=== PATIENT | female | born 1950 | race Caucasian/White ===

== ENCOUNTER → 2016-03-07 | Outpatient (CLI) | payer OTHER ==
[~2016-03-07] MED LIST: ALBUAER2 INH; ALPR-411 PO; ASPI1TAB83 PO; ATEN-173 PO; ATEN25TA PO; ATOR-24 PO; CHOL2000 PO; CYAN100020 PO; DOCU100C31 PO; FLUT1INH INH; FURO-85 PO; HMLNPUC SQ; INSUINJ7 SC; INSUINJ8 SC; ISOS60TA25 PO; LEVO75TA PO; LOSA50TA6 PO; MAGN1CAP2 PO; METF-384 PO; NTRGSL/4 UT; OMEG10007 PO; OMEP40CA PO; SPIR25TA PO; TRAM-10 PO; VENL150C56 PO; VOLTAREN TOP; ZNTT/150 PO
--- NOTE | 2016-03-07 08:37 | DIAGNOSTIC IMAGING REPORT ---
CHEST CT WITHOUT CONTRAST CT DOSE: 696.83 mGy.cm HISTORY: Carcinoid tumor and lung resection. PULMONARY NODULE TECHNIQUE: Multiaxial CT images of the chest were performed without contrast. COMPARISON: Chest CT 09/26/2015. FINDINGS: Stable 6 mm pulmonary nodule within the left upper lobe on image 83 of 346. Stable 5 mm nodule within the left lower lobe on image 208. Linear densities within the lingula have slightly progressed. There may be a nodular component associated with these linear densities best seen on image 153. This measures 9 mm. Stable 4 mm nodule within the right lower lobe on image 202. Stable 1 cm nodule within the right lower lobe on image 197. Prior right middle lobe segmentectomy. Stable linear densities at the residual right middle lobe which suggests scarring. The central airways are patent. No pleural effusions. No pneumothorax. No suspicious lytic or blastic osseous lesions. There is an 8 mm right thyroid nodule. Subcentimeter mediastinal lymph nodes remain stable. These do not meet CT criteria for pathologic involvement. Normal caliber thoracic aorta. The heart is normal in size. Limited views of the upper abdomen demonstrate a normal liver, spleen, and adrenal glands. Prior cholecystectomy. Stable 3 mm nodule within the right upper lobe on image 99. IMPRESSION: 1. Multiple bilateral pulmonary nodules are again noted which remain stable. The largest in the right lower lobe measures 1 cm. Continued follow up is recommended. 2. Progressive linear densities within the lingula. This may contain a 9 mm nodular component. This bears watching on future examinations to exclude a developing pulmonary nodule. 3. Postoperative changes within the right middle lobe. Electronically signed by: Moo Fernandez M.D. 03/07/2016 8:35 AM
== END | disposition home or self-care (01) ==
LOC: C.CTS 07:44
PROVIDERS: ATTEND Surgery
DX: R91.1 Solitary pulmonary nodule (principal); C34.90 Malignant neoplasm of unspecified part of unspecified bronchus or lung

== ENCOUNTER → 2016-03-07 | Outpatient (CLI) | payer OTHER | END | disposition home or self-care (01) | LOC: C.LAB 07:50 | PROVIDERS: ATTEND Surgery | DX: C34.90 Malignant neoplasm of unspecified part of unspecified bronchus or lung (principal) ==

== ENCOUNTER 2016-03-12 05:28 | Day surgery (SDC) | payer OTHER ==
[~2016-03-12] VITALS: Ht 171.5 cm; Wt 100.0 kg
[~2016-03-12 05:28] MED LIST changes: -OMEG10007 PO; -VOLTAREN TOP
[2016-03-12] MEDS ORDERED: LACTATED RINGER'S 1000ML 1,000 ML IV SCH (06:00)
[2016-03-12] MEDS ORDERED: VOLTAREN TOP (06:03)
[2016-03-12 06:04] VITALS: BP 133/78; PULSE 65; TEMP 36.9; O2SAT 97; Ht 171.5 cm; Wt 100.0 kg
[2016-03-12] MEDS ORDERED: MIDAZOLAM HCL 1 MG/ML 2ML VIAL ONE (06:51)
[2016-03-12] MEDS ORDERED: FENTANYL CITRATE INJ 50 MCG/1 ML 2 ML VIAL ONE (06:51)
--- NOTE | 2016-03-12 07:07 | History & Physical Bridge Note ---
H&P Re-Evaluation Bridge Note: I have examined the patient, reviewed the History & Physical and in the interval since the performance of the History & Physical I have noted the following changes of clinical significance: No changes noted
[2016-03-12] MEDS ORDERED: CEFAZOLIN IV 2,000 MG/60 ML D5W IV ONE (07:09)
[2016-03-12] MEDS ORDERED: NURSING VERBAL MED ORDER ONE (07:15)
--- NOTE | 2016-03-12 07:36 | Discharge Instructions ---
Discharge Instructions Visit Reason for Visit: Pulmonary Nodule Discharge Discharge Diagnosis / Problem: Pulmonary Nodule Discharge Goals Goal(s): Learn about illness Activity Recommendations Activity Limitations: resume your previous activity (in 24 hours) Anesthesia . Post Anesthesia Instructions: If you have had General Anesthesia or IV Sedation: * Do not drive today. * Resume driving when surgeon permits. * Do not make important decisions or sign legal documents today. * Call surgeon for: 1. Temperature elevations greater than 101 degrees F. 2. Uncontrollable pain. 3. Excessive bleeding. 4. Persistent nausea and vomiting. 5. Medication intolerance (nausea, vomiting or rash). * For nausea and vomiting use only clear liquids such as: tea, soda, bouillon until nausea subsides, then gradually increase diet as tolerated. * If you have any concerns or questions, call your surgeon's office. If physician is unavailable and it is an emergency, call 911 or go to the nearest emergency room. . Instructions / Follow-Up Instructions / Follow-Up 1. You may cough up some blood. Call physician if excessive amount noted. 2. Keep your scheduled appointment with Dr. Aparicio on March 25 @ 9:45. Diet Recommendations Recommended Home Diet: resume previous diet Pending Studies Studies pending at discharge: no Medical Emergencies . Who to Call and When: Medical Emergencies: If at any time you feel your situation is an emergency, please call 911 immediately. . Non-Emergent Contact Non-Emergency issues call your: Surgeon Call Non-Emergent contact if: you have a fever . . "Provider Documentation" section prepared by Manny Champagne.
[2016-03-12] MEDS ORDERED: GLYCOPYRROLATE INJ 0.2 MG/ML VIAL ONE ×2 (07:58→08:11)
[2016-03-12] MEDS ORDERED: ONDANSETRON INJ 2 MG/ML 2 ML VIAL ONE (07:58)
[2016-03-12] MEDS ORDERED: LIDOCAINE HCL 2% 2 ML VIAL (20MG/ML) ONE (07:58)
[2016-03-12] MEDS ORDERED: DEXAMETHASONE SOD INJ 4 MG/ML VIAL ONE (07:58)
[2016-03-12] MEDS ORDERED: LARYING-O-JET KIT (LTA) EXT ONE ×2 (07:58)
[2016-03-12] MEDS ORDERED: PROPOFOL IV EMULSION 10 MG/ML 20 ML VIAL IV ONE (07:58)
[2016-03-12] MEDS ORDERED: NEOSTIGMINE METHYLSULFATE 5 MG/5 ML SYR ONE (07:58)
[2016-03-12] MEDS ORDERED: ROCURONIUM BROMIDE 10 MG/ML 5 ML VIAL ONE (07:58)
[2016-03-12] MEDS ORDERED: EpHEDrine SULFATE 50MG/5ML SYR ONE (07:58)
--- NOTE | 2016-03-12 09:09 | DIAGNOSTIC IMAGING REPORT ---
INTRAOPERATIVE RADIOGRAPHS CLINICAL HISTORY: Navigational bronchoscopy with biopsies. Fluoroscopy time: 323 seconds. FINDINGS: 2 spot fluoroscopic views of the right lower chest are presented. The bronchoscope is present on both images. IMPRESSION: Intraoperative bronchoscopy images of the right lower lung. See operative report for detailed findings. Electronically signed by: Gato Choe M.D. 03/12/2016 9:08 AM Dictated Date/Time: 03/12/2016 9:05 AM
[2016-03-12] MEDS ORDERED: FENTANYL CITRATE INJ 50 MCG/1 ML 2 ML VIAL IV PRN (09:15)
[2016-03-12] MEDS ORDERED: ONDANSETRON INJ 2 MG/ML 2 ML VIAL IV PRN (09:15)
[2016-03-12] MEDS ORDERED: ATROPINE SULFATE 0.1 MG/ML 5ML SYR IV PRN (09:15)
[2016-03-12] MEDS ORDERED: HYDROmorphone INJ 1 MG/ML SYR IV PRN (09:15)
[2016-03-12] MEDS ORDERED: EpHEDrine SULFATE INJ 50 MG/ML AMP IV PRN (09:15)
[2016-03-12] MEDS ORDERED: MEPERIDINE HCL 25 MG/ML CARP IV PRN (09:15)
[2016-03-12] MEDS ORDERED: LABETALOL HCL IV 5 MG/ML 20ML IV PRN (09:15)
--- NOTE | 2016-03-12 09:59 | DIAGNOSTIC IMAGING REPORT ---
SINGLE VIEW CHEST CLINICAL HISTORY: Status post bronchoscopy and biopsy. FINDINGS: An AP, portable, upright chest radiograph is compared to study dated 11/21/2015 and correlated with chest CT dated 03/07/2016. The examination is degraded by portable technique, large body habitus, and patient rotation. The heart is top normal for projection. Mild pulmonary vascular congestion is suspected. More focal airspace opacities are present at the medial right lung base. No large pleural effusion or pneumothorax is seen. The skeletal structures are osteopenic. The bony thorax is grossly intact. IMPRESSION: 1. No pneumothorax is seen post procedure. 2. Pulmonary vascular congestion is identified. 3. More focal airspace opacities at the medial right lung base may represent postbiopsy change/hemorrhage. Clinical correlation will be required. Electronically signed by: Gato Choe M.D. 03/12/2016 9:57 AM Dictated Date/Time: 03/12/2016 9:55 AM
[2016-03-12 10:00] VITALS: BP 95/59; PULSE 72; TEMP 36.9; O2SAT 97
[2016-03-12 10:31] VITALS: BP 106/65; PULSE 72; O2SAT 95
[2016-03-12 11:00] VITALS: BP 117/62; PULSE 75; TEMP 36.8; O2SAT 99
--- NOTE | 2016-03-12 11:30 | OPERATIVE REPORT ---
DATE OF OPERATION: 03/12/2016 PREOPERATIVE DIAGNOSIS: 1. Right lower lobe mass. 2. Mild mediastinal adenopathy. 3. History of resection for pulmonary carcinoids. POSTOPERATIVE DIAGNOSIS: Same. PROCEDURE: 1. Endobronchial ultrasound with biopsy. 2. Navigational bronchoscopy with multiple biopsies. SURGEON: Dr. Joyce. THIRD STEEL POURER: Kenan Lira, respiratory therapy. ANESTHESIA: General anesthesia with endotracheal intubation. INDICATION FOR PROCEDURE AND FINDINGS: Elsa Dumont is a 65-year-old patient who underwent right thoracotomy with wedge resection of the right upper lobe and right lower lobe carcinoid tumors in the past. She has done very well from this done and found to have a mass in her medial right lower lobe. The patient has a history of cigarette smoking. I saw her in the office and we had a long talk. The options were to continue to observe this as it really had not changed a great deal or to do a biopsy. Mrs. Dumont decided she would like to have a biopsy done. On 03/12/2016 I took the patient to the operating room and did an uncomplicated endobronchial ultrasound with biopsy. I biopsied a left level 10, left level 4, level 7 and right level 10 and right level 4 lymph nodes. We then switched her over to the navigational bronchoscopy with the superDimension system and got down to the medial proximal right lower lobe mass and biopsied this several times. It is important to note that this mass was not in any airway. I had to position the navigational probe against the side of the airway and while I did use a brush and washings most of my biopsies were done with a needle. She tolerated this well with negligible bleeding. PROCEDURE: The patient was brought to the operating room and laid in the supine position. General anesthesia induced and endotracheal intubation was performed. After appropriate timeout and prophylactic antibiotics had been given, the endobronchial ultrasound scope was placed. Upon coming down I carefully inspected the airways. The secondary and tertiary airways were all clear of any endobronchial lesions. There was very little in the way of mucus. Starting on the left side I biopsied the level 10 node several times as well as level 4 on the left. I then biopsied the level 7 from the left side. I then went over to the right side and biopsied level 7 from that side also. Coming up I then biopsied the level 10 lymph node on the right and then the level 4 node. Level 4 node on the right was very small. We had minor bleeding but really she tolerated this well. We irrigated out and did not see much in the way of bleeding. The endobronchial ultrasound scope was then removed and the regular fiberoptic scope was placed. Again, we inspected the airways and saw no significant evidence of bleeding. The navigational probe was then placed and after registering the airways we then mapped out and went down to the right lower lobe mass. Again, it is important to note that this was not in an airway, but on the other side of an airway. Using the end of the navigational probe getting in the vicinity of this I then placed the radial ultrasound probe, we could see there was a mass here. I did do brushes, but I did not think this was going to be very effective. Using an endobronchial needle biopsy with aspiration I then biopsied this mass multiple times from multiple different directions changing orientation and direction with the navigational probe from superDimension as well as the radial ultrasound probe and under fluoroscopy. After we had done about a dozen separate needlesticks into this area I elected to stop at this point. We irrigated out some blood, but it was very little. I then slowly removed the bronchoscope. I saw no other evidence of any bleeding. The patient was easily extubated in the room and tolerated it well. I will see her back in the office to go over the pathology results. I attest to the content of the Intraoperative Record and any orders documented therein. Any exceptio ns are noted below.
--- NOTE | 2016-03-12 11:32 | Anesthesiology Progress Note ---
Anesthesia Post Op Note Date & Time Mar 12, 2016 at 11:31 Vital Signs Pain Intensity: 0 Vital Signs Past 12 Hours Date Time Temp Pulse Resp B/P Pulse Ox O2 Delivery O2 Flow Rate FiO2 03/12/16 10:31 72 18 106/65 95 Nasal Cannula 2 03/12/16 10:00 36.9 72 18 95/59 97 Nasal Cannula 2 03/12/16 09:45 36.3 67 16 117/73 98 Nasal Cannula 2 03/12/16 09:35 77 16 121/73 92 Nasal Cannula 2 03/12/16 09:25 67 18 125/73 98 Mask 10 03/12/16 09:15 67 18 110/67 95 Mask 10 03/12/16 09:07 36.1 71 18 138/82 97 Mask 10 03/12/16 06:04 36.9 65 18 133/78 97 Room Air Notes Mental Status: alert / awake / arousable, participated in evaluation Pt Amnestic to Procedure: Yes Nausea / Vomiting: adequately controlled Pain: adequately controlled Airway Patency, RR, SpO2: stable & adequate BP & HR: stable & adequate Hydration State: stable & adequate Anesthetic Complications: no major complications apparent
[2016-06-12] MEDS ORDERED: OMEG10007 PO (08:56)
== END 2016-03-12 11:15 | disposition home or self-care (01) ==
LOC: C.ACU 05:28
PROVIDERS: ATTEND Surgery
DX: R91.8 Other nonspecific abnormal finding of lung field (principal); R59.0 Localized enlarged lymph nodes; I25.10 Atherosclerotic heart disease of native coronary artery without angina pectoris; I10 Essential (primary) hypertension; E11.9 Type 2 diabetes mellitus without complications; Z88.0 Allergy status to penicillin; J45.909 Unspecified asthma, uncomplicated; E78.5 Hyperlipidemia, unspecified; E66.9 Obesity, unspecified; Z90.49 Acquired absence of other specified parts of digestive tract; Z90.710 Acquired absence of both cervix and uterus; Z90.89 Acquired absence of other organs; Z87.891 Personal history of nicotine dependence; Z79.4 Long term (current) use of insulin; Z79.82 Long term (current) use of aspirin; Z88.1 Allergy status to other antibiotic agents; Z82.49 Family history of ischemic heart disease and other diseases of the circulatory system

== ENCOUNTER → 2016-05-17 | Outpatient (CLI) | payer OTHER ==
[~2016-05-17] MED LIST changes: -INSUINJ8 SC; +OMEG10007 PO; +VOLTAREN TOP
[2016-05-17 11:06] LABS: BASO % 0.4 %; BASO ABS # 0.04 K/uL (0-0.2); COMPLETE YES; EOS % 3.5 %; HEMATOCRIT 41.6 % (37-47); IG% 0.6 %; LYMPH % 29.8 %; LYMPH ABS # 2.76 K/uL (1.2-3.4); MEAN CELL VOLUME 83.7 fL (80-100); MEAN CORPUSCULAR HEMOGLOBIN 27.8 pg (25-34); MEAN CORPUSCULAR HGB CONC 33.2 g/dl (32-36); MEAN PLATELET VOLUME 12.1 fL (7.4-10.4); MONO % 8.8 %; NEUT % 56.9 %; PLATELET COUNT 298 K/uL (130-400); RED BLOOD COUNT 4.97 M/uL (4.2-5.4); WHITE BLOOD COUNT 9.25 K/uL (4.8-10.8)
[2016-05-17 11:29] LABS: ESTIMATED AVERAGE GLUCOSE 252 mg/dl; HA1C FLAG Normal (Normal)
--- NOTE | 2016-05-21 11:39 | CODING QUERY MEDICAL NECESSITY ---
SUPPORTING DIAGNOSIS NEEDED Benoit WALKER, A supporting diagnosis is required for the test/procedure performed on this patient in order for us to be reimbursed by the patient's insurance. Please provide a supporting diagnosis for the following test/procedure listed below next to the test name along with your signature. *If there is no additional diagnosis for this patient that would support the following test/procedure please document that below next to the test/procedure. Test(s)/Procedure(s) that require a supporting diagnosis: * ([id number]) VITAMIN D ASSAY DIAGNOSIS: DATE OF SERVICE: 05/17/16 Provider Signature: Date: Thank you Robert Escobedo [facility] Information Management Once completed, please kindly fax back to [phone] For questions please call [phone]
== END | disposition home or self-care (01) ==
LOC: C.LAB1850 09:43
PROVIDERS: ATTEND Family Medicine
DX: R53.83 Other fatigue (principal); E11.9 Type 2 diabetes mellitus without complications

== ENCOUNTER 2016-06-26 07:12 | Day surgery (SDC) | payer OTHER ==
[2016-06-12 08:58] VITALS: BMI 35.0
--- NOTE | 2016-06-12 09:36 | PAT Medication Instructions ---
Service Date Jun 12, 2016. Current Home Medication List Albuterol (Ventolin Hfa), 2 PUFFS INH Q4H PRN for SOB/Wheezing Alprazolam (Xanax), 0.5 MG PO DAILY PRN for Anxiety Aspirin (Aspirin), 1 TAB PO QAM Atenolol (Tenormin), 250 MG PO QAM Atenolol (Tenormin), 25 MG PO QPM Atorvastatin (Lipitor), 40 MG PO QPM Cholecalciferol (Vitamin D3), 1 CAP PO QPM Cyanocobalamin (Vitamin B12), 1 TAB PO QAM Docusate Sodium (Docusate Sodium), 1 CAP PO BID PRN for Constipation Fish Oil (Vega [place]ta-3), 2 TAB PO QAM Furosemide (Lasix), 20 MG PO DAILY PRN for SWELLING Insulin Human NPH (Humulin N), 30 UNITS SQ BID Insulin Regular (Novolin-R), 10 UNITS SC BREAKFAST Insulin Regular (Novolin-R), 10 UNITS SC LUNCH Insulin Regular (Novolin-R), 25 UNITS SC DINNER Isosorbide Mononitrate Ext Rel (Imdur Ext Rel), 60 MG PO QPM Levothyroxine Sodium (Synthroid), 75 MCG PO QAM Losartan Potassium (Cozaar), 50 MG PO QAM Magnesium Oxide (Mg Supplement (Magnesium), 1 CAP PO QAM Metformin Hcl (Glucophage), 1,000 MG PO BID Nitroglycerin (Nitrostat), 0.4 MG UT PRN Omeprazole (Prilosec), 40 MG PO QAM Ranitidine (Zantac), 300 MG PO HS Spironolactone (Aldactone), 25 MG PO QAM Tramadol (Ultram), 1-2 TAB PO Q8H PRN for Pain Venlafaxine Hcl (Effexor Extended Rel), 225 MG PO QPM [Voltaren gel], 1 % TOP QID PRN for Pain Medication Instructions For Your Scheduled Surgery - Continue as directed: Nitroglycerin (Nitrostat), 0.4 MG UT PRN - Hold the following medications as of 06/13/16 (tomorrow): Fish Oil (Vega [place]ta-3), 2 TAB PO QAM - Hold the following medications 48 hours prior to surgery: Metformin Hcl (Glucophage), 1,000 MG PO BID - Hold the following medications 24 hours prior to surgery: [Voltaren gel], 1 % TOP QID PRN for Pain - Hold the following medications the morning of surgery: Cyanocobalamin (Vitamin B12), 1 TAB PO QAM Docusate Sodium (Docusate Sodium), 1 CAP PO BID PRN for Constipation Furosemide (Lasix), 20 MG PO DAILY PRN for SWELLING Insulin Regular (Novolin-R), 10 UNITS SC BREAKFAST Losartan Potassium (Cozaar), 50 MG PO QAM Magnesium Oxide (Mg Supplement (Magnesium), 1 CAP PO QAM Spironolactone (Aldactone), 25 MG PO QAM - Take the following medications the morning of surgery with a sip of water OTHERWISE NOTHING TO EAT OR DRINK AFTER MIDNIGHT: Albuterol (Ventolin Hfa), 2 PUFFS INH Q4H PRN for SOB/Wheezing Aspirin (Aspirin), 1 TAB PO QAM Alprazolam (Xanax), 0.5 MG PO DAILY PRN for Anxiety Atenolol (Tenormin), 250 MG PO QAM Levothyroxine Sodium (Synthroid), 75 MCG PO QAM Omeprazole (Prilosec), 40 MG PO QAM Tramadol (Ultram), 1-2 TAB PO Q8H PRN for Pain (may take if needed up to 4 hours prior to surgery) -Check your blood sugar the morning of the surgery. -If blood sugar is GREATER THAN 150, take HALF of your usual dose of: Insulin Human NPH (Humulin N) -If blood sugar is LESS THAN 150, DO NOT TAKE ANY: Insulin Human NPH ( Humulin N) - Take the following medications as scheduled the night before surgery: Albuterol (Ventolin Hfa), 2 PUFFS INH Q4H PRN for SOB/Wheezing Alprazolam (Xanax), 0.5 MG PO DAILY PRN for Anxiety Atenolol (Tenormin), 25 MG PO QPM Atorvastatin (Lipitor), 40 MG PO QPM Cholecalciferol (Vitamin D3), 1 CAP PO QPM Docusate Sodium (Docusate Sodium), 1 CAP PO BID PRN for Constipation Insulin Human NPH (Humulin N), 30 UNITS SQ BID Insulin Regular (Novolin-R), 10 UNITS SC LUNCH Insulin Regular (Novolin-R), 25 UNITS SC DINNER Ranitidine (Zantac), 300 MG PO HS Isosorbide Mononitrate Ext Rel (Imdur Ext Rel), 60 MG PO QPM Tramadol (Ultram), 1-2 TAB PO Q8H PRN for Pain Venlafaxine Hcl (Effexor Extended Rel), 225 MG PO QPM If you have any questions please call us at [phone] or [phone] or [phone]
[2016-06-12 10:23] LABS: BUN/CREATININE RATIO 16.9 (10-20); CREATININE 0.87 mg/dl (0.60-1.20); POTASSIUM 4.8 mmol/L (3.5-5.1)
[~2016-06-26] VITALS: Ht 172.7 cm; Wt 105.1 kg
[~2016-06-26 07:12] MED LIST changes: -FLUT1INH INH; +LACTATED RINGER'S 1000ML 1,000 ML IV SCH
[2016-06-26 07:43] VITALS: BP 137/83; PULSE 69; TEMP 37; O2SAT 96; Ht 172.7 cm; Wt 105.1 kg
[2016-06-26] MEDS ORDERED: FENTANYL CITRATE INJ 50 MCG/1 ML 2 ML VIAL ONE ×3 (07:54→11:13)
[2016-06-26] MEDS ORDERED: MIDAZOLAM HCL 1 MG/ML 2ML VIAL ONE (07:54)
[2016-06-26] MEDS ORDERED: NURSING VERBAL MED ORDER ONE (08:15)
--- NOTE | 2016-06-26 08:17 | Discharge Instructions ---
Discharge Instructions Date of Service Jun 26, 2016. Visit Reason for Visit: Mediastinal Lymphadenopathy Discharge Discharge Diagnosis / Problem: Mediastinal Lymphadenopathy Discharge Goals Goal(s): Learn about illness Activity Recommendations Activity Limitations: resume your previous activity (in 24 hours) Anesthesia . Post Anesthesia Instructions: If you have had General Anesthesia or IV Sedation: * Do not drive today. * Resume driving when surgeon permits. * Do not make important decisions or sign legal documents today. * Call surgeon for: 1. Temperature elevations greater than 101 degrees F. 2. Uncontrollable pain. 3. Excessive bleeding. 4. Persistent nausea and vomiting. 5. Medication intolerance (nausea, vomiting or rash). * For nausea and vomiting use only clear liquids such as: tea, soda, bouillon until nausea subsides, then gradually increase diet as tolerated. * If you have any concerns or questions, call your surgeon's office. If physician is unavailable and it is an emergency, call 911 or go to the nearest emergency room. . Instructions / Follow-Up Instructions / Follow-Up 1. Call physician if excessive swelling noted at incision or if you cannot swallow. 2. Keep your scheduled appointment with Dr. Joyce on July 04 @ 11:15. Diet Recommendations Recommended Home Diet: resume previous diet Pending Studies Studies pending at discharge: no Medical Emergencies . Who to Call and When: Medical Emergencies: If at any time you feel your situation is an emergency, please call 911 immediately. . Non-Emergent Contact Non-Emergency issues call your: Surgeon Call Non-Emergent contact if: temperature is above 101.5, your pain is not controlled, wound has increased drainage . . "Provider Documentation" section prepared by Manny Champagne. .
[2016-06-26] MEDS ORDERED: NovoLIN-R INSULIN PER UNIT CHARGE ONE (08:21)
[2016-06-26] MEDS ORDERED: TRAM-10 PO (08:54)
[2016-06-26] MEDS ORDERED: CEFAZOLIN SOD 1 GM VIAL ONE (09:48)
[2016-06-26] MEDS ORDERED: LARYING-O-JET KIT (LTA) EXT ONE ×2 (09:48)
[2016-06-26] MEDS ORDERED: DEXAMETHASONE SOD INJ 4 MG/ML VIAL ONE (09:48)
[2016-06-26] MEDS ORDERED: LABETALOL HCL IV 5 MG/ML 20ML IV ONE ×2 (09:48→10:12)
[2016-06-26] MEDS ORDERED: PROPOFOL IV EMULSION 10 MG/ML 20 ML VIAL IV ONE (09:48)
[2016-06-26] MEDS ORDERED: ONDANSETRON INJ 2 MG/ML 2 ML VIAL ONE (09:48)
[2016-06-26] MEDS ORDERED: LIDOCAINE HCL 2% 2 ML VIAL (20MG/ML) ONE (09:48)
[2016-06-26] MEDS ORDERED: CISATRACURIUM BESYLATE IV SOLN 2 MG/ML 10 ML VIAL ONE (09:52)
[2016-06-26] MEDS ORDERED: GLYCOPYRROLATE INJ 0.2 MG/ML VIAL ONE (10:12)
[2016-06-26] MEDS ORDERED: NEOSTIGMINE METHYLSULFATE 5 MG/5 ML SYR ONE (10:12)
[2016-06-26] MEDS ORDERED: TRAMADOL HCL 50 MG TAB PO PRN (10:45)
[2016-06-26] MEDS ORDERED: MoRPHine SULFATE 2 MG/ML CARP IV PRN (10:45)
[2016-06-26] MEDS ORDERED: FENTANYL CITRATE INJ 50 MCG/1 ML 2 ML VIAL IV PRN (11:15)
[2016-06-26] MEDS ORDERED: EpHEDrine SULFATE INJ 50 MG/ML AMP IV PRN (11:15)
[2016-06-26] MEDS ORDERED: LABETALOL HCL IV 5 MG/ML 20ML IV PRN (11:15)
[2016-06-26] MEDS ORDERED: ATROPINE SULFATE 0.1 MG/ML 5ML SYR IV PRN (11:15)
[2016-06-26] MEDS ORDERED: NALOXONE HCL 0.4 MG/1 ML VIAL/CARP IV PRN (11:15)
[2016-06-26] MEDS ORDERED: ONDANSETRON INJ 2 MG/ML 2 ML VIAL IV PRN (11:15)
[2016-06-26] MEDS ORDERED: PROMETHAZINE HCL INJ 12.5 MG in SODIUM CHLORIDE 0.9% 50ML 50 ML IV PRN (11:15)
[2016-06-26] MEDS ORDERED: FLUMAZENIL 0.1 MG/1 ML 10 ML VIAL IV PRN (11:15)
--- NOTE | 2016-06-26 11:35 | DIAGNOSTIC IMAGING REPORT ---
SINGLE VIEW CHEST CLINICAL HISTORY: Pulmonary nodule. Status post mediastinoscopy. FINDINGS: An AP, portable, upright chest radiograph is compared to study dated 03/12/2016 and correlated with chest CT dated 03/07/2016. The examination is degraded by portable technique, large body habitus, and patient rotation. The heart is enlarged and there is prominence of the pulmonary vasculature. A clip projects over the right mediastinum. Chronic interstitial thickening is unchanged. Bibasilar atelectasis is noted. No airspace consolidation or large pleural effusion is identified. No pneumothorax is seen. The skeletal structures are osteopenic. The bony thorax is grossly intact. IMPRESSION: 1. Cardiac enlargement. There is prominence of the central pulmonary vessels. Cortical clinically for evidence of mild congestive change. 2. No pneumothorax is seen post procedure. 3. There is no airspace consolidation or large pleural effusion. Electronically signed by: Gato Choe M.D. 06/26/2016 11:33 AM Dictated Date/Time: 06/26/2016 11:31 AM
--- NOTE | 2016-06-26 11:49 | Anesthesiology Progress Note ---
Anesthesia Post Op Note Date & Time Jun 26, 2016 at 11:48 Vital Signs Pain Intensity: 7 Vital Signs Past 12 Hours Date Time Temp Pulse Resp B/P Pulse Ox O2 Delivery O2 Flow Rate FiO2 06/26/16 11:31 140/81 06/26/16 11:29 73 14 06/26/16 11:29 73 14 90 06/26/16 11:26 143/85 06/26/16 11:24 70 14 94 06/26/16 11:24 70 14 06/26/16 11:21 143/82 06/26/16 11:19 70 16 95 06/26/16 11:19 70 16 06/26/16 11:18 70 16 06/26/16 11:18 70 16 96 06/26/16 11:16 146/84 06/26/16 11:13 71 14 06/26/16 11:13 71 14 99 06/26/16 11:11 151/95 06/26/16 11:08 71 17 06/26/16 11:08 70 17 97 06/26/16 11:06 154/86 06/26/16 11:03 74 18 98 06/26/16 11:03 74 18 06/26/16 11:02 74 19 06/26/16 11:02 73 19 98 06/26/16 11:01 148/88 06/26/16 10:57 73 19 06/26/16 10:57 73 19 100 06/26/16 10:56 156/88 06/26/16 10:52 72 19 100 06/26/16 10:52 72 19 06/26/16 10:51 152/92 06/26/16 10:47 36.4 76 16 173/93 100 Mask 10 06/26/16 10:47 97 18 173/93 100 06/26/16 10:47 77 18 06/26/16 07:43 37 69 18 137/83 96 Room Air Notes Mental Status: alert / awake / arousable, participated in evaluation Pt Amnestic to Procedure: Yes Nausea / Vomiting: adequately controlled Pain: adequately controlled Airway Patency, RR, SpO2: stable & adequate BP & HR: stable & adequate Hydration State: stable & adequate Anesthetic Complications: no major complications apparent
--- NOTE | 2016-06-26 11:52 | OPERATIVE REPORT ---
DATE OF OPERATION: 06/26/2016 PREOPERATIVE DIAGNOSES: 1. History of pulmonary carcinoid. 2. Mediastinal adenopathy. POSTOPERATIVE DIAGNOSES: Same. PROCEDURE: Video mediastinoscopy with biopsy. SURGEON: Matteo Joyce MD RAILROAD BRAKE OPERATOR: ALICE More ANESTHESIA: General anesthesia with endotracheal intubation. INDICATION FOR PROCEDURE AND FINDINGS: This is a 66-year-old female who has a history of a wedge resection for carcinoid and presented back when she had an abnormality in her left lower lobe. I did a navigational bronchoscopy and biopsied this. On today's endobronchial ultrasound with biopsy, it appears that she has not only carcinoid in her right lower lobe, but also involvement of her lymph nodes. There was some discussion about this because she was referred for a second opinion to [facility] in [place] and they did not feel that her lymph nodes indeed had metastatic spread. For this reason, I had a long talk in the office with her. It is my feeling that probably I could not to do anything different, but she and her were quite eager to have this done. I had a long discussion with them, and we proceed with video mediastinoscopy. On 06/26/2016, the patient underwent an uncomplicated video mediastinoscopy. I biopsied a right level 2, right level 4, right level 10 and level 7 lymph nodes without difficulty. We got into no bleeding. She had very little on the left side and I did not biopsied the level 2, the level 4 on the left. She had no significant bleeding. Blood loss was negligible. She tolerated it well. DESCRIPTION OF PROCEDURE: She was brought to the operating room and laid in supine position. General anesthesia induced and endotracheal intubation was performed. An incision was made one fingerbreadth above the sternal notch transversely and this was carried down to the strap muscles, which were divided in the midline. A sharp and blunt dissection where used to dissect down in the pretracheal plane which was developed bluntly. A video mediastinoscope was then placed. When placing this, we came upon a fairly sizeable right level 2 node which was removed with forceps. I then went down. There were multiple level 4 nodes, more lateral just above the azygos vein and also more medial superior to the pulmonary artery. I biopsied multiple areas here. I then identified and cleaned off the azygos vein and went below this and dissected out some level 10 nodes and got several biopsies. I then went on the other side of the right mainstem bronchus down to level 7 area onto the tigist and dissected off a fairly sizable node. There were large feeding vessels and we did get into some minor bleeding and I clipped these with 2 clips each. With biopsies, I was able to remove a large portion of the level 7 node. We dissected this out quite nicely. After clipping off the 2 larger vessels to this and there was no significant bleeding, I slowly withdrew the video mediastinoscope. I did not see much in the way of lymph nodes on the left and really did not see any on CT scan. To avoid injury to the recurrent laryngeal, I left this alone. We had no bleeding after I irrigated it out. The video mediastinoscope was slowly removed. Strap muscles were reapproximated using 3-0 Polysorb in a running continuous fashion and then 4-0 Monocryl was used in running subcuticular fashion to approximate the wound edges. She tolerated it well. I attest to the content of the Intraoperative Record and any orders documented therein. Any exceptions are noted below. RK
[2016-06-26 12:25] VITALS: BP 114/69; PULSE 79; TEMP 36.8; O2SAT 93
[2016-06-26 12:55] VITALS: BP 121/76; PULSE 77; TEMP 36.4; O2SAT 93
[2016-06-26 13:24] VITALS: BP 125/76; PULSE 82; TEMP 36.7; O2SAT 94
[2016-06-26 14:05] VITALS: BP 145/77; PULSE 82; TEMP 36.7; O2SAT 94
== END 2016-06-26 14:20 | disposition home or self-care (01) ==
LOC: C.ACU 07:12
PROVIDERS: ATTEND Surgery
DX: R59.0 Localized enlarged lymph nodes (principal); I71.2 Thoracic aortic aneurysm, without rupture; I25.10 Atherosclerotic heart disease of native coronary artery without angina pectoris; I10 Essential (primary) hypertension; E11.9 Type 2 diabetes mellitus without complications; K21.9 Gastro-esophageal reflux disease without esophagitis; E78.5 Hyperlipidemia, unspecified; E03.9 Hypothyroidism, unspecified; F41.8 Other specified anxiety disorders; G47.30 Sleep apnea, unspecified; E66.9 Obesity, unspecified; Z87.891 Personal history of nicotine dependence; Z86.012 Personal history of benign carcinoid tumor; Z79.899 Other long term (current) drug therapy; Z79.4 Long term (current) use of insulin

== ENCOUNTER → 2016-09-04 | Outpatient (CLI) | payer OTHER ==
[~2016-09-04] MED LIST changes: -LACTATED RINGER'S 1000ML 1,000 ML IV SCH
--- NOTE | 2016-09-04 09:52 | DIAGNOSTIC IMAGING REPORT ---
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 Images are reviewed in the axial, sagittal, and coronal planes. IV contrast was not administered for this examination. FINDINGS: Thyroid: There is a stable 13 mm right lobe thyroid nodule. Thoracic aorta: The thoracic aorta is normal in course and caliber, noting standard 3 vessel arch anatomy. Heart: The heart is normal in size and configuration, without pericardial effusion. Lungs and pleural spaces: There are no pleural effusions. There is a stable solid 1 cm right lower lobe pulmonary nodule as visualized in image #194/[id number]. There is a stable solid 5 mm right lower lobe pulmonary nodule as visualized in image #200/326. There is a stable solid 5 mm left lower lobe pulmonary nodule as visualized in image #193/326. There is a stable solid 6 mm left upper lobe pulmonary nodule as visualized in image #75/326. There are postoperative changes within the right middle lobe. Mediastinum: There is no evidence of pathologic mediastinal lymphadenopathy. Joi: There is no nodes of pathologic hilar adenopathy given the limitations of a noncontrast study. Axilla: There is no evidence of pathologic axillary lymphadenopathy Upper abdomen: The gallbladder surgically absent. Skeletal structures: There are no lytic or blastic osseous lesions. IMPRESSION: 1. Bilateral solid pulmonary nodules, essentially unchanged in size from the preceding examination. The largest is located within the right lower lobe measuring 1 cm. 2. No evidence of pathologic adenopathy 3. Stable postsurgical changes within the right middle lobe Electronically signed by: Siddharth Javed M.D. 09/04/2016 9:51 AM Dictated Date/Time: 09/04/2016 9:28 AM
== END | disposition home or self-care (01) ==
LOC: C.CTS 09:14
PROVIDERS: ATTEND Internal Medicine Critical Care Medicine
DX: C34.2 Malignant neoplasm of middle lobe, bronchus or lung (principal); D3A.090 Benign carcinoid tumor of the bronchus and lung; R06.09 Other forms of dyspnea; R91.1 Solitary pulmonary nodule

== ENCOUNTER → 2016-09-30 | Outpatient (CLI) | payer OTHER ==
--- NOTE | 2016-09-30 16:54 | DIAGNOSTIC IMAGING REPORT ---
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 Cardiac silhouette is unremarkable. Slight chronic interstitial prominence. No focal infiltrate. IMPRESSION: Chronic change. No acute process. The above report was generated using voice recognition software. It may contain grammatical, syntax or spelling errors. Electronically signed by: Irvin Morillo M.D. 09/30/2016 4:53 PM Dictated Date/Time: 09/30/2016 4:53 PM
== END | disposition home or self-care (01) ==
LOC: C.RAD1850 16:42
PROVIDERS: ATTEND Physician Assistant
DX: D3A.090 Benign carcinoid tumor of the bronchus and lung (principal)

== ENCOUNTER 2016-11-09 02:31 | Emergency (ER) | payer OTHER ==
[~2016-11-09] VITALS: Ht 170.2 cm; Wt 105.0 kg
[2016-11-09 02:35] VITALS: TEMP 36.7; Ht 170.2 cm; Wt 105.0 kg
--- NOTE | 2016-11-09 03:16 | EMERGENCY ROOM VISIT NOTE ---
History Report prepared by Shukri: Elliot Kinney Under the Supervision of: Dr. Lauri Pereira D.O. First contact with patient: 03:08 Chief Complaint: HYPERGLYCEMIA Stated Complaint: HIGH SUGAR Nursing Triage Summary: Patient reports taking BS prior to arrival and it being 360. History of Present Illness The patient is a 66 year old female who presents to the Emergency Room with complaints of hyperglycemia that began recently. Her blood sugar was unable to be read with her blood sugar monitor. Prior to arrival, her blood sugar was read as 360. She notes to have taken 30 units of Novolin R at 2130 and 20 units at 0100. She is also experiencing frequent urination with blurred vision. She notes to have eaten and drank things that are high in sugar today. She denies any other complaints at this time. Source of History: patient Onset: recently Position: other (Global) Symptom Intensity: 390 Blood sugar Quality: other (Hyperglycemia) Timing: other (Improving) Associated Symptoms: + urinary symptoms (Frequent urination) Note: She is having blurry vision and lethargy. She denies any other symptoms. Review of Systems See HPI for pertinent positives and negatives. A total of ten systems were reviewed and were otherwise negative. Past Medical & Surgical Medical Problems: (1) Chest pain Surgical Problems: (1) S/P cardiac catheterization Family History No pertinent family history Social History Smoking Status: Never Smoker Smokeless Tobacco Use: No Drug Use: none Marital Status: Housing Status: lives with family Current/Historical Medications Scheduled Aspirin (Aspirin), 1 TAB PO QAM Atenolol (Tenormin), 250 MG PO QAM Atenolol (Tenormin), 25 MG PO QPM Atorvastatin (Lipitor), 40 MG PO QPM Cholecalciferol (Vitamin D3), 1 CAP PO QPM Cyanocobalamin (Vitamin B12), 1 TAB PO QAM Fish Oil (Partridge-3), 2 TAB PO QAM Insulin Human NPH (Humulin N), 30 UNITS SQ BID Insulin Regular (Novolin-R), 10 UNITS SC BREAKFAST Insulin Regular (Novolin-R), 10 UNITS SC LUNCH Insulin Regular (Novolin-R), 25 UNITS SC DINNER Isosorbide Mononitrate Ext Rel (Imdur Ext Rel), 60 MG PO QPM Levothyroxine Sodium (Synthroid), 75 MCG PO QAM Losartan Potassium (Cozaar), 50 MG PO QAM Magnesium Oxide (Mg Supplement (Magnesium), 1 CAP PO QAM Metformin Hcl (Glucophage), 1,000 MG PO BID Nitroglycerin (Nitrostat), 0.4 MG UT PRN Omeprazole (Prilosec), 40 MG PO QAM Ranitidine (Zantac), 300 MG PO HS Spironolactone (Aldactone), 25 MG PO QAM Venlafaxine Hcl (Effexor Extended Rel), 225 MG PO QPM Scheduled PRN Albuterol (Ventolin Hfa), 2 PUFFS INH Q4H PRN for SOB/Wheezing Alprazolam (Xanax), 0.5 MG PO DAILY PRN for Anxiety Docusate Sodium (Docusate Sodium), 1 CAP PO BID PRN for Constipation Furosemide (Lasix), 20 MG PO DAILY PRN for SWELLING Tramadol (Ultram), 50 MG PO Q4H PRN for Pain Allergies Coded Allergies: Clindamycin (Verified Allergy, Intermediate, HIVES, 06/26/16) Sulfamethoxazole w/Trimethoprim (Verified Allergy, Intermediate, HIVES, ) Amoxicillin (Verified Adverse Reaction, Mild, nausea and vomiting, 06/26/16 ) Clavulanic Acid (Verified Adverse Reaction, Mild, NAUSEA AND VOMITING, ) Physical Exam Vital Signs Date Time Temp Pulse Resp B/P (MAP) Pulse Ox O2 Delivery O2 Flow Rate FiO2 11/09/16 04:01 67 16 133/70 97 Room Air 11/09/16 04:00 97 Room Air 11/09/16 04:00 97 Room Air 11/09/16 03:58 72 11/09/16 02:35 36.7 73 18 139/93 95 Room Air Physical Exam GENERAL: Awake, alert, well-appearing, in no distress HENT: Normocephalic, atraumatic. Oropharynx unremarkable. EYES: Normal conjunctiva. Sclera non-icteric. NECK: Supple. No nuchal rigidity. FROM. No JVD. RESPIRATORY: Clear to auscultation. CARDIAC: Regular rate, normal rhythm. Extremities warm and well perfused. Pulses equal. ABDOMEN: Soft, non-distended. No tenderness to palpation. No rebound or guarding. No masses. RECTAL: Deferred. MUSCULOSKELETAL: Chest examination reveals no tenderness. The back is symmetrical on inspection without obvious abnormality. There is no CVA tenderness to palpation. No joint edema. LOWER EXTREMITIES: Calves are equal size bilaterally and non-tender. No edema. No discoloration. NEURO: Normal sensorium. No sensory or motor deficits noted. SKIN: No rash or jaundice noted. Medical Decision & Procedures Laboratory Results 11/09/16 03:50 Red Blood Count 5.24, Mean Corpuscular Volume 80.7, Mean Corpuscular Hemoglobin 26.7, Mean Corpuscular Hemoglobin Concent 33.1, Mean Platelet Volume 11.3, Neutrophils (%) (Auto) 47.3, Lymphocytes (%) (Auto) 40.2, Monocytes (%) (Auto) 8.4, Eosinophils (%) (Auto) 3.7, Basophils (%) (Auto) 0.2, Neutrophils # (Auto) 4.38, Lymphocytes # (Auto) 3.72, Monocytes # (Auto) 0.78, Eosinophils # (Auto) 0.34, Basophils # (Auto) 0.02 11/09/16 03:50 Test 11/09/16 02:43 11/09/16 03:50 Bedside Glucose 366 mg/dl (70-90) White Blood Count 9.26 K/uL (4.8-10.8) Red Blood Count 5.24 M/uL (4.2-5.4) Hemoglobin 14.0 g/dL (12.0-16.0) Hematocrit 42.3 % (37-47) Mean Corpuscular Volume 80.7 fL (80-100) Mean Corpuscular Hemoglobin 26.7 pg (25-34) Mean Corpuscular Hemoglobin Concent 33.1 g/dl (32-36) Platelet Count 287 K/uL (130-400) Mean Platelet Volume 11.3 fL (7.4-10.4) Neutrophils (%) (Auto) 47.3 % Lymphocytes (%) (Auto) 40.2 % Monocytes (%) (Auto) 8.4 % Eosinophils (%) (Auto) 3.7 % Basophils (%) (Auto) 0.2 % Neutrophils # (Auto) 4.38 K/uL (1.4-6.5) Lymphocytes # (Auto) 3.72 K/uL (1.2-3.4) Monocytes # (Auto) 0.78 K/uL (0.11-0.59) Eosinophils # (Auto) 0.34 K/uL (0-0.5) Basophils # (Auto) 0.02 K/uL (0-0.2) RDW Standard Deviation 45.5 fL (36.4-46.3) RDW Coefficient of Variation 15.7 % (11.5-14.5) Immature Granulocyte % (Auto) 0.2 % Immature Granulocyte # (Auto) 0.02 K/uL (0.00-0.02) Anion Gap 7.0 mmol/L (3-11) Est Creatinine Clear Calc Drug Dose 62.7 ml/min Estimated GFR () 60.6 Estimated GFR (Non- 52.3 BUN/Creatinine Ratio 14.4 (10-20) Calcium Level 9.6 mg/dl (8.5-10.1) Total Bilirubin 0.4 mg/dl (0.2-1) Direct Bilirubin < 0.1 mg/dl (0-0.2) Aspartate Amino Transf (AST/SGOT) 14 U/L (15-37) Alanine Aminotransferase (ALT/SGPT) 20 U/L (12-78) Alkaline Phosphatase 234 U/L (45-117) Total Protein 8.2 gm/dl (6.4-8.2) Albumin 3.4 gm/dl (3.4-5.0) Laboratory results reviewed by me Medications Administered Medications (Trade) Dose Ordered Sig/Alec Route Start Time Stop Time Status Last Admin Dose Admin Sodium Chloride 1,000 ml @ 999 mls/hr Q1H1M STAT IV 11/09/16 03:22 11/09/16 04:22 DC 11/09/16 03:22 999 MLS/HR ED Course 0308: The patient was evaluated in room A3. A complete history and physical exam was performed. 0322: Ordered Sodium Chloride 1000 ml @ 999 mls/hr IV 0453: I reevaluated the patient. Discussed results and discharge instructions: She verbalized understanding and agreement. The patient is ready for discharge. Medical Decision Differential diagnoses include hyperglycemia, DKA, dehydration, and UTI. Resting in no distress, no signs of diabetic ketoacidosis, patient's sugar has decreased significantly she has a normal renal function. Discussed the workup with the patient patient's at bedside Medication Reconcilliation Current Medication List: was personally reviewed by me Blood Pressure Screening Patient's blood pressure: Normal blood pressure Blood pressure disposition: Did not require urgent referral Impression Primary Impression: Acute hyperglycemia Scribe Attestation The scribe's documentation has been prepared under my direction and personally reviewed by me in its entirety. I confirm that the note above accurately reflects all work, treatment, procedures, and medical decision making performed by me. Departure Information Dispostion Home / Self-Care Referrals Maria D Laboy MD (PCP) Forms HOME CARE DOCUMENTATION FORM, IMPORTANT VISIT INFORMATION, WORK / SCHOOL INSTRUCTIONS Patient Instructions ED Hyperglycemia Diabetic, My [facility]
[2016-11-09] MEDS ORDERED: SODIUM CHLORIDE 0.9% 1000ML 1,000 ML IV STA (03:22)
[2016-11-09 04:00] VITALS: O2SAT 97
[2016-11-09 04:04] LABS: BASO % 0.2 %; BASO ABS # 0.02 K/uL (0-0.2); COMPLETE YES; EOS % 3.7 %; HEMATOCRIT 42.3 % (37-47); IG% 0.2 %; LYMPH % 40.2 %; LYMPH ABS # 3.72 K/uL (1.2-3.4); MEAN CELL VOLUME 80.7 fL (80-100); MEAN CORPUSCULAR HEMOGLOBIN 26.7 pg (25-34); MEAN CORPUSCULAR HGB CONC 33.1 g/dl (32-36); MEAN PLATELET VOLUME 11.3 fL (7.4-10.4); MONO % 8.4 %; NEUT % 47.3 %; PLATELET COUNT 287 K/uL (130-400); RED BLOOD COUNT 5.24 M/uL (4.2-5.4); WHITE BLOOD COUNT 9.26 K/uL (4.8-10.8)
[2016-11-09 04:25] LABS: ALT/SGPT 20 U/L (12-78); BLOOD UREA NITROGEN 16 mg/dl (7-18); BUN/CREATININE RATIO 14.4 (10-20); CALCIUM 9.6 mg/dl (8.5-10.1); CARBON DIOXIDE 29 mmol/L (21-32); CHLORIDE 100 mmol/L (98-107); GLUCOSE 257 mg/dl (70-99); SODIUM 136 mmol/L (136-145)
[2016-11-09 04:28] LABS: ALKALINE PHOSPHATASE 234 U/L (45-117); AST/SGOT 14 U/L (15-37)
[2016-11-09 05:05] VITALS: BP 127/76; PULSE 70; O2SAT 96
[2016-11-09 06:51] LABS: URINE APPEARANCE CLEAR (CLEAR); URINE BILIRUBIN NEG (NEG); URINE COLOR YELLOW; URINE NITRITE NEG (NEG); UROBILINOGEN NEG (NEG)
[2016-11-09 06:53] LABS: MANUAL MICROSCOPIC REQUIRED? NO; REVIEW REQ? NO
== END 2016-11-09 05:06 | disposition home or self-care (01) ==
LOC: C.EDB 02:32 → C.EDA 05:06
DX: R73.9 Hyperglycemia, unspecified (principal); Z79.82 Long term (current) use of aspirin; Z79.4 Long term (current) use of insulin; Z79.899 Other long term (current) drug therapy

== ENCOUNTER → 2016-11-23 | Outpatient (CLI) | payer OTHER ==
[~2016-11-23] MED LIST changes: -VOLTAREN TOP
--- NOTE | 2016-11-23 09:56 | DIAGNOSTIC IMAGING REPORT ---
LUMBAR SPINE 5 VIEWS HISTORY: WORSENING LUMBAR PAIN, BILATERAL NUMBNESS COMPARISON: Lumbar spine 01/23/2015. FINDINGS: There is no fracture. No subluxation. Cholecystectomy. Mild disc space narrowing at T12-L1. Mild facet degenerative changes at L5-S1. A few small endplate osteophytes within the lumbar spine. Minimal disc space narrowing at L2-L3. IMPRESSION: Mild degenerative changes as described above. This is similar to the prior study. No acute fracture or subluxation within the lumbar spine. Electronically signed by: Moo Fernandez M.D. 11/23/2016 9:54 AM Dictated Date/Time: 11/23/2016 9:53 AM
[2016-11-23 10:40] LABS: ESTIMATED AVERAGE GLUCOSE 266 mg/dl; HA1C FLAG Normal (Normal)
[2016-11-23 10:42] LABS: ALT/SGPT 20 U/L (12-78); BLOOD UREA NITROGEN 15 mg/dl (7-18); BUN/CREATININE RATIO 15.3 (10-20); CALCIUM 9.2 mg/dl (8.5-10.1); CARBON DIOXIDE 29 mmol/L (21-32); CHLORIDE 107 mmol/L (98-107); CREATININE 0.99 mg/dl (0.60-1.20); GLUCOSE 141 mg/dl (70-99); POTASSIUM 4.2 mmol/L (3.5-5.1); SODIUM 141 mmol/L (136-145)
[2016-11-23 10:55] LABS: CHOLESTEROL 169 mg/dl (0-200); HDL CHOLESTEROL 42 mg/dl; LDL CHOLESTEROL CALCULATED 81 mg/dl; TRIGLYCERIDES 230 mg/dl (0-150); VERY LOW DENSITY LIPOPROT CALC 46 mg/dl
== END | disposition home or self-care (01) ==
LOC: C.RAD 09:08
PROVIDERS: ATTEND Family Medicine
DX: E11.9 Type 2 diabetes mellitus without complications (principal); E03.9 Hypothyroidism, unspecified; M54.5 Low back pain; R20.0 Anesthesia of skin; M89.8X8 Other specified disorders of bone, other site

== ENCOUNTER → 2016-12-25 | Outpatient (CLI) | payer OTHER | END | disposition home or self-care (01) | LOC: C.LABBC 14:11 | PROVIDERS: ATTEND Psychiatry & Neurology Neurology | DX: M54.2 Cervicalgia (principal) ==

== ENCOUNTER → 2017-02-14 | Outpatient (CLI) | payer OTHER ==
[~2017-02-14] MED LIST changes: -TRAM-10 PO
[2017-02-14 12:44] LABS: ESTIMATED AVERAGE GLUCOSE 194 mg/dl; HA1C FLAG Normal (Normal)
[2017-02-14 13:09] LABS: ALB/GLOB RATIO 0.7 (0.9-2); ALT/SGPT 17 U/L (12-78); AST/SGOT 11 U/L (15-37); BLOOD UREA NITROGEN 13 mg/dl (7-18); BUN/CREATININE RATIO 12.5 (10-20); CALCIUM 8.7 mg/dl (8.5-10.1); CARBON DIOXIDE 26 mmol/L (21-32); CHLORIDE 100 mmol/L (98-107); CHOLESTEROL 131 mg/dl (0-200); GLUCOSE 241 mg/dl (70-99); POTASSIUM 4.5 mmol/L (3.5-5.1); SODIUM 131 mmol/L (136-145); TRIGLYCERIDES 181 mg/dl (0-150); VERY LOW DENSITY LIPOPROT CALC 36 mg/dl
[2017-02-14 13:15] LABS: ALKALINE PHOSPHATASE 167 U/L (45-117); CHOLESTEROL/HDL RATIO 3.2; HDL CHOLESTEROL 41 mg/dl; LDL CHOLESTEROL CALCULATED 54 mg/dl; THYROID STIMULATING HORMONE 0.329 uIu/ml (0.300-4.500)
== END | disposition home or self-care (01) ==
LOC: C.LABPBG 10:34
PROVIDERS: ATTEND Physician Assistant
DX: E11.9 Type 2 diabetes mellitus without complications (principal)

== ENCOUNTER → 2017-02-18 | Outpatient (CLI) | payer OTHER ==
[~2017-02-18] MED LIST changes: +GADAVIST IV PRN
--- NOTE | 2017-02-18 12:26 | DIAGNOSTIC IMAGING REPORT ---
MRI LUMBAR SPINE COMBINATION CLINICAL HISTORY: M54.5 severe low back pain with bilateral leg radiculopathy. History of multiple falls. TECHNIQUE: Sagittal and axial T1, T2 and STIR images were obtained. Imaging was performed before and after the administration of 10 cc of intravenous Gadavist. COMPARISON STUDY: Conventional radiographic study dated 11/23/2016 OBSERVATIONS: The vertebral bodies and posterior elements appear intact. There is no abnormal bony signal present to suggest a marrow replacement process. L1-2: There is a small central disc protrusion with secondary deformity of the thecal sac. There is no significant foraminal narrowing L2-3: There is a circumferential disc bulge. There is mild spinal stenosis. There is no significant foraminal narrowing L3-4: There is a circumferential disc bulge. There is mild spinal stenosis. There is no significant foraminal narrowing L4-5: No disc protrusions or extrusions. No evidence of spinal canal or neural foraminal compromise. L5-S1: There is a circumferential disc bulge. There is a probable right-sided synovial cyst. There is no significant spinal or foraminal stenosis. The conus medullaris and cauda equina appear normal. There is a small Tarlov cyst at the S2-3 level. Postcontrast images reveal no pathologically enhancing masses. There are discogenic endplate changes the T12-L1 level. There is a T12-L1 disc bulge which was not included on axial scans. IMPRESSION: 1. Small central disc protrusion at the L1-2 level 2. Circumferential disc bulges and mild spinal stenosis the L2-3 and L3-4 levels 3. Disc bulge and right-sided synovial cyst at the L5-S1 level. No significant spinal stenosis at this level. Electronically signed by: Siddharth Javed M.D. 02/18/2017 12:25 PM Dictated Date/Time: 02/18/2017 12:20 PM
== END | disposition home or self-care (01) ==
LOC: C.MRI 10:50
PROVIDERS: ATTEND Psychiatry & Neurology Neurology
DX: M54.5 Low back pain (principal)

== ENCOUNTER → 2017-03-20 | Outpatient (CLI) | payer OTHER ==
[~2017-03-20] MED LIST changes: -GADAVIST IV PRN
[2017-03-20 12:32] LABS: BLOOD UREA NITROGEN 12 mg/dl (7-18); CALCIUM 9.1 mg/dl (8.5-10.1); CARBON DIOXIDE 29 mmol/L (21-32); CREATININE 0.93 mg/dl (0.60-1.20); GLUCOSE 97 mg/dl (70-99); POTASSIUM 4.4 mmol/L (3.5-5.1); SODIUM 137 mmol/L (136-145)
== END | disposition home or self-care (01) ==
LOC: C.LAB1850 10:41
PROVIDERS: ATTEND Physician Assistant
DX: Z00.00 Encounter for general adult medical examination without abnormal findings (principal); E11.9 Type 2 diabetes mellitus without complications; I12.9 Hypertensive chronic kidney disease with stage 1 through stage 4 chronic kidney disease, or unspecified chronic kidney disease; N18.9 Chronic kidney disease, unspecified

== ENCOUNTER → 2017-07-04 | Outpatient (CLI) | payer OTHER ==
[~2017-07-04] MED LIST changes: -ALBUAER2 INH; +BUPR-79 PO; +INSHNI SQ; -ISOS60TA25 PO; +METH500T37 PO; +RANI150T85 PO; -ZNTT/150 PO
[2017-07-04 12:37] LABS: HEMOGLOBIN A1C 8.1 % (4.5-5.6)
[2017-07-04 12:46] LABS: ALBUMIN 3.1 gm/dl (3.4-5.0); ALT/SGPT 20 U/L (12-78); AST/SGOT 14 U/L (15-37); BLOOD UREA NITROGEN 13 mg/dl (7-18); CALCIUM 9.4 mg/dl (8.5-10.1); CARBON DIOXIDE 25 mmol/L (21-32); CREATININE 1.04 mg/dl (0.60-1.20); GLUCOSE 171 mg/dl (70-99); POTASSIUM 4.4 mmol/L (3.5-5.1); SODIUM 136 mmol/L (136-145); TOTAL PROTEIN 8.3 gm/dl (6.4-8.2)
[2017-07-04 12:57] LABS: ALKALINE PHOSPHATASE 150 U/L (45-117)
== END | disposition home or self-care (01) ==
LOC: C.LAB1850 10:02
PROVIDERS: ATTEND Physician Assistant
DX: I10 Essential (primary) hypertension (principal); E11.9 Type 2 diabetes mellitus without complications; E03.9 Hypothyroidism, unspecified

== ENCOUNTER → 2017-10-06 | Outpatient (CLI) | payer OTHER ==
[~2017-10-06] MED LIST changes: -BUPR-79 PO; -HMLNPUC SQ; -INSHNI SQ; +IPRA1AER2 PO; -METH500T37 PO; +NVLNI SQ
--- NOTE | 2017-10-06 11:26 | DIAGNOSTIC IMAGING REPORT ---
(CHEST) THORAX WITHOUT CT DOSE: 669.76 mGy.cm HISTORY: Carcinoid tumor of lung. Follow-up. TECHNIQUE: Multiaxial CT images of the chest were performed without contrast. A dose lowering technique was utilized adhering to the principles of ALARA. COMPARISON: Chest CT 09/04/2016. FINDINGS: There is again noted postoperative changes consistent with prior right resection within the right middle lobe. No significant change in the scattered bilateral pulmonary nodules. Dominant nodule within the right lower lobe measures 1 cm on image 195. No new pulmonary nodules identified. The central airways are patent. No suspicious lytic or blastic osseous lesions. Stable 13 mm hypodense nodule within the right thyroid lobe. Focal calcification within the left breast which is likely benign. This remains unchanged. Normal caliber thoracic aorta with no evidence for dissection. Stable mediastinal and hilar lymph nodes. No hepatic or splenic lesions. The visualized adrenal glands are unremarkable. IMPRESSION: 1. Overall, no significant change compared to the prior study. 2. Stable bilateral pulmonary nodules with the largest in the right lower lobe which measures 1 cm. 3. Stable postoperative changes within the right lower lobe. Electronically signed by: Moo Fernandez M.D. 10/06/2017 11:25 AM Dictated Date/Time: 10/06/2017 11:14 AM
== END | disposition home or self-care (01) ==
LOC: C.CTS 10:39
PROVIDERS: ATTEND Internal Medicine Critical Care Medicine
DX: D3A.090 Benign carcinoid tumor of the bronchus and lung (principal)

== ENCOUNTER → 2017-10-13 | Outpatient (CLI) | payer OTHER ==
[2017-10-13 12:20] LABS: BASO % 0.5 %; BASO ABS # 0.03 K/uL (0-0.2); EOS % 7.1 %; EOS ABS # 0.47 K/uL (0-0.5); HEMATOCRIT 36.6 % (37-47); HEMOGLOBIN 11.6 g/dL (12.0-16.0); IG# 0.02 K/uL (0.00-0.02); LYMPH ABS # 2.05 K/uL (1.2-3.4); MEAN CELL VOLUME 79.6 fL (80-100); MEAN CORPUSCULAR HEMOGLOBIN 25.2 pg (25-34); MEAN CORPUSCULAR HGB CONC 31.7 g/dl (32-36); MEAN PLATELET VOLUME 11.4 fL (7.4-10.4); MONO % 7.4 %; MONO ABS # 0.49 K/uL (0.11-0.59); NEUT % 53.7 %; NEUT ABS # 3.55 K/uL (1.4-6.5); PLATELET COUNT 299 K/uL (130-400); RED CELL DISTRIBUTION WIDTH CV 18.1 % (11.5-14.5); RED CELL DISTRIBUTION WIDTH SD 51.9 fL (36.4-46.3); WHITE BLOOD COUNT 6.61 K/uL (4.8-10.8)
[2017-10-13 13:01] LABS: ALBUMIN 3.2 gm/dl (3.4-5.0); ALKALINE PHOSPHATASE 143 U/L (45-117); ALT/SGPT 18 U/L (12-78); AST/SGOT 16 U/L (15-37); BLOOD UREA NITROGEN 8 mg/dl (7-18); CALCIUM 9.2 mg/dl (8.5-10.1); CARBON DIOXIDE 25 mmol/L (21-32); GLUCOSE 220 mg/dl (70-99); POTASSIUM 4.4 mmol/L (3.5-5.1); SODIUM 135 mmol/L (136-145); TOTAL PROTEIN 7.4 gm/dl (6.4-8.2)
== END | disposition home or self-care (01) ==
LOC: C.LAB1850 10:57
PROVIDERS: ATTEND Internal Medicine Pulmonary Disease
DX: R61 Generalized hyperhidrosis (principal); R23.2 Flushing; R06.02 Shortness of breath

== ENCOUNTER → 2017-10-22 | Outpatient (CLI) | payer OTHER | END | disposition home or self-care (01) | LOC: C.LABSPEC 14:41 | PROVIDERS: ATTEND Internal Medicine Endocrinology, Diabetes & Metabolism | DX: R61 Generalized hyperhidrosis (principal); R23.2 Flushing ==

== ENCOUNTER 2017-10-24 08:21 | Day surgery (SDC) | payer OTHER ==
[2017-10-24] VITALS (7 sets, daily range): BP systolic 105–129; BP diastolic 62–79; PULSE 62–68; TEMP 36.6–37.3; O2SAT 92–96; Ht 171.5 cm; Wt 100.0 kg
[~2017-10-24] VITALS: Ht 171.5 cm; Wt 100.0 kg
--- NOTE | 2017-10-24 07:55 | Pre Sedation Assessment ---
Pre Sedation Assessment General Date of Sedation: Oct 24, 2017. Pre-Sedation Airway Assessment Smoking Status: Former Smoker Mallampati Classification: Class II ASA Classification: Class II Procedure Planning Contraindications for Sedation: None Current Medications Reviewed: Yes Notes The planned sedation has been discussed with the patient. Informed Consent was obtained. I have identified the patient, determined the appropriateness of sedation and have assessed the patient immediately prior to the procedure. All medicine(s) and interventions are by my order.
[2017-10-24] MEDS ORDERED: FENTANYL CITRATE INJ 50 MCG/1 ML 2 ML VIAL IV ONE (10:23)
[2017-10-24] MEDS ORDERED: LIDOCAINE 4% INH SOLN 4 ML BTL TOP ONE (10:41)
[2017-10-24] MEDS ORDERED: LIDOCAINE HCL 2% LOCAL 50ML VIAL INSTIL ONE (10:41)
[2017-10-24] MEDS ORDERED: LIDOCAINE VISCOUS 2% 100ML TOP ONE (10:41)
[2017-10-24] MEDS ORDERED: MIDAZOLAM HCL 5 MG/ML 1 ML VIAL IV ONE (10:41)
[2017-10-24] MEDS ORDERED: OXYMETAZOLINE HCL 0.05% NA SPR 15 ML BTL ONE (10:41)
--- NOTE | 2017-10-24 10:50 | Discharge Instructions ---
Discharge Instructions Date of Service Oct 24, 2017. Admission Reason for Admission: Copd, Pulmonary Nodule, Shortness Of Breath Discharge Discharge Diagnosis / Problem: Chronic Astmatic Bronchitis/Carcinoid syndrome Discharge Goals Goal(s): Diagnostic testing Activity Recommendations Activity Limitations: resume your previous activity Lifting Limitations: none Exercise/Sports Limitations: none May Resume Sexual Activity: when tolerated Shower/Bathe: no limitations Driving or Machine Use: resume 1 day after discharge none . Instructions / Follow-Up Instructions / Follow-Up ACTIVITY RECOMMENDATIONS: * Rest today, resume normal activity tomorrow. * Do not drive today. SPECIAL CARE INSTRUCTIONS: * Call your physician if you experience any chest or shoulder pain, fever, coughing, spitting up blood (more than 2 teaspoons) or excessive shortness of breath. * Remove dressing from IV site (where needle was placed into the vein) after 2 hours. Apply a warm, moist compress to site if irritation occurs. Call physician if site becomes red or painful to touch. FOLLOW UP VISIT: * Keep any scheduled doctor appointments. Current Hospital Diet Patient's current hospital diet: regular Discharge Diet Recommended Diet: Regular Diet Fluid Restriction: None Procedures Procedures Performed: BRONCHOSCOPY Pending Studies Studies pending at discharge: no Medical Emergencies . Who to Call and When: Medical Emergencies: If at any time you feel your situation is an emergency, please call 911 immediately. . Non-Emergent Contact Non-Emergency issues call your: [employer] Call Non-Emergent contact if: temperature is above 101 . . "Provider Documentation" section prepared by Ulices Molina. .
--- NOTE | 2017-10-24 10:50 | Post Sedation Assessment ---
Post Sedation Assessment General Date of Sedation Oct 24, 2017. Vital Signs: Vital Signs Past 12 Hours Date Time Temp Pulse Resp B/P (MAP) Pulse Ox O2 Delivery O2 Flow Rate FiO2 10/24/17 10:35 73 20 131/83 97 Mask 5 10/24/17 10:30 70 20 113/68 96 Mask 5 10/24/17 10:25 66 20 115/64 96 Mask 5 10/24/17 10:20 68 18 127/73 98 Mask 5 10/24/17 09:12 36.7 62 20 129/79 (96) 95 Room Air Post Procedure Recovery Score Activity: (2) Moves 4 extremities * Respiration: (2) Deep breath/cough Circulation: (2) +/-20% PreAnes Value Consciousness: (1) Arouseable (by name) Oxygen Saturation: (1) O2 needed for >90% Post Anesthesia Score: 8 Discharge Sedation Level of Care: Fast Track Phase II Post Sedation Plan On clinical assessment, the patient appears to have tolerated the sedation without complications. Patient is recovering as anticipated. Patient will continue to be monitored by nursing and may be discharged when sedation discharge criteria are met per below protocol. Upon Completions of procedure and additional 15 minutes continue every 5 minute vital signs and the P.A.R. score; then discharge to a Phase I or Fast Track to Phase II per the following guidelines: * Discharge Patient to appropriate Phase II area if PAR is 8 or greater or return to pre- procedure baseline. The post - procedure orders will be as directed. * If PAR score is less than 8 or not return to pre-procedure baseline then patient will follow Phase I monitoring till PAR is reached for Phase II. The Phase I may be done in procedure room or may call to secure a Phase I area. * If naloxone or flumazenil are used for reversal, hold in Phase I for an additional 60 -120 minutes before discharge to Phase II. Please call the Sedation Physician to re-evaluate and complete post-note for discharge to Phase II area. Do NOT discharge from procedure sedation or Phase 1 until post- sedation evaluation note is complete by procedure /sedation MD Sedation Discharge Instructions to be given to the patient at discharge to home.
--- NOTE | 2017-10-24 10:51 | [facility] Operative Report ---
Operative Report Operative Date Oct 24, 2017. Pre-Operative Diagnosis Copd, Shortness of Breath, Cough Post-Operative Diagnosis Copd, Shortness of Breath, Cough Procedure(s) Performed BRONCHOSCOPY Surgeon DR. CHOI Financial Aid Surgeon(s) NONE Estimated Blood Loss 0 Findings Chronic Asthmatic Bronchitis Specimens Right and Left Lung Wash Disposition I attest to the content of the Intraoperative Record and any orders documented therein. Any exceptions are noted below.
--- NOTE | 2017-10-24 23:29 | OPERATIVE REPORT ---
DATE OF OPERATION: 10/24/2017 TIME: 1000 hours. PROCEDURE: Fiberoptic bronchoscopy with bronchoalveolar lavage. PREOPERATIVE MEDICATION AND ANESTHESIA DURING PROCEDURE: IV Versed 5 mg, IV fentanyl 50 mcg. DESCRIPTION OF PROCEDURE: The procedure was started at 10:23 and completed at 10:38. The fiberoptic bronchoscope was inserted into the right naris with minimal difficulty and passed to the level of the true vocal cords. The cords appear to approximate normally with phonation without evidence for lesions or paralysis. The area was anesthetized with 2% Xylocaine spray and the scope was introduced into the subglottic area and trachea without difficulty. The tigist was sharp. The right main stem bronchus was explored initially and no endobronchial lesions were seen. The right upper lobe, the apical posterior, anterior segments, bronchus intermedius, right middle lobe and the medial and lateral segments and all basilar segments of right lower lobe were found to be free of endobronchial lesions. Small amount of mucopurulent secretion was lavaged from right lower lobe until clear and mild global inflammatory mucosal change was seen throughout the right tracheobronchial tree. The left tracheobronchial tree was explored and no endobronchial lesion was seen. Left upper lobe, the apical-posterior and anterior segments, lingual subdivision of the superior and inferior segments and all basilar segments of left lower lobe were found to be free of endobronchial lesions. Same degree of global inflammatory mucosal change was seen, but no endobronchial lesions were visible. The left lower lobe was copiously lavaged with normosol and the aspirate sent for appropriate studies. No brushings or biopsies were attempted. Fluoroscopy was not utilized. The procedure was terminated. The patient was given a nebulizer treatment with Xopenex 1.25 mg and then transferred to the same day surgery, hemodynamically stable, no signs of respiratory compromise. Will await microbiological and cytologic examination of the bronchial washing. ADDENDUM: The patient has symptoms that appeared to be consistent with "carcinoid syndrome," but has a stable CT scan of the chest of just over a year with a 1 cm right lower lobe nodule that is unchanged in appearance and size. Lab work obtained by Dr. Velez shows normal serum serotonin level. A 24-hour urine for 5-HIAA is still pending, but the serum chromogranin level is markedly elevated. We will discuss with Dr. Velez further workup including imaging and possible PET scanning below the diaphragm looking for another source of potential carcinoid syndrome. I attest to the content of the Intraoperative Record and any orders documented therein. Any exception s are noted below.
[2017-10-28 11:52] LABS: HERPES SIMPLEX VIRUS CULT NOT ISOLATED (NOT ISOLATED)
== END 2017-10-24 13:05 | disposition home or self-care (01) ==
LOC: C.ACU 08:21
PROVIDERS: ATTEND Internal Medicine Pulmonary Disease
DX: J44.1 Chronic obstructive pulmonary disease with (acute) exacerbation (principal); R91.1 Solitary pulmonary nodule; R06.02 Shortness of breath; I25.10 Atherosclerotic heart disease of native coronary artery without angina pectoris; F41.8 Other specified anxiety disorders; I10 Essential (primary) hypertension; E03.9 Hypothyroidism, unspecified; E11.9 Type 2 diabetes mellitus without complications; K21.9 Gastro-esophageal reflux disease without esophagitis; E66.9 Obesity, unspecified; Z88.1 Allergy status to other antibiotic agents; Z87.891 Personal history of nicotine dependence; Z79.4 Long term (current) use of insulin; Z79.899 Other long term (current) drug therapy; Z79.84 Long term (current) use of oral hypoglycemic drugs

== ENCOUNTER 2019-04-02 04:00 | Inpatient (IN) ==
[2019-04-02] MEDS ORDERED: ALBUT/IPRATROP 3MG/0.5MG NEB 3 ML VIAL NEB ONE ×2 (04:08→06:02)
[2019-04-02] MEDS ORDERED: MAGNESIUM SULFATE / D5W 1 GM/100 ML BAG IV ONE (04:08)
[2019-04-02] MEDS ORDERED: SODIUM CHLORIDE 0.9% 1000ML 1,000 ML IV SCH (04:15)
[2019-04-02 04:46] LABS: Basophils # (auto) 0.03 K/uL (0-0.2); Basophils % (auto) 0.2 %; Eosinophils # (auto) 1.07 K/uL (0-0.5); Eosinophils % (auto) 7.8 %; Hematocrit (blood only) 39.2 % (37-47); Hemoglobin 12.3 g/dL (12.0-16.0); Immature Granulocytes # (auto) 0.04 K/uL (0.00-0.02); Immature Granulocytes % (auto) 0.3 %; Lymphocytes # (auto) 2.62 K/uL (1.2-3.4); Mean Corpuscular Hemoglobin 23.9 pg (25-34); Mean Corpuscular Hgb Conc 31.4 g/dL (32-36); Mean Corpuscular Volume 76.3 fL (80-100); Mean Platelet Volume 10.9 fL (7.4-10.4); Monocytes # (auto) 1.05 K/uL (0.11-0.59); Monocytes % (auto) 7.6 %; Neutrophils # (auto) 8.98 K/uL (1.4-6.5); Neutrophils % (auto) 65.1 %; Platelet Count 308 K/uL (130-400); RDW Coefficient of Variation 18.1 % (11.5-14.5); RDW Standard Deviation 50.1 fL (36.4-46.3); Red Blood Count 5.14 M/uL (4.2-5.4); White Blood Count 13.79 K/uL (4.8-10.8)
[2019-04-02 05:13] LABS: Alanine Aminotransferase 16 U/L (12-78); Albumin Level 3.1 gm/dl (3.4-5.0); Aspartate Aminotransferase 11 U/L (15-37); BUN Creatinine Ratio 10.7 (10-20); Blood Urea Nitrogen 10 mg/dl (7-18); Calcium 9.1 mg/dl (8.5-10.1); Carbon Dioxide 27 mmol/L (21-32); Chloride 105 mmol/L (98-107); Creatinine Clr Calc Pharmacy 77.7 ml/min; Est GFR (African American) 76.6; Est GFR (Non-African American) 66.1; Glucose 76 mg/dl (70-99); Lipase 95 U/L (73-393); Magnesium 1.9 mg/dl (1.8-2.4); Potassium 3.9 mmol/L (3.5-5.1); Sodium 137 mmol/L (136-145)
[2019-04-02 05:19] LABS: Albumin Globulin Ratio 0.6 (0.9-2); Alkaline Phosphatase 162 U/L (45-117); Bilirubin,Total 0.3 mg/dl (0.2-1); Globulin 4.8 gm/dl (2.5-4.0); NT Pro B Type Natriuretic Pept 134 pg/ml (0-900); Total Protein 7.9 gm/dl (6.4-8.2); Troponin I < 0.015 ng/ml (0-0.045)
[2019-04-02 05:22] LABS: Influenza A virus by PCR Neg for Influ A (Neg); Influenza B virus by PCR Neg for Influ B (Neg)
--- NOTE | 2019-04-02 06:15 | Emergency Department Note ---
Entered by Frankie Oconnor acting as a scribe for History of Present Illness General Chief complaint: Respiratory Problems Stated complaint: BREATHING DIFFICULTY Time Seen by Provider: 04/02/19 04:00 Source: patient History of Present Illness Onset (ago): day(s) (a few days ago) Location: chest Pain Consistency: + other (worsening) Quality: + other (SOB) Associated symptoms: + other (Positive for productive cough, chest tightness/heaviness, and a headache. Negative for coughing up blood, fever, chills, nausea, and vomiting.) The patient is a 69 year old female who presents to the emergency department with complaints of worsening SOB beginning a few days ago. The patient states that her SOB has been worsening over the last few days. She notes that she had three nebulizer treatments today, but she reports that the treatments made her cough. The patient states that she has been coughing up a green mucus. She reports that she is also having chest tightness/heaviness and a headache. The patient states that she had a similar episode 18 months ago, and she notes that she had COPD exacerbation at that time. She denies any coughing up blood, fever, chills, nausea, and vomiting. She reports that she has a history of asthma, but she denies any cardiac problems. The patient states that she wears a CPAP at night, and she notes that she is a former smoker. Patient recently seen by pulmonology for chronic asthma and started on azithromycin. Patient given a DuoNeb as well as Solu-Medrol by EMS prior to arrival. They report her breathing is markedly improved on CPAP. Home Medications Home Medications Medication Instructions Recorded Confirmed Type Novolin N NPH U-100 Insulin 35 - 45 unit SUBCUT UD 08/12/18 04/02/19 History Novolin R Regular U-100 Insuln 20 - 35 unit SUBCUT TID 08/12/18 04/02/19 History aspirin 81 mg PO QAM 08/12/18 04/02/19 History cholecalciferol (vitamin D3) 1,000 unit PO QPM 08/12/18 04/02/19 History [Vitamin D3] cyanocobalamin (vitamin B-12) 1,000 mcg PO QAM 08/12/18 04/02/19 History [Vitamin B-12] docusate sodium [Stool Softener] 250 mg PO BID 08/12/18 04/02/19 History furosemide 20 mg PO QAM PRN 08/12/18 04/02/19 History magnesium 250 mg PO QAM 08/12/18 04/02/19 History omega-3 fatty acids 500 mg PO QAM 08/12/18 04/02/19 History spironolactone 25 mg PO QAM 08/12/18 04/02/19 History tramadol 100 mg PO TID PRN 08/12/18 04/02/19 History atorvastatin 20 mg tablet 40 mg PO HS #180 tab 12/09/18 04/02/19 Rx ranitidine HCl 300 mg tablet 300 mg PO HS #90 tab 12/09/18 04/02/19 Rx omeprazole 20 mg capsule,delayed 40 mg PO QAM #120 cap 12/10/18 04/02/19 Rx release metformin 1,000 mg tablet 1,000 mg PO BID #180 tab 12/21/18 04/02/19 Rx diclofenac sodium 1 % topical gel See Rx Instructions TOPICAL QID 01/07/19 04/02/19 History PRN gm nitroglycerin 0.4 mg sublingual 0.4 mg SL Q5M PRN #25 tab 01/07/19 04/02/19 Hi story tablet varicella-zoster [id number] (PF) 50 0.5 ml IM ONCE #1 ea 01/08/19 04/02/19 Rx mcg/0.5 mL IM susp, kit albuterol sulfate 90 mcg/actuation 2 puff INH Q4H PRN #3 inhaler 02/18/19 04/02/19 Rx aerosol inhaler azelastine 137 mcg (0.1 %) nasal 2 spray INTNAS DAILY #30 ml 02/18/19 04/02/19 Rx spray aerosol venlafaxine 150 mg 150 mg PO DAILY #90 cap 03/09/19 04/02/19 Rx capsule,extended release 24 hr venlafaxine 75 mg capsule,extended 75 mg PO DAILY #90 cap 03/09/19 04/02/19 Rx release 24 hr losartan 50 mg tablet 50 mg PO DAILY #90 tab 03/23/19 04/02/19 Rx levothyroxine 100 mcg tablet 100 mcg PO DAILY #30 tab 03/24/19 04/02/19 Rx azithromycin 250 mg tablet See Rx Instructions PO .COMPLEX #6 03/31/19 04/02/19 Rx tab benzonatate 100 mg capsule 100 mg PO TID PRN #30 cap 03/31/19 04/02/19 Rx benralizumab 30 mg/mL subcutaneous 30 mg SQ .COMPLEX #1 ml 04/01/19 04/02/19 Rx auto-injector atenolol 25 mg PO QPM 04/02/19 04/02/19 History atenolol 50 mg PO QAM 04/02/19 04/02/19 History Allergies Allergy/AdvReac Type Severity Reaction Status Date / Time Bactrim Allergy Intermediate HIVES Verified 10/24/17 09:04 clindamycin Allergy Intermediate HIVES Verified 04/02/19 04:05 sulfamethoxazole Allergy Intermediate HIVES Verified 04/02/19 04:05 trimethoprim Allergy Intermediate HIVES Verified 04/02/19 04:05 amoxicillin AdvReac Mild nausea and Verified 04/02/19 04:05 vomiting clavulanic acid AdvReac Mild NAUSEA AND Verified 04/02/19 04:05 VOMITING Past Med/Surg History Medical History (Updated 04/02/19 @ 20:43 by Nora Millan MD) Abdominal cramping Anxiety Ascending aorta enlargement Follows w/ Dr. Alas - [facility] Asthma Chronic back pain Chronic headaches COPD exacerbation Degenerative disc disease Depression Diarrhea DM type 2 (diabetes mellitus, type 2) IDDM GERD (gastroesophageal reflux disease) Hiatal hernia History of benign breast biopsy History of colon polyps History of endometriosis Hyperlipidemia Hypothyroid Microcytic anemia Neuroendocrine carcinoma of lung 2011 - S/P LOBECTOMY Osteoarthritis Post traumatic stress disorder Sleep apnea cpap Surgical History History of appendectomy History of bronchoscopy x 2 History of cardiac cath 3 years ago - [facility] - CP/SOB - no stents/angioplasty 2 caths in [facility]) - CP/SOB - no stents/angioplasty (2008) Follows w/ Dr. Jaime History of cataract surgery History of colonoscopy with polypectomy History of dilation and curettage History of esophagogastroduodenoscopy (EGD) History of laparoscopic cholecystectomy History of lobectomy of lung RML - 2011 History of tooth extraction History of total abdominal hysterectomy and bilateral salpingo-oophorectomy Social History Preferred Language: Bhutanese Communication Ability: Effective Visual Impairment: No Limitations Hearing Ability: Normal Web Search Evaluator Required: No Beliefs That Will Affect Care: None marital status: Current Living Situation: Spouse current occupational status: retired Other Information That Helps Us Care for You: No Feels Safe at Home: Yes Safety Concerns: Feels Safe At This Time Smoking Status: Former smoker Do You Dip or Chew Tobacco: No ; Number of Years Since Quit: 10 ; Second Hand Exposure: No ; Tobacco Cessation Education Requested by Patient: No Hx Alcohol Use: Yes Alcohol type: hard liquor Hx Substance Use: No Childhood Exposure to Second-Hand Smoke: Yes Dental Care, Regularly: Yes Physical Activity Frequency: 1-2 Times per Week Seatbelt Use: always Sunscreen Use: Yes Review of Systems See HPI for pertinent positives & negatives. and A total of 10 systems reviewed and were otherwise negative Physical Exam Vital Signs Vital Signs - 24 hr 04/02/19 04:05 04/02/19 04:08 04/02/19 04:13 Temperature 36.6 C Temperature Source Oral Pulse Rate 99 H 94 H Pulse Rate [Right Radial] Pulse Rate from SpO2 Sensor 98 H Respiratory Rate 21 24 Respiratory Effort / Characteristics Spontaneous Labored Respiratory Depth Normal Respiratory Pattern Regular Blood Pressure 149/90 H 149/90 H Blood Pressure [Right Arm] Blood Pressure Mean 110 109 Blood Pressure Mean [Right Arm] Pulse Oximetry 96 97 96 Oxygen Delivery Method BiPAP BiPAP Fraction of Inspired Oxygen 21 21 SaO2/FiO2 Ratio 461 457 Sepsis Recent Fever Within 48 Hours No Sepsis Action Taken by Nursing No Action Required 04/02/19 04:15 04/02/19 04:16 04/02/19 04:30 Temperature Temperature Source Pulse Rate 84 88 Pulse Rate [Right Radial] 84 Pulse Rate from SpO2 Sensor 88 Respiratory Rate 24 24 21 Respiratory Effort / Characteristics Non-Labored Spontaneous Non-Labored Spontaneous Respiratory Depth Normal Respiratory Pattern Regular Blood Pressure 125/84 Blood Pressure [Right Arm] Blood Pressure Mean 100 Blood Pressure Mean [Right Arm] Pulse Oximetry 96 96 100 Oxygen Delivery Method BiPAP Fraction of Inspired Oxygen 21 21 SaO2/FiO2 Ratio Sepsis Recent Fever Within 48 Hours Sepsis Action Taken by Nursing 04/02/19 05:00 04/02/19 05:14 04/02/19 05:32 Temperature Temperature Source Pulse Rate 86 92 H Pulse Rate [Right Radial] 97 H Pulse Rate from SpO2 Sensor 87 Respiratory Rate 21 24 18 Respiratory Effort / Characteristics Non-Labored Spontaneous Non-Labored Spontaneous Respiratory Depth Normal Normal Respiratory Pattern Regular Blood Pressure 148/100 H Blood Pressure [Right Arm] 167/98 H Blood Pressure Mean 128 Blood Pressure Mean [Right Arm] 121 Pulse Oximetry 99 98 95 Oxygen Delivery Method BiPAP Fraction of Inspired Oxygen 21 21 SaO2/FiO2 Ratio 452 Sepsis Recent Fever Within 48 Hours Sepsis Action Taken by Nursing 04/02/19 05:33 04/02/19 06:00 04/02/19 06:16 Temperature Temperature Source Pulse Rate 97 H 89 Pulse Rate [Right Radial] 87 Pulse Rate from SpO2 Sensor 97 H 89 Respiratory Rate 24 20 20 Respiratory Effort / Characteristics Non-Labored Spontaneous Respiratory Depth Respiratory Pattern Blood Pressure 167/98 H 128/80 Blood Pressure [Right Arm] Blood Pressure Mean 117 91 Blood Pressure Mean [Right Arm] Pulse Oximetry 95 93 93 Oxygen Delivery Method BiPAP Fraction of Inspired Oxygen 21 SaO2/FiO2 Ratio Sepsis Recent Fever Within 48 Hours Sepsis Action Taken by Nursing 04/02/19 06:17 04/02/19 06:30 04/02/19 07:00 Temperature Temperature Source Pulse Rate 87 89 92 H Pulse Rate [Right Radial] Pulse Rate from SpO2 Sensor 89 92 H Respiratory Rate 20 22 21 Respiratory Effort / Characteristics Non-Labored Spontaneous Respiratory Depth Normal Respiratory Pattern Regular Blood Pressure 139/83 113/80 Blood Pressure [Right Arm] Blood Pressure Mean 93 102 Blood Pressure Mean [Right Arm] Pulse Oximetry 93 99 98 Oxygen Delivery Method BiPAP Fraction of Inspired Oxygen 21 SaO2/FiO2 Ratio Sepsis Recent Fever Within 48 Hours Sepsis Action Taken by Nursing 04/02/19 07:30 04/02/19 08:00 04/02/19 08:30 Temperature Temperature Source Pulse Rate 97 H 102 H 110 H Pulse Rate [Right Radial] Pulse Rate from SpO2 Sensor 97 H 102 H 110 H Respiratory Rate 20 21 23 Respiratory Effort / Characteristics Respiratory Depth Respiratory Pattern Blood Pressure 142/79 H 153/104 H 150/93 H Blood Pressure [Right Arm] Blood Pressure Mean 105 118 120 Blood Pressure Mean [Right Arm] Pulse Oximetry 97 98 99 Oxygen Delivery Method BiPAP BiPAP BiPAP Fraction of Inspired Oxygen SaO2/FiO2 Ratio Sepsis Recent Fever Within 48 Hours Sepsis Action Taken by Nursing GENERAL: alert, slightly uncomfortable appearing, well nourished, no distress, non-toxic EYE EXAM: normal conjunctiva, PERRL and EOM's grossly intact OROPHARYNX: no exudate, no erythema, lips, buccal mucosa, and tongue normal and mucous membranes are moist NECK: supple, no nuchal rigidity, no adenopathy, non-tender LUNGS: Normal chest wall mechanics. Slightly increased work of breathing, coarse breath sounds bilaterally, scattered expiratory wheeze. No retractions. HEART: no murmurs, S1 normal and S2 normal ABDOMEN: abdomen soft, non-tender, normo-active bowel sounds, no masses, no rebound or guarding. BACK: Back is symmetrical on inspection and there is no deformity, no midline tenderness, no CVA tenderness. SKIN: no rashes and no bruising UPPER EXTREMITIES: upper extremities are grossly normal. FROM, nml pulses b/l. LOWER EXTREMITIES: No pitting edema. FROM, nml pulses b/l. NEURO EXAM: Normal sensorium, cranial nerves II-XII grossly intact, normal speech, no gross weakness of arms, no gross weakness of legs. Course Course 0401: The patient was evaluated in room B4. A complete history and physical exam was performed. 0426: I reevaluated and updated the patient. Patient improved with BiPAP in place. 0557: I rechecked the patient. Patient with improved air movement bilaterally o n auscultation, however still has scattered expiratory wheeze. Patient states she does feel improved. BiPAP still in place. 0645: Pt comfortable appearing. VS stable. Updated patient on results, she is in agreement with the plan. Will order an additional continuous nebulizer treatment. 0733: Upon reevaluation, the patient is stable. I discussed the findings and the treatment plan with the patient. She expresses agreement and understanding. I spoke with Dr. Byrd of the [facility] Hospitalist Service. The patient will be evaluated for further management. Consultations Consultation #1: I reviewed the patient's case with - Hospitalist, [facility]. He will evaluate the patient for further management. Administered Medications Albuterol (Duoneb) 3 ml INH Q6R [facility] Stop: 05/02/19 12:59 Last Admin: 04/02/19 19:09 Dose: 3 ml Documented by: [id number] Admin: 04/02/19 13:28 Dose: 3 ml Documented by: [id number] Aspirin (Ecotrin Ectab) 81 mg PO QAM [facility] Stop: 05/02/19 10:00 Last Admin: 04/02/19 11:31 Dose: 81 mg Documented by: [id number] Atenolol (Tenormin) 25 mg PO QPM [facility] Stop: 05/02/19 20:59 Last Admin: 04/02/19 22:17 Dose: 25 mg Documented by: [id number] Atenolol (Tenormin) 50 mg PO QAM [facility] Stop: 05/02/19 10:00 Last Admin: 04/02/19 11:30 Dose: 50 mg Documented by: [id number] Atorvastatin Calcium (Lipitor) 40 mg PO HS [facility] Stop: 05/02/19 20:59 Last Admin: 04/02/19 22:19 Dose: 40 mg Documented by: [id number] Azithromycin (Zithromax) 250 mg PO DAILY [facility]; Protocol Stop: 04/04/19 09:01 Last Admin: 04/02/19 12:05 Dose: 250 mg Documented by: [id number] Benzonatate (Tessalon Perle) 100 mg PO TID [facility] Stop: 05/02/19 20:59 Last Admin: 04/02/19 22:13 Dose: 100 mg Documented by: [id number] Cyanocobalamin (Vitamin B-12) 1,000 mcg PO QAM [facility] Stop: 05/02/19 10:00 Last Admin: 04/02/19 11:31 Dose: 1,000 mcg Documented by: [id number] Docusate Calcium (Surfak) 240 mg PO BID [facility] Stop: 05/02/19 10:00 Last Admin: 04/02/19 22:18 Dose: 240 mg Documented by: [id number] Admin: 04/02/19 11:29 Dose: 240 mg Documented by: [id number] Fish Oil (Douglas-3 (Purified Fish Oil)) 1 gm PO QAM [facility] Stop: 05/02/19 10:00 Last Admin: 04/02/19 11:31 Dose: 1 gm Documented by: [id number] Guaifenesin (Mucinex) 600 mg PO Q12 [facility] Stop: 05/02/19 20:59 Last Admin: 04/02/19 22:13 Dose: 600 mg Documented by: [id number] Heparin Sodium (Porcine) (Heparin Sodium (Porcine)) 5,000 units SQ Q8 [facility] Stop: 05/02/19 13:59 Last Admin: 04/02/19 22:19 Dose: 5,000 units Documented by: [id number] Cosigned by: [id number] Admin: 04/02/19 13:14 Dose: 5,000 units Documented by: [id number] Cosigned by: [id number] Methylprednisolone 40 mg/ (Syringe) 0.64 mls @ 1.5 mls/min IV Q12H [facility] Stop: 05/02/19 10:59 Last Admin: 04/02/19 22:19 Dose: 1.5 mls/min Documented by: [id number] Admin: 04/02/19 11:29 Dose: 1.5 mls/min Documented by: [id number] Insulin Aspart (Novolog Flexpen) 0 units SC ACHS [facility] Stop: 05/02/19 12:14 Last Admin: 04/02/19 22:17 Dose: 4 units Documented by: [id number] Cosigned by: [id number] Admin: 04/02/19 17:19 Dose: Not Given Documented by: [id number] Admin: 04/02/19 13:11 Dose: 14 units Documented by: [id number] Cosigned by: [id number] Levothyroxine Sodium (Synthroid) 100 mcg PO DAILYBB [facility] Stop: 05/02/19 10:59 Last Admin: 04/02/19 11:30 Dose: 100 mcg Documented by: [id number] Losartan Potassium (Cozaar) 50 mg PO DAILY [facility] Stop: 05/02/19 10:00 Last Admin: 04/02/19 11:30 Dose: 50 mg Documented by: [id number] Magnesium Oxide (Mag-Ox) 400 mg PO [facility] Stop: 05/02/19 10:00 Last Admin: 04/02/19 17:14 Dose: 400 mg Documented by: [id number] Miscellaneous (Order Awaiting Action) 1 ea N/A QS [facility] Stop: 05/02/19 15:59 Last Admin: 04/02/19 17:23 Dose: Not Given Documented by: [id number] Miscellaneous (Order Awaiting Action) 1 ea N/A QS [facility] Stop: 05/02/19 15:59 Last Admin: 04/02/19 17:24 Dose: Not Given Documented by: [id number] [facility]op[facility]) [facility] Stop: 05/02/19 10:00 Last Admin: 04/02/19 11:30 Dose: 40 mg Documented by: [id number] Spironolactone (Aldactone) 25 mg PO QAM [facility] Stop: 05/02/19 10:00 Last Admin: 04/02/19 12:05 Dose: 25 mg Documented by: [id number] Venlafaxine HCl (Effexor Extended Release) 75 mg PO DAILY [facility] Stop: 05/02/19 10:00 Last Admin: 04/02/19 12:06 Dose: 75 mg Documented by: [id number] Venlafaxine HCl (Effexor Extended Release) 150 mg PO DAILY [facility] Stop: 05/02/19 10:00 Last Admin: 04/02/19 12:05 Dose: 150 mg Documented by: [id number] Vitamin D (Vitamin D3) 1,000 units PO QPM [facility] Stop: 05/02/19 20:59 Last Admin: 04/02/19 22:19 Dose: 1,000 units Documented by: [id number] Discontinued Medications Albuterol (Duoneb) 12 ml NEB ONE ONE Stop: 04/02/19 04:09 Last Admin: 04/02/19 04:12 Dose: 12 ml Documented by: [id number] Albuterol (Duoneb) 12 ml NEB ONE ONE Stop: 04/02/19 06:03 Last Admin: 04/02/19 06:14 Dose: 12 ml Documented by: [id number] Magnesium Sulfate/Dextrose (Magnesium Sulfate / D5w) 1 gm in 100 mls @ 100 mls/hr IV ONE ONE Stop: 04/02/19 05:07 Last Infusion: 04/02/19 05:34 Dose: 0 mls/hr Documented by: [id number] Admin: 04/02/19 04:30 Dose: 100 mls/hr Documented by: [id number] Sodium Chloride (Nss 1000ml) 1,000 mls @ 125 mls/hr IV .Q8H [facility] Stop: 05/02/19 04:14 Last Infusion: 04/02/19 10:17 Dose: 0 mls/hr Documented by: [id number] Admin: 04/02/19 04:30 Dose: 125 mls/hr Documented by: [id number] Ceftriaxone Sodium (Rocephin) 2,000 mg in 70 mls @ 140 mls/hr IV NOW STA Stop: 04/02/19 07:07 Last Infusion: 04/02/19 07:17 Dose: 0 mls/hr Documented by: [id number] Admin: 04/02/19 06:46 Dose: 140 mls/hr Documented by: [id number] Insulin Aspart (Novolog Flexpen) 0 units SC TODAY@1530 ONE; Protocol Stop: 04/02/19 15:31 Last Admin: 04/02/19 17:18 Dose: 31 units Documented by: [id number] Cosigned by: [id number] Insulin Glargine (Lantus Solostar Pen) 45 units SC NOW ONE Stop: 04/02/19 12:31 Last Admin: 04/02/19 13:09 Dose: 45 units Documented by: [id number] Cosigned by: [id number] Insulin Glargine (Lantus Solostar Pen) 0 units SC HS ONE; Protocol Stop: 04/02/19 21:01 Last Admin: 04/02/19 22:14 Dose: 60 units Documented by: [id number] Cosigned by: [id number] Menthol (Nice) Confirm Administered Dose 24 kaye BUCCAL .STK-MED ONE Stop: 04/02/19 13:18 Last Admin: 04/02/19 17:21 Dose: 24 kaye Documented by: [id number] Critical Care Time Critical Care Time: Yes Total Critical Care Time: 42 Critical care of 42 min performed to assess and manage high likelihood of life- threatening respiratory distress, involving labs and imaging performed with assessment to evaluate respiratory distress diagnosis with frequent reassessment. This time includes bedside time, treatment discussions with patient/family/consultants, documentation time and excludes procedure time. Medical Decision Making Differential Diagnosis Differential diagnoses includes but is not limited to pneumonia, bronchitis, COPD/Asthma exacerbation, pneumothorax, pulmonary embolism, congestive heart failure, acute coronary syndrome Medical Records Attestation: I reviewed the patient's medical records. Home Medications Current Medication List: was personally reviewed by me Laboratory Data Attestation: I reviewed the patient's lab results. Result diagrams: 04/02/19 04:30 04/02/19 04:30 Lab Results 04/02/19 04/02/19 04/02/19 Range/Units 04:25 04:30 04:30 WBC 13.79 H (4.8-10.8) K/uL RBC 5.14 (4.2-5.4) M/uL Hgb 12.3 (12.0-16.0) g/dL Hct 39.2 (37-47) % MCV 76.3 L (80-100) fL MCH 23.9 L (25-34) pg MCHC 31.4 L (32-36) g/dL RDW Std Deviation 50.1 H (36.4-46.3) fL RDW Coeff of Alyssa 18.1 H (11.5-14.5) % Plt Count 308 (130-400) K/uL MPV 10.9 H (7.4-10.4) fL Immature Gran % (Auto) 0.3 % Neut % (Auto) 65.1 % Lymph % (Auto) 19.0 % Potter % (Auto) 7.6 % Eos % (Auto) 7.8 % Baso % (Auto) 0.2 % Immature Gran # (Auto) 0.04 H (0.00-0.02) K/uL Neut # (Auto) 8.98 H (1.4-6.5) K/uL Lymph # (Auto) 2.62 (1.2-3.4) K/uL Potter # (Auto) 1.05 H (0.11-0.59) K/uL Eos # (Auto) 1.07 H (0-0.5) K/uL Baso # (Auto) 0.03 (0-0.2) K/uL Sodium 137 (136-145) mmol/L Potassium 3.9 (3.5-5.1) mmol/L Chloride 105 (98-107) mmol/L Carbon Dioxide 27 (21-32) mmol/L Anion Gap 5.0 (3-11) BUN 10 (7-18) mg/dl Creatinine 0.89 (0.6-1.2) mg/dl Est Cr Clr Drug Dosing 77.7 ml/min Est GFR ( Amer) 76.6 Est GFR (Non-Af Amer) 66.1 BUN/Creatinine Ratio 10.7 (10-20) Glucose 76 (70-99) mg/dl Calcium 9.1 (8.5-10.1) mg/dl Magnesium 1.9 (1.8-2.4) mg/dl Total Bilirubin 0.3 (0.2-1) mg/dl AST 11 L (15-37) U/L ALT 16 (12-78) U/L Alkaline Phosphatase 162 H (45-117) U/L Troponin I < 0.015 (0-0.045) ng/ml NT-Pro-B Natriuret Pep 134 (0-900) pg/ml Total Protein 7.9 (6.4-8.2) gm/dl Albumin 3.1 L (3.4-5.0) gm/dl Globulin 4.8 H (2.5-4.0) gm/dl Albumin/Globulin Ratio 0.6 L (0.9-2) Lipase 95 (73-393) U/L Influenza Type A (PCR) Neg for Influ A (Neg) Influenza Type B (PCR) Neg for Influ B (Neg) Imaging Data Attestation: I personally reviewed and interpreted this imaging study as follows: My Impression: CHEST X-RAY: No cardiomegaly. No effusions. No wide mediastinum. No focal consolidation. Slightly increased interstiital markings in the bilateral lower lobes. ECG Data Attestation: I personally reviewed and interpreted this ECG as follows: Indication: + SOB/dyspnea Rate (beats per minute): 87 Rhythm: + sinus rhythm ECG [place]: + Normal ECG ST segments: + T-wave inversions (in V2 and V3); no ST elevation ECG Findings: no PACs and no PVCs Comparison ECG Date: from (09/19/17) Change: the following changes noted (Compared to prior, T wave inversion in V3 is new.) Additional Comments: Normal intervals. Blood Pressure Blood Pressure Findings: Elevated blood pressure Blood Pressure Disposition: further management by hospitalist MDM Narrative Patient here with increased work of breathing although improved on CPAP provided by EMS. Patient continue improved with our BiPAP here as well as additional nebulizer treatments and IV magnesium. Patient had been given IV Solu-Medrol by EMS prior to arrival. Patient's labs reassuring. Patient was noted to have a leukocytosis, while this may be stress from increased work of breathing a could also indicate evolving infection. Patient's other labs reassuring including negative troponin and BNP. Influenza negative. Chest x-ray with possible appearance of early evolving infiltrate. Given patient was recently seen by pulmonology and was just started on azithromycin yesterday, IV Rocephin added. No recent hospitalization to warrant coverage for HCAP. I do not suspect PE. I do not suspect ACS. No evidence of ectopy or dysrhythmia noted on telemetry. Patient continued to improve here. Case discussed with hospitalist for additional inpatient evaluation and management. Impression & Plan Dyspnea, Asthma exacerbation Discharge Plan Visit Data *Final* Discharge Date/Time: 04/02/19 09:31 Chief Complaint: Respiratory Problems Stated Complaint: BREATHING DIFFICULTY ED Provider: Arabella Sandoval Discharge Problem: Dyspnea, Asthma exacerbation Patient Disposition: Admitted As Inpatient Discharge Instructions Interventions: ED Discharge Assessment Last Done: 04/02/19 09:31 Discharge Problem: Dyspnea Qualifiers: Dyspnea type: unspecified Qualified Code(s): R06.00 - Dyspnea, unspecified Asthma exacerbation Qualifiers: Asthma severity: unspecified severity Asthma persistence: unspecified Qualified Code(s): J45.901 - Unspecified asthma with (acute) exacerbation The scribe's documentation has been prepared under my direction and personally reviewed by me in its entirety. I confirm that the note above accurately reflects all work, treatment, procedures, and medical decision making performed by me.
--- NOTE | 2019-04-02 06:36 | XRay Report ---
XR chest 1V portable CLINICAL HISTORY: Shortness of breath. COMPARISON STUDY: Chest CT March 25, 2019. FINDINGS: No pneumothorax or pleural effusion is noted. There is no consolidation. Mild lower lung in terstitial thickening is unchanged. Cardiomediastinal silhouette is stable. IMPRESSION: No acute findings. No change in lower lung interstitial thickening which is likely chron ic. ACT 112: Negative or not required by law. Electronically signed by: Alexsander Moreno M.D. 04/02/2019 6:34 AM
[2019-04-02] MEDS ORDERED: cefTRIAXone SODIUM 2,000 MG/70 ML BAG IV STA (06:38)
--- NOTE | 2019-04-02 07:53 | History & Physical Report ---
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 With acute hypoxic respiratory failure Requiring BiPAP in the ER, to 1 hour-long nebulizer treatments, IV magnesium, IV Solu-Medrol ABG done after admission does not show any hypercapnia but shows hypoxia -Admit to PCU -Continue supplemental O2 to keep pulse ox greater than 88-92% -Wean off BiPAP as tolerated (2) Eosinophilic asthma: Follows with allergy/immunology and pulmonology Previously on Xolair and has elevated eosinophils on admission here Is working on getting approval of Fasenra by woods laborer currently -Follow CBC and eosinophil levels -Treating asthma exacerbation as below (3) Severe persistent asthma: With eosinophilic properties as above, with acute exacerbation here -Admit to PCU -Chest x-ray reviewed -WBC = 13.79, BP slightly elevated at 153/104, tachycardic with heart rate of 102 -BiPAP settings: FiO2 = 21, IPAP = 10, EPAP = 5, rate = 12, continue for now, allow diet but hold CPAP for 30 minutes after consumption of food/liquids -Solu-Medrol IV 40 mg Q12H -Continue duo nebs routinely, Mucinex, Tessalon Perles, flutter therapy -Influenza swab negative -Sputum culture -Consult pulmonology, follows with Wilmar Isidro as outpatient-most recently was seen on Friday and placed on azithromycin, continue p.o. azithromycin 250 mg x 3 days -Consult allergy, follows with Dr. Carranza as outpatient-most recently saw him on Friday -Benralizumab inj for eosinophilic asthma, prior Auth has been sent for Jordynra as outpt -Patient has history of pulmonary nodules (at least 8 measuring up to 10 mm throughout both lungs) that have been followed via CT as outpatient -Consult pulmonology as well (4) COPD (chronic obstructive pulmonary disease): Overlap with asthma syndrome Follows with pulmonology (5) Sleep apnea: Continue CPAP at nighttime (6) Type 2 diabetes mellitus, with long-term current use of insulin: -Consult glycemic pharmacy with high-dose IV Solu-Medrol, hold home NPH for now. -Last A1c was 9.5 on 03/09/2018, recheck with a.m. labs -Glucose checks achs (7) Diabetic peripheral neuropathy associated with type 2 diabetes mellitus: -Noted -PT/OT consults (8) Hypertension: -Continue atenolol 75 mg daily, losartan 50 mg daily, spironolactone 25 mg daily, holding Lasix as this is as needed as outpatient (uses for lower extremity edema) -Turn off IV fluids at this time (9) Obesity: -BMI of 39.3 -Heart healthy/diabetic diet, encouraged exercise upon discharge (10) Lumbar radiculopathy: -Stable, not on chronic pain medication (11) Gastroesophageal reflux disease: -Hold ranitidine with recent recall of medication (12) Dyslipidemia: -Continue atorvastatin 40 mg at bedtime (13) ASCVD (arteriosclerotic cardiovascular disease): -Patient underwent coronary cath [place] [address] Jaime, showing mild nonobstructive coronary artery disease, the patient was seen and examined this morning. Patient reports feeling well continues on therapy for stable ischemic heart disease (14) Ascending aortic aneurysm: -There is mention of it being 4.0 cm in size and followed at [facility] in the past, recent CT of the chest here shows it being 3.8 cm -Needs continued good blood pressure control (15) Depression with anxiety: -Continue Effexor (16) Hypothyroid: No recent TSH in the last year If check TSH in the morning -Continue home levothyroxine (17) Microcytic anemia: MCV 76, hemoglobin mildly reduced at 12 -Check iron studies in the morning She had a colonoscopy 1 year ago that was reportedly normal No longer takes iron tablets as they made her too constipated (18) DVT prophylaxis: -Teds, heparin subcu CODE STATUS: Full code Disposition: Patient from home, lives with , likely to remain in the hospital x2 days History of Present Illness Chief Complaint: Shortness of breath Primary Care Provider: Maria D Laboy MD This is a 69 yo M with PMHx of severe persistent asthma, eosinophilic asthma, COPD, former smoker 1 PPD x30 years on and off, RAGHAVENDRA on CPAP, rhinitis, chronic urticaria, carcinoid tumor status post right middle lobectomy, hypothyroidism, obesity, TIA, DM 2, who presented with acute shortness of breath which began 5 days ago and worsened throughout the week. Patient was seen on Friday by her woods laborer who reported that she had eosinophilic asthma, and then on Friday saw pulmonology for routine follow-up for COPD, but due to complaints of symptoms including cough with discolored mucus production was placed on azithromycin 5-day course. Last evening around 2 AM patient had significant worsening of breathing. She was unable to sleep or lie flat. She did 3 nebulizer treatments last evening, and placed herself on her home CPAP before calling EMS. She admits to having similar episode 18 months ago/COPD exacerbation. Per provider notes, patient does not tolerate steroids very well and is not on them chronically. She received one short duo nebs and 125 mg IV Solu-Medrol by EMS, then has gotten two more 1 hr long duonebs in the ER since then, she is currently on BiPAP. She still feels that her breathing is not great, and is having difficulty with deep breaths. She is coughing and having trouble catching her breath, as well as feels tightness in her chest. Allergies Allergy/AdvReac Type Severity Reaction Status Date / Time Bactrim Allergy Intermediate HIVES Verified 10/24/17 09:04 clindamycin Allergy Intermediate HIVES Verified 04/02/19 04:05 sulfamethoxazole Allergy Intermediate HIVES Verified 04/02/19 04:05 trimethoprim Allergy Intermediate HIVES Verified 04/02/19 04:05 amoxicillin AdvReac Mild nausea and Verified 04/02/19 04:05 vomiting clavulanic acid AdvReac Mild NAUSEA AND Verified 04/02/19 04:05 VOMITING Home Medications Home Medications Medication Instructions Recorded Confirmed Type Novolin N NPH U-100 Insulin 35 - 45 unit SUBCUT UD 08/12/18 04/02/19 History Novolin R Regular U-100 Insuln 20 - 35 unit SUBCUT TID 08/12/18 04/02/19 History aspirin 81 mg PO QAM 08/12/18 04/02/19 History cholecalciferol (vitamin D3) 1,000 unit PO QPM 08/12/18 04/02/19 History [Vitamin D3] cyanocobalamin (vitamin B-12) 1,000 mcg PO QAM 08/12/18 04/02/19 History [Vitamin B-12] docusate sodium [Stool Softener] 250 mg PO BID 08/12/18 04/02/19 History furosemide 20 mg PO QAM PRN 08/12/18 04/02/19 History magnesium 250 mg PO QAM 08/12/18 04/02/19 History omega-3 fatty acids 500 mg PO QAM 08/12/18 04/02/19 History spironolactone 25 mg PO QAM 08/12/18 04/02/19 History tramadol 100 mg PO TID PRN 08/12/18 04/02/19 History atorvastatin 20 mg tablet 40 mg PO HS #180 tab 12/09/18 04/02/19 Rx ranitidine HCl 300 mg tablet 300 mg PO HS #90 tab 12/09/18 04/02/19 Rx omeprazole 20 mg capsule,delayed 40 mg PO QAM #120 cap 12/10/18 04/02/19 Rx release metformin 1,000 mg tablet 1,000 mg PO BID #180 tab 12/21/18 04/02/19 Rx diclofenac sodium 1 % topical gel See Rx Instructions TOPICAL QID 01/07/19 04/02/19 History PRN gm nitroglycerin 0.4 mg sublingual 0.4 mg SL Q5M PRN #25 tab 01/07/19 04/02/19 History tablet varicella-zoster [id number] (PF) 50 0.5 ml IM ONCE #1 ea 01/08/19 04/02/19 Rx mcg/0.5 mL IM susp, kit albuterol sulfate 90 mcg/actuation 2 puff INH Q4H PRN #3 inhaler 02/18/19 04/02/19 Rx aerosol inhaler azelastine 137 mcg (0.1 %) nasal 2 spray INTNAS DAILY #30 ml 02/18/19 04/02/19 Rx spray aerosol venlafaxine 150 mg 150 mg PO DAILY #90 cap 03/09/19 04/02/19 Rx capsule,extended release 24 hr venlafaxine 75 mg capsule,extended 75 mg PO DAILY #90 cap 03/09/19 04/02/19 Rx release 24 hr losartan 50 mg tablet 50 mg PO DAILY #90 tab 03/23/19 04/02/19 Rx levothyroxine 100 mcg tablet 100 mcg PO DAILY #30 tab 03/24/19 04/02/19 Rx azithromycin 250 mg tablet See Rx Instructions PO .COMPLEX #6 03/31/19 04/02/19 Rx tab benzonatate 100 mg capsule 100 mg PO TID PRN #30 cap 03/31/19 04/02/19 Rx benralizumab 30 mg/mL subcutaneous 30 mg SQ .COMPLEX #1 ml 04/01/19 04/02/19 Rx auto-injector atenolol 25 mg PO QPM 04/02/19 04/02/19 History atenolol 50 mg PO QAM 04/02/19 04/02/19 History Past Med/Surg History Medical History (Updated 04/02/19 @ 20:43 by Nora Millan MD) Abdominal cramping Anxiety Ascending aorta enlargement Follows w/ Dr. Alas - [facility] Asthma Chronic back pain Chronic headaches COPD exacerbation Degenerative disc disease Depression Diarrhea DM type 2 (diabetes mellitus, type 2) IDDM GERD (gastroesophageal reflux disease) Hiatal hernia History of benign breast biopsy History of colon polyps History of endometriosis Hyperlipidemia Hypothyroid Microcytic anemia Neuroendocrine carcinoma of lung 2012 - S/P LOBECTOMY Osteoarthritis Post traumatic stress disorder Sleep apnea cpap Surgical History History of appendectomy History of bronchoscopy x 2 History of cardiac cath 3 years ago - [facility] - CP/SOB - no stents/angioplasty 2 caths in [facility]) - CP/SOB - no stents/angioplasty (2008) Follows w/ Dr. Jaime History of cataract surgery History of colonoscopy with polypectomy History of dilation and curettage History of esophagogastroduodenoscopy (EGD) History of laparoscopic cholecystectomy History of lobectomy of lung L - 2011 History of tooth extraction History of total abdominal hysterectomy and bilateral salpingo-oophorectomy Social History Preferred Language: Belarusian Communication Ability: Effective Visual Impairment: No Limitations Hearing Ability: Normal [place] Torch Operator Required: No Beliefs That Will Affect Care: None marital status: Current Living Situation: Spouse current occupational status: retired Other Information That Helps Us Care for You: No Feels Safe at Home: Yes Safety Concerns: Feels Safe At This Time Smoking Status: Former smoker Do You Dip or Chew Tobacco: No ; Number of Years Since Quit: 10 ; Second Hand Exposure: No ; Tobacco Cessation Education Requested by Patient: No Hx Alcohol Use: Yes Alcohol type: hard liquor Hx Substance Use: No Childhood Exposure to Second-Hand Smoke: Yes Dental Care, Regularly: Yes Physical Activity Frequency: 1-2 Times per Week Seatbelt Use: always Sunscreen Use: Yes Review of Systems Review of Systems: Constitutional: No fever, sweats or chills Eyes: No diplopia, no worsening or blurred vision ENT: normal hearing, no trouble swallowing Respiratory: As per HPI Cardiovascular: No chest pain, + chest tightness, no palpitations Abdomen: No pain, nausea, vomiting, diarrhea or constipation Musculoskeletal: No joint pain, calf pain, swelling Neurologic: No weakness, numbness/tingling, or balance problems Psychiatric: Controlled anxiety and depression on medication Skin: No rash or itch Physical Exam Physical Exam: General: awake, alert, + obese, mild distress when coughing Head: Normocephalic, atraumatic ENT: PERRL, EOMI, pharynx not examined as patient on BiPAP Chest: + On BiPAP, significant tightness throughout all huynh, + inspiratory and expiratory wheeze throughout Cardiac:+Sinus tach, no murmur, no JVD, normal peripheral pulses, good capillary refill Abdominal: NABS x 4 quadrants, soft, nondistended, nontender to palpation, no rebound, guarding or tenderness Extremities: Normal inspection, no peripheral edema or erythema, calfs nontender to palpation Psych: Normal mood and affect Neuro: AAO x 3, no gross motor deficits, speech is clear, no peripheral sensory deficits Skin: no rash or erythema Results & Data Vital Signs (Past 12 Hours) Vital Signs Temp Pulse Pulse Resp BP BP Pulse Ox 04/02/19 07:30 97 H 20 142/79 H 97 04/02/19 07:00 92 H 21 113/80 98 04/02/19 06:30 89 22 139/83 99 04/02/19 06:17 87 20 93 04/02/19 06:16 87 20 93 04/02/19 06:00 89 20 128/80 93 04/02/19 05:33 97 H 24 167/98 H 95 04/02/19 05:32 97 H 18 167/98 H 95 04/02/19 05:14 92 H 24 98 04/02/19 05:00 86 21 148/100 H 99 04/02/19 04:30 88 21 125/84 100 04/02/19 04:16 84 24 96 04/02/19 04:15 84 24 96 04/02/19 04:13 96 04/02/19 04:08 36.6 C 94 H 24 149/90 H 97 04/02/19 04:05 99 H 21 149/90 H 96 Diagnostic Findings XR chest 1V portable CLINICAL HISTORY: Shortness of breath. COMPARISON STUDY: Chest CT March 25, 2019. FINDINGS: No pneumothorax or pleural effusion is noted. There is no consolidation. Mild lower lung interstitial thickening is unchanged. Cardiom ediastinal silhouette is stable. IMPRESSION: No acute findings. No change in lower lung interstitial thickening which is likely chronic. ACT 112: Negative or not required by law. Electronically signed by: Alexsander Moreno M.D. 04/02/2019 6:34 AM ECG Additional Comments: 02-APR-2019 04:19:24 [facility]-EDSTAT ROUTINE RETRIEVAL Normal sinus rhythm Nonspecific ST and T wave abnormality Abnormal ECG When compared with ECG of 19-SEP-2017 08:01, Nonspecific T wave abnormality, worse in Anterolateral leads 25mm/s 10mm/mV 150Hz 9.0.9 12SL 241 DELILAH: 13 Referred by: REFERRED SELF Unconfirmed Vent. rate 87 BPM UT interval 176 ms QRS duration 76 ms QT/QTc 352/423 ms P-R-T axes 75 2 60 Code Status & VTE Plan Code Status Full code-discussed with the patient at bedside with her Supervising Physician Co-Signing Physician Notes PA Supervision Note: I personally saw and examined the patient. I verified all flores points and agree with ALICE Bateman with the following exceptions and/or additions: Patient presents with progressively worsening shortness of breath over the last 5 days with an exacerbation of her severe eosinophilic asthma. History otherwise as above ROS reviewed as above Labs and meds reviewed Vitals reviewed Obese, no acute distress when I saw her when she first arrived to her room in the PCU, had the BiPAP in place Oropharynx clear, large tongue, no angioedema Regular rate and rhythm no murmurs gallops or rubs Lungs with diffuse wheezing and crackles with some rhonchi, no respiratory distress Abdomen positive bowel sound soft nontender nondistended Extremities no edema, 2+ dorsalis pedis pulses Skin no rashes 69-year-old female with history as above here with acute exacerbation of eosinophilic asthma and acute respiratory failure with hypoxia ABG without hypercapnia -Wean off BiPAP to nasal cannula -Discussed case with pulmonology -Continue steroids, azithromycin -Appreciate immunology consultation as well Continue CPAP at night for RAGHAVENDRA PG Care Time/CCT Total # of Minutes Spent Total Time Spent with Patient: Total time spent is greater than 50% in coordination of care (as documented) at patient's floor/unit and/or counseling patient: Coding Level of Care Code 95455 Initial Inpt Care Lvl 3 Diagnoses Acute respiratory distress syndrome J80 Eosinophilic asthma J82 Severe persistent asthma J45.50 COPD (chronic obstructive pulmonary disease) J44.9 Sleep apnea G47.30 Type 2 diabetes mellitus, with long-term current use of insulin E11.9; Z79.4 Diabetic peripheral neuropathy associated with type 2 diabetes mellitus E11.42 Hypertension I10 Obesity E66.9 Lumbar radiculopathy M54.16 Gastroesophageal reflux disease K21.9 Dyslipidemia E78.5 ASCVD (arteriosclerotic cardiovascular disease) I25.10 Ascending aortic aneurysm I71.2 Depression with anxiety F41.8 Hypothyroid E03.9 Microcytic anemia D50.9 DVT prophylaxis Z29.9
[2019-04-02] MEDS ORDERED: [UNRECOGNIZED DRUG - OTHER] IM SCH (10:01)
[2019-04-02] MEDS ORDERED: BENZONATATE 100 MG CAPSULE PO PRN (10:01)
[2019-04-02] MEDS ORDERED: METFORMIN HCL 500 MG TAB PO SCH (10:01)
[2019-04-02] MEDS ORDERED: TRAMADOL HCL 50 MG TABLET PO PRN (10:01)
[2019-04-02] MEDS ORDERED: NITROGLYCERIN SL 0.4 MG/TAB TAB SL PRN (10:01)
[2019-04-02] MEDS ORDERED: ALBUTEROL HFA 8 GM INHALER INH PRN (10:01)
[2019-04-02] MEDS ORDERED: PHARMACY GLYCEMIC MGMT CONSULT PRN (10:17)
[2019-04-02 11:21] LABS: Base Excess ABG -6.4 mEq/L (-9-1.8); HCO3 ABG 19 mmol/L (19-24); Oxygen Saturation ABG 93.7 % (90-95); PCO2 ABG 36 mmHg (35-46); PO2 ABG 69 mmHg (80-95); pH ABG 7.34 (7.35-7.45)
[2019-04-02 11:22] LABS: Allen Test Pos (Pos)
[2019-04-02] MEDS: methylPREDNISolone 40 MG in SYRINGE 0 ML IV SCH ×2 (11:29→22:19)
[2019-04-02] MEDS: DOCUSATE CALCIUM 240 MG CAPSULE PO SCH ×2 (11:29→22:18)
[2019-04-02] MEDS: LOSARTAN POTASSIUM 50 MG TAB PO SCH (11:30)
[2019-04-02] MEDS: LEVOTHYROXINE SODIUM 100 MCG TABLET PO SCH (11:30)
[2019-04-02] MEDS: PANTOprazole 40 MG TAB PO SCH (11:30)
[2019-04-02] MEDS: ATENOLOL 50 MG TABLET PO SCH (11:30)
[2019-04-02] MEDS: OMEGA-3 (PURIFIED FISH OIL) 1 GM CAP PO SCH (11:31)
[2019-04-02] MEDS: CYANOCOBALAMIN 500 MCG TABLET (VITAMIN B-12) PO SCH (11:31)
[2019-04-02] MEDS: ASPIRIN 81 MG ECTAB PO SCH (11:31)
[2019-04-02] MEDS: VENLAFAXINE HCL XR 150 MG CAPXR PO SCH (12:05)
[2019-04-02] MEDS: AZITHROMYCIN 250 MG TAB PO SCH (12:05)
[2019-04-02] MEDS: SPIRONOLACTONE 25 MG TAB PO SCH (12:05)
[2019-04-02] MEDS: VENLAFAXINE HCL XR 75 MG CAPXR PO SCH (12:06)
--- NOTE | 2019-04-02 12:28 | Allergy & Immunology Consult ---
Date of Consultation April 02, 2019 Assessment & Plan (1) Asthma exacerbation: Patient presents with asthma/COPD exacerbation. The acute increase in blood eos suggests asthma over COPD. She does not tolerate prednisone well, but at this point,there is not good alternative. A course of prednisone should reduce the eos level acutely and improve her symptoms. We typically treat with 5-7 days of 40 mg followed by a taper of 10mg/day every 2 days. I believe that she will do well with Fasenra, but still waiting for approval. We will try to arrange for a sample to be given as approval us pending. I will set this up in my clinic. I would recommend we also check at least one more blood eosinophil level to ensure that it is going down. Her current blood eosinophil level is not in a range that is necessarily dangerous, but if the level goes above 1500 cells/mcl, we may consider other eosinophilic processes. Of note, she did have a positive aspergillus IgG level, but negative IgE. At this point, this could represent prior exposure to Aspergillus. If she starts to develop more persistent symptoms, we may revisit this to evaluate for potential of fungal infection. She does also have a number of different antibiotic allergies that will require testing to hopefully clear. If there is need for one of these antibiotics during the acute hospitalization, please let me know and we can consider testing. Ideally we would sort this out as an outpatient. (2) Severe persistent asthma: (3) Eosinophilic asthma: History of Present Illness Attending Physician: Nora Millan MD History of Present Illness This is a 69-year-old female evaluated in our outpatient clinic for severe asthma and chronic rhinitis. We felt that she has an asthma/COPD overlap with primarily an eosinophilic component to her asthma. Her asthma history is as follows:symptoms for the past 10+ years that includes shortness of breath, chest tightness, cough. She has a history of a carcinoid tumor s/p resection. However, the shortness of breath seems to be different that the symptoms she dealt with. The severity of symptoms is: severe. Symptoms have been worsening. Symptoms are worse in the following time of year: year round. Symptoms worsen with infections. Exercise makes the symptoms worse and the threshold for development of symptoms is mild exercise. The patient has required 0 ER visits in the past year, 0 courses of prednisone, 0 hospitalizations. She did have a hospitalization in August 2017 for a severe exacerbation. She does not have an albuterol inhaler. There are night time symptoms 0 times per month. The patient is able to tolerate NSAIDs without any issues. The patient has tried the following medications: She was on Advair diskus, but it did not help. Symbicort, Spiriva - does not feel like it has helped much. Our plan was to start this patient on fasenra, which should effectively treat the eosinophilic asthma component. She did not have significant environmental allergies on testing, so she does not appear to have a strong allergic component. Of note, she did have a positive Aspergillus IgG, but no IgE. She had worsening symptoms since our previous visit with worsening cough, colored mucus, shortness of breath. Her shortness of breath increased to the point that she required presentation to the ER. She tried her nebulizer at home, but symptoms persisted so she called EMS. She was given nebulizers and 125 mg of Solu-Medrol. She does have a history of diabetes, a typically does not feel good when she goes on prednisone. Her blood glucose was elevated at 348. Her CBC on admission also showed an increase in eosinophils to 1070 cells/mcl. Allergies Allergy/AdvReac Type Severity Reaction Status Date / Time Bactrim Allergy Intermediate HIVES Verified 10/24/17 09:04 clindamycin Allergy Intermediate HIVES Verified 04/02/19 04:05 sulfamethoxazole Allergy Intermediate HIVES Verified 04/02/19 04:05 trimethoprim Allergy Intermediate HIVES Verified 04/02/19 04:05 amoxicillin AdvReac Mild nausea and Verified 04/02/19 04:05 vomiting clavulanic acid AdvReac Mild NAUSEA AND Verified 04/02/19 04:05 VOMITING Home Medications Home Medications Medication Instructions Recorded Confirmed Type Novolin N NPH U-100 Insulin 35 - 45 unit SUBCUT UD 08/12/18 04/02/19 History Novolin R Regular U-100 Insuln 20 - 35 unit SUBCUT TID 08/12/18 04/02/19 History aspirin 81 mg PO QAM 08/12/18 04/02/19 History cholecalciferol (vitamin D3) 1,000 unit PO QPM 08/12/18 04/02/19 History [Vitamin D3] cyanocobalamin (vitamin B-12) 1,000 mcg PO QAM 08/12/18 04/02/19 History [Vitamin B-12] docusate sodium [Stool Softener] 250 mg PO BID 08/12/18 04/02/19 History furosemide 20 mg PO QAM PRN 08/12/18 04/02/19 History magnesium 250 mg PO QAM 08/12/18 04/02/19 History omega-3 fatty acids 500 mg PO QAM 08/12/18 04/02/19 History spironolactone 25 mg PO QAM 08/12/18 04/02/19 History tramadol 100 mg PO TID PRN 08/12/18 04/02/19 History atorvastatin 20 mg tablet 40 mg PO HS #180 tab 12/09/18 04/02/19 Rx ranitidine HCl 300 mg tablet 300 mg PO HS #90 tab 12/09/18 04/02/19 Rx omeprazole 20 mg capsule,delayed 40 mg PO QAM #120 cap 12/10/18 04/02/19 Rx release metformin 1,000 mg tablet 1,000 mg PO BID #180 tab 12/21/18 04/02/19 Rx diclofenac sodium 1 % topical gel See Rx Instructions TOPICAL QID 01/07/19 04/02/19 History PRN gm nitroglycerin 0.4 mg sublingual 0.4 mg SL Q5M PRN #25 tab 01/07/19 04/02/19 History tablet varicella-zoster gE-AS01B (PF) 50 0.5 ml IM ONCE #1 ea 01/08/19 04/02/19 Rx mcg/0.5 mL IM susp, kit albuterol sulfate 90 mcg/actuation 2 puff INH Q4H PRN #3 inhaler 02/18/19 04/02/19 Rx aerosol inhaler azelastine 137 mcg (0.1 %) nasal 2 spray INTNAS DAILY #30 ml 02/18/19 04/02/19 Rx spray aerosol venlafaxine 150 mg 150 mg PO DAILY #90 cap 03/09/19 04/02/19 Rx capsule,extended release 24 hr venlafaxine 75 mg capsule,extended 75 mg PO DAILY #90 cap 03/09/19 04/02/19 Rx release 24 hr losartan 50 mg tablet 50 mg PO DAILY #90 tab 03/23/19 04/02/19 Rx levothyroxine 100 mcg tablet 100 mcg PO DAILY #30 tab 03/24/19 04/02/19 Rx azithromycin 250 mg tablet See Rx Instructions PO .COMPLEX #6 03/31/19 04/02/19 Rx tab benzonatate 100 mg capsule 100 mg PO TID PRN #30 cap 03/31/19 04/02/19 Rx benralizumab 30 mg/mL subcutaneous 30 mg SQ .COMPLEX #1 ml 04/01/19 04/02/19 Rx auto-injector atenolol 25 mg PO QPM 04/02/19 04/02/19 History atenolol 50 mg PO QAM 04/02/19 04/02/19 History Patient History Medical History (Updated 04/02/19 @ 08:39 by Yovana Bateman PA-C) Abdominal cramping Anxiety Ascending aorta enlargement Follows w/ Dr. Alas - [facility] Asthma Chronic back pain Chronic headaches COPD exacerbation Degenerative disc disease Depression Diarrhea DM type 2 (diabetes mellitus, type 2) IDDM GERD (gastroesophageal reflux disease) Hiatal hernia History of benign breast biopsy History of colon polyps History of endometriosis Hyperlipidemia Hypothyroid Neuroendocrine carcinoma of lung 2011 - S/P LOBECTOMY Osteoarthritis Post traumatic stress disorder Sleep apnea cpap Surgical History History of appendectomy History of bronchoscopy x 2 History of cardiac cath 3 years ago - [facility] - CP/SOB - no stents/angioplasty 2 caths in [facility]) - CP/SOB - no stents/angioplasty (2008) Follows w/ Dr. Jaime History of cataract surgery History of colonoscopy with polypectomy History of dilation and curettage History of esophagogastroduodenoscopy (EGD) History of laparoscopic cholecystectomy History of lobectomy of lung RML - 2011 History of tooth extraction History of total abdominal hysterectomy and bilateral salpingo-oophorectomy Social History Preferred Language: Pakistani Communication Ability: Effective Visual Impairment: No Limitations Hearing Ability: Normal Baler Required: No Beliefs That Will Affect Care: None marital status: Current Living Situation: Spouse current occupational status: retired Other Information That Helps Us Care for You: No Feels Safe at Home: Yes Safety Concerns: Feels Safe At This Time Smoking Status: Former smoker Do You Dip or Chew Tobacco: No ; Number of Years Since Quit: 10 ; Second Hand Exposure: No ; Tobacco Cessation Education Requested by Patient: No Hx Alcohol Use: Yes Alcohol type: hard liquor Hx Substance Use: No Childhood Exposure to Second-Hand Smoke: Yes Dental Care, Regularly: Yes Physical Activity Frequency: 1-2 Times per Week Seatbelt Use: always Sunscreen Use: Yes Review of Systems Review of Systems: All systems reviewed & are unremarkable except as noted in HPI & below Physical Exam Physical Exam: General: alert and oriented. Head: normal in appearance Ears: tympanic membranes clear bilaterally Eyes: sclera anicteric, no conjunctival injection Nose: nasal mucosa without edema, without erythema, without bogginess Throat: oropharynx clear, no cobblestoning, tonsil exam unremarkable Neck and lymphatics: without lymphadenopathy or thyromegaly. Trachea Midline. No masses appreciated. Cardiovascular: regular rate and rhythm, normal S1 and S2. No murmurs, rubs, gallops appreciated. Lungs: Expiratory wheezing, diminished breath sounds. Coarse breath sounds throughout the lungs. Frequent coughing. Abdomen: Soft, non-tender, normal bowel sounds. Peripheral vascular and extremities: no cyanosis, clubbing, edema. Skin: normal in appearance. No rashes or lesions visualized. Results & Data Vital Signs (Past 12 Hours) Vital Signs Temp Pulse Pulse Resp BP BP Pulse Ox 04/02/19 10:19 101 H 27 H 98 04/02/19 09:57 111 H 22 151/85 H 99 04/02/19 09:30 109 H 21 139/91 98 04/02/19 09:00 107 H 20 144/87 H 99 04/02/19 08:30 110 H 23 150/93 H 99 04/02/19 08:00 102 H 21 153/104 H 98 04/02/19 07:30 97 H 20 142/79 H 97 04/02/19 07:00 92 H 21 113/80 98 04/02/19 06:30 89 22 139/83 99 04/02/19 06:17 87 20 93 04/02/19 06:16 87 20 93 04/02/19 06:00 89 20 128/80 93 04/02/19 05:33 97 H 24 167/98 H 95 04/02/19 05:32 97 H 18 167/98 H 95 04/02/19 05:14 92 H 24 98 04/02/19 05:00 86 21 148/100 H 99 04/02/19 04:30 88 21 125/84 100 04/02/19 04:16 84 24 96 04/02/19 04:15 84 24 96 04/02/19 04:13 96 04/02/19 04:08 36.6 C 94 H 24 149/90 H 97 04/02/19 04:05 99 H 21 149/90 H 96 Coding Level of Care Code 64372 Office/Outpt Visit, New Diagnoses Asthma exacerbation J45.901 Asthma persistence: unspecified Asthma severity: unspecified severity Severe persistent asthma J45.50 Eosinophilic asthma J82 (1) Asthma exacerbation Asthma persistence: unspecified Asthma severity: unspecified severity Qualified Code(s): J45.901 - Unspecified asthma with (acute) exacerbation
[2019-04-02] MEDS ORDERED: INSULIN GLARGINE SOLOSTAR 100 UNITS/ML 3 ML PEN SC ONE ×2 (12:30→21:00)
--- NOTE | 2019-04-02 13:01 | Electrocardiogram Report ---
Test Reason : Blood Pressure : / mmHG Vent. Rate : 087 BPM Atrial Rate : 087 BPM P-R Int : 176 ms QRS Dur : 076 ms QT Int : 352 ms P-R-T Axes : 075 002 060 degrees QTc Int : 423 ms Normal sinus rhythm Nonspecific ST and T wave abnormality Abnormal ECG When compared with ECG of 19-SEP-2017 08:01, Nonspecific T wave abnormality, worse in Anterolateral leads Confirmed by Gio Tsang ([id number]) on 04/02/2019 1:01:37 PM Referred By: REFERRED SELF Confirmed By:James Tsang
[2019-04-02] MEDS: INSULIN ASPART 100 UNITS/ML 3 ML PEN SC SCH ×3 (13:11→22:17)
[2019-04-02] MEDS: HEPARIN SOD 5,000 UNIT/0.5 ML VIAL SQ SCH ×2 (13:14→22:19)
[2019-04-02] MEDS ORDERED: COUGH DROP (SUGAR FREE) LOZ 24 LOZ/1 BOX BUCCAL ONE (13:17)
[2019-04-02] MEDS: ALBUT/IPRATROP 3MG/0.5MG NEB 3 ML VIAL INH SCH ×2 (13:28→19:09)
--- NOTE | 2019-04-02 15:12 | Pharmacy Report ---
Glycemic Control Consultation - Date of Service April 02, 2019 - Scope Scope: Glycemic Pharmacist consulted by Danette Bateman on 04/02/19 for glycemic control and to write orders per [facility] inpatient glycemic control protocol - Objective Weight: 105 kg Accuchecks BSG (last 24hrs): 04/02/19 04/02/19 04/02/19 04:30 11:26 11:27 Glucose 76 POC Glucose 332 H* 348 H* Laboratory Data (last 24hrs): 04/02/19 04:30 Potassium 3.9 Carbon Dioxide 27 Anion Gap 5.0 Creatinine 0.89 Est Cr Clr Drug Dosing 77.7 - Recent Pertinent Medications Outpatient Anti-diabetic Regimen: * NPH 35 units qAM and 45 units qPM * Regular insulin 20-35 units TID meals * Metformin 1g PO BID * A1c = 9.5 % 03/09/18, recheck in AM Risk Factors for Insulin Resistance: * Steroids: Solu-medrol 40mg IV Q12H * Infection: COPD exacerbation - PO Azithromycin * Diet:Type 2 DM - Assessment & Plan Assessment & Plan: ASSESSMENT: * 69 year old female admitted with COPD exacerbation on IV steroids, type 2 diabetic with steroid induced hyperglycemia. * Patient on NPH and regular insulin at home, will use Lantus and Novolog as inpatient in attempt for better glycemic control. * Blood sugar when consulted = 348mg/dl, pt given 14 units Novolog and 45 units of Lantus- repeated 2 hours later and it was 342mg/dl, further tightened CF/CR below and increased Lantus at HS from previous order. PLAN FOR INPATIENT GLYCEMIC CONTROL: * Holding outpatient oral diabetes medications * Basal insulin * Lantus 45 units SQ x 1 today at 1230 * then again HS: 0 units for BSG < 120mg/dl, 45 units for BSG 120-180mg/dl, 60 units for BSG > 180mg/dl * Further Lantus dosing in AM * Bolus insulin * NovoLog per scale ACHS or Q6hrs while NPO * Goal Range: Low 110 mg/dL - High 140 mg/dL * Correction Factor: 10 mg/dL/unit * Nutritional / Prandial insulin per carb ratio of 1 unit per 3 grams CHO consumed * Please note that the plan above was derived based on current level of insulin resistance and hospital stress. These recommendations are appropriate for inpatient admission only. Plan of care upon discharge will need to be reassessed to avoid potential outpatient hypo/hyperglycemia. Thank you.
[2019-04-02] MEDS ORDERED: INSULIN ASPART 100 UNITS/ML 3 ML PEN SC ONE (15:30)
[2019-04-02] MEDS: MAGNESIUM OXIDE 400 MG TAB PO SCH (17:14)
--- NOTE | 2019-04-02 18:56 | Pulmonary Consultation ---
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 At the time of presentation at this time patient had absolute eosinophil count of 1070 with peripheral eosinophilia of 7.8% Continue with IV steroids, inhaled bronchodilators, antibiotics for exacerbation O2 supplementation to keep oxygen saturation between 88 to 92% Antitussive medication to suppress the cough along with mucolytic Chest x-ray from today personally reviewed: Supportable film good inspiratory effort, hyperinflated,Bilateral costophrenic and cardiophrenic angles are clean, no clear infiltrate appreciated CT chest from 03/25/2019 personally reviewed: There are emphysematous changes appreciated Patient is already on LABA/ICS inhaler along with lama inhaler at home. Patient was recently seen by Dr. Carranza who is planning to start her on benralizumab for the eosinophilic component of her ACOS. AB.34/36/69/93.7% on room air on 04/02/2019 -- Multiple pulmonary nodules Largest being in the right lower lobe which is 1 cm There is also right hilar lymphadenopathy This has been stable since November 2018 Continued follow-up is recommended given the patient has history of significant smoking. PET CT vs EBUS could be thought of if there is any change in the size of nodules. Patient needs to follow-up with the spiral winding machine helper as an outpatient --RAGHAVENDRA Continue with CPAP nightly and PRN shortness of breath (2) Asthma exacerbation: Asthma persistence: unspecified Asthma severity: unspecified severity Qualified Code(s): J45.901 - Unspecified asthma with (acute) exacerbation (3) Eosinophilic asthma: (4) RAGHAVENDRA (obstructive sleep apnea): History of Present Illness Attending Physician: Nora Millan MD History of Present Illness This is a 69-year-old female with past medical history of asthma/COPD what we call ACOS, RAGHAVENDRA on CPAP, chronic urticaria comes to the hospital with complaints of worsening shortness of breath which has been going on since last 3 to 4 days progressively getting worse. She did complain of runny nose prior to this. Denies any chest pain, no headache, no nausea or vomiting. No dizziness, no palpitations. Positive cough with greenish phlegm. Patient was prescribed azithromycin as an outpatient but she only took it for 2 days. She was not able to take deep breaths even on BiPAP as the reason she came to the ER. Patient is usually not on any oxygen at home. No dysuria, no diarrhea, no hematuria, no hematochezia. Positive subjective fever and chills. Denies any night sweats. Patient has never been intubated in the past for respiratory issues. Patient was recently seen by grade tamper. Social history: Greater than [id number] smoking history, quit a while ago, no alcohol use, no illicit drug use. No personal family history of any cancer. There is strong family history of asthma. Allergies Allergy/AdvReac Type Severity Reaction Status Date / Time Bactrim Allergy Intermediate HIVES Verified 10/24/17 09:04 clindamycin Allergy Intermediate HIVES Verified 04/02/19 04:05 sulfamethoxazole Allergy Intermediate HIVES Verified 04/02/19 04:05 trimethoprim Allergy Intermediate HIVES Verified 04/02/19 04:05 amoxicillin AdvReac Mild nausea and Verified 04/02/19 04:05 vomiting clavulanic acid AdvReac Mild NAUSEA AND Verified 04/02/19 04:05 VOMITING Home Medications Home Medications Medication Instructions Recorded Confirmed Type Novolin N NPH U-100 Insulin 35 - 45 unit SUBCUT UD 08/12/18 04/02/19 History Novolin R Regular U-100 Insuln 20 - 35 unit SUBCUT TID 08/12/18 04/02/19 History aspirin 81 mg PO QAM 08/12/18 04/02/19 History cholecalciferol (vitamin D3) 1,000 unit PO QPM 08/12/18 04/02/19 History [Vitamin D3] cyanocobalamin (vitamin B-12) 1,000 mcg PO QAM 08/12/18 04/02/19 History [Vitamin B-12] docusate sodium [Stool Softener] 250 mg PO BID 08/12/18 04/02/19 History furosemide 20 mg PO QAM PRN 08/12/18 04/02/19 History magnesium 250 mg PO QAM 08/12/18 04/02/19 History omega-3 fatty acids 500 mg PO QAM 08/12/18 04/02/19 History spironolactone 25 mg PO QAM 08/12/18 04/02/19 History tramadol 100 mg PO TID PRN 08/12/18 04/02/19 History atorvastatin 20 mg tablet 40 mg PO HS #180 tab 12/09/18 04/02/19 Rx ranitidine HCl 300 mg tablet 300 mg PO HS #90 tab 12/09/18 04/02/19 Rx omeprazole 20 mg capsule,delayed 40 mg PO QAM #120 cap 12/10/18 04/02/19 Rx release metformin 1,000 mg tablet 1,000 mg PO BID #180 tab 12/21/18 04/02/19 Rx diclofenac sodium 1 % topical gel See Rx Instructions TOPICAL QID 01/07/19 04/02/19 History PRN gm nitroglycerin 0.4 mg sublingual 0.4 mg SL Q5M PRN #25 tab 01/07/19 04/02/19 History tablet varicella-zoster gE-AS01B (PF) 50 0.5 ml IM ONCE #1 ea 01/08/19 04/02/19 Rx mcg/0.5 mL IM susp, kit albuterol sulfate 90 mcg/actuation 2 puff INH Q4H PRN #3 inhaler 02/18/19 04/02/19 Rx aerosol inhaler azelastine 137 mcg (0.1 %) nasal 2 spray INTNAS DAILY #30 ml 02/18/19 04/02/19 Rx spray aerosol venlafaxine 150 mg 150 mg PO DAILY #90 cap 03/09/19 04/02/19 Rx capsule,extended release 24 hr venlafaxine 75 mg capsule,extended 75 mg PO DAILY #90 cap 03/09/19 04/02/19 Rx release 24 hr losartan 50 mg tablet 50 mg PO DAILY #90 tab 03/23/19 04/02/19 Rx levothyroxine 100 mcg tablet 100 mcg PO DAILY #30 tab 03/24/19 04/02/19 Rx azithromycin 250 mg tablet See Rx Instructions PO .COMPLEX #6 03/31/19 04/02/19 Rx tab benzonatate 100 mg capsule 100 mg PO TID PRN #30 cap 03/31/19 04/02/19 Rx benralizumab 30 mg/mL subcutaneous 30 mg SQ .COMPLEX #1 ml 04/01/19 04/02/19 Rx auto-injector atenolol 25 mg PO QPM 04/02/19 04/02/19 History atenolol 50 mg PO QAM 04/02/19 04/02/19 History Patient History Medical History (Updated 04/02/19 @ 18:45 by Darin Saldivar MD) Abdominal cramping Anxiety Ascending aorta enlargement Follows w/ Dr. Alas - [facility] Asthma Chronic back pain Chronic headaches COPD exacerbation Degenerative disc disease Depression Diarrhea DM type 2 (diabetes mellitus, type 2) IDDM GERD (gastroesophageal reflux disease) Hiatal hernia History of benign breast biopsy History of colon polyps History of endometriosis Hyperlipidemia Hypothyroid Neuroendocrine carcinoma of lung 2011 - S/P LOBECTOMY Osteoarthritis Post traumatic stress disorder Sleep apnea cpap Surgical History History of appendectomy History of bronchoscopy x 2 History of cardiac cath 3 years ago - [facility] - CP/SOB - no stents/angioplasty 2 caths in [place] ([facility]) - CP/SOB - no stents/angioplasty (2008) Follows w/ Dr. Jaime History of cataract surgery History of colonoscopy with polypectomy History of dilation and curettage History of esophagogastroduodenoscopy (EGD) History of laparoscopic cholecystectomy History of lobectomy of lung L - 2011 History of tooth extraction History of total abdominal hysterectomy and bilateral salpingo-oophorectomy Social History Preferred Language: Occitan Communication Ability: Effective Visual Impairment: No Limitations Hearing Ability: Normal Supervisor Dock Required: No Beliefs That Will Affect Care: None marital status: Current Living Situation: Spouse current occupational status: retired Other Information That Helps Us Care for You: No Feels Safe at Home: Yes Safety Concerns: Feels Safe At This Time Smoking Status: Former smoker Do You Dip or Chew Tobacco: No ; Number of Years Since Quit: 10 ; Second Hand Exposure: No ; Tobacco Cessation Education Requested by Patient: No Hx Alcohol Use: Yes Alcohol type: hard liquor Hx Substance Use: No Childhood Exposure to Second-Hand Smoke: Yes Dental Care, Regularly: Yes Physical Activity Frequency: 1-2 Times per Week Seatbelt Use: always Sunscreen Use: Yes Review of Systems Review of Systems: All systems reviewed & are unremarkable except as noted in HPI & below Physical Exam Physical Exam: Constitutional: No acute distress HEENT: EOMI, PERRLA Respiratory system: Good air entry bilaterally, no wheeze, no rhonchi, mild crackles bilateral lower lobes CVS: S1-S2 positive, no murmurs or gallops Abdomen: Soft, nontender, nondistended, positive bowel sounds x4 Extremities: +2 pulses bilaterally radialis/ dorsalis pedis, no cyanosis, no edema Neuro: Awake alert oriented x3 Psych: Normal mood and affect G/U: No Kendall Skin: no rashes, warm and dry Lymphatic: no cervical or axillary lymphadenopathy Results & Data ([facility]) Vital Signs (Past 12 Hours) Vital Signs Temp Pulse Pulse Resp BP BP Pulse Ox 04/02/19 15:09 37.0 C 89 18 146/77 H 96 04/02/19 13:33 96 H 20 97 04/02/19 10:19 101 H 27 H 98 04/02/19 09:57 111 H 22 151/85 H 99 04/02/19 09:30 109 H 21 139/91 98 04/02/19 09:00 107 H 20 144/87 H 99 04/02/19 08:30 110 H 23 150/93 H 99 04/02/19 08:00 102 H 21 153/104 H 98 04/02/19 07:30 97 H 20 142/79 H 97 04/02/19 07:00 92 H 21 113/80 98 04/02/19 04:30 04/02/19 04:30 PG Care Time/CCT Total # of Minutes Spent Total Time Spent with Patient: Total time spent is greater than 50% in coordination of care (as documented) at patient's floor/unit and/or counseling patient: C[place] [address] Initial Inpt Care Lvl 3 Patient Type Established Diagnoses COPD exacerbation J44.1 Asthma exacerbation J45.901 Asthma persistence: unspecified Asthma severity: unspecified severity Eosinophilic asthma J82 RAGHAVENDRA (obstructive sleep apnea) G47.33
[2019-04-02] MEDS: BENZONATATE 100 MG CAPSULE PO SCH (22:13)
[2019-04-02] MEDS: guaiFENesin 600 MG TABCR PO SCH (22:13)
[2019-04-02] MEDS: ATENOLOL 25 MG TABLET PO SCH (22:17)
[2019-04-02] MEDS: ATORVASTATIN 40 MG TAB PO SCH (22:19)
[2019-04-02] MEDS: CHOLECALCIFEROL 1,000 UNITS 25 MCG TAB PO SCH (22:19)
[2019-04-03] MEDS: ALBUT/IPRATROP 3MG/0.5MG NEB 3 ML VIAL INH SCH ×4 (00:56→19:05)
[2019-04-03] MEDS: INSULIN ASPART 100 UNITS/ML 3 ML PEN SC SCH ×6 (03:50→21:18)
[2019-04-03 06:17] LABS: Hemoglobin 11.5 g/dL (12.0-16.0); Mean Corpuscular Hemoglobin 23.8 pg (25-34); Mean Corpuscular Hgb Conc 31.1 g/dL (32-36); Mean Corpuscular Volume 76.6 fL (80-100); Mean Platelet Volume 11.2 fL (7.4-10.4); Platelet Count 335 K/uL (130-400); RDW Coefficient of Variation 18.2 % (11.5-14.5); Red Blood Count 4.83 M/uL (4.2-5.4); White Blood Count 14.62 K/uL (4.8-10.8)
[2019-04-03] MEDS: LEVOTHYROXINE SODIUM 100 MCG TABLET PO SCH (06:19)
[2019-04-03] MEDS: HEPARIN SOD 5,000 UNIT/0.5 ML VIAL SQ SCH ×3 (06:20→21:17)
[2019-04-03 06:52] LABS: Albumin Globulin Ratio 0.6 (0.9-2); Albumin Level 2.9 gm/dl (3.4-5.0); BUN Creatinine Ratio 15.4 (10-20); Bilirubin,Total 0.4 mg/dl (0.2-1); Calcium 8.8 mg/dl (8.5-10.1); Creatinine Clr Calc Pharmacy 64.8 ml/min; Est GFR (Non-African American) 56.1; Ferritin 11.5 ng/ml (8-388); Globulin 4.7 gm/dl (2.5-4.0); Thyroid Stimulating Hormone 0.496 uIu/ml (0.300-4.500); Total Protein 7.6 gm/dl (6.4-8.2)
[2019-04-03 07:11] LABS: Estimated Average Glucose 235 mg/dl; Hemoglobin A1C 9.8 % (4.5-5.6)
[2019-04-03] MEDS: VENLAFAXINE HCL XR 75 MG CAPXR PO SCH (08:19)
[2019-04-03] MEDS: guaiFENesin 600 MG TABCR PO SCH ×2 (08:19→21:16)
[2019-04-03] MEDS: ATENOLOL 50 MG TABLET PO SCH (08:19)
[2019-04-03] MEDS: VENLAFAXINE HCL XR 150 MG CAPXR PO SCH (08:19)
[2019-04-03] MEDS: SPIRONOLACTONE 25 MG TAB PO SCH (08:20)
[2019-04-03] MEDS: BENZONATATE 100 MG CAPSULE PO SCH ×3 (08:20→21:15)
[2019-04-03] MEDS: LOSARTAN POTASSIUM 50 MG TAB PO SCH (08:20)
[2019-04-03] MEDS: PANTOprazole 40 MG TAB PO SCH (08:20)
[2019-04-03] MEDS: OMEGA-3 (PURIFIED FISH OIL) 1 GM CAP PO SCH (08:20)
[2019-04-03] MEDS: ASPIRIN 81 MG ECTAB PO SCH (08:20)
[2019-04-03] MEDS: MAGNESIUM OXIDE 400 MG TAB PO SCH (08:21)
[2019-04-03] MEDS: DOCUSATE CALCIUM 240 MG CAPSULE PO SCH ×2 (08:21→21:15)
[2019-04-03] MEDS: CYANOCOBALAMIN 500 MCG TABLET (VITAMIN B-12) PO SCH (08:21)
[2019-04-03] MEDS: AZITHROMYCIN 250 MG TAB PO SCH (08:22)
[2019-04-03] MEDS: INSULIN GLARGINE SOLOSTAR 100 UNITS/ML 3 ML PEN SC SCH ×2 (08:22→21:13)
--- NOTE | 2019-04-03 10:09 | Pulmonology Progress Note ---
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 At the time of presentation at this time patient had absolute eosinophil count of 1070 with peripheral eosinophilia of 7.8% Continue with IV steroids, inhaled bronchodilators, antibiotics for exacerbation O2 supplementation to keep oxygen saturation between 88 to 92% Antitussive medication to suppress the cough along with mucolytic Chest x-ray 04/02/19: Supportable film good inspiratory effort, hyperinflated,Bilateral costophrenic and cardiophrenic angles are clean, no clear infiltrate appreciated CT chest from 03/25/2019 personally reviewed: There are emphysematous changes appreciated Patient is already on LABA/ICS inhaler along with lama inhaler at home. Patient was recently seen by Dr. Carranza who is planning to start her on benralizumab for the eosinophilic component of her ACOS. AB.34/36/69/93.7% on room air on 04/02/2019 -- Multiple pulmonary nodules Largest being in the right lower lobe which is 1 cm There is also right hilar lymphadenopathy This has been stable since November 2018 Continued follow-up is recommended given the patient has history of significant smoking. PET CT vs EBUS could be thought of if there is any change in the size of nodules. 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 It may contain grammatical, syntax or spelling errors. (2) Asthma exacerbation: Asthma persistence: unspecified Asthma severity: unspecified severity Qualified Code(s): J45.901 - Unspecified asthma with (acute) exacerbation (3) Eosinophilic asthma: (4) RAGHAVENDRA (obstructive sleep apnea): Subjective Patient seen and examined at bedside. No acute distress, no adverse events ov ernight. Shortness of breath is improved. Patient states she is still complaining of coughing. She states the cough kept her awake at night. No dizziness, no blurry vision, no headache, no nausea, no vomiting. Review of Systems Review of Systems: All systems reviewed & are unremarkable except as noted in HPI & below Physical Exam Physical Exam: Constitutional: No acute distress HEENT: EOMI, PERRLA Respiratory system: Good air entry bilaterally, no wheeze, no rhonchi, mild crackles bilateral lower lobes CVS: S1-S2 positive, no murmurs or gallops Abdomen: Soft, nontender, nondistended, positive bowel sounds x4 Extremities: +2 pulses bilaterally radialis/ dorsalis pedis, no cyanosis, no edema Neuro: Awake alert oriented x3 Psych: Normal mood and affect G/U: No Kendall Patient saturating 93% on room air at the time of examination with heart rate of 88. Skin: no rashes, warm and dry Lymphatic: no cervical or axillary lymphadenopathy Results & Data ([facility]) Vital Signs (Past 12 Hours) Vital Signs Temp Pulse Pulse Resp BP Pulse Ox 04/03/19 08:00 36.9 C 69 88 21 159/85 H 92 04/03/19 06:50 67 67 16 92 04/03/19 03:47 36.5 C 71 16 126/78 92 04/03/19 03:22 76 20 92 04/03/19 00:57 77 18 90 04/03/19 00:56 77 18 91 04/02/19 23:26 36.5 C 85 16 111/63 93 04/02/19 22:44 94 H 18 96 04/03/19 05:48 04/03/19 05:48 PG Care Time/CCT Total # of Minutes Spent Total Time Spent with Patient: Total time spent is greater than 50% in coordination of care (as documented) at patient's floor/unit and/or counseling patient: [place] [address] Subseq Hosp Care Lvl 3 Patient Type Established Diagnoses COPD exacerbation J44.1 Asthma exacerbation J45.901 Asthma persistence: unspecified Asthma severity: unspecified severity Eosinophilic asthma J82 RAGHAVENDRA (obstructive sleep apnea) G47.33
[2019-04-03] MEDS: methylPREDNISolone 40 MG in SYRINGE 0 ML IV SCH ×2 (11:45→23:33)
--- NOTE | 2019-04-03 14:17 | Pharmacy Report ---
Pharmacy Glycemic Short Note 2 - Date of Service April 03, 2019 - Glycemic Short BSG Results (Last 24 hours): 04/02/19 04/02/19 04/02/19 15:08 20:07 23:26 Glucose POC Glucose 342 H* 190 H 179 H 04/03/19 04/03/19 04/03/19 03:46 05:48 07:04 Glucose 248 H POC Glucose 244 H 270 H 04/03/19 11:24 Glucose POC Glucose 84 OUTPATIENT ANTIDIABETIC REGIMEN: * NPH 35 units qAM and 45 units qPM * Regular insulin 20-35 units TID meals * Metformin 1g PO BID * A1c = 9.8 % 04/03/19 Risk Factors for Insulin Resistance: * Steroids: Solu-medrol 40mg IV Q12H * Infection: COPD exacerbation - PO Azithromycin * Diet:Type 2 DM ASSESSMENT: 04/03/19 * Patient's blood sugars remained in 200s early this morning, despite 105 units of Lantus and 52 units of Novolog * Increased Lantus this morning and blood sugar dropped to 84mg/dl at lunch. Will loosen CF and CR and Lantus dosing some to prevent hypoglycemia. * Will consider changing patient back to NPH for basal insulin after today if blood sugars not better controlled by tomorrow. 04/02/19 * 69 year old female admitted with COPD exacerbation on IV steroids, type 2 diabetic with steroid induced hyperglycemia. * Patient on NPH and regular insulin at home, will use Lantus and Novolog as inpatient in attempt for better glycemic control. * Blood sugar when consulted = 348mg/dl, pt given 14 units Novolog and 45 units of Lantus- repeated 2 hours later and it was 342mg/dl, further tightened CF/CR below and increased Lantus at HS from previous order. PLAN FOR INPATIENT GLYCEMIC CONTROL: * Holding outpatient oral diabetes medications * Basal insulin * Lantus 70 units SQ x 1 today at 0900 * then BID starting tonight - 30 units for BSG < 120mg/dl, 40 units for BSG 120-180mg/dl, 50 units for BSG > 180mg/dl * Bolus insulin * NovoLog per scale ACHS or Q6hrs while NPO * Goal Range: Low 110 mg/dL - High 140 mg/dL * LOOSEN: Correction Factor: 12 mg/dL/unit * LOOSEN: Nutritional / Prandial insulin per carb ratio of 1 unit per 4 grams CHO consumed
--- NOTE | 2019-04-03 18:05 | Hospitalist Progress Note ---
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 With acute hypoxic respiratory failure Requiring BiPAP in the ER, to 1 hour-long nebulizer treatments, IV magnesium, IV Solu-Medrol ABG done after admission does not show any hypercapnia but shows hypoxia Now resolved, is off O2 and on RA, sats acceptable -continue treatment for asthma as below -continue CPAP qhs for RAGHAVENDRA (2) Eosinophilic asthma: Follows with allergy/immunology and pulmonology Previously on Xolair and has elevated eosinophils on admission here Is working on getting approval of Fasenra by college president currently -Follow CBC and eosinophil levels in the AM -Treating asthma exacerbation as below (3) Severe persistent asthma: With eosinophilic properties as above, with acute exacerbation here -Chest x-ray with chronic interstitial changes but no PNA -now off BiPAP and improved but still wheezing and a little diminished -continue IV steroids and convert to prednisone tomorrow most likely -Continue duo nebs, Mucinex, Tessalon Perles, flutter therapy, add on Robitussin w/ codeine for persistent severe cough -Influenza swab negative -Sputum culture pending -Consult pulmonology appreciated, follows with Wilmar Isidro as outpatient-most recently was seen on Friday and placed on azithromycin, continue p.o. azithromycin 250 mg x 2 more days -Consult allergy, follows with Dr. Carranza as outpatient-most recently saw him on Friday-appreciate consult-attempting to get her a sample dose of Fasenra in interim while awaiting approval -Benralizumab inj for eosinophilic asthma, prior Auth has been sent for Fesenra as outpt -Patient has history of pulmonary nodules (at least 8 measuring up to 10 mm throughout both lungs) that have been followed via CT as outpatient (4) COPD (chronic obstructive pulmonary disease): Overlap with asthma syndrome Follows with pulmonology (5) Sleep apnea: Continue CPAP at nighttime (6) Type 2 diabetes mellitus, with long-term current use of insulin: -Consult glycemic pharmacy with high-dose IV Solu-Medrol, hold home NPH for now. -Last A1c was 9.5 on 03/09/2018, now here is high at 9.8% -Glucose checks achs -needs improved control as outpt (7) Diabetic peripheral neuropathy associated with type 2 diabetes mellitus: -Noted -PT/OT consults (8) Hypertension: -Continue atenolol 75 mg daily, losartan 50 mg daily, spironolactone 25 mg daily, holding Lasix as this is as needed as outpatient (uses for lower extremity edema) (9) Obesity: -BMI of 39.3 -Heart healthy/diabetic diet, encouraged exercise upon discharge (10) Lumbar radiculopathy: -Stable, not on chronic pain medication (11) Gastroesophageal reflux disease: -Hold ranitidine with recent recall of medication (12) Dyslipidemia: -Continue atorvastatin 40 mg at bedtime (13) ASCVD (arteriosclerotic cardiovascular disease): -Patient underwent coronary cath [place] [address] Jaime, showing mild nonobstructive coronary artery disease, the patient was seen and examined this morning. Patient reports feeling well continues on therapy for stable ischemic heart disease (14) Ascending aortic aneurysm: -There is mention of it being 4.0 cm in size and followed at [facility] in the past, recent CT of the chest here shows it being 3.8 cm -Needs continued good blood pressure control (15) Depression with anxiety: -Continue Effexor (16) Hypothyroid: TSH here normal -Continue home levothyroxine (17) Microcytic anemia: MCV 76, hemoglobin mildly reduced at 12 -ferritin low at 11, Fe sat low at 9% She had a colonoscopy 1 year ago that was reportedly normal Last EGDa approx 4 years ago No longer takes iron tablets as they made her too constipated -will give IV iron tomorrow-saw her late in the day and don't want to give in evening in case of anaphylaxis risk given eopsinophilia (18) Syncope: Had a brief episode of feeling dizzy while doing a pain by number on her iPad and saw red and blue spots, then woke up with iPad on floor and felt her hands were moving trying to catch the iPad Tele at that time normal sinus in the 80s, glucose in high 100s, BPs ok No associated neuro symptoms or chest pain Seems she either fell asleep or possible vasovagal reaction? -check ECHO -continue tele (19) DVT prophylaxis: -Teds, heparin subcu CODE STATUS: Full code Disposition:continued stay Subjective Patient reports still coughing quite a bit but feeling much less short of breath. Denies chest pain or lightheadedness. She had an episode last evening around 9 PM where she was working on painting by numbers on her iPad and then she remembers feeling strange seeing red and blue spots, and then she woke up and her iPad was on the floor. She thinks maybe she passed out. She denies any headache since then, no further visual symptoms, no numbness or tingling or weakness, denies chest pains at the time. Review of telemetry shows sinus rhythm with a rate of 80 and no arrhythmias or bradycardia. Her blood pressures were normal at that time and her blood sugar was in the upper 100s. She is never had anything like that happen before. As for her iron deficiency, she denies any blood in her stool or vomiting blood. She has had anemia for many years and it did improve in the past with taking iron pills however she was very constipated with this. She had an EGD about 4 years ago and a colonoscopy last year Review of Systems Review of Systems: All systems reviewed & are unremarkable except as noted in HPI & below Physical Exam Constitutional: WD/WN, vitals as above + obese Eyes: + anicteric sclerae ENMT: external ear and nose normal, oropharynx normal Neck: trachea midline, no thyromegaly Respiratory: normal respiratory effort Auscultation: + diminished lung sounds (throughout but improved from previous) and + wheezes (a few scattered) Cardiovascular: RRR, no murmur, no edema Chest (Breasts): Chest: normal inspection of chest Gastrointestinal (Abdomen): normal bowel sounds, soft, nontender, no hepatosplenomegaly Musculoskeletal: Extremities: extremities normal to inspection; no cyanosis and no clubbing Skin: no rashes, warm and dry Neurologic: moves all extremities and awake; no focal motor deficits Psychiatric: A+Ox3, euthymic affect Lymphatic: no lymphedema Results & Data ([facility]) Vital Signs (Past 12 Hours) Vital Signs Temp Pulse Pulse Pulse Resp BP BP 04/03/19 16:00 71 04/03/19 15:04 36.7 C 76 18 129/72 04/03/19 13:12 67 18 04/03/19 10:57 37.0 C 65 20 143/83 H 04/03/19 08:00 36.9 C 69 88 21 159/85 H 04/03/19 06:50 67 67 16 Pulse Ox 04/03/19 16:00 04/03/19 15:04 91 04/03/19 13:12 92 04/03/19 10:57 93 04/03/19 08:00 92 04/03/19 06:50 92 Laboratory Results labs reviewed PG Care Time/CCT Total # of Minutes Spent Total Time Spent with Patient: Total time spent is greater than 50% in coor dination of care (as documented) at patient's floor/unit and/or counseling patient: Coding Level of Care Code 40866 Subseq Hosp Care Lvl 3 Diagnoses Acute respiratory distress syndrome J80 Eosinophilic asthma J82 Severe persistent asthma J45.50 COPD (chronic obstructive pulmonary disease) J44.9 Sleep apnea G47.30 Type 2 diabetes mellitus, with long-term current use of insulin E11.9; Z79.4 Diabetic peripheral neuropathy associated with type 2 diabetes mellitus E11.42 Hypertension I10 Obesity E66.9 Lumbar radiculopathy M54.16 Gastroesophageal reflux disease K21.9 Dyslipidemia E78.5 ASCVD (arteriosclerotic cardiovascular disease) I25.10 Ascending aortic aneurysm I71.2 Depression with anxiety F41.8 Hypothyroid E03.9 Microcytic anemia D50.9 Syncope R55 DVT prophylaxis Z29.9
[2019-04-03] MEDS: GUAIFENESIN/CODEINE 100MG/10MG 5ML UDC PO PRN (21:12)
[2019-04-03] MEDS: ATORVASTATIN 40 MG TAB PO SCH (21:16)
[2019-04-03] MEDS: ATENOLOL 25 MG TABLET PO SCH (21:16)
[2019-04-03] MEDS: CHOLECALCIFEROL 1,000 UNITS 25 MCG TAB PO SCH (21:17)
[2019-04-04] MEDS: ALBUT/IPRATROP 3MG/0.5MG NEB 3 ML VIAL INH SCH ×4 (00:47→19:42)
[2019-04-04] MEDS: LEVOTHYROXINE SODIUM 100 MCG TABLET PO SCH (06:07)
[2019-04-04] MEDS: HEPARIN SOD 5,000 UNIT/0.5 ML VIAL SQ SCH ×3 (06:07→21:36)
[2019-04-04 06:40] LABS: Basophils # (auto) 0.01 K/uL (0-0.2); Basophils % (auto) 0.1 %; Eosinophils # (auto) 0.01 K/uL (0-0.5); Eosinophils % (auto) 0.1 %; Hematocrit (blood only) 36.2 % (37-47); Hemoglobin 11.7 g/dL (12.0-16.0); Immature Granulocytes # (auto) 0.06 K/uL (0.00-0.02); Immature Granulocytes % (auto) 0.5 %; Lymphocytes # (auto) 2.37 K/uL (1.2-3.4); Lymphocytes % (auto) 19.3 %; Mean Corpuscular Hemoglobin 24.2 pg (25-34); Mean Corpuscular Hgb Conc 32.3 g/dL (32-36); Mean Corpuscular Volume 74.8 fL (80-100); Monocytes # (auto) 0.52 K/uL (0.11-0.59); Monocytes % (auto) 4.2 %; Neutrophils # (auto) 9.32 K/uL (1.4-6.5); Neutrophils % (auto) 75.8 %; Platelet Count 336 K/uL (130-400); RDW Coefficient of Variation 18.3 % (11.5-14.5); RDW Standard Deviation 49.5 fL (36.4-46.3); Red Blood Count 4.84 M/uL (4.2-5.4); White Blood Count 12.29 K/uL (4.8-10.8)
[2019-04-04 07:08] LABS: BUN Creatinine Ratio 19.4 (10-20); Calcium 8.9 mg/dl (8.5-10.1); Creatinine Clr Calc Pharmacy 74.1 ml/min; Est GFR (African American) 77.7; Potassium 4.6 mmol/L (3.5-5.1)
[2019-04-04] MEDS: INSULIN GLARGINE SOLOSTAR 100 UNITS/ML 3 ML PEN SC SCH (08:43)
[2019-04-04] MEDS: INSULIN ASPART 100 UNITS/ML 3 ML PEN SC SCH ×4 (08:44→21:33)
[2019-04-04] MEDS: ATENOLOL 50 MG TABLET PO SCH (08:47)
[2019-04-04] MEDS: AZITHROMYCIN 250 MG TAB PO SCH (08:47)
[2019-04-04] MEDS: LOSARTAN POTASSIUM 50 MG TAB PO SCH (08:47)
[2019-04-04] MEDS: OMEGA-3 (PURIFIED FISH OIL) 1 GM CAP PO SCH (08:47)
[2019-04-04] MEDS: PANTOprazole 40 MG TAB PO SCH (08:47)
[2019-04-04] MEDS: VENLAFAXINE HCL XR 150 MG CAPXR PO SCH (08:48)
[2019-04-04] MEDS: ASPIRIN 81 MG ECTAB PO SCH (08:48)
[2019-04-04] MEDS: guaiFENesin 600 MG TABCR PO SCH ×2 (08:48→21:31)
[2019-04-04] MEDS: BENZONATATE 100 MG CAPSULE PO SCH ×3 (08:48→21:32)
[2019-04-04] MEDS: SPIRONOLACTONE 25 MG TAB PO SCH (08:48)
[2019-04-04] MEDS: VENLAFAXINE HCL XR 75 MG CAPXR PO SCH (08:48)
[2019-04-04] MEDS: CYANOCOBALAMIN 500 MCG TABLET (VITAMIN B-12) PO SCH (08:48)
[2019-04-04] MEDS: DOCUSATE CALCIUM 240 MG CAPSULE PO SCH ×2 (08:48→21:31)
[2019-04-04] MEDS: MAGNESIUM OXIDE 400 MG TAB PO SCH (08:50)
--- NOTE | 2019-04-04 11:11 | Pulmonology Progress Note ---
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 At the time of presentation at this time patient had absolute eosinophil count of 1070 with peripheral eosinophilia of 7.8% Continue with steroids, inhaled bronchodilators, antibiotics for exacerbation O2 supplementation to keep oxygen saturation between 88 to 92% Antitussive medication to suppress the cough along with mucolytic Chest x-ray 04/02/19: Supportable film good inspiratory effort, hyperinflated,Bilateral costophrenic and cardiophrenic angles are clean, no beckie ar infiltrate appreciated CT chest from 03/25/2019 personally reviewed: There are emphysematous changes appreciated Patient is already on LABA/ICS inhaler along with lama inhaler at home. Patient was recently seen by Dr. Carranza who is planning to start her on benralizumab for the eosinophilic component of her ACOS. AB.34/36/69/93.7% on room air on 04/02/2019 -- Multiple pulmonary nodules Largest being in the right lower lobe which is 1 cm There is also right hilar lymphadenopathy This has been stable since November 2018 Continued follow-up is recommended given the patient has history of significant smoking. PET CT vs EBUS could be thought of if there is any change in the size of nodules. 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 Cough is decreased in intensity. Recommend transitioning IV Solu-Medrol to p.o. prednisone 40 mg for 4 days followed by 20 mg for 3 days and then stopping it. Continue with inhaler therapy at home. Needs to follow-up with pulmonary within 2 weeks of discharge. Symptomatic cough management. No further recommendations from pulmonary perspective. Will sign off recall if needed. Please note the above document was generated using voice recognition software. It may contain grammatical, syntax or spelling errors. (2) Asthma exacerbation: Asthma persistence: unspecified Asthma severity: unspecified severity Qualified Code(s): J45.901 - Unspecified asthma with (acute) exacerbation (3) Eosinophilic asthma: (4) RAGHAVENDRA (obstructive sleep apnea): Subjective Patient seen and examined at bedside. No acute distress, no adverse events overnight. Patient states that the cough is decreased in intensity. Shortness of breath is improved. Denies any chest pain, no headache, no nausea, no vomiting. No abdominal pain. Denies any hemoptysis. Review of Systems Review of Systems: All systems reviewed & are unremarkable except as noted in HPI & below Physical Exam Physical Exam: Constitutional: No acute distress HEENT: EOMI, PERRLA Respiratory system: Good air entry bilaterally, no wheeze, no rhonchi, mild crackles bilateral lower lobes CVS: S1-S2 positive, no murmurs or gallops Abdomen: Soft, nontender, nondistended, positive bowel sounds x4 Extremities: +2 pulses bilaterally radialis/ dorsalis pedis, no cyanosis, no e julian Neuro: Awake alert oriented x3 Psych: Normal mood and affect G/U: No Kendall Patient saturating 93% on room air at the time of examination with heart rate of 73. Skin: no rashes, warm and dry Lymphatic: no cervical or axillary lymphadenopathy Results & Data ([facility]) Vital Signs (Past 12 Hours) Vital Signs Temp Pulse Pulse Resp BP Pulse Ox 04/04/19 08:00 65 04/04/19 06:49 60 18 91 04/04/19 06:18 37.1 C 67 20 123/80 90 04/04/19 02:59 36.6 C 70 19 125/82 92 04/04/19 00:47 72 72 16 91 04/03/19 23:19 36.4 C L 77 19 135/80 93 04/04/19 05:49 04/04/19 05:49 PG Care Time/CCT Total # of Minutes Spent Total Time Spent with Patient: Total time spent is greater than 50% in coordination of care (as documented) at patient's floor/unit and/or counseling patient: Coding Level of Care Code 40155 Subseq Hosp Care Lvl 3 Diagnoses COPD exacerbation J44.1 Asthma exacerbation J45.901 Asthma persistence: unspecified Asthma severity: unspecified severity Eosinophilic asthma J82 RAGHAVENDRA (obstructive sleep apnea) G47.33
[2019-04-04] MEDS ORDERED: IRON SUCROSE 300 MG in SODIUM CHLORIDE 0.9% 250 ML IV ONE (12:00)
[2019-04-04] MEDS ORDERED: predniSONE 20 MG TAB PO ONE (12:30)
--- NOTE | 2019-04-04 12:30 | Pharmacy Report ---
Pharmacy Glycemic Short Note 2 - Date of Service April 04, 2019 - Glycemic Short BSG Results (Last 24 hours): 04/03/19 04/03/19 04/04/19 16:06 20:14 05:49 Glucose 210 H POC Glucose 110 H 164 H 04/04/19 04/04/19 07:07 11:34 Glucose POC Glucose 207 H 228 H OUTPATIENT ANTIDIABETIC REGIMEN: * NPH 35 units qAM and 45 units qPM * Regular insulin 20-35 units TID meals * Metformin 1g PO BID * A1c = 9.8 % 04/03/19 Risk Factors for Insulin Resistance: * Steroids: Solu-medrol 40mg IV Q12H - last dose at 2300 last night, starting Prednisone 40mg now. * Infection: COPD exacerbation - PO Azithromycin * Diet:Type 2 DM ASSESSMENT: 04/04/19 * Patient to be discharged today, transitioning IV Solu-medrol to PO prednisone, starting today: Prednisone 40mg daily x 4 days then 20mg x 3 days. * See discharge recommendations below. * Fasting blood sugar 210mg/dl this morning - increase basal. * No change in CF/CR at this time, as steroids are decreasing and transitioning to oral. 04/03/19 * Patient's blood sugars remained in 200s early this morning, despite 105 units of Lantus and 52 units of Novolog * Increased Lantus this morning and blood sugar dropped to 84mg/dl at lunch. Will loosen CF and CR and Lantus dosing some to prevent hypoglycemia. * Will consider changing patient back to NPH for basal insulin after today if blood sugars not better controlled by tomorrow. 04/02/19 * 69 year old female admitted with COPD exacerbation on IV steroids, type 2 diabetic with steroid induced hyperglycemia. * Patient on NPH and regular insulin at home, will use Lantus and Novolog as inpatient in attempt for better glycemic control. * Blood sugar when consulted = 348mg/dl, pt given 14 units Novolog and 45 units of Lantus- repeated 2 hours later and it was 342mg/dl, further tightened CF/CR below and increased Lantus at HS from previous order. PLAN FOR INPATIENT GLYCEMIC CONTROL: * Holding outpatient oral diabetes medications * Basal insulin - increase * Lantus BID - 40 units for BSG < 120mg/dl, 50 units for BSG 120-180mg/dl, 60 units for BSG > 180mg/dl * Bolus insulin * NovoLog per scale ACHS or Q6hrs while NPO * Goal Range: Low 110 mg/dL - High 140 mg/dL * Correction Factor: 12 mg/dL/unit * Nutritional / Prandial insulin per carb ratio of 1 unit per 4 grams CHO consumed DISCHARGE RECOMMENDATIONS: * While on Prednisone increase AM NPH to the following * Prednisone 40mg x 3 days - give NPH 80 units SQ QAM * Prednisone 20mg x 3 days - give NPH 60 units SQ QAM * then resume NPH 35 units SQ QAM after prednisone taper complete * Continue NPH 45 units SQ PM and Regular insulin 20-35 units TID with meals * Continue Metformin 1g PO BID * Follow up with outpatient provider for better insulin dosing, A1c above goal at 9.8%.
[2019-04-04] MEDS: methylPREDNISolone 40 MG in SYRINGE 0 ML IV SCH (12:51)
--- NOTE | 2019-04-04 19:50 | Hospitalist Progress Note ---
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 With acute hypoxic respiratory failure Requiring BiPAP in the ER, two 1 hour-long nebulizer treatments, IV magnesium, and IV Solu-Medrol ABG done after admission does not show any hypercapnia but shows hypoxia Now resolved, is weaned off O2 and remains on RA, sats acceptable Ambulated without oxygen today with some dyspnea on exertion -continue treatment for asthma as below -continue CPAP qhs for RAGHAVENDRA -May need two step prior to discharge (2) Eosinophilic asthma: Follows with allergy/immunology and pulmonology Previously on Xolair and has elevated eosinophils on admission here Is working on getting approval of Fasenra by traffic signal technician currently -Absolute eosinophils were 1070 upon admission and now down to 10 after receiving Solu-Medrol -Continue treating asthma exacerbation as below (3) Severe persistent asthma: With eosinophilic asthma as above, with acute exacerbation here -Chest x-ray with chronic interstitial changes but no PNA -now off BiPAP and improved but still wheezing and a little diminished, still with dyspnea on exertion and cough-improved overall -Convert IV steroids to prednisone 40 mg daily x4 days and then 20 mg daily x3 days as per pulmonary recommendations -Continue duo nebs, Mucinex, Tessalon Perles, flutter therapy, and Robitussin w/ codeine for persistent severe cough-patient requests a prescription for Robitussin with codeine upon discharge -Influenza swab negative -Sputum culture growing light normal javier -Consult pulmonology appreciated, follows with Wilmar Isidro as outpatient-most recently was seen on Friday as an outpatient and placed on azithromycin, has now completed a 5-day course -Consult allergy, follows with Dr. Carranza as outpatient-most recently saw him on Friday-appreciate consult-attempting to get her a sample dose of Fasenra in interim while awaiting approval-he will arrange outpatient follow-up after discharge -Benralizumab inj for eosinophilic asthma, prior Auth has been sent for Fesenra as outpt -Patient has history of pulmonary nodules (at least 8 measuring up to 10 mm throughout both lungs) that have been followed via CT as outpatient (4) COPD (chronic obstructive pulmonary disease): Overlap with asthma syndrome Follows with pulmonology (5) Sleep apnea: Continue CPAP at nighttime (6) Type 2 diabetes mellitus, with long-term current use of insulin: -Consult glycemic pharmacy given significantly high insulin requirement and hyperglycemia on corticosteroids -Last A1c was 9.5 on 03/09/2018, now here is high at 9.8%-significantly uncontrol led -Needs weight loss counseling and dietary counseling -Continue glucose checks achs -Required over 150 units of insulin last 24 hours Now converting to prednisone and pharmacy recommendations upon discharge would be: While on Prednisone increase AM NPH to the following: Prednisone 40mg x 3 days - give NPH 80 units SQ QAM Prednisone 20mg x 3 days - give NPH 60 units SQ QAM then resume NPH 35 units SQ QAM after prednisone taper complete Continue NPH 45 units SQ PM and Regular insulin 20-35 units TID with meals Continue Metformin 1g PO BID after discharge to home (7) Diabetic peripheral neuropathy associated with type 2 diabetes mellitus: -Noted -PT/OT consults (8) Hypertension: -Continue atenolol 50 mg every morning and 25 mg every afternoon, aspirin 81 mg daily,, losartan 50 mg daily, spironolactone 25 mg daily, uses Lasix as needed leg swelling-not needed (9) Obesity: -BMI of 35.3 -Heart healthy/diabetic diet, encouraged exercise upon discharge (10) Lumbar radiculopathy: -Stable, not on chronic pain medication Has tramadol at home but does not take it (11) Gastroesophageal reflux disease: -Hold ranitidine with recent recall of medication (12) Dyslipidemia: -Continue atorvastatin 40 mg at bedtime (13) ASCVD (arteriosclerotic cardiovascular disease): -Patient underwent coronary [place] [address] Jaime, showing mild nonobstructive coronary artery disease -No angina here -Continue aspirin, statin, beta-abby (14) Ascending aortic aneurysm: -There is mention of it being 4.0 cm in size and followed at [facility] in the past, recent CT of the chest here shows it being 3.8 cm -Needs continued good blood pressure control-continue beta-abby (15) Depression with anxiety: Stable -Continue Effexor (16) Hypothyroid: TSH here normal -Continue home levothyroxine (17) Microcytic anemia: MCV 76, hemoglobin mildly reduced at 12 -ferritin low at 11, Fe sat low at 9% She had a colonoscopy 1 year ago that was reportedly normal Last EGD approx 4 years ago No longer takes iron tablets as they made her too constipated -Gave Venofer 300 mg IV x1 today and will give another dose tomorrow -She will need outpatient follow-up with GI for this-would suggest repeat EGD -May need continued IV iron as an outpatient-defer to PCP to arrange -Follow CBC (18) Syncope: Had a brief episode of feeling dizzy while doing a paint by number on her iPad and saw red and blue spots, then woke up with iPad on floor and felt her hands were moving trying to catch the iPad-this occurred on 04/03 Tele at that time was normal sinus in the 80s, glucose in high 100s, BPs ok No associated neuro symptoms or chest pain Seems she either fell asleep or possible vasovagal reaction? -check ECHO-unfortunately it did not get completed on 04/04 when it was ordered due to high volume of routine echo is been ordered in the hospital-should be done on Friday morning -continue tele monitoring No further episodes since then (19) DVT prophylaxis: -Teds, heparin subcu CODE STATUS: Full code Disposition:continued stay but overall improving, needs a two-step in the morning-ordered, needs echocardiogram as part of work-up for syncope in the morning Can likely be discharged home on Friday Subjective Feeling much better, still coughing and some shortness of breath with exertion but was able to ambulate 150 feet with PT today without oxygen on. Denies any further symptoms of syncope. No nausea or vomiting, she is eating well. No abdominal pain. She received her IV iron and did not have any problems with this. Telemetry with normal sinus rhythm with rates in the 60s to 80s, few PVCs Review of Systems Review of Systems: All systems reviewed & are unremarkable except as noted in HPI & below Physical Exam Constitutional: WD/WN, vitals as above + obese Eyes: + anicteric sclerae ENMT: external ear and nose normal, oropharynx normal Neck: trachea midline, no thyromegaly Respiratory: normal respiratory effort Auscultation: + diminished lung sounds (throughout but improved from previous) and + wheezes (a few scattered) Cardiovascular: RRR, no murmur, no edema Chest (Breasts): Chest: normal inspection of chest Gastrointestinal (Abdomen): normal bowel sounds, soft, nontender, no hepatosplenomegaly Musculoskeletal: Extremities: extremities normal to inspection; no cyanosis an d no clubbing Skin: no rashes, warm and dry Neurologic: moves all extremities and awake; no focal motor deficits Psychiatric: A+Ox3, euthymic affect Lymphatic: no lymphedema Results & Data ([facility]) Vital Signs (Past 12 Hours) Vital Signs Temp Pulse Pulse Resp BP Pulse Ox 04/04/19 18:50 36.6 C 71 18 117/72 85 L 04/04/19 16:00 70 04/04/19 15:15 37.0 C 71 18 134/73 91 04/04/19 13:41 70 18 91 04/04/19 12:00 36.9 C 65 19 125/78 95 04/04/19 08:00 65 Laboratory Results 04/04/19 04/04/19 04/04/19 Range/Units 17:45 16:07 11:34 WBC (4.8-10.8) K/uL RBC (4.2-5.4) M/uL Hgb (12.0-16.0) g/dL Hct (37-47) % MCV (80-100) fL MCH (25-34) pg MCHC (32-36) g/dL RDW Std Deviation (36.4-46.3) fL RDW Coeff of Alyssa (11.5-14.5) % Plt Count (130-400) K/uL MPV (7.4-10.4) fL Immature Gran % (Auto) % Neut % (Auto) % Lymph % (Auto) % [place] % (Auto) % Eos % (Auto) % Baso % (Auto) % Immature Gran # (Auto) (0.00-0.02) K/uL Neut # (Auto) (1.4-6.5) K/uL Lymph # (Auto) (1.2-3.4) K/uL [place] # (Auto) (0.11-0.59) K/uL Eos # (Auto) (0-0.5) K/uL Baso # (Auto) (0-0.2) K/uL Sodium (136-145) mmol/L Potassium (3.5-5.1) mmol/L Chloride (98-107) mmol/L Carbon Dioxide (21-32) mmol/L Anion Gap (3-11) BUN (7-18) mg/dl Creatinine (0.6-1.2) mg/dl Est Cr Clr Drug Dosing ml/min Est GFR ( Amer) Est GFR (Non-Af Amer) BUN/Creatinine Ratio (10-20) Glucose (70-99) mg/dl POC Glucose 102 H 228 H (70-99) mg/dl Calcium (8.5-10.1) mg/dl Stool Occult Bld Scrn Negative (Negative) 04/04/19 04/04/19 04/04/19 Range/Units 07:07 05:49 05:49 WBC 12.29 H (4.8-10.8) K/uL RBC 4.84 (4.2-5.4) M/uL Hgb 11.7 L (12.0-16.0) g/dL Hct 36.2 L (37-47) % MCV 74.8 L (80-100) fL MCH 24.2 L (25-34) pg MCHC 32.3 (32-36) g/dL RDW Std Deviation 49.5 H (36.4-46.3) fL RDW Coeff of Alyssa 18.3 H (11.5-14.5) % Plt Count 336 (130-400) K/uL MPV 11.0 H (7.4-10.4) fL Immature Gran % (Auto) 0.5 % Neut % (Auto) 75.8 % Lymph % (Auto) 19.3 % [place] % (Auto) 4.2 % Eos % (Auto) 0.1 % Baso % (Auto) 0.1 % Immature Gran # (Auto) 0.06 H (0.00-0.02) K/uL Neut # (Auto) 9.32 H (1.4-6.5) K/uL Lymph # (Auto) 2.37 (1.2-3.4) K/uL [place] # (Auto) 0.52 (0.11-0.59) K/uL Eos # (Auto) 0.01 (0-0.5) K/uL Baso # (Auto) 0.01 (0-0.2) K/uL Sodium 134 L (136-145) mmol/L Potassium 4.6 (3.5-5.1) mmol/L Chloride 103 (98-107) mmol/L Carbon Dioxide 25 (21-32) mmol/L Anion Gap 6.0 (3-11) BUN 17 (7-18) mg/dl Creatinine 0.88 (0.6-1.2) mg/dl Est Cr Clr Drug Dosing 74.1 ml/min Est GFR ( Amer) 77.7 Est GFR (Non-Af Amer) 67.0 BUN/Creatinine Ratio 19.4 (10-20) Glucose 210 H (70-99) mg/dl POC Glucose 207 H (70-99) mg/dl Calcium 8.9 (8.5-10.1) mg/dl Stool Occult Bld Scrn (Negative) 04/03/19 Range/Units 20:14 WBC (4.8-10.8) K/uL RBC (4.2-5.4) M/uL Hgb (12.0-16.0) g/dL Hct (37-47) % MCV (80-100) fL MCH (25-34) pg MCHC (32-36) g/dL RDW Std Deviation (36.4-46.3) fL RDW Coeff of Alyssa (11.5-14.5) % Plt Count (130-400) K/uL MPV (7.4-10.4) fL Immature Gran % (Auto) % Neut % (Auto) % Lymph % (Auto) % [place] % (Auto) % Eos % (Auto) % Baso % (Auto) % Immature Gran # (Auto) (0.00-0.02) K/uL Neut # (Auto) (1.4-6.5) K/uL Lymph # (Auto) (1.2-3.4) K/uL [place] # (Auto) (0.11-0.59) K/uL Eos # (Auto) (0-0.5) K/uL Baso # (Auto) (0-0.2) K/uL Sodium (136-145) mmol/L Potassium (3.5-5.1) mmol/L Chloride (98-107) mmol/L Carbon Dioxide (21-32) mmol/L Anion Gap (3-11) BUN (7-18) mg/dl Creatinine (0.6-1.2) mg/dl Est Cr Clr Drug Dosing ml/min Est GFR ( Amer) Est GFR (Non-Af Amer) BUN/Creatinine Ratio (10-20) Glucose (70-99) mg/dl POC Glucose 164 H (70-99) mg/dl Calcium (8.5-10.1) mg/dl Stool Occult Bld Scrn (Negative) PG Care Time/CCT Total # of Minutes Spent Total Time Spent with Patient: Total time spent is greater than 50% in coordination of care (as documented) at patient's floor/unit and/or counseling patient: Coding Level of Care Code 16357 Subseq Hosp Care Lvl 3 Diagnoses Acute respiratory distress syndrome J80 Eosinophilic asthma J82 Severe persistent asthma J45.50 COPD (chronic obstructive pulmonary disease) J44.9 Sleep apnea G47.30 Type 2 diabetes mellitus, with long-term current use of insulin E11.9; Z79.4 Diabetic peripheral neuropathy associated with type 2 diabetes mellitus E11.42 Hypertension I10 Obesity E66.9 Lumbar radiculopathy M54.16 Gastroesophageal reflux disease K21.9 Dyslipidemia E78.5 ASCVD (arteriosclerotic cardiovascular disease) I25.10 Ascending aortic aneurysm I71.2 Depression with anxiety F41.8 Hypothyroid E03.9 Microcytic anemia D50.9 Syncope R55 DVT prophylaxis Z29.9
[2019-04-04] MEDS ORDERED: INSULIN GLARGINE 100 UNIT/ML VIAL SC SCH (21:00)
[2019-04-04] MEDS: ATENOLOL 25 MG TABLET PO SCH (21:30)
[2019-04-04] MEDS: ATORVASTATIN 40 MG TAB PO SCH (21:31)
[2019-04-04] MEDS: CHOLECALCIFEROL 1,000 UNITS 25 MCG TAB PO SCH (21:32)
[2019-04-04] MEDS: GUAIFENESIN/CODEINE 100MG/10MG 5ML UDC PO PRN (21:39)
[2019-04-05] MEDS: ALBUT/IPRATROP 3MG/0.5MG NEB 3 ML VIAL INH SCH ×3 (01:00→13:16)
[2019-04-05] MEDS: HEPARIN SOD 5,000 UNIT/0.5 ML VIAL SQ SCH ×2 (06:03→15:31)
[2019-04-05] MEDS: LEVOTHYROXINE SODIUM 100 MCG TABLET PO SCH (06:03)
[2019-04-05 06:27] LABS: Hemoglobin 11.6 g/dL (12.0-16.0); Mean Corpuscular Hemoglobin 23.7 pg (25-34); Mean Corpuscular Hgb Conc 31.4 g/dL (32-36); Mean Corpuscular Volume 75.7 fL (80-100); Platelet Count 335 K/uL (130-400); RDW Coefficient of Variation 18.5 % (11.5-14.5); RDW Standard Deviation 50.2 fL (36.4-46.3); Red Blood Count 4.89 M/uL (4.2-5.4); White Blood Count 14.65 K/uL (4.8-10.8)
[2019-04-05 06:52] LABS: Est GFR (African American) 69.1; Potassium 3.6 mmol/L (3.5-5.1)
[2019-04-05 06:53] LABS: BUN Creatinine Ratio 17.6 (10-20); Creatinine Clr Calc Pharmacy 67.5 ml/min; Est GFR (Non-African American) 59.6; Magnesium 2.2 mg/dl (1.8-2.4)
[2019-04-05 07:00] LABS: Anisocytosis Present; Basophils # (auto) 0.03 K/uL (0-0.2); Basophils % (auto) 0.2 %; Eosinophils # (auto) 0.34 K/uL (0-0.5); Eosinophils % (auto) 2.3 %; Immature Granulocytes # (auto) 0.09 K/uL (0.00-0.02); Immature Granulocytes % (auto) 0.6 %; Lymphocytes # (auto) 5.88 K/uL (1.2-3.4); Lymphocytes % (auto) 40.1 %; Monocytes # (auto) 1.21 K/uL (0.11-0.59); Monocytes % (auto) 8.3 %; Neutrophils % (auto) 48.5 %; Ovalocytes 1+
[2019-04-05] MEDS: INSULIN ASPART 100 UNITS/ML 3 ML PEN SC SCH ×2 (07:59→12:58)
[2019-04-05] MEDS ORDERED: HumuLIN N 10 ML VIAL SC SCH (08:00)
[2019-04-05] MEDS: ASPIRIN 81 MG ECTAB PO SCH (08:02)
[2019-04-05] MEDS: SPIRONOLACTONE 25 MG TAB PO SCH (08:02)
[2019-04-05] MEDS: ATENOLOL 50 MG TABLET PO SCH (08:02)
[2019-04-05] MEDS: VENLAFAXINE HCL XR 150 MG CAPXR PO SCH (08:02)
[2019-04-05] MEDS: VENLAFAXINE HCL XR 75 MG CAPXR PO SCH (08:02)
[2019-04-05] MEDS: guaiFENesin 600 MG TABCR PO SCH (08:02)
[2019-04-05] MEDS: CYANOCOBALAMIN 500 MCG TABLET (VITAMIN B-12) PO SCH (08:02)
[2019-04-05] MEDS: LOSARTAN POTASSIUM 50 MG TAB PO SCH (08:02)
[2019-04-05] MEDS: MAGNESIUM OXIDE 400 MG TAB PO SCH (08:02)
[2019-04-05] MEDS: BENZONATATE 100 MG CAPSULE PO SCH ×2 (08:03→15:31)
[2019-04-05] MEDS: OMEGA-3 (PURIFIED FISH OIL) 1 GM CAP PO SCH (08:03)
[2019-04-05] MEDS: PANTOprazole 40 MG TAB PO SCH (08:03)
[2019-04-05] MEDS: DOCUSATE CALCIUM 240 MG CAPSULE PO SCH (08:34)
[2019-04-05] MEDS ORDERED: predniSONE 20 MG TAB PO SCH (09:00)
[2019-04-05] MEDS ORDERED: IRON SUCROSE 300 MG in SODIUM CHLORIDE 0.9% 250 ML IV SCH (09:00)
--- NOTE | 2019-04-05 12:12 | XCELERA ---
[id number] \\[id number]
--- NOTE | 2019-04-05 12:24 | Pharmacy Report ---
Pharmacy Glycemic Short Note 2 - Date of Service April 05, 2019 - Glycemic Short BSG Results (Last 24 hours): 04/04/19 04/04/19 04/05/19 16:07 20:29 05:59 Glucose 107 H POC Glucose 102 H 164 H 04/05/19 04/05/19 07:29 11:32 Glucose POC Glucose 101 H 77 OUTPATIENT ANTIDIABETIC REGIMEN: * NPH 35 units qAM and 45 units qPM * Regular insulin 20-35 units TID meals * Metformin 1g PO BID * A1c = 9.8 % 04/03/19 Risk Factors for Insulin Resistance: * Steroids: Solu-medrol 40mg IV Q12H - last dose at 2300 last night, starting Prednisone 40mg now. * Infection: COPD exacerbation - PO Azithromycin * Diet:Type 2 DM ASSESSMENT: * Patient's BSGs improved since switch to prednisone 40 mg in AM * Fasting this morning 101, lunch 77 will go back to NPH dosing and loosen novolog parameters to weight based stress of 2 04/04/19 * Patient to be discharged today, transitioning IV Solu-medrol to PO prednisone, starting today: Prednisone 40mg daily x 4 days then 20mg x 3 days. * See discharge recommendations below. * Fasting blood sugar 210mg/dl this morning - increase basal. * No change in CF/CR at this time, as steroids are decreasing and transitioning to oral. 04/03/19 * Patient's blood sugars remained in 200s early this morning, despite 105 units of Lantus and 52 units of Novolog * Increased Lantus this morning and blood sugar dropped to 84mg/dl at lunch. Will loosen CF and CR and Lantus dosing some to prevent hypoglycemia. * Will consider changing patient back to NPH for basal insulin after today if blood sugars not better controlled by tomorrow. 04/02/19 * 69 year old female admitted with COPD exacerbation on IV steroids, type 2 diabetic with steroid induced hyperglycemia. * Patient on NPH and regular insulin at home, will use Lantus and Novolog as inpatient in attempt for better glycemic control. * Blood sugar when consulted = 348mg/dl, pt given 14 units Novolog and 45 units of Lantus- repeated 2 hours later and it was 342mg/dl, further tightened CF/CR below and increased Lantus at HS from previous order. PLAN FOR INPATIENT GLYCEMIC CONTROL: * Holding outpatient oral diabetes medications * Basal insulin - * NPH 40 units this AM * Scale for PM 40 or 45 (dosed at bedtime today, due to lantus dosing yesterday) * Bolus insulin * NovoLog per scale ACHS or Q6hrs while NPO * Goal Range: Low 110 mg/dL - High 140 mg/dL * Correction Factor: 20 mg/dL/unit * Nutritional / Prandial insulin per carb ratio of 1 unit per 7 grams CHO consumed DISCHARGE RECOMMENDATIONS: * Resume NPH 35 units SQ QAM * Continue NPH 45 units SQ PM and Regular insulin 20-35 units TID with meals * Continue Metformin 1g PO BID * Follow up with outpatient provider for better insulin dosing, A1c above goal at 9.8%.
--- NOTE | 2019-04-05 16:48 | Discharge Summary ---
Date of Service April 05, 2019 Admission HPI Per Admitting Provider This is a 69 yo M with PMHx of severe persistent asthma, eosinophilic asthma, COPD, former smoker 1 PPD x30 years on and off, RAGHAVENDRA on CPAP, rhinitis, chronic urticaria, carcinoid tumor status post right middle lobectomy, hypothyroidism, obesity, TIA, DM 2, who presented with acute shortness of breath which began 5 days ago and worsened throughout the week. Patient was seen on Friday by her lead shop operator who reported that she had eosinophilic asthma, and then on Friday saw pulmonology for routine follow-up for COPD, but due to complaints of symptoms including cough with discolored mucus production was placed on azithromycin 5-day course. Last evening around 2 AM patient had significant worsening of breathing. She was unable to sleep or lie flat. She did 3 nebulizer treatments last evening, and placed herself on her home CPAP before calling EMS. She admits to having similar episode 18 months ago/COPD exacerbation. Per provider notes, patient does not tolerate steroids very well and is not on them chronically. She received one short duo nebs and 125 mg IV Solu-Medrol by EMS, then has gotten two more 1 hr long duonebs in the ER since then, she is currently on BiPAP. She still feels that her breathing is not great, and is having difficulty with deep breaths. She is coughing and having trouble catching her breath, as well as feels tightness in her chest. Principal Diagnosis Asthma / COPD exacerbation Discharge Exam Constitutional WD/WN, vitals as above Eyes EOM intact bilaterally; no conjunctival abnormality ENMT external ear and nose normal, oropharynx normal Neck trachea midline, no thyromegaly normal visual inspection Respiratory normal respiratory effort, lungs clear to auscultation no respiratory distress Cardiovascular RRR, no murmur, no edema Gastrointestinal (Abdomen) Inspection/Auscultation: abdomen normal to inspection; abdomen not distended Musculoskeletal no cyanosis or clubbing, extremities motor strength 5/5 Skin no rashes, warm and dry Neurologic moves all extremities and awake Psychiatric Orientation: alert, oriented to person and cooperative Discharge Data Allergies Allergy/AdvReac Type Severity Reaction Status Date / Time Bactrim Allergy Intermediate HIVES Verified 10/24/17 09:04 clindamycin Allergy Intermediate HIVES Verified 04/02/19 04:05 sulfamethoxazole Allergy Intermediate HIVES Verified 04/02/19 04:05 trimethoprim Allergy Intermediate HIVES Verified 04/02/19 04:05 amoxicillin AdvReac Mild nausea and Verified 04/02/19 04:05 vomiting clavulanic acid AdvReac Mild NAUSEA AND Verified 04/02/19 04:05 VOMITING Consultations 04/02/19 06:37 ED Decision to Admit Stat 04/02/19 08:41 Consult Pulmonology Routine 04/02/19 10:01 Consult Allergy / Immunology Routine Consult Case Management - Discharge Planning Routine Hospital Course (1) Acute respiratory distress syndrome: Asthma/COPD exacerbation - Seen by pulm -> Will get 6-day taper of steroids. Follow up as outpatient. - Follow up with allergy for Fesenra for her high eosinophils. (2) Eosinophilic asthma: Follows with allergy/immunology and pulmonology Previously on Xolair and has elevated eosinophils on admission here Is working on getting approval of Fasenra by lead shop operator currently -Absolute eosinophils were 1070 upon admission and now down to 10 after receiving Solu-Medrol -Continue treating asthma exacerbation as below (3) Severe persistent asthma: With eosinophilic asthma as above, with acute exacerbation here -Chest x-ray with chronic interstitial changes but no PNA -now off BiPAP and improved but still wheezing and a little diminished, still with dyspnea on exertion and cough-improved overall -Convert IV steroids to prednisone 40 mg daily x4 days and then 20 mg daily x3 days as per pulmonary recommendations -Continue duo nebs, Mucinex, Tessalon Perles, flutter therapy, and Robitussin w/ codeine for persistent severe cough-patient requests a prescription for Robitussin with codeine upon discharge -Influenza swab negative -Sputum culture growing light normal javier -Consult pulmonology appreciated, follows with Wilmar Isidro as outpatient-most recently was seen on Friday as an outpatient and placed on azithromycin, has now completed a 5-day course -Consult allergy, follows with Dr. Carranza as outpatient-most recently saw him on Friday-appreciate consult-attempting to get her a sample dose of Fasenra in interim while awaiting approval-he will arrange outpatient follow-up after discharge -Benralizumab inj for eosinophilic asthma, prior Auth has been sent for Fesenra as outpt -Patient has history of pulmonary nodules (at least 8 measuring up to 10 mm throughout both lungs) that have been followed via CT as outpatient (4) COPD (chronic obstructive pulmonary disease): Overlap with asthma syndrome Follows with pulmonology (5) Sleep apnea: Continue CPAP at nighttime (6) Type 2 diabetes mellitus, with long-term current use of insulin: -Consult glycemic pharmacy given significantly high insulin requirement and hyperglycemia on corticosteroids -Last A1c was 9.5 on 03/09/2018, now here is high at 9.8%-significantly uncontrolled -Needs weight loss counseling and dietary counseling -Continue glucose checks achs -Required over 150 units of insulin last 24 hours Now converting to prednisone and pharmacy recommendations upon discharge would be: While on Prednisone increase AM NPH to the following: Prednisone 40mg x 3 days - give NPH 80 units SQ QAM Prednisone 20mg x 3 days - give NPH 60 units SQ QAM then resume NPH 35 units SQ QAM after prednisone taper complete Continue NPH 45 units SQ PM and Regular insulin 20-35 units TID with meals Continue Metformin 1g PO BID after discharge to home (7) Diabetic peripheral neuropathy associated with type 2 diabetes mellitus: -Noted -PT/OT consults (8) Hypertension: -Continue atenolol 50 mg every morning and 25 mg every afternoon, aspirin 81 mg daily,, losartan 50 mg daily, spironolactone 25 mg daily, uses Lasix as needed leg swelling-not needed (9) Obesity: -BMI of 35.3 -Heart healthy/diabetic diet, encouraged exercise upon discharge (10) Lumbar radiculopathy: -Stable, not on chronic pain medication Has tramadol at home but does not take it (11) Gastroesophageal reflux disease: -Hold ranitidine with recent recall of medication (12) Dyslipidemia: -Continue atorvastatin 40 mg at bedtime (13) ASCVD (arteriosclerotic cardiovascular disease): -Patient underwent coronary [place] [address] Jaime, showing mild nonobstructive coronary artery disease -No angina here -Continue aspirin, statin, beta-abby (14) Ascending aortic aneurysm: -There is mention of it being 4.0 cm in size and followed at [facility] in the past, recent CT of the chest here shows it being 3.8 cm -Needs continued good blood pressure control-continue beta-abby (15) Depression with anxiety: Stable -Continue Effexor (16) Hypothyroid: TSH here normal -Continue home levothyroxine (17) Microcytic anemia: MCV 76, hemoglobin mildly reduced at 12 -ferritin low at 11, Fe sat low at 9% She had a colonoscopy 1 year ago that was reportedly normal Last EGD approx 4 years ago No longer takes iron tablets as they made her too constipated -Gave Venofer 300 mg IV x1 today and will give another dose tomorrow -She will need outpatient follow-up with GI for this-would suggest repeat EGD -May need continued IV iron as an outpatient-defer to PCP to arrange -Follow CBC (18) Syncope: Had a brief episode of feeling dizzy while doing a paint by number on her iPad and saw red and blue spots, then woke up with iPad on floor and felt her hands were moving trying to catch the iPad-this occurred on 04/03 Tele at that time was normal sinus in the 80s, glucose in high 100s, BPs ok No associated neuro symptoms or chest pain Seems she either fell asleep or possible vasovagal reaction? -check ECHO-unfortunately it did not get completed on 04/04 when it was ordered due to high volume of routine echo is been ordered in the hospital-should be done on Friday morning -continue tele monitoring No further episodes since then (19) DVT prophylaxis: -Teds, heparin subcu CODE STATUS: Full code Disposition:continued stay but overall improving, needs a two-step in the morning-ordered, needs echocardiogram as part of work-up for syncope in the morning Can likely be discharged home on Friday Total Time Total Time Spent Total Time Spent (In Minutes): 35 Total Time Includes: Examination of the Patient Discharge Plan Discharge Items Patient Disposition: Home - Self-Care Reason For Visit: ACUTE RESPIRATORY DISTRESS,COPD,EOSINOPHILIC ASTHM Discharge Diagnosis: Asthma/COPD exacerbation Activity: Resume your previous activity Non-emergency contact: Primary Care Provider and [employer] Call non-emergency contact if: your symptoms worsen and your temperature is above 101 Follow-up/Referrals: German Isidro PA-C [Physician Marine Pipefitter] - (Please see Mr. Isidro in the clinic in 2-3 weeks.) Maria D Laboy MD [Primary Care Provider] - 04/12/19 10:20 am (A follow-up appointment has been made on your behalf with your PCP. Please call the office with any questions or concerns. ) Lee Carranza MD [Physician] - (Please follow up with Dr. Carranza as soon as able. He is going to start Fasenra to help with your asthma.) Diet: Heart Healthy Add Attending Provider Instructions: Please follow up with Dr. Carranza as soon as able. He is going to start Fasenra to help with your asthma. Please take your prednisone as follows: Prednisone 40 mg (4 tablets) one time per day for 3 more days, then Prednisone 20 mg (2 tablets) one time per day for 3 more days, then stop. While you are on the prednisone 40 mg, please take NPH 60 units every morning at the same time you take your prednisone, then while you are on the prednisone 20 mg, please take NPH 50 units every morning at the same time you take your prednisone, then once you are done with the prednisone, please return to NPH 35 units every morning. Your evening dose of NPH does not change as the effect of the prednisone is minimal overnight. You do not want your sugars to go too low overnight, so stick with the 45 units every evening as before you were in the hospital. Pending Studies at Discharge: No Stand-Alone Forms: My [facility], Smoking Cessation Medications and DC Order Prescriptions: New ipratropium-albuterol 0.5 mg-3 mg(2.5 mg base)/3 mL Solution For Nebulization 3 ml inhalation Q6R PRN (Reason: Shortness Of Breath Or Wheezing) Qty: 1 RF: 0 prednisone 20 mg Tablet 40 mg PO DAILY Qty: 9 RF: 0 codeine-guaifenesin [Guaiatussin AC] 10-100 mg/5 mL Liquid 5 ml PO Q6H PRN (Reason: cough) Qty: 120 RF: 0 Continued ranitidine HCl 300 mg tablet 300 mg PO HS Qty: 90 RF: 1 atorvastatin 20 mg tablet 40 mg PO HS Qty: 180 RF: 1 omeprazole 20 mg capsule,delayed release(DR/EC) 40 mg PO QAM Qty: 120 RF: 1 metformin 1,000 mg tablet 1,000 mg PO BID Qty: 180 RF: 1 venlafaxine 150 mg capsule,extended release 24hr 150 mg PO DAILY Qty: 90 RF: 1 venlafaxine 75 mg capsule,extended release 24hr 75 mg PO DAILY Qty: 90 RF: 1 losartan 50 mg tablet 50 mg PO DAILY Qty: 90 RF: 1 levothyroxine 100 mcg tablet 100 mcg PO DAILY Qty: 30 RF: 3 albuterol sulfate 90 mcg/actuation HFA aerosol inhaler 2 puff INH Q4H PRN (Reason: shortness of breath) Qty: 3 RF: 3 azelastine 137 mcg (0.1 %) aerosol,spray 2 spray INTNAS DAILY Qty: 30 RF: 11 Fasenra Pen 30 mg/mL auto-injector 30 mg SQ .COMPLEX Qty: 1 RF: 11 diclofenac sodium 1 % gel See Rx Instructions topical QID PRN (Reason: Pain) RF: 0 nitroglycerin 0.4 mg tablet, sublingual 0.4 mg SL Q5M PRN (Reason: Chest Pain) Qty: 25 RF: 0 tiotropium bromide [Spiriva Respimat] 2.5 mcg/actuation mist 1 puff inhalation UD RF: 0 cyanocobalamin (vitamin B-12) [Vitamin B-12] 1,000 mcg Tablet 1,000 mcg PO QAM RF: 0 aspirin 81 mg Tablet,Delayed Release (Dr/Ec) 81 mg PO QAM RF: 0 tramadol 50 mg Tablet 100 mg PO TID PRN (Reason: Pain) RF: 0 spironolactone 25 mg Tablet 25 mg PO QAM RF: 0 magnesium 250 mg Tablet 250 mg PO QAM RF: 0 furosemide 20 mg Tablet 20 mg PO QAM PRN (Reason: Edema) RF: 0 docusate sodium [Stool Softener] 250 mg Capsule 250 mg PO BID RF: 0 cholecalciferol (vitamin D3) [Vitamin D3] 1,000 unit Capsule 1,000 unit PO QPM RF: 0 omega-3 fatty acids 500 mg Capsule 500 mg PO QAM RF: 0 Novolin R Regular U-100 Insuln 100 unit/mL Solution 20 - 35 unit SUBCUT TID RF: 0 Novolin N NPH U-100 Insulin 100 unit/mL Suspension 35 - 45 unit SUBCUT UD RF: 0 atenolol 25 mg tablet 50 mg PO QAM RF: 0 atenolol 25 mg tablet 25 mg PO QPM RF: 0 benzonatate [Tessalon Perles] 100 mg capsule 100 mg PO TID PRN (Reason: cough) Qty: 30 RF: 0 Discontinued Shingrix (PF) 50 mcg/0.5 mL suspension for reconstitution 0.5 ml IM ONCE Qty: 1 RF: 1 azithromycin 250 mg tablet See Rx Instructions PO .COMPLEX Qty: 6 RF: 0 Discharge Orders: Discharge Order (Routine); Ordered 04/05/19 Ordered By: Ehsan Nagel/Other Patient Handouts: Diabetes Resources, Diabetes Healthy Meals, Diabetes Exercise Benefits, Diabetes Manage A1C Test Admission Data Admit Date/Time: 04/02/19 08:40 Attending Provider: Ehsan Osuna Admit Provider: Yovana Bateman Primary Care Provider: Maria D Laboy Other Providers: Lee Carranza ; Darin Saldivar ; Ehsan Osuna Other Interventions: Discharge Summary Assessment (RN) Last Done: 04/05/19 15:07 DC Date/Time DO NOT enter until pt leaves facility: 04/05/19 15:20 Coding Level of Care Code D/C Day Management >30 mins Diagnoses Acute respiratory distress syndrome J80 Eosinophilic asthma J82 Severe persistent asthma J45.50 COPD (chronic obstructive pulmonary disease) J44.9 Sleep apnea G47.30 Type 2 diabetes mellitus, with long-term current use of insulin E11.9; Z79.4 Diabetic peripheral neuropathy associated with type 2 diabetes mellitus E11.42 Hypertension I10 Obesity E66.9 Lumbar radiculopathy M54.16 Gastroesophageal reflux disease K21.9 Dyslipidemia E78.5 ASCVD (arteriosclerotic cardiovascular disease) I25.10 Ascending aortic aneurysm I71.2 Depression with anxiety F41.8 Hypothyroid E03.9 Microcytic anemia D50.9 Syncope R55 DVT prophylaxis Z29.9
[2019-04-05] MEDS ORDERED: HumuLIN N 10 ML VIAL SC ONE (21:00)
== END 2019-04-05 15:20 | disposition home or self-care (01) | DRG 189 ==
LOC: ED 04:00 → 2S 08:40 → SUATTDRO 08:40 → 2S 09:31

== ENCOUNTER 2020-10-20 05:03 | Inpatient (IN) ==
--- NOTE | 2020-10-05 14:01 | PAT Medication Instructions ---
Medication Instructions Date of Service October 05, 2020 Home Medications Medication Instructions Recorded azelastine 137 mcg (0.1 %) nasal 2 spray INTNAS DAILY #30 ml 02/18/19 spray aerosol benzonatate 100 mg capsule 100 mg PO TID PRN #30 cap 04/05/19 (Teserick Cifuentes) ipratropium 0.5 mg-albuterol 3 mg 3 ml INHALATION Q6R PRN #1 ml 04/05/19 (2.5 mg base)/3 mL nebulization soln CPAP Machine #1 ea 05/06/19 mupirocin 2 % topical ointment 1 appln TOP BID #15 gm 05/19/19 albuterol sulfate 90 mcg/actuation 2 puffs INH Q4 PRN #3 inhaler 06/08/19 aerosol inhaler (Ventolin HFA) tiotropium bromide 2.5 2 puffs INH QAM #12 gm 07/02/19 mcg/actuation mist for inhalation (Spiriva Respimat) tramadol 50 mg tablet 50 mg PO TID PRN #90 tab 02/02/20 furosemide 20 mg tablet 20 mg PO QAM PRN #90 tab 05/01/20 Symbicort 160 mcg-4.5 2 puff INH BID #3 inhaler NS 05/02/20 mcg/actuation HFA aerosol inhaler (budesonide-formoterol) metformin 1,000 mg tablet 1,000 mg PO BID #180 tab 05/16/20 mirtazapine 15 mg tablet (Remeron) 15 mg PO PM #90 tab 05/16/20 levothyroxine 100 mcg tablet 100 mcg PO QAM #90 tab 06/01/20 atenolol 25 mg tablet 25 mg PO .COMPLEX #270 tab 08/10/20 benralizumab 30 mg/mL subcutaneous 30 mg SQ .COMPLEX #1 ml 08/24/20 auto-injector (Fasenra Pen) alprazolam 0.5 mg tablet (Xanax) 0.5 mg PO DAILY PRN #30 tab 08/28/20 atorvastatin 40 mg tablet 40 mg PO HS #90 tab 09/19/20 losartan 50 mg tablet 50 mg PO HS #90 tab 09/19/20 omeprazole 40 mg capsule,delayed 40 mg PO QAM #90 cap 09/19/20 release aspirin 81 mg tablet,delayed release 81 mg PO QAM cholecalciferol (vitamin D3) 25 mcg (1,000 unit) capsule (Vitamin D3) 1,000 unit PO QPM cyanocobalamin (vitamin B-12) 1,000 mcg tablet (Vitamin B-12) 1,000 mcg PO QAM docusate sodium 250 mg capsule (Stool Softener) 250 mg PO BID magnesium 250 mg tablet 250 mg PO QAM omega-3 fatty acids 500 mg capsule 500 mg PO QAM spironolactone 25 mg tablet 25 mg PO QAM nitroglycerin 0.4 mg sublingual tablet 0.4 mg SL Q5M PRN azelastine 137 mcg (0.1 %) nasal spray aerosol 2 spray INTNAS DAILY benzonatate 100 mg capsule (Tessalon Perles) 100 mg PO TID PRN ipratropium 0.5 mg-albuterol 3 mg (2.5 mg base)/3 mL nebulization soln 3 ml IN HALATION Q6R PRN diclofenac sodium 1 % topical gel See Rx Instructions TOPICAL QID PRN mupirocin 2 % topical ointment 1 appln TOP BID albuterol sulfate 90 mcg/actuation aerosol inhaler (Ventolin HFA) 2 puffs INH Q4 PRN tiotropium bromide 2.5 mcg/actuation mist for inhalation (Spiriva Respimat) 2 puffs INH QAM tramadol 50 mg tablet 50 mg PO TID PRN insulin aspart U-100 100 unit/mL (3 mL) subcutaneous pen (Novolog Flexpen U-100 Insulin aspart) 0 - 75 unit SUBCUT UD zinc 50 mg tablet 50 mg PO QAM furosemide 20 mg tablet 20 mg PO QAM PRN Symbicort 160 mcg-4.5 mcg/actuation HFA aerosol inhaler (budesonide-formoterol) 2 puff INH BID #3 inhaler NS metformin 1,000 mg tablet 1,000 mg PO BID mirtazapine 15 mg tablet (Remeron) 15 mg PO PM levothyroxine 100 mcg tablet 100 mcg PO QAM atenolol 25 mg tablet 25 mg PO .COMPLEX benralizumab 30 mg/mL subcutaneous auto-injector (Fasenra Pen) 30 mg SQ .COMPLEX alprazolam 0.5 mg tablet (Xanax) 0.5 mg PO DAILY PRN atorvastatin 40 mg tablet 40 mg PO HS losartan 50 mg tablet 50 mg PO HS omeprazole 40 mg capsule,delayed release 40 mg PO QAM vit C-vit K-tgoeae-euanfllz-omega 3 100 mg-15 unit-2 mg-100 mg capsule 1 cap PO DAILY dulaglutide 3 mg/0.5 mL subcutaneous pen injector (Trulicity) 3 mg SUBCUT WK famotidine 40 mg tablet 40 mg PO HS insulin glargine 100 unit/mL (3 mL) subcutaneous pen (Basaglar KwikPen U-100 Insulin) 77 - 80 unit SUBCUT QPM insulin glargine 100 unit/mL subcutaneous solution (Lantus U-100 Insulin) 70 - 80 unit SUBCUT QPM meloxicam 7.5 mg tablet 7.5 mg PO QAM venlafaxine 150 mg capsule,extended release 24 hr 150 mg PO QAM venlafaxine 75 mg capsule,extended release 24 hr 75 mg PO QAM Continue as directed dulaglutide 3 mg/0.5 mL subcutaneous pen injector (Trulicity) 3 mg SUBCUT WK nitroglycerin 0.4 mg sublingual tablet 0.4 mg SL Q5M PRN (if needed) ASK your surgeon for instructions meloxicam 7.5 mg tablet 7.5 mg PO QAM ASK your prescriber and surgeon aspirin 81 mg tablet,delayed release 81 mg PO QAM benralizumab 30 mg/mL subcutaneous auto-injector (Fasenra Pen) 30 mg SQ .COMPLEX STOP taking 2 weeks before surgery (or as soon as possible if surgery is within 2 weeks) omega-3 fatty acids 500 mg capsule 500 mg PO QAM vit C-vit M-rguztg-gzzcebee-omega 3 100 mg-15 unit-2 mg-100 mg capsule 1 cap PO DAILY STOP taking 24 hours before surgery diclofenac sodium 1 % topical gel See Rx Instructions TOPICAL QID PRN mupirocin 2 % topical ointment 1 appln TOP BID DO NOT take the morning of surgery cyanocobalamin (vitamin B-12) 1,000 mcg tablet (Vitamin B-12) 1,000 mcg PO QAM docusate sodium 250 mg capsule (Stool Softener) 250 mg PO BID magnesium 250 mg tablet 250 mg PO QAM spironolactone 25 mg tablet 25 mg PO QAM benzonatate 100 mg capsule (Tessalon Perles) 100 mg PO TID PRN zinc 50 mg tablet 50 mg PO QAM furosemide 20 mg tablet 20 mg PO QAM PRN metformin 1,000 mg tablet 1,000 mg PO BID insulin aspart U-100 100 unit/mL (3 mL) subcutaneous pen (Novolog Flexpen U-100 Insulin aspart) 0 - 75 unit SUBCUT UD Take morning of surgery With a small sip of water, OTHERWISE NOTHING TO EAT OR DRINK AFTER MIDNIGHT: azelastine 137 mcg (0.1 %) nasal spray aerosol 2 spray INTNAS DAILY ipratropium 0.5 mg-albuterol 3 mg (2.5 mg base)/3 mL nebulization soln 3 ml INHALATION Q6R PRN (if needed) albuterol sulfate 90 mcg/actuation aerosol inhaler (Ventolin HFA) 2 puffs INH Q4 PRN (use if needed; please bring rescue inhaler with you to hospital day of surgery if possible) tiotropium bromide 2.5 mcg/actuation mist for inhalation (Spiriva Respimat) 2 puffs INH QAM tramadol 50 mg tablet 50 mg PO TID PRN (okay to take up to 4 hours prior to surgery if needed) Symbicort 160 mcg-4.5 mcg/actuation HFA aerosol inhaler (budesonide-formoterol) 2 puff INH BID levothyroxine 100 mcg tablet 100 mcg PO QAM atenolol 25 mg tablet 25 mg PO .COMPLEX alprazolam 0.5 mg tablet (Xanax) 0.5 mg PO DAILY PRN (if needed) omeprazole 40 mg capsule,delayed release 40 mg PO QAM venlafaxine 150 mg capsule,extended release 24 hr 150 mg PO QAM venlafaxine 75 mg capsule,extended release 24 hr 75 mg PO QAM Take evening before surgery cholecalciferol (vitamin D3) 25 mcg (1,000 unit) capsule (Vitamin D3) 1,000 unit PO QPM docusate sodium 250 mg capsule (Stool Softener) 250 mg PO BID benzonatate 100 mg capsule (Tessalon Perles) 100 mg PO TID PRN (if needed) ipratropium 0.5 mg-albuterol 3 mg (2.5 mg base)/3 mL nebulization soln 3 ml INHALATION Q6R PRN (if needed) albuterol sulfate 90 mcg/actuation aerosol inhaler (Ventolin HFA) 2 puffs INH Q4 PRN (if needed) tramadol 50 mg tablet 50 mg PO TID PRN (if needed) insulin aspart U-100 100 unit/mL (3 mL) subcutaneous pen (Novolog Flexpen U-100 Insulin aspart) 0 - 75 unit SUBCUT UD furosemide 20 mg tablet 20 mg PO QAM PRN (if needed) Symbicort 160 mcg-4.5 mcg/actuation HFA aerosol inhaler (budesonide-formoterol) 2 puff INH BID metformin 1,000 mg tablet 1,000 mg PO BID mirtazapine 15 mg tablet (Remeron) 15 mg PO PM alprazolam 0.5 mg tablet (Xanax) 0.5 mg PO DAILY PRN (if needed) atorvastatin 40 mg tablet 40 mg PO HS losartan 50 mg tablet 50 mg PO HS famotidine 40 mg tablet 40 mg PO HS insulin glargine 100 unit/mL (3 mL) subcutaneous pen (Basaglar KwikPen U-100 Insulin) 77 - 80 unit SUBCUT QPM insulin glargine 100 unit/mL subcutaneous solution (Lantus U-100 Insulin) 70 - 80 unit SUBCUT QPM Other Notes If you have any questions please call us at [phone] or [phone] or [phone] or [phone]
--- NOTE | 2020-10-06 08:18 | Anesthesiology Consultation ---
Date of Service October 06, 2020 Assessment & Plan (1) Encounter for pre-operative examination: - COVID screening: Per assessment on 10/06: Travel screen negative, no known COVID-19 positive contacts or current COVID-19 related symptoms. Patient vaccinated. Surgeon arranging preop COVID testing. Awaiting results. - Check BSG AM DOS - Cardiology office visit (04/18/20): "Mild nonobstructive coronary artery disease--sluggish flow on coronary angiogram 2016, question microvascular dysfunction, had no benefit from long-acting nitrate.. Atypical chest pain--largely resolved; seems related to stress/anxiety.. Hypertension--reasonably controlled on current regimen.. Thoracic aortic aneurysm (3.7-4.0)--stable on last CT contrast 05/2014, echo 01/2020.. Patient here today in the setting of elevated heart rates noted on fitness tracker. Noted heart rates in the 100s to 110s. No other real change in symptoms or exercise tolerance. On exam today appears well-perfused with no signs of heart failure. Repeat ECG today shows sinus rhythm with unchanged nonspecific T wave abnormality. We reviewed echocardiogram obtained in January initially for planned thoracic surgery evaluation in [facility] for her aneurysm. Echocardiogram at that time showed stable borderline dilated ascending aorta and normal LV function. With recent testing suspicion for new cardiac issue or high risk arrhythmia is low. Suspect symptoms likely related to anxiety, deconditioning." Continued on same regimen/no changes made. - Endocrinology office visit (08/31/20): "First endocrinology visit for this patient also followed in [facility] by Jose Antonio Ayoub. Incidental finding pituitary tumor. Pituitary MRI reviewed with the patient. This is an unusual tumor where most the pituitary is completely normal with normal stalk, etcetera with the tumor arising out of the left anterior dorsal aspect of the pituitary and basically spreading superiorly almost certainly involving the left optic nerve. There is 0 distortion of the pituitary itself. She does have headaches which are probably unrelated. She has no symptoms that would suggest pituitary dysfunction, very much consistent with the imaging. TSH 1.8 uIU/mL, free T4 1.0 NG/dL, free T3 2.4 pg/mL; FSH 49 uIU/mL; prolactin 6.7 NG/mL; IGF-1 106 NG/ mL, Z-score 0; cortisol 9.5 mcg/dL, ACTH 13 pg/mL. However, on examination she does have suggestion of a left lateral visual field defect, which would be consistent with the imaging." Ophthalmology evaluation "WNL" per 09/08/20 office visit. Pituitary tumor under surveillance. T/C surgical referral in the future. - Pulmonary office visit (09/13/20): "The patient is a 70-year-old female who is here today for follow-up on her sleep apnea and her asthma. Regarding her sleep apnea, we do not have her download today. She is dropping her chip off and we will review it as soon as it comes in. Per her previous download she is using her machine regularly. I do believe she is receiving benefit from it. I do believe it is medically necessary for her to continue to use it. In regards to her breathing, ever since she was started on Fasenra by Dr. Carranza, her breathing has been doing well. She has not had any difficulties. She continues to use Symbicort. At this time she is to continue her medicines as they are. She is to contact the office if there is any question problem. She will be followed up in 6 months." - [facility] office visit (09/22/20): " She is doing very well on the fasenra. Her ACT score today was 23. we will keep an eye on the exercise-induced symptoms. However, this may been a combination of factors related to exercise, the weather, and anxiety. We also discussed that she should do at least two puffs of albuterol if this happens again and would be safe to up to four puffs of albuterol if needed. Based on her symptoms, it would be safe to undergo surgery. However, I would like to get a spirometry to confirm that her lung function is stable. I will see whether we can set this up next week in our clinic." PFTs done 10/04/20. Per chalker soles note (10/04/20): "Spirometry was essentially unremarkable. FVC was 2.90, 103%, FEV1 was 2.11, 89%, FEV1 FVC ratio was 73%. There is slight reduction in FEV1/FVC ratio for age, but otherwise no significant obstruction or restriction. These values are slightly improved from her previous spirometry in 2019. Based on these results, I do not have any concerns about her upcoming surgery from the asthma standpoint." Chart Review Chart Review: Acceptable Risk for Surgery and Patient seen in Pre Admission Testing Teaching & Discussion Pre-Anesthesia Teaching/Discussion Notes: Instructed NPO after midnight before surgery,except medications with 15 cc of water. Medication instructions provided according to the PAT guidelines. History Surgery Operation Date: 10/20/20 07:00 Proposed Procedures p Anterior Cervical Discectomy and Fusion C4-C5, Autograft, Allograft, Spinal Cord Monitoring - Whitley Lugo MD Height/Weight Height: 5 ft 6.5 in Weight: 106.8 kg Allergies Allergy/AdvReac Type Severity Reaction Status Date / Time Bactrim Allergy Intermediate HIVES Verified 10/24/17 09:04 clindamycin Allergy Intermediate Hives Verified 10/05/20 11:25 sulfamethoxazole Allergy Intermediate Hives Verified 10/05/20 11:25 trimethoprim Allergy Intermediate Hives Verified 10/05/20 11:25 amoxicillin AdvReac Mild N/V Verified 10/05/20 11:25 clavulanic acid AdvReac Mild N/V Verified 10/05/20 11:25 Medications Home Medications Medication Instructions Recorded Confirmed Last Taken aspirin 81 mg tablet,delayed 81 mg PO QAM 08/12/18 10/05/20 05/04/19 08:00 release cholecalciferol (vitamin D3) 25 1,000 unit PO QPM 08/12/18 10/05/20 05/04/19 17: 00 mcg (1,000 unit) capsule (Vitamin D3) cyanocobalamin (vitamin B-12) 1,000 mcg PO QAM 08/12/18 10/05/20 05/04/19 08:00 1,000 mcg tablet (Vitamin B-12) docusate sodium 250 mg capsule 250 mg PO BID 08/12/18 10/05/20 05/04/19 17:00 (Stool Softener) magnesium 250 mg tablet 250 mg PO QAM 08/12/18 10/05/20 05/04/19 08:00 omega-3 fatty acids 500 mg capsule 500 mg PO QAM 08/12/18 10/05/20 05/04/19 08:00 spironolactone 25 mg tablet 25 mg PO QAM 08/12/18 10/05/20 05/04/19 08:00 nitroglycerin 0.4 mg sublingual 0.4 mg SL Q5M PRN #25 tab 01/07/19 10/05/20 Unknown tablet azelastine 137 mcg (0.1 %) nasal 2 spray INTNAS DAILY #30 ml 02/18/19 10/05/20 05/04/19 20:00 spray aerosol benzonatate 100 mg capsule 100 mg PO TID PRN #30 cap 04/05/19 10/05/20 04/25/19 (Tessalon Perles) ipratropium 0.5 mg-albuterol 3 mg 3 ml INHALATION Q6R PRN #1 ml 04/05/19 10/05/20 04/25/19 (2.5 mg base)/3 mL nebulization soln diclofenac sodium 1 % topical gel See Rx Instructions TOPICAL QID 04/06/19 10/05/20 04/18/19 PRN gm CPAP Machine #1 ea 05/06/19 09/26/20 Unknown blood sugar diagnostic (Prodigy No #10 ea 05/06/19 09/26/20 Unknown Coding) mupirocin 2 % topical ointment 1 appln TOP BID #15 gm 05/19/19 10/05/20 Unknown albuterol sulfate 90 mcg/actuation 2 puffs INH Q4 PRN #3 inhaler 06/08/19 10/05/20 Unknown aerosol inhaler (Ventolin HFA) tiotropium bromide 2.5 2 puffs INH QAM #12 gm 07/02/19 10/05/20 Unknown mcg/actuation mist for inhalation (Spiriva Respimat) tramadol 50 mg tablet 50 mg PO TID PRN #90 tab 02/02/20 10/05/20 Unknown insulin aspart U-100 100 unit/mL 0 - 75 unit SUBCUT UD ml 03/30/20 10/05/20 Unknown (3 mL) subcutaneous pen (Novolog Flexpen U-100 Insulin aspart) zinc 50 mg tablet 50 mg PO QAM 03/30/20 10/05/20 Unknown furosemide 20 mg tablet 20 mg PO QAM PRN #90 tab 05/01/20 10/05/20 Unknown Symbicort 160 mcg-4.5 2 puff INH BID #3 inhaler NS 05/02/20 10/05/20 Unknown mcg/actuation HFA aerosol inhaler (budesonide-formoterol) metformin 1,000 mg tablet 1,000 mg PO BID #180 tab 05/16/20 10/05/20 Unknown mirtazapine 15 mg tablet (Remeron) 15 mg PO PM #90 tab 05/16/20 10/05/20 Unknown levothyroxine 100 mcg tablet 100 mcg PO QAM #90 tab 06/01/20 10/05/20 Unknown atenolol 25 mg tablet 25 mg PO .COMPLEX #270 tab 08/10/20 10/05/20 Unknown benralizumab 30 mg/mL subcutaneous 30 mg SQ .COMPLEX #1 ml 08/24/20 10/05/20 Unknown auto-injector (Fasenra Pen) alprazolam 0.5 mg tablet (Xanax) 0.5 mg PO DAILY PRN #30 tab 08/28/20 10/05/20 Unknown atorvastatin 40 mg tablet 40 mg PO HS #90 tab 09/19/20 10/05/20 Unknown losartan 50 mg tablet 50 mg PO HS #90 tab 09/19/20 10/05/20 Unknown omeprazole 40 mg capsule,delayed 40 mg PO QAM #90 cap 09/19/20 10/05/20 Unknown release vit C-vit [id number] 1 cap PO DAILY cap 09/22/20 10/05/20 Unknown 3 100 mg-15 unit-2 mg-100 mg capsule dulaglutide 3 mg/0.5 mL 3 mg SUBCUT WK 10/05/20 10/05/20 Unknown subcutaneous pen injector (Trulicity) famotidine 40 mg tablet 40 mg PO HS 10/05/20 10/05/20 Unknown insulin glargine 100 unit/mL (3 77 - 80 unit SUBCUT QPM 10/05/20 10/05/20 Unknown mL) subcutaneous pen (Basaglar KwikPen U-100 Insulin) insulin glargine 100 unit/mL 70 - 80 unit SUBCUT QPM 10/05/20 10/05/20 Unknown subcutaneous solution (Lantus U-100 Insulin) meloxicam 7.5 mg tablet 7.5 mg PO QAM 10/05/20 10/05/20 Unknown venlafaxine 150 mg 150 mg PO QAM 10/05/20 10/05/20 Unknown capsule,extended release 24 hr venlafaxine 75 mg capsule,extended 75 mg PO QAM 10/05/20 10/05/20 Unknown release 24 hr Past Medical History Medical History Anxiety Ascending aorta enlargement Borderline dilated ascending aorta (3.7cm) per 01/20/20 echo Asthma stable CAD (coronary artery disease) Mild, non-obstructive per 2015 cardiac cath Chronic back pain Chronic headaches COPD (chronic obstructive pulmonary disease) stable Degenerative disc disease Depression 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 DM type 2 (diabetes mellitus, type 2) IDDM Eosinophilic asthma GERD (gastroesophageal reflux disease) Hiatal hernia History of benign breast biopsy History of endometriosis Hyperlipidemia Hypothyroid Lumbar degenerative disc disease Mediastinal lymphadenopathy Microcytic anemia Neuroendocrine carcinoma of lung s/p lobectomy (2011) Numbness and tingling in both hands Osteoarthritis Post traumatic stress disorder Pulmonary nodule Under surveillance Sleep apnea CPAP Past Family History Family History Brother Family history of diabetes mellitus Sister Cervical cancer Family history of diabetes mellitus Myocardial infarction Mother Family history of diabetes mellitus Myocardial infarction Father Leukemia Myocardial infarction Other No family history of adverse response to anesthesia Denies family history of Ovarian cancer Prostate cancer Breast cancer Colorectal cancer Past Surgical History Surgical History History of appendectomy History of bronchoscopy x 2 History of cardiac cath 2015 ([facility]; no stents) 2008 ([facility]; no stents) History of cataract surgery bilateral History of colonoscopy with polypectomy History of dilation and curettage History of esophagogastroduodenoscopy (EGD) History of laparoscopic cholecystectomy History of lobectomy of lung RM - 2011 History of tooth extraction History of total abdominal hysterectomy and bilateral salpingo-oophorectomy S/P cardiac catheterization S/P cervical spinal fusion C4-C5 Past Anesthesia History No Hx of Anesthesia Complications and No Family Hx of Anesthesia Complications History of PONV No Hx of PONV and No Hx of Motion Sickness Social History Smoking Status: Former smoker Do You Dip or Chew Tobacco: No Smoking End Date: Quit several years ago Hx Alcohol Use: Yes Alcohol type: wine alcohol intake frequency: holidays/special occasions only Hx Substance Use: No substance use type: does not use Review of Systems Chronic, stable HERNANDEZ. Patient denies chest pain, shortness of breath, fever, chills, cough, wheezing, palpitations. Physical Exam Vital Signs VITALS BP 100/62 P 70 TEMP 98.4 SP02 95%RA RESP 18 PHYSICAL Full cervical extension range of motion. Full TMJ range of motion. TMD 3 finger breaths Mallampati Score 3 Dentition: full upper/lower dentures Lungs: clear throughout to auscultation Cardiac: regular rate and rhythm, no murmurs noted Spine: normal Carotid arteries: negative bruit Extremities: no edema Short, thick neck Lab Results Anesthesia Preop Results Results Anesthesia Widget: WBC 7.81 K/uL (4.8-10.8) 10/06/20 Hgb 13.7 g/dL (12.0-16.0) 10/06/20 Hct 41.5 % (37-47) 10/06/20 Plt 258 K/uL (130-400) 10/06/20 Na 135 mmol/L (136-145) L 10/06/20 K 4.5 mmol/L (3.5-5.1) 10/06/20 Cl 105 mmol/L (98-107) 10/06/20 CO2 26 mmol/L (21-32) 10/06/20 BUN 14 mg/dl (7-18) 10/06/20 Creat 0.96 mg/dl (0.6-1.2) 10/06/20 Glucose Level 131 mg/dl (70-99) H 10/06/20 PT 9.9 Seconds (9.0-12.0) 10/06/20 PTT 24.6 Seconds (21.0-31.0) 10/06/20 INR 1.0 (0.9-1.1) 10/06/20 TSH 1.770 uIu/ml (0.300-4.500) 08/15/20 Free T4 1.04 ng/dl (0.8-1.6) 08/15/20 HA1c 7.1 % (4.5-5.6) H 10/06/20 Blood Type O Positive 10/06/20 Antibody Screen NEGATIVE 10/06/20 Testing Electrocardiogram Date: 04/18/20 Sinus rhythm at 79 bpm. Borderline LAD. Nonspecific T wave abnormality. Echocardiogram Date: 01/20/20 LVEF 60 to 65%. No regional wall motion abnormalities. Mild concentric LVH. Borderline dilated ascending aorta (3.7 cm). No significant valvular pathology. Compared to prior study 06/17/2018, no significant changes. Cardiac Catheterization Date: 11/30/15 Findings: LM - Angiographically normal LAD - 20-30% mid disease at take off of 2nd diagonal, mid-distal LAD luminal irregularities. 2nd diagonal 40% ostial stenosis, 3rd diagonal 20-30% ostial stenosis Circumflex - moderate sized vessel, luminal irregularities RCA - Large, dominant vessel, luminal irregularities, sluggish flow. R-PDA 40- 50% stenosis Summary: Mild non-obstructive coronary artery disease- Sluggish flow in RCA, consider microvascular dysfunction. Normal Intracardiac filling pressures. Pulmonary Function Test Date: 10/04/20 Per chalker soles note (10/04/20): "Spirometry was essentially unremarkable. FVC was 2.90, 103%, FEV1 was 2.11, 89%, FEV1 FVC ratio was 73%. There is slight reduction in FEV1/FVC ratio for age, but otherwise no significant obstruction or restriction. These values are slightly improved from her previous spirometry in 2019." Cervical Spine Date: 10/06/[address]: No acute fracture or traumatic malalignment. Extensive multilevel degenerative changes as detailed above. Other Testing Chest CT (09/22/20): No change in multiple pulmonary nodules. These are benign given stability. No acute process within the chest. Mild cardiomegaly is noted. No change in appearance of the chest.
[2020-10-20] MEDS ORDERED: LR 15ML/HR IV SCH (06:00)
[2020-10-20] MEDS ORDERED: ceFAZolin 2000MG 2,000 MG/15 ML SYR IV SCH (06:00)
[2020-10-20] MEDS ORDERED: LR 60ML/HR IV SCH (06:00)
[2020-10-20] MEDS ORDERED: PROPOFOL IV EMULSION 10 MG/ML 20 ML VIAL IV ONE ×2 (06:38→22:22)
[2020-10-20] MEDS ORDERED: ROCURONIUM BROMIDE 10 MG/ML 5 ML VIAL IV ONE (06:38)
[2020-10-20] MEDS ORDERED: LIDOCAINE 2% 2 ML VIAL/AMP(20MG/ML) INFIL ONE ×2 (06:38→22:22)
[2020-10-20] MEDS ORDERED: SUCCINYLCHOLINE 100MG/5ML SYR IV ONE (06:38)
[2020-10-20] MEDS ORDERED: DEXAMETHASONE SOD INJ 4 MG/ML VIAL ONE (06:38)
[2020-10-20] MEDS ORDERED: ONDANSETRON INJ 2 MG/ML 2 ML VIAL ONE ×2 (06:38→22:22)
[2020-10-20] MEDS ORDERED: fentaNYL citrate 100 MCG/2 ML VIAL ONE ×3 (06:38→20:45)
[2020-10-20] MEDS ORDERED: REMIFENTANIL HCL 1 MG VIAL ONE ×3 (06:38→10:32)
[2020-10-20] MEDS ORDERED: PROPOFOL IV EMULSION 10 MG/ML 100 ML VIAL IV ONE ×4 (06:39→11:11)
--- NOTE | 2020-10-20 06:42 | History & Physical Report ---
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 Patient underwent a previous ACDF procedure 20 years ago (see below) with no complications after, including no hoarseness or dysphagia. The pain is focal to the midline cervical region with minimal radiation to the parascapular region. The pain is worse with most activities and improved with rest. There is numbness and tingling affecting bilateral hands, affecting mainly the ulnar aspect of hand but also involving rest of hand intermittently. 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 Prior treatments have included remote surgery (see below), tramadol, PT, but not revision surgery. Patient has experienced balance issues, dexterity issues, fine motor issues with recurrent dropping of objects for the last 6 months. Allergies Allergy/AdvReac Type Severity Reaction Status Date / Time Bactrim Allergy Intermediate HIVES Verified 10/24/17 09:04 clindamycin Allergy Intermediate Hives Verified 10/20/20 05:37 sulfamethoxazole Allergy Intermediate Hives Verified 10/20/20 05:37 trimethoprim Allergy Intermediate Hives Verified 10/20/20 05:37 amoxicillin AdvReac Mild N/V Verified 10/20/20 05:37 clavulanic acid AdvReac Mild N/V Verified 10/20/20 05:37 Home Medications Medication Instructions Recorded Confirmed Type aspirin 81 mg tablet,delayed 81 mg PO QAM 08/12/18 10/20/20 History release cholecalciferol (vitamin D3) 25 1,000 unit PO QPM 08/12/18 10/20/20 History mcg (1,000 unit) capsule (Vitamin D3) cyanocobalamin (vitamin B-12) 1,000 mcg PO QAM 08/12/18 10/20/20 History 1,000 mcg tablet (Vitamin B-12) docusate sodium 250 mg capsule 250 mg PO BID 08/12/18 10/20/20 History (Stool Softener) magnesium 250 mg tablet 250 mg PO QAM 08/12/18 10/20/20 History omega-3 fatty acids 500 mg capsule 500 mg PO QAM 08/12/18 10/20/20 History spironolactone 25 mg tablet 25 mg PO QAM 08/12/18 10/20/20 History nitroglycerin 0.4 mg sublingual 0.4 mg SL Q5M PRN #25 tab 01/07/19 10/20/20 History tablet azelastine 137 mcg (0.1 %) nasal 2 spray INTNAS DAILY #30 ml 02/18/19 10/20/20 Rx spray aerosol benzonatate 100 mg capsule 100 mg PO TID PRN #30 cap 04/05/19 10/20/20 Rx (Tessalon Perles) ipratropium 0.5 mg-albuterol 3 mg 3 ml INHALATION Q6R PRN #1 ml 04/05/19 10/20/20 Rx (2.5 mg base)/3 mL nebulization soln diclofenac sodium 1 % topical gel See Rx Instructions TOPICAL QID 04/06/19 10/20/20 History PRN gm CPAP Machine #1 ea 05/06/19 09/26/20 Rx blood sugar diagnostic (Prodigy No #10 ea 05/06/19 09/26/20 History Coding) mupirocin 2 % topical ointment 1 appln TOP BID #15 gm 05/19/19 10/20/20 Rx albuterol sulfate 90 mcg/actuation 2 puffs INH Q4 PRN #3 inhaler 06/08/19 10/20/20 Rx aerosol inhaler (Ventolin HFA) tiotropium bromide 2.5 2 puffs INH QAM #12 gm 07/02/19 10/20/20 Rx mcg/actuation mist for inhalation (Spiriva Respimat) tramadol 50 mg tablet 50 mg PO TID PRN #90 tab 02/02/20 10/20/20 Rx insulin aspart U-100 100 unit/mL 0 - 75 unit SUBCUT UD ml 03/30/20 10/20/20 History (3 mL) subcutaneous pen (Novolog Flexpen U-100 Insulin aspart) zinc 50 mg tablet 50 mg PO QAM 03/30/20 10/20/20 History furosemide 20 mg tablet 20 mg PO QAM PRN #90 tab 05/01/20 10/20/20 Rx Symbicort 160 mcg-4.5 2 puff INH BID #3 inhaler NS 05/02/20 10/20/20 Rx mcg/actuation HFA aerosol inhaler (budesonide-formoterol) metformin 1,000 mg tablet 1,000 mg PO BID #180 tab 05/16/20 10/20/20 Rx mirtazapine 15 mg tablet (Remeron) 15 mg PO PM #90 tab 05/16/20 10/20/20 Rx levothyroxine 100 mcg tablet 100 mcg PO QAM #90 tab 06/01/20 10/20/20 Rx atenolol 25 mg tablet 25 mg PO .COMPLEX #270 tab 08/10/20 10/20/20 Rx benralizumab 30 mg/mL subcutaneous 30 mg SQ .COMPLEX #1 ml 08/24/20 10/20/20 Rx auto-injector (Fasenra Pen) alprazolam 0.5 mg tablet (Xanax) 0.5 mg PO DAILY PRN #30 tab 08/28/20 10/20/20 Rx atorvastatin 40 mg tablet 40 mg PO HS #90 tab 09/19/20 10/20/20 Rx losartan 50 mg tablet 50 mg PO HS #90 tab 09/19/20 10/20/20 Rx omeprazole 40 mg capsule,delayed 40 mg PO QAM #90 cap 09/19/20 10/20/20 Rx release vit C-vit P-omtnyd-lcaxtcsd-omega 1 cap PO DAILY cap 09/22/20 10/20/20 History 3 100 mg-15 unit-2 mg-100 mg capsule dulaglutide 3 mg/0.5 mL 3 mg SUBCUT WK 10/05/20 10/20/20 History subcutaneous pen injector (Trulicity) famotidine 40 mg tablet 40 mg PO HS 10/05/20 10/20/20 History insulin glargine 100 unit/mL (3 77 - 80 unit SUBCUT QPM 10/05/20 10/20/20 History mL) subcutaneous pen (Basaglar KwikPen U-100 Insulin) insulin glargine 100 unit/mL 70 - 80 unit SUBCUT QPM 10/05/20 10/20/20 History subcutaneous solution (Lantus U-100 Insulin) meloxicam 7.5 mg tablet 7.5 mg PO QAM 10/05/20 10/20/20 History venlafaxine 150 mg 150 mg PO QAM 10/05/20 10/20/20 History capsule,extended release 24 hr venlafaxine 75 mg capsule,extended 75 mg PO QAM 10/05/20 10/20/20 History release 24 hr Past Med/Surg History Medical History Anxiety Ascending aorta enlargement Borderline dilated ascending aorta (3.7cm) per 01/20/20 echo Asthma stable CAD (coronary artery disease) Mild, non-obstructive per 2015 cardiac cath Chronic back pain Chronic headaches COPD (chronic obstructive pulmonary disease) stable Degenerative disc disease Depression 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 DM type 2 (diabetes mellitus, type 2) IDDM Eosinophilic asthma GERD (gastroesophageal reflux disease) Hiatal hernia History of benign breast biopsy History of endometriosis Hyperlipidemia Hypothyroid Lumbar degenerative disc disease Mediastinal lymphadenopathy Microcytic anemia Neuroendocrine carcinoma of lung s/p lobectomy (2011) Numbness and tingling in both hands Osteoarthritis Post traumatic stress disorder Pulmonary nodule Under surveillance Sleep apnea CPAP Surgical History History of appendectomy History of bronchoscopy x 2 History of cardiac cath 2015 ([facility]; no stents) 2008 ([facility]; no stents) History of cataract surgery bilateral History of colonoscopy with polypectomy History of dilation and curettage History of esophagogastroduodenoscopy (EGD) History of laparoscopic cholecystectomy History of lobectomy of lung RML - 2011 History of tooth extraction History of total abdominal hysterectomy and bilateral salpingo-oophorectomy S/P cardiac catheterization S/P cervical spinal fusion C4-C5 Family History Brother Family history of diabetes mellitus Sister Cervical cancer Family history of diabetes mellitus Myocardial infarction Mother Family history of diabetes mellitus Myocardial infarction Father Leukemia Myocardial infarction Other No family history of adverse response to anesthesia Denies family history of Ovarian cancer Prostate cancer Breast cancer Colorectal cancer Social History Smoking Status: Former smoker (AGES [age], 1 PACK/DAY) Smoking End Date: Quit several years ago; Number of Years Since Quit: 10; Second Hand Exposure: No; Do You Dip or Chew Tobacco: No; Tobacco Cessation Education Requested by Patient: No Hx Alcohol Use: Yes Alcohol type: hard liquor Hx Substance Use: No Preferred Language: Kiswahili Communication Ability: Effective Visual Impairment: No Limitations Hearing Ability: Normal Sorter Pricer Required: No Beliefs That Will Affect Care: None marital status: Current Living Situation: Spouse current occupational status: retired Other Information That Helps Us Care for You: No Feels Safe at Home: Yes Safety Concerns: Feels Safe At This Time Childhood Exposure to Second-Hand Smoke: Yes Dental Care, Regularly: Yes Physical Activity Frequency: 1-2 Times per Week Seatbelt Use: always Sunscreen Use: Yes Assistive Devices: CPAP, Denture - Upper and Denture - Lower Review of Systems All systems reviewed & are unremarkable except as noted in HPI & below. Physical Exam Physical Exam: Appearance: Well kept, normally developed Psych: Alert, normal mood and affect Eyes: Anicteric Cardiovascular: No lower extremity edema, extremities warm Respiratory: Breathing unlabored Skin: no rashes Musculoskeletal: 5/5 motor strength bilateral C5-T1, L2-S1 except bilateral C8 4/5, right C5/C6/C7 4+/5, right T1 4/5. Neurologic: Sensation 2/2 to light touch bilateral C5-T1, L2-S1 except bilateral soles of feet 1/2 (chronic). Reflexes are 3+ biceps, brachioradialis, patella and ankle bilaterally. Results & Data Results & Data Laboratory Results . Diagnostic Findings AP and lateral cervical spine x-rays independently reviewed/interpreted. Findings: multi-level DDD with anterior osteophytes mainly from C3-7 EMG/NCS 03/31/20 right upper extremity reported as "very mild acute right mid- cervical radiculopathy (poorly localizable, but clinically consistent with a C7)" CT cervical spine reviewed and independently interpreted: C2-3 autofusion C4-5 presence of posterior calcification right lateral disc space C5-6 irregular endplates in keeping with previous fusion attempt, no evidence of bridging bone reported as " FINDINGS: The visualized portions of the lung apices reveal no evidence of pneumothorax. The prevertebral soft tissues are normal. No fractures or subluxations are visualized. There is minimal reverse of normal cervical lordosis centered at the C5-C6 level. Multilevel intervertebral disc space narrowing with subchondral sclerosis and subchondral cysts are seen, most severe at C4-C5 level. Multiple anterior and posterior osteophytes as well as ossification of posterior longitudinal ligament are seen. C2-C3: Intervertebral disc space is slightly narrowed. Minimal anterolisthesis of C2 on C3 is seen. Central canal and bilateral neuroforamina are patent. C3-C4: Narrowing of intervertebral disc space with subchondral sclerosis are seen. Calcifications of the posterior longitudinal ligament and posterior osteo phytes are seen causing mild to moderate stenosis of the central canal and right neural foramina. Left neuroforamina is patent. C4-C5: Severe narrowing of intervertebral disc space with subchondral sclerosis and hypertrophic changes of uncovertebral and facet joints are seen. Central canal and bilateral neuroforamina are patent. C5-C6: Narrowing of intervertebral disc space with posterior osteophytes and hypertrophic changes of facet joints causing moderate stenosis of the central canal and left neuroforamina. Mild stenosis of the right neural foramina is seen at this level. C6-C7: Intervertebral disc space narrowing with posterior osteophytes are seen. Hypertrophic changes of uncovertebral joints are seen. Possible mild stenosis of the central canal and left neuroforamina. Right neuroforamina is patent. C7-T1: Intervertebral disc space is preserved. Central canal and bilateral neuroforamina are patent. IMPRESSION: 1. No acute fracture or traumatic malalignment. 2. Extensive multilevel degenerative changes as detailed above. " cervical MRI 06/12/20 C3-4 moderate central stenosis with broad-based disc osteophyte complex, ligamentum flavum hypertrophy, bilateral foraminal stenosis C4-5 severe central stenosis, cord deformity, with broad-based disc osteophyte complex, ligamentum flavum hypertrophy, bilateral right worse than left foraminal stenosis no cord signal changes reported as " FINDINGS: Cervical spine: Vertebral body height is maintained throughout the cervical spine. There is minimal anterolisthesis at C5-C6. Alignment is otherwise preserved. There is near complete bony fusion of the C2 and C3 vertebral bodies, as well as the posterior elements. Anterior osteophytes are seen throughout. The atlantodental articulation is maintained. The spinous processes appear intact. Chronic degenerative endplate change is seen at all levels from C5 through T1. There is significant endplate edema at C7-T1. No destructive bony lesion is identified. Intervertebral discs: Degenerative disc desiccation and loss of height is seen throughout the cervical spine. Loss of height is moderate to severe at levels between C4-C5 and C7-T1. Spinal cord: The cervical spinal cord is normal in morphology and signal intensity. C2-C3: The central canal and neural foramina appear patent. C3-C4: A posterior disc osteophyte complex abuts the ventral cord. The minimum AP canal diameter measures 7.5 mm. Uncovertebral and facet arthropathy contribute to moderate to severe left and minimal right neural foraminal narrowing. C4-C5: A posterior disc osteophytic complex effaces the ventral cord. The minimum AP canal diameter measures 6 mm. Uncovertebral and facet arthropathy contribute to severe right greater than left neural foraminal stenosis. Right lateral disc bulge likely impinges on the exiting right C4 nerve root. C5-C6: A posterior disc osteophyte complex effaces the ventral subarachnoid space. Uncovertebral and facet arthropathy cause moderate to severe left and mild to moderate right neural foraminal stenosis. C6-C7: A posterior disc osteophyte complex minimally effaces the ventral cord. Uncovertebral and facet arthropathy cause severe left and moderate to severe right neural foraminal stenosis. C7-T1: A posterior disc osteophyte complex effaces the ventral subarachnoid space. Bilateral disc bulge in conjunction with facet arthropathy causes moder ate to severe bilateral neural foraminal stenosis. This likely impinges on the exiting C8 nerve roots. Soft tissues: The prevertebral and paraspinous soft tissues are normal as imaged. Brain parenchyma: The visualized brain parenchyma at the skull base is normal in appearance. IMPRESSION: 1. There is near complete bony fusion of the C2 and C3 vertebral bodies. 2. Multilevel cervical spondylosis as above with multilevel acquired compromise of the central canal. See discussion for detailed level by level analysis. 3. The cervical spinal cord is normal in morphology and signal intensity. 4. Degenerative disc disease as above with significant endplate edema at C7-T1. " AP and lateral lumbar spine x-rays independently reviewed/interpreted. Findings: L5-S1 grade 1 anterolisthesis, non-mobile (<3mm motion on flexion-extension views) PG Care Time/CCT Total # of Minutes Spent Total Time Spent with Patient: Total time spent is greater than 50% in coordination of care (as documented) at patient's floor/unit and/or counseling patient: Coding Level of Care Code None Diagnoses Cervical disc disorder at C4-C5 level with myelopathy M50.021 Pseudarthrosis after fusion or arthrodesis M96.0
--- NOTE | 2020-10-20 06:44 | History & Physical Bridge Note ---
Date of Service October 20, 2020 History & Physical Bridge Note I have examined the patient, reviewed the History & Physical and in the interval since the performance of the History & Physical I have noted the following changes of clinical significance: no changes noted New changes compared to last appointment: nil Musculoskeletal: 5/5 motor strength bilateral C5-T1, L2-S1 except bilateral C8 4/5, right C5/C6/C7 4+/5, right T1 4/5. Neurologic: Sensation 2/2 to light touch bilateral C5-T1, L2-S1 except bilateral soles of feet 1/2 (chronic). Patient marked for surgery. All new questions about procedure answered. Informed consent confirmed
[2020-10-20] MEDS ORDERED: THROMBIN 5000 UNITS KIT ONE (06:57)
[2020-10-20] MEDS ORDERED: GELATIN SPONGE 12-7MM ONE (06:57)
[2020-10-20] MEDS ORDERED: HYDROmorphone INJ 1 MG/ML SYRINGE ONE ×3 (07:44→10:48)
[2020-10-20] MEDS ORDERED: MIDAZOLAM HCL 1 MG/ML 2ML VIAL ONE ×3 (08:16→11:10)
[2020-10-20] MEDS ORDERED: PHENYLEPHRINE 100MCG/ML 5ML SYR ONE (08:42)
[2020-10-20] MEDS ORDERED: PHENYLEPHRINE HCL 10 MG/ML VIAL ONE ×2 (08:42→22:22)
[2020-10-20] MEDS ORDERED: ePHEDrine sulfate 50 MG/ML AMP ONE (08:42)
[2020-10-20] MEDS ORDERED: ceFAZolin 1000MG 1,000 MG/7.5 ML SYR IV ONE (09:32)
--- NOTE | 2020-10-20 09:54 | Procedure Note ---
Procedure Note Date of Service October 20, 2020 Note Radial arterial line placed in left wrist after induction in preparation for cervical neck surgery with Dr. Lugo. Left wrist prepped with chlorhexidine and draped with sterile towels. 20 G angiocath placed under sterile technique utilizing sterile gloves, surgical hats and masks. Catheter threaded using seldinger technique with return of pulsatile, bright red blood. Site covered with occlusive dressing and taped in place. Waveform consistent with correct arterial placement. After placement, fingers of procedural hand had normal perfusion. Patient tolerated procedure well without complications. Almaz Fox MD, PhD Anesthesiologist Coding
[2020-10-20] MEDS ORDERED: ePHEDrine sulfate 50 MG/ML AMP IV PRN (09:57)
[2020-10-20] MEDS ORDERED: ATROPINE SULFATE 0.1 MG/ML 10ML SYR IV PRN (09:57)
[2020-10-20] MEDS ORDERED: fentaNYL citrate 100 MCG/2 ML VIAL IV PRN (09:57)
[2020-10-20] MEDS ORDERED: ONDANSETRON INJ 2 MG/ML 2 ML VIAL IV PRN (09:57)
[2020-10-20] MEDS ORDERED: HYDROmorphone INJ 1 MG/ML SYRINGE IV PRN (09:57)
[2020-10-20] MEDS ORDERED: GELATIN SPONGE SZ 100 ONE (10:17)
[2020-10-20] MEDS ORDERED: FLOSEAL HEMOSTATIC MATRIX 10ML TOP ONE ×4 (11:39→23:26)
--- NOTE | 2020-10-20 12:42 | Post Operative Brief Note ---
PG Immediate Post Op with CF Date of Surgery October 20, 2020 Pre & Post Diagnosis Operation Date: 10/20/20 07:00 Pre-Op Diagnosis: Cervical disc disorder at C4-C5 level with myelopathy, pseudarthrosis C5-6 Post-Op Diagnosis: Cervical disc disorder at C4-C5 level with myelopathy, pseudarthrosis C5-6 I identified the patient and participated in the time-out.: Yes Procedure C4-C5 Anterior Cervical Discectomy and Fusion, C5-C6 Assessment of Fusion Mass, C5-C6 Revision Anterior Fusion Iliac Crest Bone Graft Right, Spinal Cord Monitoring Surgeon Whitley Lugo MD Cement Sprayer Helper Donnie Mccarthy PA-C Estimated Blood Loss 100 Findings Consistent with Post-Op Diagnosis Specimens Specimen Description: none per surgeon Drains Kendall Catheter (16 russian 10 ml balloon; inserted by Kelsey Ramey RN without difficulty; urine output monitored throughout entire case by anesthesia staff) and Lorenzo-Hoover Drain (15 russian round)
--- NOTE | 2020-10-20 13:56 | XRay Report ---
XR cervical spine CLINICAL HISTORY: ACDF C4-C5 COMPARISON STUDY: Cervical spine CT 10/06/2020. FINDINGS: 3 intraoperative images of the cervical spine were submitted for review. Initial images demonstrate a surgical instrument overlying the C3-C4 disc space. The third image demonstrates anterior screw placement within the C3 and C4 vertebral bodies. There appears to be intervertebral spacer at C3-C4. Image 4 demonstrates anterior cervical discectomy and fusion from approximately the C3-C5 levels. It should be noted that the C3 screws are along the inferior endplate of C3 and likely within the C3-C4 disc space. The C4 screws are also partially within the C4 inferior endplate and within the C4-C5 disc space. The hardware appears intact. Endotracheal tube and surgical sponge are noted anteriorly. IMPRESSION: Intraoperative study for C3-C5 ACDF. Final images demonstrate the C3 screws along the inferior endplate of C3 and likely within the C3-C4 disc space. The C4 screws are partially within the C4 inferior endplate and the C4-C5 disc space. This finding was called/faxed to the referring physician following dictation. ACT 112: Negative or not required by law. Electronically signed by: Moo Fernandez M.D. 10/20/2020 1:54 PM RK
--- NOTE | 2020-10-20 14:27 | XRay Report ---
XR cervical spine 2 or 3V HISTORY: 70 years-old Female cervical 2 view status post cervical spine fusion COMPARISON: Cervical spine radiographs 10/20/2020 TECHNIQUE: 2 views of the cervical spine FINDINGS: Anterior plate and screw fusion hardware at C3-C5. The hardware appears to be intact. The C6 and C7 v ertebral bodies are not well visualized. Expected postoperative prevertebral edema with deep tissue a ir. Surgical drainage catheter. No acute fracture or malalignment. No definite unexpected opaque fore ign body. IMPRESSION: Anterior plate and screw fusion hardware at C3-C5. ACT 112: Negative or not required by law. The above report was generated using voice recognition software. It may contain grammatical, syntax o r spelling errors. Electronically signed by: Alfredo Hill M.D. 10/20/2020 2:25 PM
--- NOTE | 2020-10-20 15:06 | CT Scan Report ---
CT SCAN OF THE CERVICAL SPINE CLINICAL HISTORY: Postoperative examination. Cervical spine fusion. COMPARISON STUDY: CT of the cervical spine dated 10/06/2020. Cervical spine radiographs dated . TECHNIQUE: CT scan of the cervical spine is performed from the skull base to the upper thoracic spine . Images are reviewed in the axial, sagittal, and coronal planes. IV contrast was not administered fo r this examination. A dose lowering technique was utilized adhering to the principles of ALARA. CT DOSE: 439.01 mGycm FINDINGS: Skeletal structures: The skeletal structures are osteopenic. There is no evidence of fracture or subl uxation involving the cervical spine. Vertebral body height and alignment are maintained. There is ne ar complete bony fusion of the C2 and C3 vertebral bodies. This includes the posterior elements. Ther e is postoperative change from anterior fusion seen from C4-C6. The orthopedic hardware appears intac t. The anterior screws at C4 extend through the C4-C5 disc space. The cortical screws in C5 and C6 ar e positioned within the cortex. A screw tract is seen within the body of C4 on sagittal image #47. Th ere is straightening of the cervical lordosis. Anterior osteophytes are seen throughout. The odontoid process and lateral masses are intact. The atlantoaxial articulation is preserved noting productive degenerative change. The spinous processes appear intact. Intervertebral discs: Moderate disc space narrowing is noted at C6-C7 and C7-T1. Mild disc space narr owing is seen at the remaining cervical levels. Central canal: Large posterior disc osteophyte complexes are seen at all cervical levels between C3-C 4 and C7-T1. This likely contributes to multilevel acquired compromise of the central canal. Soft tissues: There is prevertebral soft tissue edema end soft tissue gas. A surgical drain is presen t within the right prevertebral soft tissues at the level of C6-C7. There is atherosclerotic calcific ation of the carotid bulbs. Calvarium: The visualized calvarium at the skull base appears intact. Brain parenchyma: Partially visualized brain parenchyma at the skull base is within normal limits. Sinuses and mastoids: The visualized paranasal sinuses are clear. The mastoid air cells are well pneu matized. Lung apices: Clear as visualized. IMPRESSION: 1. There is a segmentation abnormality with near complete bony fusion of the C2 and C3 vertebral bodi es. This includes the posterior elements, and this changes the level numbering as compared to prior s tudies. 2. No acute fracture or subluxation is identified involving the cervical spine. 3. There is postoperative change from anterior spinal fusion from C4-C6. With hardware appears intact . 4. Anterior cortical screws at C4 extending through C4-C5 disc space. The anterior screws at C5 and C 6 are located within the vertebral bodies. 5. Osteopenia and spondylotic change as above. 6. Prevertebral soft tissue edema, soft tissue gas, and a surgical drain are in place. These are expe cted postoperative findings. ACT 112: Negative or not required by law. Electronically signed by: Gato Choe M.D. 10/20/2020 3:05 PM
--- NOTE | 2020-10-20 15:56 | Anesthesiology Progress Note ---
Date of Service October 20, 2020 Anesthesia Post Procedure Vital Signs Vital Signs: Temp Pulse Resp BP Pulse Ox 10/20/20 15:35 101 H 14 119/69 94 10/20/20 15:20 98 H 12 126/65 94 10/20/20 15:05 98 H 14 106/61 93 10/20/20 14:50 99 H 12 102/66 93 10/20/20 14:30 99 H 12 118/70 93 10/20/20 14:20 98 H 12 124/68 93 10/20/20 14:05 99 H 12 121/74 93 10/20/20 13:50 36 C L 101 H 14 127/68 93 10/20/20 13:40 101 H 15 122/68 93 10/20/20 13:30 100 H 10 L 120/69 93 10/20/20 13:20 102 H 12 126/67 93 10/20/20 13:10 103 H 16 123/68 93 10/20/20 13:00 104 H 18 126/71 93 10/20/20 12:50 102 H 18 123/64 94 10/20/20 12:40 36.1 C L 101 H 20 130/83 92 10/20/20 05:50 36.8 C 84 20 119/85 97 Pain Intensity Right Abdomen: Pain Intensity: 4 Transfer of Care Handoff Completed per policy Notes Mental Status: alert / awake / arousable and participated in evaluation Patient Amnestic to Procedure: Yes Nausea / Vomiting: adequately controlled Pain: adequately controlled Airway Patency, RR, SpO2: stable & adequate BP & HR: stable & adequate Hydration State: stable & adequate Anesthetic Complications: see Notes below Notes: Pt neurologically intact and hemodynamically stable in PACU. Pt tolerated anesthesia well without apparent anesthetic complications. Question of malpositioned hardware per radiological evaluation. Dr. Lugo aware and pt may be returning to the operating room. To remain in PACU until plan determined.
[2020-10-20] MEDS ORDERED: SUCCINYLCHOLINE CHLORIDE 20 MG/ML 10 ML VIAL IV ONE (22:22)
[2020-10-20] MEDS: THROMBIN 5000 UNITS KIT ONE ×2 (22:41→23:26)
[2020-10-20] MEDS: GELATIN SPONGE 12-7MM ONE ×2 (22:41→23:26)
--- NOTE | 2020-10-20 23:45 | Post Operative Brief Note ---
PG Immediate Post Op with CF Date of Surgery October 20, 2020 Pre & Post Diagnosis Operation Date: 10/20/20 07:00 Pre-Op Diagnosis: Anterior cervical discectomy and fusion C4-6 with malpositioned C4 screw Post-Op Diagnosis: Anterior cervical discectomy and fusion C4-6 with malpositioned C4 screw I identified the patient and participated in the time-out.: Yes Procedure C4-C6 revision anterior cervical fusion Surgeon Whitley Lugo MD Senior Software Test Engineer Donnie Mccarthy PA-C Estimated Blood Loss 25 Findings Consistent with Post-Op Diagnosis Specimens Specimen Description: None per Surgeon Drains Lorenzo-Hoover Drain (10 fr)
--- NOTE | 2020-10-20 23:48 | XRay Report ---
INTRAOPERATIVE RADIOGRAPHS CLINICAL HISTORY: Cervical spinal fusion revision. FINDINGS: 4 crosstable lateral portable views of the cervical spine are compared to radiographs and c ervical spine CT performed the same day 10/20/2020. The skeletal structures are osteopenic. Again seen is near complete fusion of the C2 and C3 vertebral bodies. On the initial image there is evidence of anterior fusion from C4 to C6. The C4 screws are located in the C4-C5 disc space. An endotracheal tu be is in place. On the second image the screws at C6 have been removed. On the third image the screws at C4 have been repositioned and are now located within the C4 vertebral body. Screws are also seen at the level of C6. The screws at C5 have been removed. On the final image there are anterior screws at all levels from C4 to C6. These are located within the vertebral bodies. The orthopedic hardware a ppears intact. A surgical drain is in place. Prevertebral soft tissue edema and gas are expected oper ative findings. IMPRESSION: Intraoperative images from cervical spine fusion revision as above. See operative report for detailed findings. Electronically signed by: Gato Choe M.D. 10/20/2020 11:47 PM
[2020-10-21] MEDS ORDERED: methylPREDNISolone 250 MG in SYRINGE 0 ML IV SCH ×2 (00:30→01:15)
--- NOTE | 2020-10-21 00:57 | Anesthesiology Progress Note ---
Date of Service October 21, 2020 Anesthesia Post Procedure Vital Signs Vital Signs: Temp Pulse Pulse Resp BP Pulse Ox 10/21/20 00:40 36.8 C 89 20 164/89 H 96 10/21/20 00:30 90 21 146/83 H 95 10/21/20 00:20 911 H 19 153/75 H 95 10/21/20 00:10 91 H 19 159/73 H 95 10/21/20 00:01 95 H 18 165/74 H 98 10/20/20 23:54 36.0 C L 96 H 16 175/76 H 96 10/20/20 20:10 91 H 16 106/67 94 10/20/20 19:40 36.3 C L 94 H 16 114/79 94 10/20/20 19:10 98 H 16 111/66 94 10/20/20 18:40 98 H 16 109/65 94 10/20/20 18:10 36.4 C L 96 H 16 114/75 94 10/20/20 17:55 96 H 16 108/73 94 10/20/20 17:40 96 H 16 110/63 94 10/20/20 17:25 97 H 16 111/65 94 10/20/20 17:10 98 H 16 120/68 94 10/20/20 16:50 99 H 18 119/70 93 10/20/20 16:35 102 H 18 125/69 93 10/20/20 16:20 102 H 18 118/70 93 10/20/20 16:05 99 H 16 120/71 94 10/20/20 15:50 99 H 13 117/71 94 10/20/20 15:35 101 H 14 119/69 94 10/20/20 15:20 98 H 12 126/65 94 10/20/20 15:05 98 H 14 106/61 93 10/20/20 14:50 99 H 12 102/66 93 10/20/20 14:30 99 H 12 118/70 93 10/20/20 14:20 98 H 12 124/68 93 10/20/20 14:05 99 H 12 121/74 93 10/20/20 13:50 36 C L 101 H 14 127/68 93 10/20/20 13:40 101 H 15 122/68 93 10/20/20 13:30 100 H 10 L 120/69 93 10/20/20 13:20 102 H 12 126/67 93 10/20/20 13:10 103 H 16 123/68 93 10/20/20 13:00 104 H 18 126/71 93 10/20/20 12:50 102 H 18 123/64 94 10/20/20 12:40 36.1 C L 101 H 20 130/83 92 10/20/20 05:50 36.8 C 84 20 119/85 97 Pain Intensity Right Abdomen: Pain Intensity: 4 Neck: Pain Intensity: 0 Transfer of Care Handoff Completed per policy Notes Mental Status: alert / awake / arousable Patient Amnestic to Procedure: Yes Nausea / Vomiting: adequately controlled Pain: adequately controlled Airway Patency, RR, SpO2: stable & adequate BP & HR: stable & adequate Hydration State: stable & adequate Anesthetic Complications: no major complications apparent
[2020-10-21] MEDS ORDERED: RACEPINEPHRINE 2.25% NEBU SOLN 0.5 ML VIAL INH PRN (01:15)
[2020-10-21] MEDS ORDERED: ALUMINUM/MAGNESIUM SUSP 30 ML UDC PO PRN (01:15)
[2020-10-21] MEDS ORDERED: LORazepam 0.5 MG/1 ML VIAL IV PRN (01:15)
[2020-10-21] MEDS ORDERED: MAGNESIUM HYDROXIDE SUSP 30 ML UDC PO PRN (01:15)
[2020-10-21] MEDS ORDERED: DO NOT ADMINISTER PNEUMOCOCCAL VACCINE PRN (01:15)
[2020-10-21] MEDS ORDERED: bisacodyL 10 MG SUPP PR PRN (01:15)
[2020-10-21] MEDS ORDERED: FAMOTIDINE 20 MG TAB PO PRN (01:15)
[2020-10-21] MEDS ORDERED: FUROSEMIDE 20 MG TAB PO PRN (01:15)
[2020-10-21] MEDS ORDERED: diphenhydrAMINE Capsule 25 MG CAP PO PRN (01:15)
[2020-10-21] MEDS ORDERED: metFORMIN HCL 500 MG TAB PO SCH (01:15)
[2020-10-21] MEDS ORDERED: ALBUT/IPRATROP 3MG/0.5MG NEB 3 ML VIAL INH PRN (01:15)
[2020-10-21] MEDS ORDERED: dexAMETHasone 8 MG in SYRINGE 0 ML IV PRN (01:15)
[2020-10-21] MEDS ORDERED: NITROGLYCERIN SL 0.4 MG/TAB TAB SL PRN (01:15)
[2020-10-21] MEDS ORDERED: LANTUS PER UNIT CHARGE SQ SCH (01:15)
[2020-10-21] MEDS ORDERED: hydrOXYzine HCl 25 MG TAB PO PRN (01:15)
[2020-10-21] MEDS ORDERED: ALBUTEROL HFA 8 GM INHALER INH PRN (01:15)
[2020-10-21] MEDS ORDERED: PROMETHAZINE HCL 12.5 MG in SODIUM CHLORIDE 0.9% 50 ML IV PRN (01:15)
[2020-10-21] MEDS ORDERED: METOCLOPRAMIDE HCL INJ 5 MG/ML 2 ML VIAL IV PRN (01:15)
[2020-10-21] MEDS ORDERED: HYDROmorphone INJ 0.5 MG/0.5 ML SYR IV PRN (01:15)
[2020-10-21] MEDS ORDERED: PHARMACY GLYCEMIC MGMT CONSULT PRN (01:15)
[2020-10-21] MEDS ORDERED: DO NOT ADMINISTER FLU VACCINE PRN (01:15)
[2020-10-21] MEDS ORDERED: NALOXONE HCL 0.4 MG/1 ML VIAL/CARP IV PRN (01:15)
[2020-10-21] MEDS ORDERED: SOD PHOSPHATE/SOD BIPHOSPHATE ENEMA 132 ML BTL PR PRN (01:15)
[2020-10-21] MEDS ORDERED: ALPRAZolam 0.5 MG TABLET PO PRN (01:15)
[2020-10-21] MEDS ORDERED: ONDANSETRON 4 MG OD TAB PO PRN (01:15)
[2020-10-21] MEDS ORDERED: LORazepam 0.5 MG TAB PO PRN (01:15)
[2020-10-21] MEDS ORDERED: ACETAMINOPHEN 1,000 MG/100 ML VIAL IV PRN (01:15)
[2020-10-21] MEDS ORDERED: ACETAMINOPHEN 500 MG TAB PO PRN (01:15)
[2020-10-21] MEDS ORDERED: ONDANSETRON INJ 2 MG/ML 2 ML VIAL IV PRN (01:15)
[2020-10-21] MEDS: methylPREDNISolone 250 MG in DEXTROSE 5% 100 ML IV SCH ×4 (01:27→19:23)
[2020-10-21] MEDS: LACTATED RINGER'S 1,000 ML IV SCH ×2 (01:45→10:50)
--- NOTE | 2020-10-21 01:45 | Critical Care Consultation ---
Date of Consultation October 21, 2020 Assessment & Plan (1) Admitted to intensive care unit: Reason Critically Ill: 70-year-old female status post ACDF surgery earlier today with revision this evening requiring ongoing evaluation for airway protection. NEURO - * CAM ICU: NEGATIVE * Status post ACDF: * Initial procedure with revision of hardware this evening. * Pain: Acetaminophen and as needed narcotics * Scheduled Solu-Medrol per surgeon. * Frequent neuro checks per protocol status post cervical surgery. CARDIAC/VASCULAR - * Coronary artery disease, hypertension, ascending aortic aneurysm * Continue home medications as tolerated. * Monitor on telemetry. RESPIRATORY - * Airway monitoring status post ACDF surgery: * Difficult airway given recent cervical surgery and baseline anatomy. * [place] scope and airway adjuncts at bedside per protocol. * Frequent area monitoring. * Intubate in the event of airway compromise. * Asthma, RAGHAVENDRA, COPD * Continue with home inhalers. * CPAP at night as needed. GI/NUTRITION - * Progress diet as tolerated RENAL/LYTES - * No history of renal disease. * IVF: LR at 100 mL's per hour. - * [place] in place - Strict I&Os. ENDO - * Anticipate hyperglycemia status post steroid administration. * BSGs per unit protocol. ISS --> gtt per unit policy. * Hypothyroidism: * Continue home medications. HEME - * Stable H&H. * Trend status post surgical intervention. ID - * Postoperative antibiotics per surgeon. LINES/IV ACCESS - * PIVs x2 * Anterior cervical WIL drain DVT PROPHYLAXIS - * Hold per recent invention. * SCDs I have personally spent 35 minutes of critical care time in the direct management of this patient. This is a life/limb threatening event. This includes time spent evaluating patient, direct bedside care, chart review, placing orders, interpretation of diagnostic studies, discussion with consultants, patient, and family members, as well as other required patient management activities. This time is exclusive of all separately billable procedures, and teaching time and separate from and in addition to any other critical care service time. Thank you for allowing us to participate in the care of this patient. Please refer to my attending physician's documentation for any further recommendations. 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 Patient is stable for downgrade to the floor. History of Present Illness Attending Physician: Whitley Lugo MD History of Present Illness Patient is a 70-year-old female with a significant past medical history of coronary artery disease, hypertension, diabetes, hypothyroidism, ascending aortic aneurysm, eosinophilic asthma, obstructive sleep apnea, COPD, and cervical disc disease with myelopathy. Patient is with longstanding history of neck pain who underwent ACDF 20 years ago. Patient is developing worsening pain with movement and at rest. She has developed numbness and tingling into her bilateral hands. Patient scheduled for elective ACDF today. Patient initially underwent ACDF procedure today, however postoperative films was concerning for malplacement of screws. Patient went back to the operating room today for revision. She was successfully extubated without issue. Of concern, the patient is status post substantial surgical intervention today with concerns for difficult airway in the setting of surgery type as well as physical anatomy. Patient to be admitted to the ICU for airway management and ongoing evaluation. Upon assessment in the ICU, the patient is awake, alert, and oriented. She complains of a sore throat, but otherwise denies any other significant complaints of pain. Patient specifically denies any neck pain, chest tightness, shortness of breath, pleuritic pain, nausea, vomiting, or abdominal discomfort. She denies any numbness or weakness into her upper extremities or lower extremities. Allergies Allergy/AdvReac Type Severity Reaction Status Date / Time Bactrim Allergy Intermediate HIVES Verified 10/24/17 09:04 clindamycin Allergy Intermediate Hives Verified 10/20/20 05:37 sulfamethoxazole Allergy Intermediate Hives Verified 10/20/20 05:37 trimethoprim Allergy Intermediate Hives Verified 10/20/20 05:37 amoxicillin AdvReac Mild N/V Verified 10/20/20 05:37 clavulanic acid AdvReac Mild N/V Verified 10/20/20 05:37 Home Medications Medication Instructions Recorded Confirmed Type aspirin 81 mg tablet,delayed 81 mg PO QAM 08/12/18 10/20/20 History release cholecalciferol (vitamin D3) 25 1,000 unit PO QPM 08/12/18 10/20/20 History mcg (1,000 unit) capsule (Vitamin D3) cyanocobalamin (vitamin B-12) 1,000 mcg PO QAM 08/12/18 10/20/20 History 1,000 mcg tablet (Vitamin B-12) docusate sodium 250 mg capsule 250 mg PO BID 08/12/18 10/20/20 History (Stool Softener) magnesium 250 mg tablet 250 mg PO QAM 08/12/18 10/20/20 History omega-3 fatty acids 500 mg capsule 500 mg PO QAM 08/12/18 10/20/20 History spironolactone 25 mg tablet 25 mg PO QAM 08/12/18 10/20/20 History nitroglycerin 0.4 mg sublingual 0.4 mg SL Q5M PRN #25 tab 01/07/19 10/20/20 History tablet azelastine 137 mcg (0.1 %) nasal 2 spray INTNAS DAILY #30 ml 02/18/19 10/20/20 Rx spray aerosol benzonatate 100 mg capsule 100 mg PO TID PRN #30 cap 04/05/19 10/20/20 Rx (Tessalon Perles) ipratropium 0.5 mg-albuterol 3 mg 3 ml INHALATION Q6R PRN #1 ml 04/05/19 10/20/20 Rx (2.5 mg base)/3 mL nebulization soln diclofenac sodium 1 % topical gel See Rx Instructions TOPICAL QID 04/06/19 10/20/20 History PRN gm CPAP Machine #1 ea 05/06/19 09/26/20 Rx blood sugar diagnostic (Prodigy No #10 ea 05/06/19 09/26/20 History Coding) mupirocin 2 % topical ointment 1 appln TOP BID #15 gm 05/19/19 10/20/20 Rx albuterol sulfate 90 mcg/actuation 2 puffs INH Q4 PRN #3 inhaler 06/08/19 Rx aerosol inhaler (Ventolin HFA) tiotropium bromide 2.5 2 puffs INH QAM #12 gm 07/02/19 10/20/20 Rx mcg/actuation mist for inhalation (Spiriva Respimat) tramadol 50 mg tablet 50 mg PO TID PRN #90 tab 02/02/20 10/20/20 Rx insulin aspart U-100 100 unit/mL 0 - 75 unit SUBCUT UD ml 03/30/20 10/20/20 History (3 mL) subcutaneous pen (Novolog Flexpen U-100 Insulin aspart) zinc 50 mg tablet 50 mg PO QAM 03/30/20 10/20/20 History furosemide 20 mg tablet 20 mg PO QAM PRN #90 tab 05/01/20 10/20/20 Rx Symbicort 160 mcg-4.5 2 puff INH BID #3 inhaler NS 05/02/20 10/20/20 Rx mcg/actuation HFA aerosol inhaler (budesonide-formoterol) metformin 1,000 mg tablet 1,000 mg PO BID #180 tab 05/16/20 10/20/20 Rx mirtazapine 15 mg tablet (Remeron) 15 mg PO PM #90 tab 05/16/20 10/20/20 Rx levothyroxine 100 mcg tablet 100 mcg PO QAM #90 tab 06/01/20 10/20/20 Rx atenolol 25 mg tablet 25 mg PO .COMPLEX #270 tab 08/10/20 10/20/20 Rx benralizumab 30 mg/mL subcutaneous 30 mg SQ .COMPLEX #1 ml 08/24/20 10/20/20 Rx auto-injector (Fasenra Pen) alprazolam 0.5 mg tablet (Xanax) 0.5 mg PO DAILY PRN #30 tab 08/28/20 10/20/20 Rx atorvastatin 40 mg tablet 40 mg PO HS #90 tab 09/19/20 10/20/20 Rx losartan 50 mg tablet 50 mg PO HS #90 tab 09/19/20 10/20/20 Rx omeprazole 40 mg capsule,delayed 40 mg PO QAM #90 cap 09/19/20 10/20/20 Rx release vit C-vit M-cnopaz-dglnyvgl-omega 1 cap PO DAILY cap 09/22/20 10/20/20 History 3 100 mg-15 unit-2 mg-100 mg capsule dulaglutide 3 mg/0.5 mL 3 mg SUBCUT WK 10/05/20 10/20/20 History subcutaneous pen injector (Trulicity) famotidine 40 mg tablet 40 mg PO HS 10/05/20 10/20/20 History insulin glargine 100 unit/mL (3 77 - 80 unit SUBCUT QPM 10/05/20 10/20/20 History mL) subcutaneous pen (Basaglar KwikPen U-100 Insulin) insulin glargine 100 unit/mL 70 - 80 unit SUBCUT QPM 10/05/20 10/20/20 History subcutaneous solution (Lantus U-100 Insulin) meloxicam 7.5 mg tablet 7.5 mg PO QAM 10/05/20 10/20/20 History venlafaxine 150 mg 150 mg PO QAM 10/05/20 10/20/20 History capsule,extended release 24 hr venlafaxine 75 mg capsule,extended 75 mg PO QAM 10/05/20 10/20/20 History release 24 hr Patient History Medical History Anxiety Ascending aorta enlargement Borderline dilated ascending aorta (3.7cm) per 01/20/20 echo Asthma stable CAD (coronary artery disease) Mild, non-obstructive per 2015 cardiac cath Chronic back pain Chronic headaches COPD (chronic obstructive pulmonary disease) stable Degenerative disc disease Depression 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 DM type 2 (diabetes mellitus, type 2) IDDM Eosinophilic asthma GERD (gastroesophageal reflux disease) Hiatal hernia History of benign breast biopsy History of endometriosis Hyperlipidemia Hypothyroid Lumbar degenerative disc disease Mediastinal lymphadenopathy Microcytic anemia Neuroendocrine carcinoma of lung s/p lobectomy (2011) Numbness and tingling in both hands Osteoarthritis Post traumatic stress disorder Pulmonary nodule Under surveillance Sleep apnea CPAP Surgical History History of appendectomy History of bronchoscopy x 2 History of cardiac cath 2015 ([facility]; no stents) 2008 ([facility]; no stents) History of cataract surgery bilateral History of colonoscopy with polypectomy History of dilation and curettage History of esophagogastroduodenoscopy (EGD) History of laparoscopic cholecystectomy History of lobectomy of lung RML - 2011 History of tooth extraction History of total abdominal hysterectomy and bilateral salpingo-oophorectomy S/P cardiac catheterization S/P cervical spinal fusion C4-C5 Family History Brother Family history of diabetes mellitus Sister Cervical cancer Family history of diabetes mellitus Myocardial infarction Mother Family history of diabetes mellitus Myocardial infarction Father Leukemia Myocardial infarction Other No family history of adverse response to anesthesia Denies family history of Ovarian cancer Prostate cancer Breast cancer Colorectal cancer Social History Smoking Status: Former smoker (AGES [age], 1 PACK/DAY) Smoking End Date: Quit several years ago; Number of Years Since Quit: 10; Second Hand Exposure: No; Do You Dip or Chew Tobacco: No; Tobacco Cessation Education Requested by Patient: No Hx Alcohol Use: Yes Alcohol type: hard liquor Hx Substance Use: No Preferred Language: Spanish Communication Ability: Effective Visual Impairment: No Limitations Hearing Ability: Normal Fluoroscope Operator Required: No Beliefs That Will Affect Care: None marital status: Current Living Situation: Spouse current occupational status: retired Other Information That Helps Us Care for You: No Feels Safe at Home: Yes Safety Concerns: Feels Safe At This Time Childhood Exposure to Second-Hand Smoke: Yes Dental Care, Regularly: Yes Physical Activity Frequency: 1-2 Times per Week Seatbelt Use: always Sunscreen Use: Yes Assistive Devices: Oxygen - Continuous Review of Systems Review of Systems: A complete 10 point review of systems was reviewed with the patient with pertinent positives and negatives as per history of present illness. All else were negative. Physical Exam Physical Exam: VITAL SIGNS - Vital signs and nursing notes were reviewed. GENERAL - 70-year-old female appearing her stated age who is in no acute distress. Communicates well with provider and answers questions appropriately. HEAD - Normocephalic, Atraumatic. EYES - PERRL with EOMI bilaterally. Sclera anicteric. EARS - No deformities of external structures noted on gross examination bilaterally. NOSE - Midline and without cyanosis. No epistaxis or purulent drainage noted. Septum midline without deviation or septal hematoma noted. MOUTH/OROPHARYNX - Without perioral cyanosis. Buccal mucosa pink and moist and without leukoplakia. NECK - Anterior dressing clean, dry, and intact w/ WIL drain noted with serosanguineous drainage. LUNGS - Chest wall symmetric without accessory muscle use, intercostals retractions, or central cyanosis. Normal vesicular breath sounds CTA B/L. No wheezes, rales, or rhonchi appreciated. CARDIAC - RRR with S1/S2. No murmur, rubs, or gallops appreciated. ABDOMEN - Abdominal contour obese without pulsations or visible masses. BS normoactive all four quadrants. No tenderness, palpable masses, hepatosplenomegaly, or ascites noted. EXTREMITIES - No pretibial edema present. +3/5 radial and dorsalis pedis pulses palpated throughout. FROM noted. +5/5 strength noted in UE/LE bilaterally. NEUROLOGIC - Cranial nerves II through XII grossly intact. Sensory intact to light touch throughout. PSYCH - A&Ox3 and cooperates fully with examiner. Pt is very pleasant and interacts well with examiner. Results & Data Results & Data ([facility]) Vital Signs (Past 12 Hours) Vital Signs Temp Pulse Pulse Resp BP Pulse Ox 10/21/20 01:18 92 H 24 94 10/21/20 01:00 36.8 C 90 23 166/86 H 94 10/21/20 00:50 36.8 C 91 H 20 149/75 H 94 10/21/20 00:40 36.8 C 89 20 164/89 H 96 10/21/20 00:30 90 21 146/83 H 95 10/21/20 00:20 911 H 19 153/75 H 95 10/21/20 00:10 91 H 19 159/73 H 95 10/21/20 00:01 95 H 18 165/74 H 98 10/20/20 23:54 36.0 C L 96 H 16 175/76 H 96 10/20/20 20:10 91 H 16 106/67 94 10/20/20 19:40 36.3 C L 94 H 16 114/79 94 10/20/20 19:10 98 H 16 111/66 94 10/20/20 18:40 98 H 16 109/65 94 10/20/20 18:10 36.4 C L 96 H 16 114/75 94 10/20/20 17:55 96 H 16 108/73 94 10/20/20 17:40 96 H 16 110/63 94 10/20/20 17:25 97 H 16 111/65 94 10/20/20 17:10 98 H 16 120/68 94 10/20/20 16:50 99 H 18 119/70 93 10/20/20 16:35 102 H 18 125/69 93 10/20/20 16:20 102 H 18 118/70 93 10/20/20 16:05 99 H 16 120/71 94 10/20/20 15:50 99 H 13 117/71 94 10/20/20 15:35 101 H 14 119/69 94 10/20/20 15:20 98 H 12 126/65 94 10/20/20 15:05 98 H 14 106/61 93 10/20/20 14:50 99 H 12 102/66 93 10/20/20 14:30 99 H 12 118/70 93 10/20/20 14:20 98 H 12 124/68 93 10/20/20 14:05 99 H 12 121/74 93 10/20/20 13:50 36 C L 101 H 14 127/68 93 Coding Level of Care Code Critical Care 1st 30-74 mins Diagnoses Admitted to intensive care unit Z78.9 S/P cervical spinal fusion Z98.1 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
[2020-10-21] MEDS ORDERED: ICU PROTOCOL FOR HYPERGLYCEMIA PRN (01:46)
[2020-10-21] MEDS ORDERED: INSULIN GLARGINE SOLOSTAR 100 UNITS/ML 3 ML PEN SC ONE (02:03)
[2020-10-21] MEDS: ceFAZolin 2000MG 2,000 MG/15 ML SYR IV SCH ×2 (02:53→10:50)
[2020-10-21] MEDS: FAMOTIDINE 40 MG TABLET PO SCH ×2 (02:53→20:29)
[2020-10-21] MEDS: LOSARTAN POTASSIUM 50 MG TAB PO SCH ×2 (02:54→20:30)
[2020-10-21] MEDS: CHOLECALCIFEROL 1,000 UNITS 25 MCG TAB PO SCH ×2 (02:55→20:32)
[2020-10-21] MEDS: MIRTAZAPINE TAB 15 MG TAB PO SCH ×2 (02:55→20:30)
[2020-10-21] MEDS: ATORVASTATIN 40 MG TAB PO SCH ×2 (02:55→20:30)
[2020-10-21] MEDS: DOCUSATE SODIUM/SENNA 50/8.6MG TAB PO SCH ×2 (02:56→20:30)
[2020-10-21] MEDS: ATENOLOL 25 MG TABLET PO SCH ×3 (02:56→20:29)
[2020-10-21] MEDS: GABAPENTIN 300 MG CAP PO SCH ×3 (02:57→20:29)
[2020-10-21] MEDS: INSULIN ASPART 100 UNITS/ML 3 ML PEN SQ SCH ×5 (03:03→20:31)
[2020-10-21 05:16] LABS: Basophils # (auto) 0.02 K/uL (0-0.2); Basophils % (auto) 0.1 %; Hematocrit (blood only) 39.7 % (37-47); Hemoglobin 13.2 g/dL (12.0-16.0); Immature Granulocytes # (auto) 0.05 K/uL (0.00-0.02); Immature Granulocytes % (auto) 0.3 %; Lymphocytes # (auto) 0.98 K/uL (1.2-3.4); Lymphocytes % (auto) 5.7 %; Mean Corpuscular Hemoglobin 28.8 pg (25-34); Mean Corpuscular Hgb Conc 33.2 g/dL (32-36); Mean Corpuscular Volume 86.7 fL (80-100); Mean Platelet Volume 12.3 fL (7.4-10.4); Monocytes # (auto) 0.51 K/uL (0.11-0.59); Neutrophils # (auto) 15.54 K/uL (1.4-6.5); Neutrophils % (auto) 90.9 %; Platelet Count 253 K/uL (130-400); RDW Coefficient of Variation 15.6 % (11.5-14.5); RDW Standard Deviation 49.6 fL (36.4-46.3); Red Blood Count 4.58 M/uL (4.2-5.4)
[2020-10-21 05:30] LABS: Calcium 8.4 mg/dl (8.5-10.1); Creatinine Clr Calc Pharmacy 75.2 ml/min; Est GFR (African American) 78.2 ml/min; Est GFR (Non-African American) 67.5 ml/min; Magnesium 1.9 mg/dl (1.8-2.4); Potassium 4.7 mmol/L (3.5-5.1)
[2020-10-21 05:31] LABS: Phosphorus 3.1 mg/dl (2.5-4.9)
[2020-10-21] MEDS: POLYETHYLENE (MIRALAX) 17 GM PACK PO SCH ×3 (06:13→16:42)
[2020-10-21] MEDS: LEVOTHYROXINE SODIUM 100 MCG TABLET PO SCH (06:13)
[2020-10-21] MEDS: traMADol HCL 50 MG TABLET PO PRN ×3 (06:40→20:28)
[2020-10-21] MEDS ORDERED: INSULIN GLARGINE SOLOSTAR 100 UNITS/ML 3 ML PEN SC SCH (07:30)
[2020-10-21] MEDS: MAGNESIUM OXIDE 400 MG TAB PO SCH (08:20)
[2020-10-21] MEDS: CYANOCOBALAMIN 500 MCG TABLET (VITAMIN B-12) PO SCH (08:20)
[2020-10-21] MEDS: ZINC SULFATE 220 MG CAPSULE PO SCH (08:20)
[2020-10-21] MEDS: DOCUSATE SODIUM 100 MG CAP PO SCH (08:20)
[2020-10-21] MEDS: VENLAFAXINE HCL XR 75 MG CAPXR PO SCH (08:21)
[2020-10-21] MEDS: VENLAFAXINE HCL XR 150 MG CAPXR PO SCH (08:21)
[2020-10-21] MEDS: FLUTICASONE/VILANTEROL 100/25MCG 14 PUFFS/INHALER INH SCH (08:21)
[2020-10-21] MEDS: PANTOprazole 40 MG TAB PO SCH (08:21)
[2020-10-21] MEDS: UMECLIDINIUM BROMIDE 62.5MCG/BLISTER 7 PUFFS/INHALER INH SCH (08:21)
[2020-10-21] MEDS: AZELASTINE~ORDER AWAITING ACTION SCH ×3 (08:22→23:59)
--- NOTE | 2020-10-21 08:45 | Anesthesiology Progress Note ---
Date of Service October 21, 2020 Anesthesia Post Procedure Vital Signs Vital Signs: Temp Pulse Pulse Pulse Resp BP BP 10/21/20 07:00 85 14 10/21/20 06:16 37.0 C 84 22 125/74 10/21/20 05:15 83 20 100/60 10/21/20 04:46 84 21 124/68 10/21/20 04:15 83 22 126/75 10/21/20 03:45 86 17 138/88 10/21/20 03:15 87 18 142/88 H 10/21/20 03:00 92 H 18 10/21/20 02:40 94 H 23 10/21/20 02:33 95 H 16 10/21/20 01:49 90 20 171/98 H 10/21/20 01:46 82 10/21/20 01:19 36.8 C 91 H 20 153/84 H 10/21/20 01:18 92 H 24 10/21/20 01:00 36.8 C 90 23 166/86 H 10/21/20 00:50 36.8 C 91 H 20 149/75 H 10/21/20 00:40 36.8 C 89 20 164/89 H 10/21/20 00:30 90 21 146/83 H 10/21/20 00:20 911 H 19 153/75 H 10/21/20 00:10 91 H 19 159/73 H 10/21/20 00:01 95 H 18 165/74 H 10/20/20 23:54 36.0 C L 96 H 16 175/76 H 10/20/20 20:10 91 H 16 106/67 10/20/20 19:40 36.3 C L 94 H 16 114/79 10/20/20 19:10 98 H 16 111/66 10/20/20 18:40 98 H 16 109/65 10/20/20 18:10 36.4 C L 96 H 16 114/75 10/20/20 17:55 96 H 16 108/73 10/20/20 17:40 96 H 16 110/63 10/20/20 17:25 97 H 16 111/65 10/20/20 17:10 98 H 16 120/68 10/20/20 16:50 99 H 18 119/70 10/20/20 16:35 102 H 18 125/69 10/20/20 16:20 102 H 18 118/70 10/20/20 16:05 99 H 16 120/71 10/20/20 15:50 99 H 13 117/71 10/20/20 15:35 101 H 14 119/69 10/20/20 15:20 98 H 12 126/65 10/20/20 15:05 98 H 14 106/61 10/20/20 14:50 99 H 12 102/66 10/20/20 14:30 99 H 12 118/70 10/20/20 14:20 98 H 12 124/68 10/20/20 14:05 99 H 12 121/74 10/20/20 13:50 36 C L 101 H 14 127/68 10/20/20 13:40 101 H 15 122/68 10/20/20 13:30 100 H 10 L 120/69 10/20/20 13:20 102 H 12 126/67 10/20/20 13:10 103 H 16 123/68 10/20/20 13:00 104 H 18 126/71 10/20/20 12:50 102 H 18 123/64 10/20/20 12:40 36.1 C L 101 H 20 130/83 Pulse Ox 10/21/20 07:00 93 10/21/20 06:16 94 10/21/20 05:15 93 10/21/20 04:46 94 10/21/20 04:15 93 10/21/20 03:45 93 10/21/20 03:15 94 10/21/20 03:00 96 10/21/20 02:40 96 10/21/20 02:33 10/21/20 01:49 95 10/21/20 01:46 10/21/20 01:19 94 10/21/20 01:18 94 10/21/20 01:00 94 10/21/20 00:50 94 10/21/20 00:40 96 10/21/20 00:30 95 10/21/20 00:20 95 10/21/20 00:10 95 10/21/20 00:01 98 10/20/20 23:54 96 10/20/20 20:10 94 10/20/20 19:40 94 10/20/20 19:10 94 10/20/20 18:40 94 10/20/20 18:10 94 10/20/20 17:55 94 10/20/20 17:40 94 10/20/20 17:25 94 10/20/20 17:10 94 10/20/20 16:50 93 10/20/20 16:35 93 10/20/20 16:20 93 10/20/20 16:05 94 10/20/20 15:50 94 10/20/20 15:35 94 10/20/20 15:20 94 10/20/20 15:05 93 10/20/20 14:50 93 10/20/20 14:30 93 10/20/20 14:20 93 10/20/20 14:05 93 10/20/20 13:50 93 10/20/20 13:40 93 10/20/20 13:30 93 10/20/20 13:20 93 10/20/20 13:10 93 10/20/20 13:00 93 10/20/20 12:50 94 10/20/20 12:40 92 Pain Intensity Right Abdomen: Pain Intensity: 4 Neck: Pain Intensity: 0 Transfer of Care Handoff Completed per policy Notes Mental Status: alert / awake / arousable and participated in evaluation Patient Amnestic to Procedure: Yes Nausea / Vomiting: adequately controlled Pain: adequately controlled Airway Patency, RR, SpO2: stable & adequate BP & HR: stable & adequate Hydration State: stable & adequate Anesthetic Complications: see Notes below and Pt Satisfied with anesthetic care Notes: Pt with complaints of sore throat, especially on the right. She is tolerating eating clears and currently OOB to chair. Reassured patient that a significant sore throat is common, especially after receiving 2 intubations in 24 hours and being intubated during surgery on the neck. Pt otherwise doing well and in good spirits. No other questions or concerns about anesthesia.
[2020-10-21] MEDS ORDERED: SPIRONOLACTONE 25 MG TAB PO SCH (09:00)
--- NOTE | 2020-10-21 09:53 | XRay Report ---
XR cervical spine 2 or 3V CLINICAL HISTORY: upright; post-op spine COMPARISON STUDY: Cervical spine CT October 20, 2020. Cervical spine radiographs October 20, 2020 at 9 :44 PM. FINDINGS: Note is again made of partial developmental fusion of C2 and C3. Surgical drain is in place . There are postoperative findings consistent with C4-C6 anterior discectomy and fusion. There has be en interval repositioning of the C4 screws which are now within the C4 vertebral body. Hardware is in tact. There are no unexpected radiopaque foreign bodies. IMPRESSION: Postoperative findings consistent with revision C4-C6 anterior discectomy and fusion. ACT 112: Negative or not required by law. Electronically signed by: Alexsander Moreno M.D. 10/21/2020 9:52 AM
[2020-10-21] MEDS ORDERED: NovoLIN-N (NPH) PER UNIT CHARGE SQ ONE (12:15)
--- NOTE | 2020-10-21 12:53 | Orthopedic Progress Note ---
Date of Service October 21, 2020 Assessment & Plan (1) S/P cervical spinal fusion: Plan: july transition to regular floor this PM if ok with critical care team monitor drain output Admission and Anticipated Discharge Date Admission Date: October 20, 2020 Subjective in ICU for post-op monitoring given need to return to OR for hardware revision P OD #0 no new numbness/weakness no hoarseness. noticed some rasp in her voice when first woke up and after prolonged period of not talking no dysphagia. Drinking well. Hasn't tried sold foods yet pain well-controlled Hgb 13.2 this AM Glucose 186 this AM Physical Exam Physical Exam: vitals: see vital signs section; on 2LNP neck: soft, non-distended dressing: clean, dry intact drain: 20 cc/8hr vascular: no calf tenderness or swelling bilaterally. no signs of DVT neuro: Musculoskeletal: 5/5 motor strength bilateral C5-T1, L2-S1 except bilateral C8 4/5, right C5/C6/C7 4+/5, right T1 4/5. Neurologic: Sensation 2/2 to light touch bilateral C5-T1, L2-S1 except bilateral soles of feet 1/2 (chronic). Results & Data ([facility]) Vital Signs (Past 12 Hours) Vital Signs Temp Pulse Pulse Resp BP BP Pulse Ox 10/21/20 10:54 89 16 91 10/21/20 10:30 83 16 92 10/21/20 10:20 80 29 H 91 10/21/20 10:10 81 26 H 91 10/21/20 10:00 82 14 92 10/21/20 09:50 83 18 92 10/21/20 09:40 84 20 91 10/21/20 09:30 83 13 93 10/21/20 09:20 84 16 94 10/21/20 09:10 90 10/21/20 08:15 84 18 108/63 94 10/21/20 08:00 84 10/21/20 07:15 86 13 130/76 93 10/21/20 07:00 85 14 93 10/21/20 06:16 37.0 C 84 22 125/74 94 10/21/20 05:15 83 20 100/60 93 10/21/20 04:46 84 21 124/68 94 10/21/20 04:15 83 22 126/75 93 10/21/20 03:45 86 17 138/88 93 10/21/20 03:15 87 18 142/88 H 94 10/21/20 03:00 92 H 18 96 10/21/20 02:40 94 H 23 96 10/21/20 02:33 95 H 16 10/21/20 01:49 90 20 171/98 H 95 10/21/20 01:46 82 10/21/20 01:19 36.8 C 91 H 20 153/84 H 94 10/21/20 01:18 92 H 24 94 10/21/20 01:00 36.8 C 90 23 166/86 H 94 Diagnostic Findings post-op x-ray cervical spine: hardware in appropriate placement PG Care Time/CCT Total # of Minutes Spent Total Time Spent with Patient: Total time spent is greater than 50% in coordination of care (as documented) at patient's floor/unit and/or counseling patient: Coding Level of Care Code None Diagnoses S/P cervical spinal fusion Z98.1
--- NOTE | 2020-10-21 12:59 | Communication Note ---
Date of Service: October 20, 2020 Post-op x-ray films concerning for C4 screws in iliac crest bone graft instead of vertebral body Not noted by me intra-op Post-op CT organized given potential need to return to OR for revision, confirmed above findings patient neurologically unchanged from pre-op Musculoskeletal: 5/5 motor strength bilateral C5-T1, L2-S1 except bilateral C8 4/5, right C5/C6/C7 4+/5, right T1 4/5. Neurologic: Sensation 2/2 to light touch bilateral C5-T1, L2-S1 except bilateral soles of feet 1/2 (chronic). Plan: - discussed with patient and hardware malpositioning, need for revision surgery to ensure stable hardware construct for fusion - informed consent obtained for procedure: revision anterior cervical fusion C4- 6 - plan to return to OR later this evening for revision of hardware Whitley Lugo MD Spine Surgeon [facility]
--- NOTE | 2020-10-21 13:53 | Pharmacy Report ---
Pharmacy Glycemic Short Note 2 - Date of Service October 21, 2020 - Glycemic Short BSG Results (Last 24 hours): 10/20/20 10/21/20 10/21/20 17:41 00:50 02:59 Glucose POC Glucose 217 H 152 H 159 H 10/21/20 10/21/20 10/21/20 04:45 07:30 11:33 Glucose 186 H POC Glucose 230 H 291 H OUTPATIENT ANTIDIABETIC REGIMEN: * Trulicity 3mg weekly * Basaglar 70-80 units SQ HS * Aspart 25 units with breakfast and lunch, 30 units with dinner * Metformin 1000mg PO BID ASSESSMENT: * 70 year old female s/p spinal surgery, on high dose steroids. Received Dexamethasone 12mg IV in OR, now on Solu-Medrol 250mg IV Q6H x 4 doses, will finish today at 1999. * Blood sugars rising today, will give additional Lantus, tighten CF/CR, a dose of NPH, and overnight checks to cover steroid effects. * Loosen CF/CR as steroid effects taper off tomorrow. PLAN FOR INPATIENT GLYCEMIC CONTROL: * Hold outpatient diabetes medications (metformin + trulicity) * Basal insulin * Lantus 50 units SQ x 1 dose this AM, then 70-100 units HS based on BSG * NPH 50 units x 1 dose today * Bolus insulin * NovoLog per scale ACHS or Q6hrs while NPO and overnight tonight at 0000 and 0400 * Goal Range: Low 110 mg/dL - High 140 mg/dL * Correction Factor: 8 mg/dL/unit * Nutritional / Prandial insulin per carb ratio of 1 unit per 1.5 grams CHO consumed PLAN FOR DISCHARGE: * A1c 7.1%, continue outpatient regimen, no plan for steroids on discharge per Dr Luog
--- NOTE | 2020-10-21 13:55 | Consultation ---
Date of Consultation October 21, 2020 Assessment & Plan (1) S/P cervical spinal fusion: Management per Ortho including DVT prevention (2) Type 2 diabetes mellitus, with long-term current use of insulin: Noted pharmacy glycemic consultwill defer (3) Hypothyroidism: Continue home levothyroxine (4) Hypertension: Noted blood pressure on low sidenot uncommon perioperatively; recommend hold ARB; continue beta-abby uninterrupted perioperatively unless overt hypotension, bradycardia with heart rate less than 50; also noted getting fluids and diureticsrecommend holding diuretics while fluid ongoing; noted pulmonary/critical care followingcan defer to avoid multiplicity. (5) Gastroesophageal reflux disease: Continue H2 abby (6) Dyslipidemia: Continue statin (7) COPD (chronic obstructive pulmonary disease): No evidence of exacerbation; follow clinically; noted pulmonary/critical care also following Mild hyponatremia can be followed; leukocytosis probably reactivecan follow and clinically for now History of Present Illness Requesting Physician: Dr. Raymond Reason for Consultation: Medical management Attending Physician: Whitley Lugo MD History of Present Illness 70-year-old female with a history of diabetes mellitus, hypertension, hyperlipidemia, hypothyroidism presented for elective cervical discectomy for cervical myelopathy that was undertaken yesterday a.m.; subsequently had to be taken back to the OR on account of malpositioned screw and was sent to the ICU postop for airway management in case of need for intervention. Currently she is sitting in the chair comfortable without any systemic complaints. Routine lab data show leukocytosis and mild hyponatremia. Allergies Allergy/AdvReac Type Severity Reaction Status Date / Time Bactrim Allergy Intermediate HIVES Verified 10/24/17 09:04 clindamycin Allergy Intermediate Hives Verified 10/20/20 05:37 sulfamethoxazole Allergy Intermediate Hives Verified 10/20/20 05:37 trimethoprim Allergy Intermediate Hives Verified 10/20/20 05:37 amoxicillin AdvReac Mild N/V Verified 10/20/20 05:37 clavulanic acid AdvReac Mild N/V Verified 10/20/20 05:37 Home Medications Medication Instructions Recorded Confirmed Type aspirin 81 mg tablet,delayed 81 mg PO QAM 08/12/18 10/20/20 History release cholecalciferol (vitamin D3) 25 1,000 unit PO QPM 08/12/18 10/20/20 History mcg (1,000 unit) capsule (Vitamin D3) cyanocobalamin (vitamin B-12) 1,000 mcg PO QAM 08/12/18 10/20/20 History 1,000 mcg tablet (Vitamin B-12) docusate sodium 250 mg capsule 250 mg PO BID 08/12/18 10/20/20 History (Stool Softener) magnesium 250 mg tablet 250 mg PO QAM 08/12/18 10/20/20 History omega-3 fatty acids 500 mg capsule 500 mg PO QAM 08/12/18 10/20/20 History spironolactone 25 mg tablet 25 mg PO QAM 08/12/18 10/20/20 History nitroglycerin 0.4 mg sublingual 0.4 mg SL Q5M PRN #25 tab 01/07/19 10/20/20 History tablet azelastine 137 mcg (0.1 %) nasal 2 spray INTNAS DAILY #30 ml 02/18/19 10/20/20 Rx spray aerosol benzonatate 100 mg capsule 100 mg PO TID PRN #30 cap 04/05/19 10/20/20 Rx (Tessalfrances Cifuentes) ipratropium 0.5 mg-albuterol 3 mg 3 ml INHALATION Q6R PRN #1 ml 04/05/19 10/20/20 Rx (2.5 mg base)/3 mL nebulization soln diclofenac sodium 1 % topical gel See Rx Instructions TOPICAL QID 04/06/19 10/20/20 History PRN gm CPAP Machine #1 ea 05/06/19 09/26/20 Rx blood sugar diagnostic (Prodigy No #10 ea 05/06/19 09/26/20 History Coding) mupirocin 2 % topical ointment 1 appln TOP BID #15 gm 05/19/19 10/20/20 Rx albuterol sulfate 90 mcg/actuation 2 puffs INH Q4 PRN #3 inhaler 06/08/19 10/20/20 Rx aerosol inhaler (Ventolin HFA) tiotropium bromide 2.5 2 puffs INH QAM #12 gm 07/02/19 10/20/20 Rx mcg/actuation mist for inhalation (Spiriva Respimat) tramadol 50 mg tablet 50 mg PO TID PRN #90 tab 02/02/20 10/20/20 Rx insulin aspart U-100 100 unit/mL 0 - 75 unit SUBCUT UD ml 03/30/20 10/20/20 History (3 mL) subcutaneous pen (Novolog Flexpen U-100 Insulin aspart) zinc 50 mg tablet 50 mg PO QAM 03/30/20 10/20/20 History furosemide 20 mg tablet 20 mg PO QAM PRN #90 tab 05/01/20 10/20/20 Rx Symbicort 160 mcg-4.5 2 puff INH BID #3 inhaler NS 05/02/20 10/20/20 Rx mcg/actuation HFA aerosol inhaler (budesonide-formoterol) metformin 1,000 mg tablet 1,000 mg PO BID #180 tab 05/16/20 10/20/20 Rx mirtazapine 15 mg tablet (Remeron) 15 mg PO PM #90 tab 05/16/20 10/20/20 Rx levothyroxine 100 mcg tablet 100 mcg PO QAM #90 tab 06/01/20 10/20/20 Rx atenolol 25 mg tablet 25 mg PO .COMPLEX #270 tab 08/10/20 10/20/20 Rx benralizumab 30 mg/mL subcutaneous 30 mg SQ .COMPLEX #1 ml 08/24/20 10/20/20 Rx auto-injector (Fasenra Pen) alprazolam 0.5 mg tablet (Xanax) 0.5 mg PO DAILY PRN #30 tab 08/28/20 10/20/20 Rx atorvastatin 40 mg tablet 40 mg PO HS #90 tab 09/19/20 10/20/20 Rx losartan 50 mg tablet 50 mg PO HS #90 tab 09/19/20 10/20/20 Rx omeprazole 40 mg capsule,delayed 40 mg PO QAM #90 cap 09/19/20 10/20/20 Rx release vit C-vit X-zaypue-ztxqqopq-omega 1 cap PO DAILY cap 09/22/20 10/20/20 History 3 100 mg-15 unit-2 mg-100 mg capsule dulaglutide 3 mg/0.5 mL 3 mg SUBCUT WK 10/05/20 10/20/20 History subcutaneous pen injector (Trulicity) famotidine 40 mg tablet 40 mg PO HS 10/05/20 10/20/20 History insulin glargine 100 unit/mL (3 77 - 80 unit SUBCUT QPM 10/05/20 10/20/20 History mL) subcutaneous pen (Basaglar KwikPen U-100 Insulin) insulin glargine 100 unit/mL 70 - 80 unit SUBCUT QPM 10/05/20 10/20/20 History subcutaneous solution (Lantus U-100 Insulin) meloxicam 7.5 mg tablet 7.5 mg PO QAM 10/05/20 10/20/20 History venlafaxine 150 mg 150 mg PO QAM 10/05/20 10/20/20 History capsule,extended release 24 hr venlafaxine 75 mg capsule,extended 75 mg PO QAM 10/05/20 10/20/20 History release 24 hr Patient History Medical History Anxiety Ascending aorta enlargement Borderline dilated ascending aorta (3.7cm) per 01/20/20 echo Asthma stable CAD (coronary artery disease) Mild, non-obstructive per 2015 cardiac cath Chronic back pain Chronic headaches COPD (chronic obstructive pulmonary disease) stable Degenerative disc disease Depression 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 DM type 2 (diabetes mellitus, type 2) IDDM Eosinophilic asthma GERD (gastroesophageal reflux disease) Hiatal hernia History of benign breast biopsy History of endometriosis Hyperlipidemia Hypothyroid Lumbar degenerative disc disease Mediastinal lymphadenopathy Microcytic anemia Neuroendocrine carcinoma of lung s/p lobectomy (2011) Numbness and tingling in both hands Osteoarthritis Post traumatic stress disorder Pulmonary nodule Under surveillance Sleep apnea CPAP Surgical History History of appendectomy History of bronchoscopy x 2 History of cardiac cath 2015 ([facility]; no stents) 2008 ([facility]; no stents) History of cataract surgery bilateral History of colonoscopy with polypectomy History of dilation and curettage History of esophagogastroduodenoscopy (EGD) History of laparoscopic cholecystectomy History of lobectomy of lung RML - 2011 History of tooth extraction History of total abdominal hysterectomy and bilateral salpingo-oophorectomy S/P cardiac catheterization S/P cervical spinal fusion C4-C5 Family History Brother Family history of diabetes mellitus Sister Cervical cancer Family history of diabetes mellitus Myocardial infarction Mother Family history of diabetes mellitus Myocardial infarction Father Leukemia Myocardial infarction Other No family history of adverse response to anesthesia Denies family history of Ovarian cancer Prostate cancer Breast cancer Colorectal cancer Social History Smoking Status: Former smoker (AGES [age], 1 PACK/DAY) Smoking End Date: Quit several years ago; Number of Years Since Quit: 10; Second Hand Exposure: No; Do You Dip or Chew Tobacco: No; Tobacco Cessation Education Requested by Patient: No Hx Alcohol Use: Yes Alcohol type: hard liquor Hx Substance Use: No Preferred Language: Amharic Communication Ability: Effective Visual Impairment: No Limitations Hearing Ability: Normal Hourly Sales Staff Required: No Beliefs That Will Affect Care: None marital status: Current Living Situation: Spouse current occupational status: retired Other Information That Helps Us Care for You: No Feels Safe at Home: Yes Safety Concerns: Feels Safe At This Time Childhood Exposure to Second-Hand Smoke: Yes Dental Care, Regularly: Yes Physical Activity Frequency: 1-2 Times per Week Seatbelt Use: always Sunscreen Use: Yes Assistive Devices: Oxygen - Continuous Review of Systems Review of Systems: All systems reviewed and negative except as noted in HPI (essentially currently negative). Results & Data ([facility]) Vital Signs (Past 12 Hours) Vital Signs Temp Pulse Pulse Resp BP Pulse Ox 10/21/20 10:54 89 16 91 10/21/20 10:30 83 16 92 10/21/20 10:20 80 29 H 91 10/21/20 10:10 81 26 H 91 10/21/20 10:00 82 14 92 10/21/20 09:50 83 18 92 10/21/20 09:40 84 20 91 10/21/20 09:30 83 13 93 10/21/20 09:20 84 16 94 10/21/20 09:10 90 10/21/20 08:15 84 18 108/63 94 10/21/20 08:00 84 10/21/20 07:15 86 13 130/76 93 10/21/20 07:00 85 14 93 10/21/20 06:16 37.0 C 84 22 125/74 94 10/21/20 05:15 83 20 100/60 93 10/21/20 04:46 84 21 124/68 94 10/21/20 04:15 83 22 126/75 93 10/21/20 03:45 86 17 138/88 93 10/21/20 03:15 87 18 142/88 H 94 10/21/20 03:00 92 H 18 96 10/21/20 02:40 94 H 23 96 10/21/20 02:33 95 H 16 PG Care Time/CCT Total # of Minutes Spent Total Time Spent with Patient: Total time spent is greater than 50% in coordination of care (as documented) at patient's floor/unit and/or counseling patient: Coding Level of Care Code 96307 Inpt Consult Level 3 Diagnoses S/P cervical spinal fusion Z98.1 Type 2 diabetes mellitus, with long-term current use of insulin E11.9; Z79.4 Hypothyroidism E03.9 Hypertension I10 Gastroesophageal reflux disease K21.9 Dyslipidemia E78.5 COPD (chronic obstructive pulmonary disease) J44.9
[2020-10-21] MEDS ORDERED: INSULIN ASPART 100 UNITS/ML 3 ML PEN SQ ONE (14:30)
[2020-10-21] MEDS: INSULIN GLARGINE SOLOSTAR 100 UNITS/ML 3 ML PEN SC SCH (20:31)
[2020-10-22 05:32] LABS: Basophils # (auto) 0.02 K/uL (0-0.2); Basophils % (auto) 0.1 %; Hematocrit (blood only) 36.5 % (37-47); Hemoglobin 12.1 g/dL (12.0-16.0); Immature Granulocytes # (auto) 0.04 K/uL (0.00-0.02); Immature Granulocytes % (auto) 0.2 %; Lymphocytes # (auto) 1.62 K/uL (1.2-3.4); Lymphocytes % (auto) 9.3 %; Mean Corpuscular Hemoglobin 28.7 pg (25-34); Mean Corpuscular Hgb Conc 33.2 g/dL (32-36); Mean Corpuscular Volume 86.5 fL (80-100); Mean Platelet Volume 12.4 fL (7.4-10.4); Monocytes # (auto) 1.08 K/uL (0.11-0.59); Monocytes % (auto) 6.2 %; Neutrophils # (auto) 14.64 K/uL (1.4-6.5); Neutrophils % (auto) 84.2 %; Platelet Count 243 K/uL (130-400); RDW Coefficient of Variation 15.7 % (11.5-14.5); RDW Standard Deviation 49.8 fL (36.4-46.3); Red Blood Count 4.22 M/uL (4.2-5.4)
[2020-10-22] MEDS: LEVOTHYROXINE SODIUM 100 MCG TABLET PO SCH (05:52)
[2020-10-22] MEDS: POLYETHYLENE (MIRALAX) 17 GM PACK PO SCH ×5 (05:52→22:36)
[2020-10-22 05:59] LABS: BUN Creatinine Ratio 19.4 (10-20); Calcium 8.2 mg/dl (8.5-10.1); Creatinine Clr Calc Pharmacy 81.9 ml/min; Est GFR (African American) 85.3 ml/min; Est GFR (Non-African American) 73.6 ml/min; Magnesium 2.2 mg/dl (1.8-2.4); Phosphorus 3.1 mg/dl (2.5-4.9); Potassium 4.4 mmol/L (3.5-5.1)
[2020-10-22] MEDS: AZELASTINE~ORDER AWAITING ACTION SCH ×3 (07:49→21:45)
[2020-10-22] MEDS: FLUTICASONE/VILANTEROL 100/25MCG 14 PUFFS/INHALER INH SCH (08:13)
[2020-10-22] MEDS: DOCUSATE SODIUM 100 MG CAP PO SCH (08:14)
[2020-10-22] MEDS: VENLAFAXINE HCL XR 150 MG CAPXR PO SCH (08:14)
[2020-10-22] MEDS: PANTOprazole 40 MG TAB PO SCH (08:14)
[2020-10-22] MEDS: UMECLIDINIUM BROMIDE 62.5MCG/BLISTER 7 PUFFS/INHALER INH SCH (08:14)
[2020-10-22] MEDS: GABAPENTIN 300 MG CAP PO SCH ×2 (08:14→20:52)
[2020-10-22] MEDS: VENLAFAXINE HCL XR 75 MG CAPXR PO SCH (08:15)
[2020-10-22] MEDS: CYANOCOBALAMIN 500 MCG TABLET (VITAMIN B-12) PO SCH (08:15)
[2020-10-22] MEDS: ZINC SULFATE 220 MG CAPSULE PO SCH (08:15)
[2020-10-22] MEDS: MAGNESIUM OXIDE 400 MG TAB PO SCH (08:15)
[2020-10-22] MEDS: INSULIN ASPART 100 UNITS/ML 3 ML PEN SQ SCH ×4 (08:16→21:06)
[2020-10-22] MEDS: ATENOLOL 25 MG TABLET PO SCH ×2 (08:16→20:50)
[2020-10-22] MEDS ORDERED: INSULIN GLARGINE SOLOSTAR 100 UNITS/ML 3 ML PEN SC ONE (09:00)
[2020-10-22] MEDS: traMADol HCL 50 MG TABLET PO PRN (10:04)
--- NOTE | 2020-10-22 13:00 | Orthopedic Progress Note ---
Date of Service October 22, 2020 Assessment & Plan (1) S/P cervical spinal fusion: Plan: monitor drain, possible removal this PM possible d/c tomorrow Admission and Anticipated Discharge Date Admission Date: October 20, 2020 Subjective transferred out of ICU no new numbness/weakness no hoarseness. no dysphagia. Drinking well. Eating soft food well pain well-controlled Physical Exam Physical Exam: vitals: see vital signs section; on RA neck: soft, non-distended dressing: clean, dry intact drain: 15 cc/8hr vascular: no calf tenderness or swelling bilaterally. no signs of DVT neuro: Musculoskeletal: 5/5 motor strength bilateral C5-T1, L2-S1 except bilateral C8 4/5, right C5/C6/C7 4+/5, right T1 4/5. Neurologic: Sensation 2/2 to light touch bilateral C5-T1, L2-S1 except bilateral soles of feet 1/2 (chronic). Results & Data ([facility]) Vital Signs (Past 12 Hours) Vital Signs Temp Pulse Pulse Resp BP Pulse Ox 10/22/20 11:19 80 16 97 10/22/20 08:34 36.9 C 10/22/20 08:18 112/66 10/22/20 07:59 85 18 93 10/22/20 07:34 80 23 119/97 91 10/22/20 06:34 85 19 104/64 93 10/22/20 05:34 76 12 98/60 L 93 10/22/20 04:58 76 15 99/55 L 93 10/22/20 04:35 78 17 83/51 L 93 10/22/20 03:34 36.8 C 75 15 119/68 92 10/22/20 03:00 78 18 92 10/22/20 02:34 77 15 113/70 92 10/22/20 01:46 80 10/22/20 01:34 76 14 117/72 93 PG Care Time/CCT Total # of Minutes Spent Total Time Spent with Patient: Total time spent is greater than 50% in coordination of care (as documented) at patient's floor/unit and/or counseling patient: Coding Level of Care Code None Diagnoses S/P cervical spinal fusion Z98.1
--- NOTE | 2020-10-22 13:52 | Pharmacy Report ---
Pharmacy Glycemic Short Note 2 - Date of Service October 22, 2020 - Glycemic Short BSG Results (Last 24 hours): 10/21/20 10/21/20 10/21/20 14:28 16:29 20:25 Glucose POC Glucose 263 H 228 H 137 H 10/22/20 10/22/20 10/22/20 04:55 07:37 12:05 Glucose 140 H POC Glucose 125 H 169 H OUTPATIENT ANTIDIABETIC REGIMEN: * Trulicity 3mg weekly * Basaglar 70-80 units SQ HS * Aspart 25 units with breakfast and lunch, 30 units with dinner * Metformin 1000mg PO BID ASSESSMENT: 10/22 * last dose of steroids last evening. Hyperglycemic effects should start wearing off today. Will omit NPH today as no solumedrol given today and lower lantus AM dose which covers solumedrol given last noght. Resume outpatient Lantus dosing tonight. 10/21 * 70 year old female s/p spinal surgery, on high dose steroids. Received Dexamethasone 12mg IV in OR, now on Solu-Medrol 250mg IV Q6H x 4 doses, will finish today at 1999. * Blood sugars rising today, will give additional Lantus, tighten CF/CR, a dose of NPH, and overnight checks to cover steroid effects. * Loosen CF/CR as steroid effects taper off tomorrow. PLAN FOR INPATIENT GLYCEMIC CONTROL: * Hold outpatient diabetes medications (metformin + trulicity) * Basal insulin * Lantus 25 units SQ x 1 dose this AM, then 75-80 units HS based on BSG * DC NPH * Bolus insulin * NovoLog per scale ACHS or Q6hrs while NPO * Goal Range: Low 110 mg/dL - High 140 mg/dL * Correction Factor: 10 mg/dL/unit * Nutritional / Prandial insulin per carb ratio of 1 unit per 3 grams CHO consumed PLAN FOR DISCHARGE: * A1c 7.1%, continue outpatient regimen, no plan for steroids on discharge per Dr Lugo
--- NOTE | 2020-10-22 14:19 | Hospitalist Progress Note ---
Date of Service October 22, 2020 Assessment & Plan (1) S/P cervical spinal fusion: Plan: Management per Ortho including DVT prevention (2) Type 2 diabetes mellitus, with long-term current use of insulin: Plan: Noted pharmacy glycemic consultwill defer (3) Hypothyroidism: Plan: Continue home levothyroxine (4) Hypertension: Plan: Has had overt hypotension with systolic less than 90 overnightat present I discontinued diuretics and ARB; can cautiously continue beta-abby for now (5) Gastroesophageal reflux disease: Plan: Continue H2 abby (6) Dyslipidemia: Plan: Continue statin (7) COPD (chronic obstructive pulmonary disease): Plan: No evidence of exacerbation; follow clinically (8) RAGHAVENDRA (obstructive sleep apnea): Plan: She does not have her CPAP and is unsure of settings; can bring but she thinks she will be okay for todaydid not use it last night; can resume from tomorrow as long as no contraindication from C-spine surgery perspective (she states her mask does not go down below her chin) Plan: leukocytosis still probably reactivecan follow and clinically for now; if any question of infection related to spine surgery defer to orthopedics Admission and Anticipated Discharge Date Admission Date: October 20, 2020 Subjective Status post C-spine surgery, follow-up for medical management; out of ICUno complaints as such Physical Exam Physical Exam: Constitutional and general: No acute distress, looks biologic age Head and face: No puffiness, atraumatic Eyes: No scleral icterus, extraocular movements normal Neck: Supple, no JVD Skin/dermatologic/integument: No rash, no purpura Hematologic and lymphatic: pallor none, no petechia Gastrointestinal/abdomen: Nondistended, soft, nonacute Psychiatry: Awake, alert, pleasant, communicative Cardiovascular: Heart rhythm regular, no rub, no murmur, no gallop Respiratory: Chest movements equal, no use of accessory muscles, no adventitious sounds Extremities: No edema, no cyanosis Results & Data Results & Data ([facility]) Vital Signs (Past 12 Hours) Vital Signs Temp Pulse Pulse Resp BP Pulse Ox 10/22/20 11:19 80 16 97 10/22/20 08:34 36.9 C 10/22/20 08:18 112/66 10/22/20 07:59 85 18 93 10/22/20 07:34 80 23 119/97 91 10/22/20 06:34 85 19 104/64 93 10/22/20 05:34 76 12 98/60 L 93 10/22/20 04:58 76 15 99/55 L 93 10/22/20 04:35 78 17 83/51 L 93 10/22/20 03:34 36.8 C 75 15 119/68 92 10/22/20 03:00 78 18 92 10/22/20 02:34 77 15 113/70 92 Laboratory Results Laboratory Results - last 24 hr 10/21/20 10/21/20 10/21/20 14:28 16:29 20:25 WBC RBC Hgb Hct MCV MCH MCHC RDW Std Deviation RDW Coeff of Alyssa Plt Count MPV Immature Gran % (Auto) Neut % (Auto) Lymph % (Auto) [place] % (Auto) Eos % (Auto) Baso % (Auto) Neut # (Auto) Lymph # (Auto) [place] # (Auto) Eos # (Auto) Baso # (Auto) Immature Gran # (Auto) Sodium Potassium Chloride Carbon Dioxide Anion Gap BUN Creatinine Est Cr Clr Drug Dosing Est GFR ( Amer) Est GFR (Non-Af Amer) BUN/Creatinine Ratio Glucose POC Glucose 263 H 228 H 137 H Calcium Phosphorus Magnesium 10/22/20 10/22/20 10/22/20 04:55 04:55 07:37 WBC 17.40 H RBC 4.22 Hgb 12.1 Hct 36.5 L MCV 86.5 MCH 28.7 MCHC 33.2 RDW Std Deviation 49.8 H RDW Coeff of Alyssa 15.7 H Plt Count 243 MPV 12.4 H Immature Gran % (Auto) 0.2 Neut % (Auto) 84.2 Lymph % (Auto) 9.3 [place] % (Auto) 6.2 Eos % (Auto) 0.0 Baso % (Auto) 0.1 Neut # (Auto) 14.64 H Lymph # (Auto) 1.62 [place] # (Auto) 1.08 H Eos # (Auto) 0.00 Baso # (Auto) 0.02 Immature Gran # (Auto) 0.04 H Sodium 136 Potassium 4.4 Chloride 105 Carbon Dioxide 26 Anion Gap 5.0 BUN 16 Creatinine 0.81 Est Cr Clr Drug Dosing 81.9 Est GFR ( Amer) 85.3 Est GFR (Non-Af Amer) 73.6 BUN/Creatinine Ratio 19.4 Glucose 140 H POC Glucose 125 H Calcium 8.2 L Phosphorus 3.1 Magnesium 2.2 10/22/20 12:05 WBC RBC Hgb Hct MCV MCH MCHC RDW Std Deviation RDW Coeff of Alyssa Plt Count MPV Immature Gran % (Auto) Neut % (Auto) Lymph % (Auto) [place] % (Auto) Eos % (Auto) Baso % (Auto) Neut # (Auto) Lymph # (Auto) [place] # (Auto) Eos # (Auto) Baso # (Auto) Immature Gran # (Auto) Sodium Potassium Chloride Carbon Dioxide Anion Gap BUN Creatinine Est Cr Clr Drug Dosing Est GFR ( Amer) Est GFR (Non-Af Amer) BUN/Creatinine Ratio Glucose POC Glucose 169 H Calcium Phosphorus Magnesium PG Care Time/CCT Total # of Minutes Spent Total Time Spent with Patient: Total time spent is greater than 50% in coordination of care (as documented) at patient's floor/unit and/or counseling patient: Coding Level of Care Code 28583 Subseq Hosp Care Lvl 2 Diagnoses S/P cervical spinal fusion Z98.1 Type 2 diabetes mellitus, with long-term current use of insulin E11.9; Z79.4 Hypothyroidism E03.9 Hypertension I10 Gastroesophageal reflux disease K21.9 Dyslipidemia E78.5 COPD (chronic obstructive pulmonary disease) J44.9 RAGHAVENDRA (obstructive sleep apnea) G47.33
--- NOTE | 2020-10-22 15:54 | Operative Report ---
[facility] Post Operative Report Pre & Post Diagnosis Operation Date: 10/20/20 Pre-Op Diagnosis: Myelopathy with severe central stenosis C4-5, pseudarthrosis C5-6 Post-Op Diagnosis: Myelopathy with severe central stenosis C4-5, pseudarthrosis C5-6 I identified the patient and participated in the time-out.: Yes Procedure 1. Anterior Cervical Discectomy and Fusion C4-5 2. Assessment of Fusion Mass Anterior Cervical Spine C5-6 3. Revision Anterior Cervical Fusion C5-6 4. Iliac Crest Structural Bone Graft [place] Right 5. Local Autograft for anterior cervical fusion 6. Anterior Cervical Instrumentation C4-6 Surgeon Whitley Lugo MD Communications Tower Climber Donnie Mccarthy PA-C Estimated Blood Loss 100 Findings Consistent with Post-Op Diagnosis Specimens none Description of Procedure Implants: 1. K2M [place] anterior cervical plate 36mm 2-level plate with 4.0x14mm screws (x5), 4.5x14mm screw (x1, left C5) Drains: 1. WIL drain x 1 (10 [place]) Indications: Patient is a 70 year old female with previous remote history of ACDF C5-6 with use of allograft and no hardware who presented to my clinic on September 19 with symptoms of peudarthrosis and myelopathy, and MRI imaging consistent with severe C4-5 central stenosis. After completion of x-ray and CT imaging, pseudathrosis was confirmed at C5-6 level. A decision was made to perform an ACDF at the C4-5 level along with a revision anterior cervical fusion at the C5-6 level using iliac crest structural autograft. Informed consent was obtained and patient was booked for above procedure. On day of surgery, patient was identified in pre-op holding area. History and Physical was updated, surgical site was marked, and consent was confirmed. Risks, benefits and alternatives were discussed again and I answered all their questions. Description of procedure: Patient was brought to the operating room and underwent general anesthesia. Patient was placed supine on the operating table with neck in gentle extension. Face, eyes, bony prominences, and peripheral nerves were well protected. SCDs were applied to bilateral legs to reduce risk of DVT. Anterior cervical region was prepped and draped in standard fashion. In addition, the right anterior iliac crest was also prepped and drapped using sterile fashion. A time-out was performed and documented. This included confirmation of administration of prophylactic antibiotics prior to incision. Anterior Isidro-Stewart type approach was made on the right side. Incision was slightly more proximal than prior incision line. Scar tissue was encounter and blunt dissection was carried down. The carotid artery was palpated and retracted laterally. The anterior cervical spine was visualized and a localization needle was placed in the visible disc space with a lateral portable x-ray completed. Further exposure was performed more proximally to identify and afua the C4-5 level and confirm with portable x-ray. Once this was completed, both affected levels were exposed. The longus coli was elevated bilaterally and a self retaining retractor placed. Anterior discectomy was performed with disc knife, ronguers, and currettes starting with the C4-5 level. Anterior osteophytes were removed and saved for local autograft. Littlefield type distraction pins were placed into the vertebral body above and below the disc. Gentle distraction was applied. Posterior discectomy with decompression of the central spinal cord and bilateral foraminal areas was performed with high speed arya, curettes, and ronguers. This included opening of the PLL and inspecting posterior to the PLL. Once the decompression was judged to be adequate, attention was turned to the preparation of the interspace for fusion. A arya and currettes were used to prepare endplates for fusion with flat, bleeding surfaces. Attention was then placed into the C5-6 level. No significant bony bridging was noted at this level. Distraction was performed using Littlefield pin and motion was detected in keeping with pseudarthrsosis. Fibrous tissue was removed from disc space and endplates were prepared for fusion using a high speed arya. Attention was then turned to harvesting iliac crest structural autograft. the ASIS was palpated. An oblique incision was performed lateral to the ASIS along the crest, followed by similar fascial incision. Bone was palpated and subperiosteal dissection performed. Straight and curved osteotomes along with ball-tip arya were used to obtain tricortical bone graft of appropriate approximate size for the two levels. Once harvest was complete, bone wax, gelfoam and Floseal was utilized to ensure appropriate hemostasis prior to irrigation, repeat inspection, and closure of fascia with #1 Vicryl and skin with 2.0 Vicryl and 3.0 Stratafix. The harvested tricortical iliac crest bones were then adjusted in size to match the needed dimensions for the interspace. The C5-6 graft was first inserted followed by the C4-5 graft. Plate as sized, selected and bent to match patient anatomy. Screw sites were pre-drilled and plate was secured with two screws at each included vertebral level. Variable screws were utilized. Strong bony purchase was felt with insertion of all screws. For left C5 screw, screw hole was very close to the site of Littlefield pin and a decision was made to use larger 4.5 diameter screws at this location. The self retaining retractor was removed and the wound checked for hemostasis. Lateral portable x-ray imaging were performed intra-op to check for the correct surgical levels and implant positions. On my review of imaging intra-op using portable x-ray machine, it appeared to me that all screws were in cortical bone at each affected level. The wound was irrigated. There was good hemostasis. A WIL drain was inserted below the incision. The platsyma layer was closed with 2-0 vicryl and the skin with 3-0 monocryl. Steristrips, and a sterile dressing were applied. The patient was awakened and taken to the recovery room in stable condition. Neuromonitoring was performed throughout the case using SSEP, MEP, EMG and vocal cord monitoring. Some vocal cord activity was noted for a short duration during the case and this was resolved with reducing retraction and cuff pressure. There were no intraoperative complications noted during the case. Subsequent to conclusion of the case and extubation of patient, further review of imaging and further studies demonstrated the C4 screws being within the tricortical bone graft instead of the vertebral body however. Sponge and needle counts were correct x2 at the conclusion of the case. I attest to the content of the Intraoperative Record and any orders documented therein. Any exceptions are noted below.
--- NOTE | 2020-10-22 16:20 | Operative Report ---
[facility] Post Operative Report Pre & Post Diagnosis Operation Date: 10/20/20 Pre-Op Diagnosis: Anterior Cervical Fusion C4-6 with Malpositioned Hardware Post-Op Diagnosis: Anterior Cervical Fusion C4-6 with Malpositioned Hardware I identified the patient and participated in the time-out.: Yes Procedure C4-C6 Revision Anterior Cervical Plating and Fusion Surgeon Whitley Lugo MD Crushed Stone Grader Donnie Mccarthy PA-C Estimated Blood Loss 25 Findings Consistent with Post-Op Diagnosis Specimens none Description of Procedure Implants: 1. K2M [place] anterior cervical plate 40mm 2-level with [id number] screws (x6) Drains: 1. WIL drain x 1 (15 [place]) Indications: Patient is a 70 year old lade who underwent ACDF C4-5 and revision anterior cervical fusion by me earlier today using iliac crest structural autograft and anterior plating. Subsequent to completion of the procedure, review and completion of further imaging studies confirmed malpositioning of the C4 screws within the tricortical bone graft instead of the C4 vertebral body. As such, a discussion was had with the patient with regards to surgical vs. non-surgical management of this complication. Informed consent was obtained and patient was booked for above procedure. Description of procedure: Patient was brought to the operating room and underwent general anesthesia. Patient was placed supine on the operating table with neck in gentle extension. Face, eyes, bony prominences, and peripheral nerves were well protected. SCDs were applied to bilateral legs to reduce risk of DVT. Anterior cervical region was prepped and draped in standard fashion after removal of dressing and previous drain. A time-out was performed and documented. This included confirmation of administration of prophylactic antibiotics prior to incision. Previous right anterior manzano-ward type approach was re-opened. Old sutures were removed. Cervical retractor was replaced and plate was visualized. Pre-op templating demonstrated need to upsize the plate in order to allow for screws to have sufficient trajectory. All screws were removed. C4 screw hole on the left appeared to start at the junction of the C4 vertebrae and autograft. C4 screw hole on the right however appeared to start at the autograft. Plate was removed and a 40mm plate was templated to be better suited. The plate was curved. C6 screws were first inserted using previous screw holes using a 4.5mm screw instead of the previous 4.0 screws. C4 screw holes were then initiated using a ball-tip arya followed by hand-drill with cranial trajectory. 4.5mm screws were inserted at this level. Lateral x-ray imaging confirmed these screws to be within C4 vertebrae. C5 screws were then inserted and all screws locked Final intra-op lateral imaging showed hardware in appropriate position. The wound was irrigated. There was good hemostasis. A WIL drain was inserted below the incision. A 15 [place] WIL drain was used due to potential higher risk of post-op bleed given same day revision. The platsyma layer was closed with 2-0 vicryl and the skin with 3-0 monocryl. Steristrips, and a sterile dressing were applied. The patient was awakened and taken to the recovery room in stable condition. There were no intraoperative complications noted. Sponge and needle counts were correct x2 at the conclusion of the case. I attest to the content of the Intraoperative Record and any orders documented therein. Any exceptions are noted below.
[2020-10-22] MEDS: CHOLECALCIFEROL 1,000 UNITS 25 MCG TAB PO SCH (20:51)
[2020-10-22] MEDS: FAMOTIDINE 40 MG TABLET PO SCH (20:51)
[2020-10-22] MEDS: ATORVASTATIN 40 MG TAB PO SCH (20:51)
[2020-10-22] MEDS: DOCUSATE SODIUM/SENNA 50/8.6MG TAB PO SCH (20:52)
[2020-10-22] MEDS: MIRTAZAPINE TAB 15 MG TAB PO SCH (20:52)
[2020-10-22] MEDS: INSULIN GLARGINE SOLOSTAR 100 UNITS/ML 3 ML PEN SC SCH (21:06)
[2020-10-23] MEDS: POLYETHYLENE (MIRALAX) 17 GM PACK PO SCH (05:55)
[2020-10-23] MEDS: LEVOTHYROXINE SODIUM 100 MCG TABLET PO SCH (05:55)
--- NOTE | 2020-10-23 06:48 | Orthopedic Progress Note ---
Date of Service October 23, 2020 Assessment & Plan (1) S/P cervical spinal fusion: Plan: d/c home today Admission and Anticipated Discharge Date Admission Date: October 20, 2020 Subjective drain removed yesterday no new numbness/weakness no hoarseness. no dysphagia. Drinking well. Eating soft food well pain well-controlled Physical Exam Physical Exam: vitals: see vital signs section; on RA during daytime neck: soft, non-distended dressing: clean, dry intact drain: removed vascular: no calf tenderness or swelling bilaterally. no signs of DVT neuro: Musculoskeletal: 5/5 motor strength bilateral C5-T1, L2-S1 except bilateral C8 4/5, right C5/C6/C7 4+/5, right T1 4/5. Neurologic: Sensation 2/2 to light touch bilateral C5-T1, L2-S1 except bilateral soles of feet 1/2 (chronic). Results & Data ([facility]) Vital Signs (Past 12 Hours) Vital Signs Temp Pulse Pulse Resp BP Pulse Ox 10/23/20 03:00 60 14 97 10/22/20 23:00 48 L 18 95 10/22/20 22:04 36.8 C 43 L 16 112/67 93 10/22/20 20:50 79 119/68 10/22/20 20:01 71 16 95 PG Care Time/CCT Total # of Minutes Spent Total Time Spent with Patient: Total time spent is greater than 50% in coordination of care (as documented) at patient's floor/unit and/or counseling patient: Coding Level of Care Code None Diagnoses S/P cervical spinal fusion Z98.1
[2020-10-23 06:51] LABS: Basophils # (auto) 0.02 K/uL (0-0.2); Basophils % (auto) 0.2 %; Hematocrit (blood only) 38.4 % (37-47); Hemoglobin 12.4 g/dL (12.0-16.0); Immature Granulocytes # (auto) 0.06 K/uL (0.00-0.02); Immature Granulocytes % (auto) 0.5 %; Lymphocytes # (auto) 3.97 K/uL (1.2-3.4); Lymphocytes % (auto) 30.1 %; Mean Corpuscular Hemoglobin 28.8 pg (25-34); Mean Corpuscular Hgb Conc 32.3 g/dL (32-36); Mean Corpuscular Volume 89.1 fL (80-100); Mean Platelet Volume 12.5 fL (7.4-10.4); Monocytes # (auto) 1.45 K/uL (0.11-0.59); Neutrophils # (auto) 7.69 K/uL (1.4-6.5); Neutrophils % (auto) 58.2 %; Platelet Count 261 K/uL (130-400); RDW Coefficient of Variation 15.9 % (11.5-14.5); RDW Standard Deviation 51.9 fL (36.4-46.3); Red Blood Count 4.31 M/uL (4.2-5.4); White Blood Count 13.19 K/uL (4.8-10.8)
--- NOTE | 2020-10-23 06:52 | Discharge Summary ---
Date of Service October 23, 2020 Principal Diagnosis cervical myelopathy, pseudarthrosis Discharge Data Allergies Allergy/AdvReac Type Severity Reaction Status Date / Time Bactrim Allergy Intermediate HIVES Verified 10/24/17 09:04 clindamycin Allergy Intermediate Hives Verified 10/20/20 05:37 sulfamethoxazole Allergy Intermediate Hives Verified 10/20/20 05:37 trimethoprim Allergy Intermediate Hives Verified 10/20/20 05:37 amoxicillin AdvReac Mild N/V Verified 10/20/20 05:37 clavulanic acid AdvReac Mild N/V Verified 10/20/20 05:37 Consultations 10/21/20 01:15 Consult Hospitalist Routine Procedures Performed Operation Date: 10/20/20 07:00 Actual Procedures p C4-C5 Anterior Cervical Discectomy and Fusion, C5-C6 Assessment of Fusion Mass, C5-C6 Revision Anterior Fusion(Not Applicable) - Whitley Lugo MD s Iliac Crest Bone Graft Right, Spinal Cord Monitoring(Right) - Whitley Lugo MD Operation Date: 10/20/20 08:35 Actual Procedures p C4-C6 Anterior Cervical Discectomy Fusion Revision(Not Applicable) - Whitley irby MD Ordered Studies 10/20/20 14:26 CT cervical spine wo con Stat Hospital Course (1) S/P cervical spinal fusion: Patient underwent the above mentioned procedure. Post-operatively, it was noted that the C4 screws were in autograft bone and as such, patient was consented and returned to OR same day for revision anterior plating same day. Post-operatively, patient was sent to recovery and then to ICU for respiratory monitoring. Pain was well-controlled throughout stay. Drain was removed on post- op day 2. Patient was followed closely by critical care and hospitalist service throughout stay and was cleared for discharge medically by this team. Her home blood pressure medications were modified during her stay. Patient was able to ambulate, void, and tolerate PO intake at time of discharge. Verbal discharge and follow-up instructions were given. Patient is to see her PCP in the upcoming days for repeat evaluation of her blood presurre medications. Total Time Total Time Spent Total Time Spent (In Minutes): 25 Discharge Plan Discharge Items Patient Disposition: Home - Self-Care Reason For Visit: Cervical Myelopathy, Pseudarthrosis Discharge Diagnosis: Cervical Myelopathy, Pseudarthrosis Activity: Per Instructions section Non-emergency contact: Surgeon Call non-emergency contact if: you have any medication questions Follow-up/Referrals: Maria D Laboy MD [Primary Care Provider] - Diet: Carb Consistent or DM2 Addtl Attending Provider Instructions: Anterior Cervical Decompression Fusion (ACDF) Recovery Please hold your home Aspirin for 5 days post-op. Your blood pressure medications were modified while you were in hospital. Please see your PCP in upcoming week for repeat assessment. What to expect You've had surgery, the first step toward the goals of decreasing neck and/or arm pain, and stopping symptoms of spinal cord compression from getting worse. Now it's time to focus on healing. By following these tips, you will set yourself up for a successful outcome after surgery. Top 4 things to know 1. Pain in the back of the neck and between the shoulder blades is common after ACDF surgery. It also is normal to have some swallowing difficulty. These usually get better over the next few weeks. If you have trouble breathing, call 911 or go to an emergency room immediately. 2. Do not use nicotine for at least three months. Nicotine will slow down your healing. 3. Avoid taking anti-inflammatory medications (NSAIDs) for six to 12 weeks or until your surgeon tells you it's safe to use them. NSAIDs include ibuprofen (Motrin, Advib), naproxen (Aleve, Naprosyn), meloxicam (Mobic), Celebrex and diclofenac. 4. In some cases, you do not need a collar after surgery. If your surgeon gave you one, you should wear it as directed until your first follow-up appointment. Avoid excessive bending and twisting of your neck after surgery. Your surgeon will decide when your collar can come off. Breathing If you have any trouble breathing or have excessive swelling in your neck, call 911 or go to an emergency room immediately. Pain and weakness Neck pain, pain between the shoulder blades and a funny feeling when you swallow are normal after ACDF. These should get better over the next few weeks. Numbness, tingling and weakness that you had before surgery may take time to improve. Your collar If you were given a collar to wear, the goal of it is to keep your chin up and away from your chest. Your chin needs to be on top of the collar, not down in the collar. Wear your collar until your first follow-up appointment after surgery. You may take the collar off to shower. While the collar is off, keep your head as still as possible and your chin up. Taking care of your incision You can take your dressing off when you get home from the hospital. Underneath the dressing you will have adhesive wound closures (Steri-strips) over your incision when you come home from the hospital. These will fall off on their own within 14 days. If they have not fallen off after 14 days, you can remove them. If your incision has no drainage, it can be left uncovered after three days. Showering You can take a shower three days after surgery. Take your collar off while in the shower. Avoid taking tub baths, swimming and going in hot tubs until the incision is completely healed (four to six weeks). Taking medication Do not take anti-inflammatory medications (NSAIDS) for at least three months after surgery. These drugs can interfere with how you heal. NSAIDs include ibuprofen, Advil, Aleve, naproxen, Naprosyn, Mobic, meloxicam, Celebrex, diclofenac. If you need refills on your prescriptions, contact our office at least two days before you are out of pills so we have sufficient time to process your request. Refill requests on Friday afternoons and holidays likely will be addressed on the next . Start weaning yourself from pain medications as soon as you are able. Remember, pain is a natural part of the healing process. The goal is not to eliminate all pain but to keep you comfortable as you heal. Pain medications should be used only for a short period of time. Before taking Tylenol (acetaminophen), be aware that your pain medication probably has acetaminophen in it. Taking additional Tylenol or acetaminophen can put you over the daily recommended 3,000 milligrams, which can harm your liver. If you are taking a muscle relaxer, one of the side effects is drowsiness. If you feel too drowsy to safely get up and move around, take the muscle relaxer less often. Do not use tobacco products If you had been a smoker or used tobacco, you were required to stop before surgery You've come this far, so why not quit for good. If you cannot do so, you must not use tobacco products for at least three months. Nicotine will keep you from properly healing If you have any other concerns, call our office at: before going to an emergency room. In most cases we can help you or get you an appointment quickly Be active, but no lifting We want you to be active as soon as you get home from the hospital. Get up and walk often. If you go up and down stairs, make sure you hold onto the railing and have someone with you. Avoid bending and twisting your neck as much as you can, and do not lift anything over 10 pounds until your surgeon says it's OK. And no driving You cannot drive until you are no longer taking narcotic pain medications or muscle relaxers and you can move well enough to be safe behind the wheel. Most patients can begin driving after the 6 week postoperative appointment. Your surgeon will let you know when you can start driving Eating Ice and Popsicles can help relieve a sore throat. Eat soft foods that are easy to swallow. Take small bites and chew your food well. You can begin eating other foods gradually as you start to feel better. Constipation and bloating Constipation is a common side effect of taking narcotic pain medication and a good reason to begin tapering yourself off of pain medication as soon as you can. Drink lots of fluids, be active and eat foods high in fiber to help relieve constipation If constipation is bothering you, a stool softener or laxative may help. Try one of the following, and always follow the instructions: Milk of Magn esia, MiraLAX, Dulcolax suppository. Fleet enema, magnesium citrate. When is it an emergency? If you have any of the following symptoms, call 911 or go to an emergency room right away: Trouble breathing Chest pain Excessive neck swelling Significant new weakness since your surgery If you have any other concern, call our office at [phone] before going to an emergency room. In most cases we can help you or get you an appointment quickly. Pending Studies at Discharge: No Stand-Alone Forms: [facility] Medications and DC Order Prescriptions: New tramadol 50 mg Tablet 50 - 100 mg PO Q4H PRN (Reason: pain) Qty: 50 RF: 0 gabapentin 300 mg Capsule 300 mg PO BID Qty: 28 RF: 0 Continued mupirocin 2 % ointment 1 appln TOP BID Qty: 15 RF: 1 albuterol sulfate [Ventolin HFA] 90 mcg/actuation HFA aerosol inhaler 2 puffs INH Q4 PRN (Reason: Shortness Of Breath Or Wheezing) Qty: 3 RF: 3 Spiriva Respimat 2.5 mcg/actuation mist 2 puffs INH QAM Qty: 12 RF: 1 budesonide-formoterol [Symbicort] 160-4.5 mcg/actuation HFA aerosol inhaler 2 puff INH BID Qty: 3 RF: 1 metformin 1,000 mg tablet 1,000 mg PO BID Qty: 180 RF: 1 mirtazapine [Remeron] 15 mg tablet 15 mg PO PM Qty: 90 RF: 1 levothyroxine 100 mcg tablet 100 mcg PO QAM Qty: 90 RF: 3 atenolol 25 mg tablet 25 mg PO .COMPLEX Qty: 270 RF: 1 Fasenra Pen 30 mg/mL auto-injector 30 mg SQ .COMPLEX Qty: 1 RF: 11 omeprazole 40 mg capsule,delayed release(DR/EC) 40 mg PO QAM Qty: 90 RF: 1 atorvastatin 40 mg tablet 40 mg PO HS Qty: 90 RF: 3 azelastine 137 mcg (0.1 %) aerosol,spray 2 spray INTNAS DAILY Qty: 30 RF: 11 (DME) Prodigy No Coding Strip See Rx Instructions .ROUTE .MEDSUPPLY Qty: 10 RF: 0 (DME) CPAP Machine Misc See Rx Instructions .ROUTE .MEDSUPPLY Qty: 1 RF: 0 vit C-vit [id number] pm-chye-fw-mg capsule 1 cap PO DAILY RF: 0 nitroglycerin 0.4 mg tablet, sublingual 0.4 mg SL Q5M PRN (Reason: Chest Pain) Qty: 25 RF: 0 insulin aspart U-100 [Novolog Flexpen U-100 Insulin] 100 unit/mL (3 mL) insulin pen 0 - 75 unit subcut UD RF: 0 zinc 50 mg tablet 50 mg PO QAM RF: 0 alprazolam [Xanax] 0.5 mg tablet 0.5 mg PO DAILY PRN (Reason: anxiety) Qty: 30 RF: 0 cyanocobalamin (vitamin B-12) [Vitamin B-12] 1,000 mcg Tablet 1,000 mcg PO QAM RF: 0 magnesium 250 mg Tablet 250 mg PO QAM RF: 0 docusate sodium [Stool Softener] 250 mg Capsule 250 mg PO BID RF: 0 cholecalciferol (vitamin D3) [Vitamin D3] 1,000 unit Capsule 1,000 unit PO QPM RF: 0 omega-3 fatty acids 500 mg Capsule 500 mg PO QAM RF: 0 ipratropium-albuterol 0.5 mg-3 mg(2.5 mg base)/3 mL Solution For Nebulization 3 ml inhalation Q6R PRN (Reason: Shortness Of Breath Or Wheezing) Qty: 1 RF: 0 benzonatate [Tessalon Perles] 100 mg capsule 100 mg PO TID PRN (Reason: cough) Qty: 30 RF: 0 Lantus U-100 Insulin 100 unit/mL Solution 70 - 80 unit SUBCUT QPM RF: 0 venlafaxine 75 mg capsule,extended release 24hr 75 mg PO QAM RF: 0 famotidine 40 mg tablet 40 mg PO HS RF: 0 venlafaxine 150 mg capsule,extended release 24hr 150 mg PO QAM RF: 0 Basaglar KwikPen U-100 Insulin 100 unit/mL (3 mL) insulin pen 77 - 80 unit subcut QPM RF: 0 Trulicity 3 mg/0.5 mL pen injector 3 mg subcut WK RF: 0 Discontinued diclofenac sodium 1 % gel See Rx Instructions topical QID PRN (Reason: Pain) RF: 0 furosemide 20 mg tablet 20 mg PO QAM PRN (Reason: Edema) Qty: 90 RF: 1 losartan 50 mg tablet 50 mg PO HS Qty: 90 RF: 1 tramadol 50 mg tablet 50 mg PO TID PRN (Reason: Pain) Qty: 90 RF: 0 aspirin 81 mg Tablet,Delayed Release (Dr/Ec) 81 mg PO QAM RF: 0 spironolactone 25 mg Tablet 25 mg PO QAM RF: 0 meloxicam 7.5 mg tablet 7.5 mg PO QAM RF: 0 Discharge Orders: Discharge Order (Routine); Ordered 10/23/20 Ordered By: Whitley Lugo Admission Data Admit Date/Time: 10/20/20 12:48 Attending Provider: Whitley Lugo Admit Provider: Whitley Lugo Primary Care Provider: Maria D Laboy Other Providers: Darwin Jackson ; Olivia Meeks ; Manny Cavazos ; Maite Arevalo ; Umberto Sierra ; Frankie Montes De Oca ; Lincoln Shipman ; Gato Bro ; Nora Millan ; Roberta Schmidt ; Patrick Doherty ; Maya Jacobs ; Kelle Joe ; Ehsan Osuna ; Donnie Crystal ; Willie Gaston ; Olivia Rizvi ; Jonnie Anton ; Boris Mooney ; Dinesh Arreaga ; Manny Granados ; Praneeth Pressley ; Malika Ledesma ; Nathan Byrd ; Maya Morris ; Guanako Alberto ; Travis Goodwin ; Oly Doan Coding Level of Care Code D/C DAY MANAGEMENT <30 MINS Diagnoses S/P cervical spinal fusion Z98.1
[2020-10-23] MEDS: AZELASTINE~ORDER AWAITING ACTION SCH (08:29)
[2020-10-23] MEDS: CYANOCOBALAMIN 500 MCG TABLET (VITAMIN B-12) PO SCH (08:30)
[2020-10-23] MEDS: MAGNESIUM OXIDE 400 MG TAB PO SCH (08:31)
[2020-10-23] MEDS: PANTOprazole 40 MG TAB PO SCH (08:31)
[2020-10-23] MEDS: GABAPENTIN 300 MG CAP PO SCH (08:31)
[2020-10-23] MEDS: DOCUSATE SODIUM 100 MG CAP PO SCH (08:31)
[2020-10-23] MEDS: ZINC SULFATE 220 MG CAPSULE PO SCH (08:31)
[2020-10-23] MEDS: VENLAFAXINE HCL XR 150 MG CAPXR PO SCH (08:31)
[2020-10-23] MEDS: VENLAFAXINE HCL XR 75 MG CAPXR PO SCH (08:31)
[2020-10-23] MEDS: ATENOLOL 25 MG TABLET PO SCH (08:32)
[2020-10-23] MEDS: FLUTICASONE/VILANTEROL 100/25MCG 14 PUFFS/INHALER INH SCH (08:33)
[2020-10-23] MEDS: UMECLIDINIUM BROMIDE 62.5MCG/BLISTER 7 PUFFS/INHALER INH SCH (08:33)
[2020-10-23] MEDS: CARBOHYDRATES FOR HYPOGLYCEMIA PO PRN ×2 (08:41→08:42)
[2020-10-23] MEDS ORDERED: GLUCOSE 10 TABS/TUBE PO PRN (08:45)
[2020-10-23] MEDS ORDERED: DEXTROSE 50% 50 ML SYRINGE IV PRN (08:45)
[2020-10-23] MEDS ORDERED: GLUCAGON FOR INJ 1 MG VIAL IM PRN (08:45)
[2020-10-23] MEDS ORDERED: GLUCOSE 40% GEL 15 GM TUBE PO PRN (08:45)
[2020-10-23] MEDS: INSULIN ASPART 100 UNITS/ML 3 ML PEN SQ SCH (09:29)
[2020-10-23] MEDS: traMADol HCL 50 MG TABLET PO PRN (09:47)
== END 2020-10-23 10:23 | disposition home or self-care (01) | DRG 472 ==
LOC: ASU 05:03 → 1E 12:48 → 3E 10-22 08:03

== ENCOUNTER 2024-10-05 05:59 | Inpatient (IN) ==
--- NOTE | 2024-09-10 12:15 | PAT Medication Instructions ---
Medication Instructions Date of Service September 10, 2024 Home Medications Medication Instructions Recorded CPAP Machine #1 ea 05/06/19 pen needle, diabetic 32 gauge x #400 ea 10/31/2032" (Pen Needle) nitroglycerin 0.4 mg sublingual 0.4 mg sublingual Q5M PRN Chest 09/20/22 tablet Pain #25 tabs Omnipod 5 G6 Intro Kit (Gen 5) #1 ea 02/19/23 subcutaneous cartridge with controller (insulin pump cart,auto,BT-cntr) famotidine 40 mg tablet 40 mg PO BID #180 tabs 03/23/24 benralizumab 30 mg/mL subcutaneous 30 mg subcut .COMPLEX #1 mL 04/05/24 auto-injector (Fasenra Pen) alprazolam 0.5 mg tablet (Xanax) 0.5 mg PO QAM PRN anxiety #30 tabs 04/23/24 insulin aspart U-100 100 unit/mL See Rx Instructions subcut DAILY 04/27/24 subcutaneous solution (Novolog #80 mL U-100 Insulin aspart) insulin pump cart,auto,BT,G6/7 #20 ea 04/27/24 (Omnipod 5 G6-G7 Pods (Gen 5) subcutaneous cartridge) metformin 1,000 mg tablet 1,000 mg PO BID #180 tabs 06/21/24 venlafaxine 150 mg 150 mg PO QPM #90 caps 06/22/24 capsule,extended release 24 hr venlafaxine 75 mg capsule,extended 75 mg PO QPM #90 caps 06/22/24 release 24 hr atorvastatin 40 mg tablet 40 mg PO HS #90 tabs 08/20/24 mirtazapine 15 mg tablet (Remeron) 15 mg PO HS #90 tabs 08/20/24 omeprazole 40 mg capsule,delayed 40 mg PO QAM #90 caps 08/20/24 release solifenacin 10 mg tablet (Vesicare) 10 mg PO HS #90 tabs 08/20/24 cholecalciferol (vitamin D3) 25 mcg (1,000 unit) capsule (Vitamin D3) 1,000 unit PO QPM cyanocobalamin (vitamin B-12) 1,000 mcg tablet (Vitamin B-12) 1,000 mcg PO QAM docusate sodium 250 mg capsule (Stool Softener) 250 mg PO BID magnesium 250 mg tablet 250 mg PO QAM omega-3 fatty acids 500 mg capsule 500 mg PO QAM zinc 50 mg tablet 50 mg PO HS ipratropium 0.5 mg-albuterol 3 mg (2.5 mg base)/3 mL nebulization soln 3 ml inhalation Q6H PRN Shortness Of Breath Or Wheezing nitroglycerin 0.4 mg sublingual tablet 0.4 mg sublingual Q5M PRN Chest Pain lutein 25 mg-zeaxanthin 5 mg capsule (Ocuvite Blue Light) 1 cap PO DAILY famotidine 40 mg tablet 40 mg PO BID benralizumab 30 mg/mL subcutaneous auto-injector (Fasenra Pen) 30 mg subcut .COMPLEX aspirin 81 mg capsule 81 mg PO QAM atenolol 25 mg tablet 25 - 50 mg PO UD levothyroxine 112 mcg tablet 112 mcg PO QAM alprazolam 0.5 mg tablet (Xanax) 0.5 mg PO QAM PRN anxiety ferrous sulfate 142 mg (45 mg iron) tablet,extended release 142 mg PO QAM insulin aspart U-100 100 unit/mL subcutaneous solution (Novolog U-100 Insulin aspart) See Rx Instructions subcut DAILY metformin 1,000 mg tablet 1,000 mg PO BID venlafaxine 150 mg capsule,extended release 24 hr 150 mg PO QPM venlafaxine 75 mg capsule,extended release 24 hr 75 mg PO QPM atorvastatin 40 mg tablet 40 mg PO HS mirtazapine 15 mg tablet (Remeron) 15 mg PO HS omeprazole 40 mg capsule,delayed release 40 mg PO QAM solifenacin 10 mg tablet (Vesicare) 10 mg PO HS hydrocortisone 2.5 % topical cream with perineal applicator 1 applic DC BID PRN hemorrhoids Continue as directed nitroglycerin 0.4 mg sublingual tablet 0.4 mg sublingual Q5M PRN Chest Pain (if needed) ASK your prescriber and surgeon aspirin 81 mg capsule 81 mg PO QAM benralizumab 30 mg/mL subcutaneous auto-injector (Fasenra Pen) 30 mg subcut .COMPLEX STOP taking 2 weeks before surgery omega-3 fatty acids 500 mg capsule 500 mg PO QAM lutein 25 mg-zeaxanthin 5 mg capsule (Ocuvite Blue Light) 1 cap PO DAILY STOP taking 24 hours before surgery hydrocortisone 2.5 % topical cream with perineal applicator 1 applic DC BID PRN hemorrhoids DO NOT take the morning of surgery cyanocobalamin (vitamin B-12) 1,000 mcg tablet (Vitamin B-12) 1,000 mcg PO QAM docusate sodium 250 mg capsule (Stool Softener) 250 mg PO BID magnesium 250 mg tablet 250 mg PO QAM ferrous sulfate 142 mg (45 mg iron) tablet,extended release 142 mg PO QAM metformin 1,000 mg tablet 1,000 mg PO BID Take morning of surgery With a small sip of water, OTHERWISE NOTHING TO EAT OR DRINK AFTER MIDNIGHT: ipratropium 0.5 mg-albuterol 3 mg (2.5 mg base)/3 mL nebulization soln 3 ml inhalation Q6H PRN Shortness Of Breath Or Wheezing (if needed) famotidine 40 mg tablet 40 mg PO BID levothyroxine 112 mcg tablet 112 mcg PO QAM alprazolam 0.5 mg tablet (Xanax) 0.5 mg PO QAM PRN anxiety (if needed) atenolol 25 mg tablet 25 - 50 mg PO UD omeprazole 40 mg capsule,delayed release 40 mg PO QAM Take evening before surgery cholecalciferol (vitamin D3) 25 mcg (1,000 unit) capsule (Vitamin D3) 1,000 unit PO QPM docusate sodium 250 mg capsule (Stool Softener) 250 mg PO BID zinc 50 mg tablet 50 mg PO HS ipratropium 0.5 mg-albuterol 3 mg (2.5 mg base)/3 mL nebulization soln 3 ml inhalation Q6H PRN Shortness Of Breath Or Wheezing (if needed) famotidine 40 mg tablet 40 mg PO BID atenolol 25 mg tablet 25 - 50 mg PO UD metformin 1,000 mg tablet 1,000 mg PO BID venlafaxine 150 mg capsule,extended release 24 hr 150 mg PO QPM venlafaxine 75 mg capsule,extended release 24 hr 75 mg PO QPM atorvastatin 40 mg tablet 40 mg PO HS mirtazapine 15 mg tablet (Remeron) 15 mg PO HS solifenacin 10 mg tablet (Vesicare) 10 mg PO HS Insulin Dependent Diabetic Patients * Insulin Pump (insulin aspart U-100 100 unit/mL subcutaneous solution (Novolog U-100 Insulin aspart) See Rx Instructions subcut DAILY ) - Check with prescribing provider regarding day prior and morning of surgery instructions (typically insulin pump is set to basal rate midnight prior to surgery and NO bolus doses are given * Other Notes If you have any questions please call us at [phone] or [phone] or [phone] or [phone]
--- NOTE | 2024-09-15 13:01 | Anesthesiology Consultation ---
Date of Service September 15, 2024 Assessment & Plan (1) Encounter for pre-operative examination: Plan - check BSG am DOS. - awaiting surgeon ordered [place] PCP 09/22/24 medical clearance. - GI office visit 08/24/24 [place]: "...anemia w/ drop in HGB from 10.2 --> 7.8 --> 8.4 --> 11- Negative EGD/Colon- Negative CTAP- No blood on UA- Continued follow up with hematology- Agree w/ follow up for IV iron- Trend H&H- If LOWELL persist, consider referral for VCE. Gastroparesis, GERD- gastroparesis diet as tolerated- Omeprazole 40 mg once daily- Continue Pepcid in the PM..." - endocrinology office visit 08/18/24: "...Last seen a year ago. Increasing complaints about the left eye including pain and now worsening vision. As above has followed with ophthalmology quite frequently and the notes, almost certainly copied forward since 2020, refer to stable visual field defects in the left eye that are "nonspecific and stable". Hereby requesting that Dr. Rowe provide a clarification of these findings both myself and to Dr. Barone. She has an appointment with Dr. Hernández in August. Advised patient to reach out to Dr. Barone's office if she does not hear soon, follow-up was to be in October 2024. Also arranging for a pituitary MRI. No concern from a pituitary function perspective, see above. Repeat FSH, prolactin in late 2024. Follow-up 1 year..." Case discussed in detail with Dr. Frey who advised patient can proceed only pending surgeon ordered medical clearance. - heme/onc 08/10/24: "...LUE DVT 05/04/2024...continue with monitoring of anemia and iron stores...follow up US showed resolution of previous DVT...has completed 90 days of eliquis...will discontinue DOAC..."cleared from hematological standpoint. Most recent HGB > 10..." Chart Review Chart Review: Pending: Refer to Additional Notes / Consult section and Patient seen in Pre Admission Testing Teaching & Discussion Pre-Anesthesia Teaching/Discussion Notes: Instructed NPO after midnight before surgery, except medications with 15 cc of water. Medication instructions provided according to the PAT guidelines. History Surgery Operation Date: 10/05/24 07:45 Proposed Procedures p L4-S1 Decompression and Fusion with Spinal Cord Monitoring - Jose Angel Lewis DO Height/Weight Height: 5 ft 7 in Weight: 96.3 kg Allergies Allergy/AdvReac Type Severity Reaction Status Date / Time clindamycin Allergy Intermediate Hives Verified 09/09/24 10:48 sulfamethoxazole [Bactrim] Allergy Intermediate Hives Verified 09/09/24 10:48 trimethoprim [Bactrim] Allergy Intermediate Hives Verified 09/09/24 10:48 dulaglutide [From Trulicity] AdvReac Intermediate Abdominal Verified 09/09/24 10:48 Pain amoxicillin [From Augmentin] AdvReac Mild Nausea Verified 09/09/24 10:48 clavulanic acid AdvReac Mild N/V Verified 09/09/24 10:48 gabapentin AdvReac Mild Depression Verified 09/09/24 10:48 Medications Home Medications Medication Instructions Recorded Confirmed Last Taken cholecalciferol (vitamin D3) 25 1,000 unit PO QPM 08/12/18 09/09/24 04/27/24 mcg (1,000 unit) capsule (Vitamin D3) cyanocobalamin (vitamin B-12) 1,000 mcg PO QAM 08/12/18 09/09/24 04/27/24 1,000 mcg tablet (Vitamin B-12) docusate sodium 250 mg capsule 250 mg PO BID 08/12/18 09/09/24 04/09/23 (Stool Softener) magnesium 250 mg tablet 250 mg PO QAM 08/12/18 09/09/24 04/27/24 omega-3 fatty acids 500 mg capsule 500 mg PO QAM 08/12/18 09/09/24 04/27/24 CPAP Machine #1 ea 05/06/19 08/24/24 Unknown blood sugar diagnostic (Prodigy No #10 ea 05/06/19 08/24/24 Unknown Coding strips) zinc 50 mg tablet 50 mg PO HS 03/30/20 09/09/24 04/27/24 pen needle, diabetic 32 gauge x #400 ea 10/31/20 08/24/24 Unknown 5/32" (Pen Needle) ipratropium 0.5 mg-albuterol 3 mg 3 ml inhalation Q6H PRN Shortness 12/12/21 09/09/24 04/04/22 (2.5 mg base)/3 mL nebulization Of Breath Or Wheezing soln nitroglycerin 0.4 mg sublingual 0.4 mg sublingual Q5M PRN Chest 09/20/22 09/09/24 Unknown tablet Pain #25 tabs Omnipod 5 G6 Intro Kit (Gen 5) #1 ea 02/19/23 08/24/24 Unknown subcutaneous cartridge with controller (insulin pump cart,auto,BT-cntr) lutein 25 mg-zeaxanthin 5 mg 1 cap PO DAILY 02/19/24 09/09/24 04/27/24 capsule (Ocuvite Blue Light) famotidine 40 mg tablet 40 mg PO BID #180 tabs 03/23/24 09/09/24 04/28/24 06:00 benralizumab 30 mg/mL subcutaneous 30 mg subcut .COMPLEX #1 mL 04/05/24 09/09/24 Unknown auto-injector (Fasenra Pen) aspirin 81 mg capsule 81 mg PO QAM 04/12/24 09/09/24 04/26/24 atenolol 25 mg tablet 25 - 50 mg PO UD 04/12/24 09/09/24 04/27/24 levothyroxine 112 mcg tablet 112 mcg PO QAM 04/12/24 09/09/24 04/28/24 06:00 alprazolam 0.5 mg tablet (Xanax) 0.5 mg PO QAM PRN anxiety #30 tabs 04/23/24 09/09/24 Unknown ferrous sulfate 142 mg (45 mg 142 mg PO QAM 04/27/24 09/09/24 04/27/24 iron) tablet,extended release insulin aspart U-100 100 unit/mL See Rx Instructions subcut DAILY 04/27/24 09/09/24 04/27/24 subcutaneous solution (Novolog #80 mL U-100 Insulin aspart) insulin pump cart,auto,BT,G6/7 #20 ea 04/27/24 08/24/24 Unknown (Omnipod 5 G6-G7 Pods (Gen 5) subcutaneous cartridge) metformin 1,000 mg tablet 1,000 mg PO BID #180 tabs 06/21/24 09/09/24 Unknown venlafaxine 150 mg 150 mg PO QPM #90 caps 06/22/24 09/09/24 Unknown capsule,extended release 24 hr venlafaxine 75 mg capsule,extended 75 mg PO QPM #90 caps 06/22/24 09/09/24 Unknown release 24 hr atorvastatin 40 mg tablet 40 mg PO HS #90 tabs 08/20/24 09/09/24 Unknown mirtazapine 15 mg tablet (Remeron) 15 mg PO HS #90 tabs 08/20/24 09/09/24 Unknown omeprazole 40 mg capsule,delayed 40 mg PO QAM #90 caps 08/20/24 09/09/24 Unknown release solifenacin 10 mg tablet (Vesicare) 10 mg PO HS #90 tabs 08/20/24 09/09/24 Unknown hydrocortisone 2.5 % topical cream 1 applic [place] BID PRN hemorrhoids 09/09/24 09/09/24 Unknown with perineal applicator Past Medical History Medical History (Updated 09/15/24 @ 13:22 by Jane Jones, JANENE) Ascending aorta enlargement hx Carpal tunnel syndrome, right Chronic constipation Fluctations between constipation/loose stools Chronic headaches Degenerative spondylolisthesis Depression with anxiety Diabetic peripheral neuropathy feet DJD (degenerative joint disease), lumbar Dyslipidemia Eosinophilic asthma no current inhaler; f/u dr. [place], [place] Esophageal dysphagia chronic since multiple cervical spine surgeries Gastroparesis due to DM Hiatal hernia History of benign breast biopsy Left History of diverticulosis denies h/o diverticulitis History of DVT (deep vein thrombosis) (~05/2024) Left axillary vein 2024, previously on eliquis History of dysphagia History of endometriosis History of hypertension controlled, stable per pt History of hypothyroidism History of pituitary adenoma Hx of coronary artery disease Mild, non-obstructive per 2016 cardiac cath Hx of gastroesophageal reflux (GERD) controlled, stable per pt Hx of iron deficiency anemia follows with CCP Hx of sleep apnea CPAP-compliant Mediastinal lymphadenopathy 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 Exercise / Class Metabolic Activity III < 4 Walking/Shop/Light housework (shortness of breath with usual activities ongoing since lobectomy-denies chest discomfort-denies change or worsening) Past Family History Family History Brother Family history of diabetes mellitus Sister Cervical cancer Family history of diabetes mellitus Myocardial infarction Mother Family history of diabetes mellitus Myocardial infarction Father Leukemia Myocardial infarction Other No family history of adverse response to anesthesia Denies family history of Ovarian cancer Prostate cancer Breast cancer Colorectal cancer Past Surgical History Surgical History History of appendectomy during hysterectomy History of bronchoscopy x2 History of cardiac cath 2015 ([facility]; no stents) 2008 ([facility]; no stents) History of cataract surgery bilateral History of colonoscopy with polypectomy (2023) History of dilation and curettage History of esophagogastroduodenoscopy (EGD) (2024) History of laparoscopic cholecystectomy History of lobectomy of lung (2011) RML Malignant carcinoid History of tooth extraction History of total abdominal hysterectomy and bilateral salpingo-oophorectomy Hx of colonoscopy (2024) S/P cervical spinal fusion Multiple 10/20/20- C4-C5 ACDF, C5-C6 Assessment of Fusion Mass, C5-C6 Revision Anterior Fusion Iliac Crest Bone Graft Right 2000 [facility]- cadaver bone fused S/P epidural steroid injection Past Anesthesia History No Hx of Anesthesia Complications and Other (sister with PONV) History of PONV No Hx of PONV and No Hx of Motion Sickness Social History Smoking Status: Former smoker tobacco type: cigarettes Do You Dip or Chew Tobacco: No Smoking End Date: years ago Hx Alcohol Use: Yes Alcohol type: hard liquor alcohol intake frequency: holidays/special occasions only Hx Substance Use: No substance use type: does not use Review of Systems Patient denies chest pain, fever, chills, cough, wheezing, or palpitations. Physical Exam Vital Signs Vitals BP 164/77 P 75 TEMP 98.2 SP02 95% on RA RESP 18 Physical Patient resting comfortably in chair in no acute distress, alert and oriented, responding appropriately throughout visit Full cervical extension range of motion without pain TMD 3 finger breadths Mallampati Score 3 Dentition: edentulous, full upper and lower dentures Lungs: normal respiratory effort. Good air movement, clear throughout to auscultation, no adventitious breath sounds Cardiac: regular rate and rhythm, no murmurs noted Carotid arteries: negative bruit bilat Lab Results Anesthesia Preop Results Results Anesthesia Widget: WBC 8.90 K/ul (4.8-10.8) 09/13/24 Hgb 13.4 g/dl (12.0-16.0) 09/13/24 Hct 42.2 % (37.0-47.0) 09/13/24 Plt 235 K/uL (130-400) 09/13/24 Na 138 mmol/L (136-145) 09/15/24 K 4.1 mmol/L (3.5-5.1) 09/15/24 Cl 103 mmol/L (98-107) 09/15/24 CO2 29 mmol/L (21-32) 09/15/24 BUN 7 mg/dl (6-23) 09/15/24 Creat 0.83 mg/dl (0.6-1.2) 09/15/24 Glucose Level 159 mg/dl (70-99(Fasting)) H 09/15/24 PT 10.4 Seconds (9.0-12.0) 09/15/24 PTT 26 Seconds (21-31) 09/15/24 INR 1.0 (0.9-1.1) 09/15/24 TSH 1.197 uIu/ml (0.300-4.500) 08/23/24 Free T4 0.99 ng/dl (0.61-1.60) 08/23/24 HA1c 7.6 % (4.5-5.6) H 08/23/24 Urine Color Yellow 09/15/24 Urine Appearance Clear (Clear) 09/15/24 Urine pH 7.0 (4.5-7.5) 09/15/24 Urine Specific [place] 1.007 (1.000-1.030) 09/15/24 Urine Protein Negative (Negative) 09/15/24 Urine Glucose (UA) Negative (Negative) 09/15/24 Urine Ketones Negative (Negative) 09/15/24 Urine Blood Negative (Negative) 09/15/24 Urine Nitrite Negative (Negative) 09/15/24 Urine Bilirubin Negative (Negative) 09/15/24 Urine Urobilinogen Negative (Negative) 09/15/24 Urine Leukocyte Esterase Trace (Negative) H 09/15/24 Urine WBC (Auto) 0-5 /hpf (0-5) 09/15/24 Urine RBC (Auto) 0-2 /hpf (0-2) 09/15/24 Urine Hyaline Casts (Auto) 0-2 /lpf (0-2) 09/15/24 Urine Epithelial Cells (Auto) 0-2 /hpf (0-2) 09/15/24 Urine Bacteria (Auto) None Seen (None Seen) 09/15/24 Blood Type O Positive 09/15/24 Antibody Screen NEGATIVE 09/15/24 Testing Electrocardiogram Date: 04/22/24 NSR, rate 75 bpm Chest X-Ray Date: 04/22/24 1. Mild right basilar lung atelectasis versus scarring is again seen. 2. Two adjacent nodules are seen in the left lower lung zone, a larger one measuring 7.8 mm (New finding). CT chest correlation is suggested. 3. Mild asymmetric bilateral hilar vascular congestion is seen, more obvious on the right side. 4. No definite consolidation or pleural effusion is seen. 5. Mild degenerative changes in the thoracic spine with levoscoliosis are again seen. Echocardiogram Date: 05/06/22 EF 65-70% No regional wall motion abnormalities Mild cLVH Mildly dilated ascending aorta 4.0 cm Grade I diastolic dysfunction Stress Test Date: 11/14/23 1. Borderline Lexiscan myocardial perfusion study. 2. Mild, apical anterior/septal partially reversible perfusion defect. Suspect artifact in the setting of normal wall motion but cannot rule out distal LAD distribution infarct with small amount of ischemia. 3. Normal LV size and function. LVEF 78% with no regional wall motion abnormalities. 4. Non-diagnostic stress ECG due to inability to reach target HR with Lexiscan. 5. Overall study findings consistent with low risk stress test. Other Testing Brain MRI 08/02/24 1. No acute intracranial findings. 2. 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 3. No change in appearance of the brain since MRI of May 18, 2021. 4. No evidence for metastatic disease on unenhanced exam. Abdomen pelvis CT 05/27/24 1 . No significant abnormality seen in CT scan of abdomen and pelvis. 2 . No abdominopelvic metastatic disease seen. Chest CT 05/27/24 1 . Redemonstration of interval stable bilateral pulmonary nodules. 2 . No new pulmonary nodule noted. 3 . No acute pulmonary infection. 4 . Redemonstration of interval stable hypodense right thyroid nodule. Correlate with ultrasound. US duplex LUE 05/04/34 1. There is acute, occlusive deep venous thrombosis of the left axillary vein. 2. Superficial left basilic vein thrombosis.
[2024-10-05] MEDS: VANCOMYCIN HCL 1,500 MG in SODIUM CHLORIDE 0.9% 500 ML IV SCH (06:19)
[2024-10-05] MEDS: LR 60ML/HR IV SCH (06:22)
[2024-10-05] MEDS: LR 15ML/HR IV SCH (06:22)
[2024-10-05] MEDS: ACETAMINOPHEN 500 MG TAB PO SCH (06:54)
[2024-10-05] MEDS: CeleBREX 200 MG CAP PO SCH (06:54)
[2024-10-05] MEDS ORDERED: DEXAMETHASONE SOD INJ 4 MG/ML VIAL ONE (08:23)
[2024-10-05] MEDS ORDERED: ONDANSETRON INJ 2 MG/ML 2 ML VIAL ONE (08:23)
[2024-10-05] MEDS ORDERED: PROPOFOL IV EMULSION 10 MG/ML 20 ML VIAL IV ONE (08:23)
[2024-10-05] MEDS ORDERED: ROCURONIUM BROMIDE 10 MG/ML 5 ML VIAL IV ONE (08:23)
[2024-10-05] MEDS ORDERED: LIDOCAINE 2% 2 ML VIAL/AMP(20MG/ML) INFIL ONE ×2 (08:23→08:34)
[2024-10-05] MEDS ORDERED: HYDROmorphone INJ 1 MG/ML SYRINGE IV PRN (08:25)
[2024-10-05] MEDS ORDERED: ATROPINE SULFATE 0.1 MG/ML 10ML SYR IV PRN (08:25)
[2024-10-05] MEDS ORDERED: ONDANSETRON INJ 2 MG/ML 2 ML VIAL IV PRN ×2 (08:25→13:11)
[2024-10-05] MEDS ORDERED: SUGAMMADEX SODIUM 200 MG/2 ML VIAL IV ONE (08:35)
--- NOTE | 2024-10-05 08:45 | History & Physical Bridge Note ---
Date of Service October 05, 2024 History & Physical Bridge Note I have examined the patient, reviewed the History & Physical and in the interval since the performance of the History & Physical I have noted the following changes of clinical significance: no changes noted
--- NOTE | 2024-10-05 08:46 | History & Physical Report ---
Date of Service October 05, 2024 Assessment & Plan (1) Two-level lumbosacral spondylosis with radiculopathy: Plan: L4-S1 decompression and fusion possible L3-L4 History of Present Illness Chief Complaint: Back and leg pain Primary Care Provider: Maria D Laboy MD This is a 74-year-old female presents with chronic persistent back and leg pain after failing course of nonoperative care is here for surgical intervention. Allergies Allergy/AdvReac Type Severity Reaction Status Date / Time clindamycin Allergy Intermediate Hives Verified 10/05/24 06:24 sulfamethoxazole [Bactrim] Allergy Intermediate Hives Verified 10/05/24 06:24 trimethoprim [Bactrim] Allergy Intermediate Hives Verified 10/05/24 06:24 dulaglutide [From Trulicity] AdvReac Intermediate Abdominal Verified 10/05/24 06:24 Pain amoxicillin [From Augmentin] AdvReac Mild Nausea Verified 10/05/24 06:24 clavulanic acid AdvReac Mild N/V Verified 10/05/24 06:24 gabapentin AdvReac Mild Depression Verified 10/05/24 06:24 Home Medications Medication Instructions Recorded Confirmed Type cholecalciferol (vitamin D3) 25 1,000 unit PO QPM 08/12/18 10/05/24 History mcg (1,000 unit) capsule (Vitamin D3) cyanocobalamin (vitamin B-12) 1,000 mcg PO QAM 08/12/18 10/05/24 History 1,000 mcg tablet (Vitamin B-12) docusate sodium 250 mg capsule 250 mg PO BID 08/12/18 10/05/24 History (Stool Softener) magnesium 250 mg tablet 250 mg PO QAM 08/12/18 10/05/24 History omega-3 fatty acids 500 mg capsule 500 mg PO QAM 08/12/18 10/05/24 History CPAP Machine #1 ea 05/06/19 09/22/24 Rx blood sugar diagnostic (Prodigy No #10 ea 05/06/19 09/22/24 History Coding strips) zinc 50 mg tablet 50 mg PO HS 03/30/20 10/05/24 History pen needle, diabetic 32 gauge x #400 ea 10/31/20 09/22/24 Rx 5/32" (Pen Needle) ipratropium 0.5 mg-albuterol 3 mg 3 ml inhalation Q6H PRN Shortness 12/12/21 10/05/24 History (2.5 mg base)/3 mL nebulization Of Breath Or Wheezing soln nitroglycerin 0.4 mg sublingual 0.4 mg sublingual Q5M PRN Chest 09/20/22 10/05/24 Rx tablet Pain #25 tabs Omnipod 5 G6 Intro Kit (Gen 5) #1 ea 02/19/23 09/22/24 Rx subcutaneous cartridge with controller (insulin pump cart,auto,BT-cntr) lutein 25 mg-zeaxanthin 5 mg 1 cap PO DAILY 02/19/24 10/05/24 History capsule (Ocuvite Blue Light) benralizumab 30 mg/mL subcutaneous 30 mg subcut .COMPLEX #1 mL 04/05/24 10/05/24 Rx auto-injector (Fasenra Pen) aspirin 81 mg capsule 81 mg PO QAM 04/12/24 10/05/24 History atenolol 25 mg tablet 25 - 50 mg PO UD 04/12/24 10/05/24 History levothyroxine 112 mcg tablet 112 mcg PO QAM 04/12/24 10/05/24 History alprazolam 0.5 mg tablet (Xanax) 0.5 mg PO QAM PRN anxiety #30 tabs 04/23/24 10/05/24 Rx ferrous sulfate 142 mg (45 mg 142 mg PO QAM 04/27/24 10/05/24 History iron) tablet,extended release insulin aspart U-100 100 unit/mL See Rx Instructions subcut DAILY 04/27/24 10/05/24 Rx subcutaneous solution (Novolog #80 mL U-100 Insulin aspart) insulin pump cart,auto,BT,G6/7 #20 ea 04/27/24 09/22/24 Rx (Omnipod 5 G6-G7 Pods (Gen 5) subcutaneous cartridge) metformin 1,000 mg tablet 1,000 mg PO BID #180 tabs 06/21/24 10/05/24 Rx venlafaxine 75 mg capsule,extended 75 mg PO QPM #90 caps 06/22/24 10/05/24 Rx release 24 hr atorvastatin 40 mg tablet 40 mg PO HS #90 tabs 08/20/24 10/05/24 Rx mirtazapine 15 mg tablet (Remeron) 15 mg PO HS #90 tabs 06/20/25 08/05/25 Rx omeprazole 40 mg capsule,delayed 40 mg PO QAM #90 caps 08/20/24 10/05/24 Rx release solifenacin 10 mg tablet (Vesicare) 10 mg PO HS #90 tabs 08/20/24 10/05/24 Rx hydrocortisone 2.5 % topical cream 1 applic [place] BID PRN hemorrhoids 09/09/24 10/05/24 History with perineal applicator famotidine 40 mg tablet (Pepcid) 40 mg PO BID 10/05/24 10/05/24 History venlafaxine 150 mg 150 mg PO QPM 10/05/24 10/05/24 History capsule,extended release 24 hr (Effexor XR) Past Med/Surg History Problem List (Updated 10/05/24 @ 08:46 by Jose Angel Lewis DO) Two-level lumbosacral spondylosis with radiculopathy Sleep apnea CPAP (compliant) CAD (coronary artery disease) Mild, non-obstructive per 2016 cardiac cath Loss of protective sensation of skin of foot Degenerative spondylolisthesis Left lumbar radiculopathy (Acute) Gastroparesis due to DM Lumbar facet joint syndrome Cervical disc disorder at C4-C5 level with myelopathy Pituitary adenoma Iron deficiency anemia Eosinophilic asthma Elevated IgE level Depression with anxiety (Chronic) Diabetic peripheral neuropathy associated with type 2 diabetes mellitus (Chronic) Diverticulosis of colon (Chronic) Dyslipidemia (Chronic) Gastroesophageal reflux disease (Chronic) Hypertension (Chronic) Hypothyroidism (Chronic) Lumbar degenerative disc disease (Chronic) Lumbar radiculopathy (Chronic) Obesity (Chronic) Type 2 diabetes mellitus, with long-term current use of insulin (Chronic) Ascending aorta enlargement Medical History History of diverticulosis Depression with anxiety Hx of coronary artery disease Diabetic peripheral neuropathy Ascending aorta enlargement History of pituitary adenoma Hx of sleep apnea Type 2 diabetes mellitus, with long-term current use of insulin History of hypertension History of hypothyroidism Hx of gastroesophageal reflux (GERD) Dyslipidemia History of dysphagia Gastroparesis due to DM Esophageal dysphagia Eosinophilic asthma Hx of iron deficiency anemia History of DVT (deep vein thrombosis) (~05/2024) DJD (degenerative joint disease), lumbar Degenerative spondylolisthesis Nocturnal hypoxemia Chronic constipation Pseudarthrosis after fusion or arthrodesis Vertigo Carpal tunnel syndrome, right Mediastinal lymphadenopathy Neuroendocrine carcinoma of lung History of benign breast biopsy History of endometriosis Hiatal hernia Post traumatic stress disorder Chronic headaches Surgical History Hx of colonoscopy (2024) S/P epidural steroid injection S/P cervical spinal fusion History of cataract surgery History of tooth extraction History of laparoscopic cholecystectomy History of appendectomy History of dilation and curettage History of total abdominal hysterectomy and bilateral salpingo-oophorectomy History of esophagogastroduodenoscopy (EGD) (2024) History of colonoscopy with polypectomy (2023) History of lobectomy of lung (2011) History of bronchoscopy History of cardiac cath Family History Brother Family history of diabetes mellitus Sister Cervical cancer Family history of diabetes mellitus Myocardial infarction Mother Family history of diabetes mellitus Myocardial infarction Father Leukemia Myocardial infarction Other No family history of adverse response to anesthesia Denies family history of Ovarian cancer Prostate cancer Breast cancer Colorectal cancer Social History Smoking Status: Former smoker Tobacco Type: Cigarettes Age Started Using Tobacco: 18; Age Quit Using Tobacco: 58; packs per day: 1; Smoking End Date: years ago; Second Hand Exposure: Yes (hx growing up); Do You Dip or Chew Tobacco: No; Tobacco Cessation Education Requested by Patient: No Hx Alcohol Use: Yes Alcohol type: hard liquor Alcohol Intake Frequency: 2-3 x/Week Hx Substance Use: No Preferred Language: Bengali Communication Ability: Effective Visual Impairment: No Limitations Hearing Ability: Normal Film Examiner Required: No Beliefs That Will Affect Care: None marital status: Current Living Situation: Spouse and Family current occupational status: retired Other Information That Helps Us Care for You: No Feels Safe at Home: Yes Safety Concerns: Feels Safe At This Time Childhood Exposure to Second-Hand Smoke: Yes Diet: regular Dental Care, Regularly: Yes Physical Activity Frequency: 1-2 Times per Week Seatbelt Use: always Sunscreen Use: Yes Assistive Devices: CPAP, Denture - Upper, Denture - Lower and Glasses Physical Exam Physical Exam: Patient is alert and oriented Heart regular rhythm Lungs clear Results & Data Results & Data Vital Signs (Past 12 Hours) Vital Signs Temp Pulse Resp BP Pulse Ox O2 Del Method 10/05/24 06:35 36.9 C 63 16 161/86 H 94 Room Air
[2024-10-05] MEDS ORDERED: ALBUMIN HUMAN 5% 12.5 GM/250 ML VIAL IV ONE (09:06)
[2024-10-05] MEDS: ceFAZolin 330 MG/ML 1 GM VIAL ONE (10:07)
[2024-10-05] MEDS: BUPIVACAINE/EPINEPHRINE 0.25% 1:200,000 30 ML VIAL ONE (10:07)
[2024-10-05] MEDS ORDERED: ePHEDrine sulfate 50 MG/5 ML SYR ONE (10:13)
[2024-10-05] MEDS ORDERED: PHENYLEPHRINE 100MCG/ML 5ML SYR ONE (10:13)
[2024-10-05] MEDS: FLOSEAL HEMOSTATIC MATRIX 10ML TOP ONE (11:30)
--- NOTE | 2024-10-05 11:44 | Operative Report ---
Post Operative Report Pre & Post Diagnosis Operation Date: 10/05/24 09:05 Pre-Op Diagnosis: #1 lumbar spondylosis with radiculopathy #2 lumbar spondylolisthesis with radiculopathy #3 lumbar disc herniation with radiculopathy #4 lumbar spinal stenosis Post-Op Diagnosis: Same I identified the patient and participated in the time-out.: Yes Procedure Operation Date: 10/05/24 09:05 Actual Procedures #1 lumbar decompression with bilateral medial facetectomies and foraminotomies L3-L4, L4-5 and L5-S1. #2 posterior spinal fusion L4-S1. #3 placed posterior instrumentation L4-S1 using Cobb. #4 interbody fusion L4-L5 L5-S1. #5 posterior Spira 12 x 26 mm x 2 at L4-5 and 11 x 26 mm x 2 at L5-S1. #6 placement locally harvested morselized autograft in the posterior gutters. #7 placement of Proteus combined with Koros in the posterior lateral gutters and os design interspace. #8 application of versa wrap of the exposed dura. Surgeon Jose Angel Lewis, DO Injection Molding Supervisor Cornelius Alex Estimated Blood Loss 400 Findings Consistent with Post-Op Diagnosis Specimens None Indications This is a 74-year-old female who presents above-mentioned diagnosis of failed course of nonoperative care is here for surgical invention. Description of Procedure Patient was met with identified informed consent obtained. Patient was then taken to the operative suite underwent the patient placed in a prone position on the Lorenzo table top of the Gabriel frame. All bony prominences well-padded eyes inspected to ensure no external precipice upon the. This point lumbar spine was prepped and draped in normal sterile fashion. Sharp dissection with the assistance of Bovie cautery from down to and exposing the lamina and transverse processes of L4-5 and the sacral ala bilaterally. From a caudal cephalad fashion complete laminectomy of L5 was performed including bilateral medial facetectomies and foraminotomies addressing severe neural compression. This followed by complete laminectomy of L4 with bilateral medial facetectomies and foraminotomies as well as excision of the foraminal extraforaminal disc on the left. Lastly partial laminectomy of L2-3 with bilateral medial facetectomies to address all subarticular stenosis. Pedicle screws were then placed in L4-L5 and S1 levels bilaterally with assistance of fluoroscopy and appropriate sized corey contoured and placed. By way of transfer approach on the right discectomy of L5-S1 was performed endplates guided to subcortical bleeding bone and then a 11 x 26 mm spiral cage tapped into position. Then proceeded to the left transforaminal region at L5-S1. Again discectomy performed. Endplates guided to subcortical pain bone and a second 11 x 26 mm spiral cage tapped in position. Then proceeded to L4-L5 by way of transforaminal approach left discectomy was performed. Endplates corrected to subcortical bleeding bone and a 12 x 26 mm spiral cage tapped into position. Lastly approached the right transforaminal region at L4-L5. Again discectomy performed. Endplates guided to subcortical bony bone. A second 12 x 26 mm spiral cage tapped in position. All cages were packed with os design bone graft. The rods were then compressed locked in a final position bilaterally. The transverse processes of L4-5 and the sacral ala burred to subcortical being bone. Infuse collagen sponge combined with Proteus and local autograft placed posterolateral gutters. First wrap placed over the exposed dura. 15 round WIL drain inserted. The incision was then closed with 1 Vicryl the fascia 2-0 Vicryl subcutaneously and lastly 4- 0 Monocryl for final skin closure. Steri-Strips sterile dressing placed. Patient waken taken to PACU in stable condition. Please note Cornelius record was present at the entire procedure and on the patient positioning complex portion of the surgery and final skin closure. I attest to the content of the Intraoperative Record and any orders documented therein. Any exceptions are noted below.
[2024-10-05] MEDS ORDERED: METOCLOPRAMIDE HCL INJ 5 MG/ML 2 ML VIAL IV PRN (13:11)
[2024-10-05] MEDS ORDERED: SOD PHOSPHATE/SOD BIPHOSPHATE ENEMA 132 ML BTL PR PRN (13:11)
[2024-10-05] MEDS ORDERED: ALBUT/IPRATROP 3MG/0.5MG NEB 3 ML VIAL INH PRN (13:11)
[2024-10-05] MEDS ORDERED: PHARMACY GLYCEMIC MGMT CONSULT PRN (13:11)
[2024-10-05] MEDS ORDERED: NON-FORMULARY MEDICATION (Cpap Machine misc) SCH (13:11)
[2024-10-05] MEDS ORDERED: NALOXONE HCL 0.4 MG/1 ML VIAL/CARP IV PRN (13:11)
[2024-10-05] MEDS ORDERED: DO NOT ADMINISTER FLU VACCINE PRN (13:11)
[2024-10-05] MEDS ORDERED: MAGNESIUM HYDROXIDE SUSP 30 ML UDC PO PRN (13:11)
[2024-10-05] MEDS ORDERED: ALUMINUM/MAGNESIUM SUSP 30 ML UDC PO PRN (13:11)
[2024-10-05] MEDS ORDERED: FAMOTIDINE 20 MG TAB PO PRN (13:11)
[2024-10-05] MEDS ORDERED: NITROGLYCERIN SL 0.4 MG/TAB TAB SL PRN (13:11)
[2024-10-05] MEDS ORDERED: DO NOT ADMINISTER PNEUMOCOCCAL VACCINE PRN (13:11)
[2024-10-05] MEDS ORDERED: PROMETHAZINE 12.5 MG/50.5 ML BAG IV PRN (13:11)
[2024-10-05] MEDS ORDERED: ACETAMINOPHEN 1,000 MG/100 ML VIAL IV PRN (13:11)
[2024-10-05] MEDS ORDERED: ONDANSETRON 4 MG OD TAB PO PRN (13:11)
[2024-10-05] MEDS ORDERED: diphenhydrAMINE Capsule 25 MG CAP PO PRN (13:11)
--- NOTE | 2024-10-05 13:37 | Anesthesiology Progress Note ---
Date of Service October 05, 2024 Anesthesia Post Procedure Vital Signs Vital Signs: Temp Pulse Pulse Resp BP Pulse Ox O2 Del Method 10/05/24 13:25 36.4 C L 63 16 132/85 93 Nasal Cannula 10/05/24 13:00 36.5 C 68 15 144/84 H 94 Nasal Cannula 10/05/24 12:45 36.5 C 65 15 133/69 92 High Flow Nasal Cannula 10/05/24 12:35 65 15 133/76 92 High Flow Nasal Cannula 10/05/24 12:25 66 14 133/72 92 High Flow Nasal Cannula 10/05/24 12:15 68 16 138/77 93 High Flow Nasal Cannula 10/05/24 12:08 36.4 C L 66 16 136/74 93 High Flow Nasal Cannula 10/05/24 06:35 36.9 C 63 16 161/86 H 94 Room Air O2 Flow Rate 10/05/24 13:25 4 10/05/24 13:00 4 10/05/24 12:45 4 10/05/24 12:35 4 10/05/24 12:25 4 10/05/24 12:15 4 10/05/24 12:08 4 10/05/24 06:35 Pain Intensity Right Leg: Pain Intensity: 8 Transfer of Care Handoff Completed per policy Notes Mental Status: alert / awake / arousable and participated in evaluation Patient Amnestic to Procedure: Yes Nausea / Vomiting: adequately controlled Pain: adequately controlled Airway Patency, RR, SpO2: stable & adequate BP & HR: stable & adequate Hydration State: stable & adequate Anesthetic Complications: no major complications apparent and Pt Satisfied with anesthetic care
--- NOTE | 2024-10-05 13:46 | Hospitalist Consultation ---
Date of Consultation October 05, 2024 Assessment & Plan (1) Two-level lumbosacral spondylosis with radiculopathy: (2) Sleep apnea: (3) CAD (coronary artery disease): (4) Gastroparesis due to DM: (5) Iron deficiency anemia: (6) Eosinophilic asthma: (7) Depression with anxiety: (8) Gastroesophageal reflux disease: (9) Hypertension: (10) Hypothyroidism: Plan 74yo female presented for lumbar decompression/fusion with Dr Lewis 10/05. PMHx significant for DM II, RAGHAVENDRA, HTN, HLD, GERD, anxiety/depression, hypothyroidism, eosinophilic asthma. Hx LUE DVT May 2024, provoked and completed 90 days of eliquis, no longer on since August 2024--Reportedly provoked from BP cuff machine during EGD/colonoscopy, doppler "acute, occlusive DVT L axillary vein, superficial L basilic vein thrombosis". Hx carcinoid tumor of lung, s/p lobectomy in [address] CAP May 2024 negative for recurrence and repeat US doppler w/ resolution in prior DVT. PCP note hx LOWELL w/ normal hgb/hct but depending blood loss, may benefit from iron transfusion (GI eval/note from 08/24 w/ neg EGD/colon, agree w/ IV iron transfusion/follow w/ hematology and if LOWELL persists, consider referral for video capsule endoscopy) #Lumbar stenosis with radiculopathy s/p #1 lumbar decompression with bilateral medial facetectomies and foraminotomies L3-L4, L4-5 and L5-S1. #2 posterior spinal fusion L4-S1. #3 placed posterior instrumentation L4-S1 using Cobb. #4 interbody fusion L4-L5 L5-S1. #5 posterior Spira 12 x 26 mm x 2 at L4-5 and 11 x 26 mm x 2 at L5-S1. #6 placement locally harvested morselized autograft in the posterior gutters. #7 placement of Proteus combined with Koros in the posterior lateral gutters and os design interspace. #8 application of versa wrap of the exposed dura with Dr Lewis 10/05 EBL 400cc Dexamethasone 6mg IV daily per primary service Ancef merritt-operative abx Pain control, bowel regimen, PT/OT, DVT proph per primary service Labs in AM, check iron studies/consider iron transfusion given hx LOWELL/PCP pre-op note # DM II - A1c reasonable control at 7.6. on metformin 1gm BID, insulin at baseline BSG AC/HS, sliding scale while inpatient Basal 1.7 w/ omnipod in place Pharmacy on consult for glycemic while inpatient #CAD- hx non-obstructive CAD. Continues on aspirin 81mg, Atenolol 50mg QAM/25mg PM, Lipitor 40mg #GERD- recent neg EGD/colon Continue PPI/pepcid. Monitor for any issues #Hypothyroidism- recent TSH this summer wnl. Continue levothyroxine 112mcg PO daily #Anxiety/Depression- mood stable Continue home meds, venlafaxine, remeron, ativan as needed #Eosinophilic Asthma- on nebs/Fasenra, follows w/ pulm Last Fasenra in August ,not August - Due later this month. Outpatient follow up Continue nebs/incentive spirometer Monitor for any issues Hx DVT - earlier this year, provoked per HPI and completed 3 months eliquis therapy, no longer on. SCDs, nidhi martinez ordered, ambulation encouraged Dispo: continued inpatient stay Thank you for allowing hospitalist service participate in the care of Ms Dumont. Will follow along in AM. Please call with any questions/concerns. Supervising Physician Co-Signing Physician Notes The patient was seen by me. The chart was reviewed. Case discussed with ALICE Yuan. Agree with assessment and plan History of Present Illness Reason for Consultation: medical management Requesting Physician: Dr Lewis Attending Physician: Jose Angel Lewis, DO History of Present Illness 74yo female presented for lumbar decompression/fusion with Dr Lewis 10/05. EBL 400cc PMHx significant for DM II, RAGHAVENDRA, HTN, HLD, GERD, anxiety/depression, hypothyroidism, eosinophilic asthma (on fasenra), carcinoid tumor of lung (s/p lobectomy 2013, recent CT w/o recurrence). Remote hx provoked LUE DVT May 2024 from BP cuff during EGD/colonoscopy and completed 3 months Eliquis and repeat doppler w resolution in prior DVT. Eval in 306, at bedside. On supplemental O2 post-operatively. Reports third back surgery for her, discussed course. Uncomfortable in bed, repositioned with nursing but requesting something for pain and will discuss/have nursing provide. Having some tingling in her legs but sensation to touch/pressure intact. Prior to admission/surgery was having difficulty with her LLE with even putting underwear on and unable to lift her leg up. Has been pumping her legs. No fever/chills, chest pain/shortness of breath. No nausea/vomiting at this t agatha. Therapy to eval in AM, bowel regimen in place. Reports having initially planned for surgery in May but was delayed due to DVT. Has nerve device machine in closet - RN to message primary about use if appropriate as I am unfamiliar with this but she has had since initial surgery was planned. No blood in stool/epigastric discomfort but will check iron studies/provide venofer if needed. She is to be on oral iron but does admit gives her GI upset and maybe takes it every 2-3 days. Hx DM II, pituitary adenoma as well, follows with Endocrinology. Has omni-pod to her R arm, basal 1.7 and gives bolus for mealtime coverage, pharmacy consulted while inpatient. Hx smoking, none recently. Rare wine cooler. Full code. Home meds reviewed. Questions/concerns addressed at this time. Allergies Allergy/AdvReac Type Severity Reaction Status Date / Time clindamycin Allergy Intermediate Hives Verified 10/05/24 06:24 sulfamethoxazole [Bactrim] Allergy Intermediate Hives Verified 10/05/24 06:24 trimethoprim [Bactrim] Allergy Intermediate Hives Verified 10/05/24 06:24 dulaglutide [From Trulicity] AdvReac Intermediate Abdominal Verified 10/05/24 06:24 Pain amoxicillin [From Augmentin] AdvReac Mild Nausea Verified 10/05/24 06:24 clavulanic acid AdvReac Mild N/V Verified 10/05/24 06:24 gabapentin AdvReac Mild Depression Verified 10/05/24 06:24 Home Medications Medication Instructions Recorded Confirmed Type cholecalciferol (vitamin D3) 25 1,000 unit PO QPM 08/12/18 10/05/24 History mcg (1,000 unit) capsule (Vitamin D3) cyanocobalamin (vitamin B-12) 1,000 mcg PO QAM 08/12/18 10/05/24 History 1,000 mcg tablet (Vitamin B-12) docusate sodium 250 mg capsule 250 mg PO BID 08/12/18 10/05/24 History (Stool Softener) magnesium 250 mg tablet 250 mg PO QAM 08/12/18 10/05/24 History omega-3 fatty acids 500 mg capsule 500 mg PO QAM 08/12/18 10/05/24 History CPAP Machine #1 ea 05/06/19 09/22/24 Rx blood sugar diagnostic (Prodigy No #10 ea 05/06/19 09/22/24 History Coding strips) zinc 50 mg tablet 50 mg PO HS 03/30/20 10/05/24 History pen needle, diabetic 32 gauge x #400 ea 10/31/20 09/22/24 Rx 5/32" (Pen Needle) ipratropium 0.5 mg-albuterol 3 mg 3 ml inhalation Q6H PRN Shortness 12/12/21 10/05/24 History (2.5 mg base)/3 mL nebulization Of Breath Or Wheezing soln nitroglycerin 0.4 mg sublingual 0.4 mg sublingual Q5M PRN Chest 09/20/22 10/05/24 Rx tablet Pain #25 tabs Omnipod 5 G6 Intro Kit (Gen 5) #1 ea 02/19/23 09/22/24 Rx subcutaneous cartridge with controller (insulin pump cart,auto,BT-cntr) lutein 25 mg-zeaxanthin 5 mg 1 cap PO DAILY 02/19/24 10/05/24 History capsule (Ocuvite Blue Light) benralizumab 30 mg/mL subcutaneous 30 mg subcut .COMPLEX #1 mL 04/05/24 10/05/24 Rx auto-injector (Fasenra Pen) aspirin 81 mg capsule 81 mg PO QAM 04/12/24 10/05/24 History atenolol 25 mg tablet 25 - 50 mg PO UD 04/12/24 10/05/24 History levothyroxine 112 mcg tablet 112 mcg PO QAM 04/12/24 10/05/24 History alprazolam 0.5 mg tablet (Xanax) 0.5 mg PO QAM PRN anxiety #30 tabs 04/23/24 10/05/24 Rx ferrous sulfate 142 mg (45 mg 142 mg PO QAM 04/27/24 10/05/24 History iron) tablet,extended release insulin aspart U-100 100 unit/mL See Rx Instructions subcut DAILY 04/27/24 10/05/24 Rx subcutaneous solution (Novolog #80 mL U-100 Insulin aspart) insulin pump cart,auto,BT,G6/7 #20 ea 04/27/24 09/22/24 Rx (Omnipod 5 G6-G7 Pods (Gen 5) subcutaneous cartridge) metformin 1,000 mg tablet 1,000 mg PO BID #180 tabs 06/21/24 10/05/24 Rx venlafaxine 75 mg capsule,extended 75 mg PO QPM #90 caps 06/22/24 10/05/24 Rx release 24 hr atorvastatin 40 mg tablet 40 mg PO HS #90 tabs 08/20/24 10/05/24 Rx mirtazapine 15 mg tablet (Remeron) 15 mg PO HS #90 tabs 08/20/24 10/05/24 Rx omeprazole 40 mg capsule,delayed 40 mg PO QAM #90 caps 08/20/24 10/05/24 Rx release solifenacin 10 mg tablet (Vesicare) 10 mg PO HS #90 tabs 08/20/24 10/05/24 Rx hydrocortisone 2.5 % topical cream 1 applic MD BID PRN hemorrhoids 09/09/24 10/05/24 History with perineal applicator famotidine 40 mg tablet (Pepcid) 40 mg PO BID 10/05/24 10/05/24 History venlafaxine 150 mg 150 mg PO QPM 10/05/24 10/05/24 History capsule,extended release 24 hr (Effexor XR) Patient History Medical History History of diverticulosis denies h/o diverticulitis Depression with anxiety Hx of coronary artery disease Mild, non-obstructive per 2016 cardiac cath Diabetic peripheral neuropathy feet Ascending aorta enlargement hx History of pituitary adenoma Hx of sleep apnea CPAP-compliant Type 2 diabetes mellitus, with long-term current use of insulin History of hypertension controlled, stable per pt History of hypothyroidism Hx of gastroesophageal reflux (GERD) controlled, stable per pt Dyslipidemia History of dysphagia Gastroparesis due to DM Esophageal dysphagia chronic since multiple cervical spine surgeries Eosinophilic asthma no current inhaler; f/u 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) no chemo or XRT History of benign breast biopsy Left History of endometriosis Hiatal hernia Post traumatic stress disorder Chronic headaches Surgical History Hx of colonoscopy (2024) S/P epidural steroid injection S/P cervical spinal fusion Multiple 10/20/20- C4-C5 ACDF, C5-C6 Assessment of Fusion Mass, C5-C6 Revision Anterior Fusion Iliac Crest Bone Graft Right 2000 [facility]- cadaver bone fused History of cataract surgery bilateral History of tooth extraction History of laparoscopic cholecystectomy History of appendectomy during hysterectomy History of dilation and curettage History of total abdominal hysterectomy and bilateral salpingo-oophorectomy History of esophagogastroduodenoscopy (EGD) (2024) History of colonoscopy with polypectomy (2023) History of lobectomy of lung (2011) RML Malignant carcinoid History of bronchoscopy x2 History of cardiac cath 2015 ([facility]; no stents) 2008 ([facility]; no stents) Family History Brother Family history of diabetes mellitus Sister Cervical cancer Family history of diabetes mellitus Myocardial infarction Mother Family history of diabetes mellitus Myocardial infarction Father Leukemia Myocardial infarction Other No family history of adverse response to anesthesia Denies family history of Ovarian cancer Prostate cancer Breast cancer Colorectal cancer Social History Smoking Status: Former smoker Tobacco Type: Cigarettes Age Started Using Tobacco: 18; Age Quit Using Tobacco: 58; packs per day: 1; Smoking End Date: years ago; Second Hand Exposure: Yes (hx growing up); Do You Dip or Chew Tobacco: No; Tobacco Cessation Education Requested by Patient: No Hx Alcohol Use: Yes Alcohol type: other Alcohol type Comment: RARE wine cooler use Alcohol Intake Frequency: Monthly or Less Hx Substance Use: No Preferred Language: Macedonian Communication Ability: Effective Visual Impairment: No Limitations Hearing Ability: Normal Human Resources Partner Required: No Beliefs That Will Affect Care: None marital status: Current Living Situation: Spouse and Family current occupational status: retired Other Information That Helps Us Care for You: No Feels Safe at Home: Yes Safety Concerns: Feels Safe At This Time Childhood Exposure to Second-Hand Smoke: Yes Diet: regular Dental Care, Regularly: Yes Physical Activity Frequency: 1-2 Times per Week Seatbelt Use: always Sunscreen Use: Yes Assistive Devices: CPAP, Denture - Upper, Denture - Lower and Glasses Physical Exam Physical Exam: General: 74yo female sitting up in bed post-op, in room, mild-moderately uncomfortable with position changes to her low back HEENT: head atraumatic, normocephalic, mmm, trachea midline Resp: even/unlabored, slightly diminished in the bases, no wheezing/rales, on NC post-operatively CV: RRR, no significant m/r/g, no pitting edema, pulses present, cap refill wnl, SCDs in place GI: +BS, soft/obese, nontender ; temple draining yellow urine MSk/Neuro: dressing to lumbar spine, +tenderness, WIL w/ bloody drainage ~60- 75cc, dorsiflexion/plantar flexion intact, slightly decreased onthe left compared to the right (reports issues L leg prior to admission) Results & Data Results & Data Vital Signs (Past 12 Hours) Vital Signs Temp Pulse Pulse Resp BP Pulse Ox O2 Del Method 10/05/24 13:25 36.4 C L 63 16 132/85 93 Nasal Cannula 10/05/24 13:00 36.5 C 68 15 144/84 H 94 Nasal Cannula 10/05/24 12:45 36.5 C 65 15 133/69 92 High Flow Nasal Cannula 10/05/24 12:35 65 15 133/76 92 High Flow Nasal Cannula 10/05/24 12:25 66 14 133/72 92 High Flow Nasal Cannula 10/05/24 12:15 68 16 138/77 93 High Flow Nasal Cannula 10/05/24 12:08 36.4 C L 66 16 136/74 93 High Flow Nasal Cannula 10/05/24 06:35 36.9 C 63 16 161/86 H 94 Room Air O2 Flow Rate 10/05/24 13:25 4 10/05/24 13:00 4 10/05/24 12:45 4 10/05/24 12:35 4 08/05/25 12:25 4 10/05/24 12:15 4 10/05/24 12:08 4 10/05/24 06:35 Diagnostic Findings Lumbar Spine X-Ray 10/05/24 09:05 FL lumbar spine 2-3V CLINICAL HISTORY: L4-S1 DECOMPRESSION/FUSION COMPARISON STUDY: Lumbar spine MRI January 28, 2024. Fluoroscopy time: 22 seconds. Number of fluoroscopic images: 2 Ka,r: 22.49 mGy. Findings: Fluoroscopy was provided during L4-S1 decompression and fusion. There are bilateral pedicle screws at the L4, L5 and S1 levels with interbody spacers at the L4-L5 and L5-S1 levels. An elongated radiodensity projecting to the right of the operative bed on the second image is likely on the patient. IMPRESSION: Fluoroscopy provided during L4-S1 decompression and fusion. ACT 112: Negative or not required by law. Electronically signed by: Alexsander Moreno M.D. 10/05/2024 1:43 PM PG Care Time/CCT Total # of Minutes Spent Total Time Spent with Patient: Total time spent is greater than 50% in coordination of care (as documented) at patient's floor/unit and/or counseling patient: Coding Level of Care Code 32756 IN/OBS CONSULT LVL 3,45M Diagnoses Two-level lumbosacral spondylosis with radiculopathy M47.27 Sleep apnea G47.30 CAD (coronary artery disease) I25.10 Gastroparesis due to DM E11.43; K31.84 Iron deficiency anemia D50.9 Eosinophilic asthma J82 Depression with anxiety F41.8 Gastroesophageal reflux disease K21.9 Hypertension I10 Hypothyroidism E03.9
[2024-10-05] MEDS: LACTATED RINGER'S 1,000 ML IV SCH (13:52)
[2024-10-05] MEDS ORDERED: DEXTROSE 50% 50 ML SYRINGE IV PRN (14:00)
[2024-10-05] MEDS ORDERED: GLUCAGON FOR INJ 1 MG VIAL SQ PRN (14:00)
[2024-10-05] MEDS ORDERED: GLUCOSE 40% GEL 15 GM TUBE PO PRN (14:00)
[2024-10-05] MEDS ORDERED: CARBOHYDRATES FOR HYPOGLYCEMIA PO PRN (14:00)
[2024-10-05] MEDS ORDERED: GLUCOSE 10 TAB/TUBE PO PRN (14:00)
[2024-10-05] MEDS ORDERED: ACETAMINOPHEN 500 MG TAB PO PRN (14:00)
[2024-10-05] MEDS ORDERED: INSULIN ASPART 100 UNITS/ML VIAL SC PRN (14:15)
[2024-10-05] MEDS: LORazepam 0.5 MG TAB PO PRN (14:23)
[2024-10-05] MEDS: HYDROmorphone INJ 0.5 MG/0.5 ML SYR IV PRN (14:23)
[2024-10-05] MEDS: INSULIN, Rapid-Acting PUMP SCH (14:56)
[2024-10-05] MEDS: Continuous Glucose Monitor SCH (15:14)
[2024-10-05] MEDS: ATENOLOL 25 MG TABLET PO SCH (20:20)
[2024-10-05] MEDS: ATORVASTATIN 40 MG TAB PO SCH (20:21)
[2024-10-05] MEDS: CHOLECALCIFEROL 25 MCG (1000 UNITS) TAB PO SCH (20:21)
[2024-10-05] MEDS: FAMOTIDINE 20 MG TAB PO SCH (20:24)
[2024-10-05] MEDS: DOCUSATE SODIUM/SENNA 50/8.6MG TAB PO SCH (20:24)
[2024-10-05] MEDS: MIRTAZAPINE TAB 15 MG TAB PO SCH (20:25)
[2024-10-05] MEDS: OXYBUTYNIN CHLORIDE XL 5 MG TABCR PO SCH (20:25)
[2024-10-05] MEDS: VENLAFAXINE HCL XR 150 MG CAPXR PO SCH (20:25)
[2024-10-05] MEDS: VENLAFAXINE HCL XR 75 MG CAPXR PO SCH (20:25)
[2024-10-05] MEDS: ZINC SULFATE 220 MG CAPSULE PO SCH (20:26)
[2024-10-05] MEDS ORDERED: NON-FORMULARY MEDICATION (Docusate Sodium [Stool Softener] 250 mg Capsule) PO SCH (21:00)
[2024-10-06] MEDS: LEVOTHYROXINE SODIUM 112 MCG TABLET PO SCH (06:24)
[2024-10-06] MEDS: POLYETHYLENE (MIRALAX) 17 GM PACK PO SCH (06:24)
[2024-10-06 07:36] LABS: Hematocrit (blood only) 32.5 % (37.0-47.0); Hemoglobin 10.4 g/dl (12.0-16.0); Mean Corpuscular Hemoglobin 26.1 pg (25.0-34.0); Mean Corpuscular Volume 81.7 fL (80.0-100.0); Platelet Count 177 K/uL (130-400); RDW Standard Deviation 67.3 fL (36.4-46.3); Red Blood Count 3.98 M/uL (4.20-5.40); White Blood Count 9.39 K/ul (4.8-10.8)
[2024-10-06 07:42] LABS: Anion Gap 6.0 (3-11); Blood Urea Nitrogen 10.0 mg/dl (6-23); Calcium 8.2 mg/dl (8.6-10.3); Carbon Dioxide 29.0 mmol/L (21-32); Chloride 103.0 mmol/L (98-107); Creatinine Clr Calc Pharmacy 72.5 ml/min; Glucose 133.0 mg/dl (70-99(Fasting)); Iron 26.0 mcg/dl (35-150); Magnesium 1.8 mg/dl (1.7-2.4); Potassium 4.0 mmol/L (3.5-5.1); Sodium 138.0 mmol/L (136-145); Total Iron Binding Cap Calc 267.0 mcg/dl (250-450); Transferrin 191.0 mg/dl (200-360); Transferrin (FE) Percent Satur 10.0 % (15-50)
[2024-10-06 07:48] LABS: Anisocytosis Present; Immature Granulocytes # (auto) 0.04 K/uL (0.01-0.20); Immature Granulocytes % (auto) 0.4 %
[2024-10-06] MEDS: MAGNESIUM OXIDE 400 MG TAB PO SCH (07:54)
[2024-10-06] MEDS: CYANOCOBALAMIN (B-12) 500 MCG TABLET PO SCH (07:54)
[2024-10-06] MEDS: ATENOLOL 25 MG TABLET PO SCH (07:54)
[2024-10-06] MEDS: ASPIRIN 81 MG ECTAB PO SCH (07:55)
[2024-10-06] MEDS: CEROVITE ADV FORMULA TAB PO SCH (07:55)
[2024-10-06] MEDS: dexAMETHasone 6 MG in SYRINGE 0 ML IV SCH (07:57)
[2024-10-06 08:01] LABS: Ferritin 61.9 ng/ml (8-388)
--- NOTE | 2024-10-06 08:25 | Hospitalist Progress Note ---
Date of Service October 06, 2024 Assessment & Plan (1) Two-level lumbosacral spondylosis with radiculopathy: (2) Iron deficiency anemia: (3) Hypertension: (4) CAD (coronary artery disease): (5) Sleep apnea: (6) Gastroparesis due to DM: (7) Eosinophilic asthma: (8) Depression with anxiety: (9) Gastroesophageal reflux disease: (10) Hypothyroidism: Plan 74yo female presented for lumbar decompression/fusion with Dr Lewis 10/05. PMHx significant for DM II, RAGHAVENDRA, HTN, HLD, GERD, anxiety/depression, hypothyroidism, eosinophilic asthma. Hx LUE DVT May 2024, provoked and completed 90 days of eliquis, no longer on since August 2024--Reportedly provoked from BP cuff machine during EGD/colonoscopy, doppler "acute, occlusive DVT L axillary vein, superficial L basilic vein thrombosis". Hx carcinoid tumor of lung, s/p lobectomy in [address] CAP May 2024 negative for recurrence and repeat US doppler w/ resolution in prior DVT. PCP note hx LOWELL w/ normal hgb/hct but depending blood loss, may benefit from iron transfusion (GI eval/note from 08/24 w/ neg EGD/colon, agree w/ IV iron transfusion/follow w/ hematology and if LOWELL persists, consider referral for video capsule endoscopy) #Lumbar stenosis with radiculopathy s/p #1 lumbar decompression with bilateral medial facetectomies and foraminotomies L3-L4, L4-5 and L5-S1. #2 posterior spinal fusion L4-S1. #3 placed posterior instrumentation L4-S1 using Cobb. #4 interbody fusion L4-L5 L5-S1. #5 posterior Spira 12 x 26 mm x 2 at L4-5 and 11 x 26 mm x 2 at L5-S1. #6 placement locally harvested morselized autograft in the posterior gutters. #7 placement of Proteus combined with Koros in the posterior lateral gutters and os design interspace. #8 application of versa wrap of the exposed dura with Dr Lewis 10/05 Dexamethasone 6mg IV daily, given ancef merritt-operatively WBC 9k, afebrile. Hgb 13.4 --> 10.4, acute blood loss anemia from surgery as well as dilutional aspect from IVF suspected along w/ underlying LOWELL (not compliant w/ daily PO supplementation 2nd to GI upset). EBL w/ surgery 400cc, WIL output 220cc + 15cc and monitoring -Iron studies checked and iron low 26, transferrin 191L, transferrin % sat low 10% and ferritin 61.9 -Venofer 300mg IV x 2 ordered, can complete 3rd dose inpatient Friday pending continued inpatient stay Continue post-op orders per primary regarding pain control, bowel regimen, PT/OT/DVT prophylaxis Continued inpatient stay, will follow # DM II - A1c reasonable control at 7.6. on metformin 1gm BID, insulin at baseline BSG AC/HS, sliding scale while inpatient Basal 1.7 w/ omnipod in place -- made adjustment with German from Endocrinology yesterday and reports sugars have been decent. Monitor for any issues/touch base w/ Endo if needed #CAD- hx non-obstructive CAD and no CP/SOB reported Continues on aspirin 81mg, Atenolol 50mg QAM/25mg PM, Lipitor 40mg. #GERD- recent neg EGD/colon and no issues reported Remains on PPI/pepcid. #Hypothyroidism- recent TSH this summer wnl. Continue levothyroxine 112mcg PO daily #Anxiety/Depression- mood stable during exam, pleasant/cooperative Continue home meds, venlafaxine, remeron, ativan as needed #Eosinophilic Asthma- on nebs/Fasenra, follows w/ pulm. Reports last Fasenra received in August (not August) and due for it later this month Continues w/ breathing treatments Titrated to RA post-op, continued incentive spirometer Outpatient follow up Hx DVT - earlier this year, provoked per HPI and completed 3 months eliquis therapy, no longer on. SCDsnidhi ordered, ambulation encouraged. Pulses present/no calf tenderness Dispo: continued inpatient stay, dc per primary service likely later this week Hospitalist service will follow along while inpatient. Please call with any questions/concerns. Admission and Anticipated Discharge Date Admission Date: October 05, 2024 Supervising Physician Co-Signing Physician Notes The patient was not seen by me. The chart was reviewed. Case discussed with ALICE Yuan. Agree with assessment and plan Subjective Evaluated this morning, sitting up in bed. Appears MUCH improved. Pain controlled with ordered medications but pain w/ movement to back/paraspinal muscles. WIL emptied this morning, Venofer ordered as discussed. NO CP, SOB reported. Titrated to room air. Leg symptoms improved, stable, has been ambulating the halls this morning. Questions/concerns addressed at this time. Physical Exam Physical Exam: General: 74yo female sitting up in bed, NAD upon entry, appears MUCH improved compared to yesterday HEENT: head atraumatic, normocephalic, mm slightly DRY (provided with drink), trachea midline Resp: even/unlabored, slightly diminished in the bases, no wheezing/rales, titrated to room air CV: RRR, no significant m/r/g, no pitting edema, pulses present, cap refill wnl, SCDs in place GI: +BS, soft/obese, nontender ; temple draining yellow urine MSk/Neuro: dressing to lumbar spine c/d/i, no shadowing/bleeding through observed, +tender around incision/paraspinal muscles, dorsiflexion/plantar flexion intact, slightly decreased onthe left compared to the right (reports issues L leg prior to admission) but improved from day prior WIL output ~25cc blood drainage Psych: AOx3, cooperative/pleasant during encounter Results & Data Results & Data Vital Signs (Past 12 Hours) Vital Signs Temp Pulse Pulse Resp BP Pulse Ox O2 Del Method 10/06/24 07:23 36.4 C L 69 20 131/80 98 Nasal Cannula 10/06/24 05:43 36.8 C 71 16 128/69 98 Nasal Cannula 10/06/24 03:00 36.7 C 70 18 98 Nasal Cannula 10/05/24 23:26 36.7 C 62 16 122/74 97 Nasal Cannula 10/05/24 21:00 Nasal Cannula O2 Flow Rate 10/06/24 07:23 2 10/06/24 05:43 4 10/06/24 03:00 4 10/05/24 23:26 4 10/05/24 21:00 4 Laboratory Results 10/06/24 10/06/24 10/05/24 Range/Units 07:38 06:34 15:05 WBC 9.39 (4.8-10.8) K/ul RBC 3.98 L (4.20-5.40) M/uL Hgb 10.4 L (12.0-16.0) g/dl Hct 32.5 L (37.0-47.0) % MCV 81.7 (80.0-100.0) fL MCH 26.1 (25.0-34.0) pg MCHC 32.0 (32.0-36.0) g/dL RDW Std Deviation 67.3 H (36.4-46.3) fL RDW Coeff of [place] 23.1 H (11.5-14.5) % Plt Count 177 (130-400) K/uL Immature Gran % (Auto) 0.4 % Neut % (Auto) 69.4 % Lymph % (Auto) 20.2 % [place] % (Auto) 9.7 % Eos % (Auto) 0.0 % Baso % (Auto) 0.3 % Neut # (Auto) 6.51 H (1.40-6.50) K/uL Lymph # (Auto) 1.90 (1.20-3.40) K/uL [place] # (Auto) 0.91 H (0.11-0.59) K/uL Eos # (Auto) 0.00 (0.00-0.50) K/uL Baso # (Auto) 0.03 (0.00-0.20) K/uL Immature Gran # (Auto) 0.04 (0.01-0.20) K/uL Anisocytosis Present Sodium 138 (136-145) mmol/L Potassium 4.0 (3.5-5.1) mmol/L Chloride 103 (98-107) mmol/L Carbon Dioxide 29 (21-32) mmol/L Anion Gap 6 (3-11) BUN 10 (6-23) mg/dl Creatinine 0.81 (0.6-1.2) mg/dl Est Cr Clr Drug Dosing 72.5 ml/min eGFR 76.13 BUN/Creatinine Ratio 12.3 (10-20) Glucose 133 H (70-99(Fasting)) mg/dl POC Glucose 160 H 201 H (70-99) mg/dl Calcium 8.2 L (8.6-10.3) mg/dl Magnesium 1.8 (1.7-2.4) mg/dl Iron 26 L (35-150) mcg/dl TIBC 267 (250-450) mcg/dl Transferrin 191 L (200-360) mg/dl Transferrin % Sat 10 L (15-50) % Ferritin 61.9 (8-388) ng/ml Hepatitis C Ab Screen (Negative) Blood Type Antibody Screen 10/05/24 10/05/24 10/05/24 Range/Units 14:00 12:06 06:11 WBC (4.8-10.8) K/ul RBC (4.20-5.40) M/uL Hgb (12.0-16.0) g/dl Hct (37.0-47.0) % MCV (80.0-100.0) fL MCH (25.0-34.0) pg MCHC (32.0-36.0) g/dL RDW Std Deviation (36.4-46.3) fL RDW Coeff of Alyssa (11.5-14.5) % Plt Count (130-400) K/uL Immature Gran % (Auto) % Neut % (Auto) % Lymph % (Auto) % [place] % (Auto) % Eos % (Auto) % Baso % (Auto) % Neut # (Auto) (1.40-6.50) K/uL Lymph # (Auto) (1.20-3.40) K/uL [place] # (Auto) (0.11-0.59) K/uL Eos # (Auto) (0.00-0.50) K/uL Baso # (Auto) (0.00-0.20) K/uL Immature Gran # (Auto) (0.01-0.20) K/uL Anisocytosis Sodium (136-145) mmol/L Potassium (3.5-5.1) mmol/L Chloride (98-107) mmol/L Carbon Dioxide (21-32) mmol/L Anion Gap (3-11) BUN (6-23) mg/dl Creatinine (0.6-1.2) mg/dl Est Cr Clr Drug Dosing ml/min eGFR BUN/Creatinine Ratio (10-20) Glucose (70-99(Fasting)) mg/dl POC Glucose 166 H (70-99) mg/dl Calcium (8.6-10.3) mg/dl Magnesium (1.7-2.4) mg/dl Iron (35-150) mcg/dl TIBC (250-450) mcg/dl Transferrin (200-360) mg/dl Transferrin % Sat (15-50) % Ferritin (8-388) ng/ml Hepatitis C Ab Screen Negative (Negative) Blood Type O Positive Antibody Screen NEGATIVE PG Care Time/CCT Total # of Minutes Spent Total Time Spent with Patient: Total time spent is greater than 50% in coordination of care (as documented) at patient's floor/unit and/or counseling patient: Coding Level of Care Code 56090 SUB INP/OBS CARE 3/50MIN Diagnoses Two-level lumbosacral spondylosis with radiculopathy M47.27 Iron deficiency anemia D50.9 Hypertension I10 CAD (coronary artery disease) I25.10 Sleep apnea G47.30 Gastroparesis due to DM E11.43; K31.84 Eosinophilic asthma J82 Depression with anxiety F41.8 Gastroesophageal reflux disease K21.9 Hypothyroidism E03.9
[2024-10-06] MEDS ORDERED: FERROUS SULFATE 325 MG TAB PO SCH (09:00)
[2024-10-06] MEDS ORDERED: INSULIN ASPART PER UNIT CHARGE SQ SCH (09:00)
--- NOTE | 2024-10-06 09:11 | Orthopedic Progress Note ---
Date of Service October 06, 2024 Assessment & Plan (1) Two-level lumbosacral spondylosis with radiculopathy: Plan: At this time we will continue physical therapy monitor her WIL operatively discharge home in next few days. Admission and Anticipated Discharge Date Admission Date: October 05, 2024 Subjective Back pain controlled leg pain markedly improved. She is tolerating physical therapy. Physical Exam Physical Exam: Patient is currently in bed. Is good strength testing. Appears comfortable. Results & Data Vital Signs (Past 12 Hours) Vital Signs Temp Pulse Pulse Resp BP Pulse Ox O2 Del Method 10/06/24 07:23 36.4 C L 69 20 131/80 98 Nasal Cannula 10/06/24 05:43 36.8 C 71 16 128/69 98 Nasal Cannula 10/06/24 03:00 36.7 C 70 18 98 Nasal Cannula 10/05/24 23:26 36.7 C 62 16 122/74 97 Nasal Cannula O2 Flow Rate 10/06/24 07:23 2 10/06/24 05:43 4 10/06/24 03:00 4 10/05/24 23:26 4 Queries Orthopedic Spine Obesity: Yes
[2024-10-06] MEDS: IRON SUCROSE 300 MG in SODIUM CHLORIDE 0.9% 250 ML IV SCH (09:16)
[2024-10-06] MEDS: HYDROmorphone INJ 1 MG/ML SYRINGE IV PRN (11:35)
[2024-10-07 07:15] LABS: Hematocrit (blood only) 33.0 % (37.0-47.0); Hemoglobin 10.5 g/dl (12.0-16.0); Mean Corpuscular Hemoglobin 26.0 pg (25.0-34.0); Mean Corpuscular Volume 81.7 fL (80.0-100.0); Platelet Count 184 K/uL (130-400); RDW Standard Deviation 67.9 fL (36.4-46.3); Red Blood Count 4.04 M/uL (4.20-5.40); White Blood Count 9.57 K/ul (4.8-10.8)
[2024-10-07 07:16] LABS: Anion Gap 6.0 (3-11); Blood Urea Nitrogen 10.0 mg/dl (6-23); Calcium 8.7 mg/dl (8.6-10.3); Carbon Dioxide 28.0 mmol/L (21-32); Chloride 102.0 mmol/L (98-107); Creatinine Clr Calc Pharmacy 68.3 ml/min; Glucose 177.0 mg/dl (70-99(Fasting)); Magnesium 2.0 mg/dl (1.7-2.4); Potassium 4.3 mmol/L (3.5-5.1); Sodium 136.0 mmol/L (136-145)
--- NOTE | 2024-10-07 07:51 | Hospitalist Progress Note ---
Date of Service October 07, 2024 Assessment & Plan (1) Two-level lumbosacral spondylosis with radiculopathy: (2) Iron deficiency anemia: (3) Hypertension: (4) CAD (coronary artery disease): (5) Sleep apnea: (6) Gastroparesis due to DM: (7) Eosinophilic asthma: (8) Depression with anxiety: (9) Gastroesophageal reflux disease: (10) Hypothyroidism: Plan 74yo female presented for lumbar decompression/fusion with Dr Lewis 10/05. PMHx significant for DM II, RAGHAVENDRA, HTN, HLD, GERD, anxiety/depression, hypothyroidism, eosinophilic asthma. Hx LUE DVT May 2024, provoked and completed 90 days of eliquis, no longer on since August 2024--Reportedly provoked from BP cuff machine during EGD/colonoscopy, doppler "acute, occlusive DVT L axillary vein, superficial L basilic vein thrombosis". Hx carcinoid tumor of lung, s/p lobectomy [place] [address] CAP May 2024 negative for recurrence and repeat US doppler w/ resolution in prior DVT. PCP note hx LOWELL w/ normal hgb/hct but depending blood loss, may benefit from iron transfusion (GI eval/note from 08/24 w/ neg EGD/colon, agree w/ IV iron transfusion/follow w/ hematology and if LOWELL persists, consider referral for video capsule endoscopy) #Lumbar stenosis with radiculopathy s/p #1 lumbar decompression with bilateral medial facetectomies and foraminotomies L3-L4, L4-5 and L5-S1. #2 posterior spinal fusion L4-S1. #3 placed posterior instrumentation L4-S1 using Cobb. #4 interbody fusion L4-L5 L5-S1. #5 posterior Spira 12 x 26 mm x 2 at L4-5 and 11 x 26 mm x 2 at L5-S1. #6 placement locally harvested morselized autograft in the posterior gutters. #7 placement of Proteus combined with Koros in the posterior lateral gutters and os design interspace. #8 application of versa wrap of the exposed dura with Dr Lewis 10/05 Dexamethasone 6mg IV daily, given ancef merritt-operatively WBC wnl, afebrile Hgb 13.4 --> 10.4, acute blood loss anemia from surgery as well as dilutional aspect from IVF suspected along w/ underlying LOWELL (not compliant w/ daily PO supplementation 2nd to GI upset). EBL w/ surgery 400cc, WIL output 220cc + 15cc and monitoring -Iron studies checked and iron low 26, transferrin 191L, transferrin % sat low 10% and ferritin 61.9 -Venofer 300mg IV x 2 ordered, can complete 3rd dose inpatient Friday pending continued inpatient stay. Hgb stable at 10.5, WIL output monitoring Continue post-op orders per primary regarding pain control, bowel regimen, PT/OT/DVT prophylaxis Continued inpatient stay, plans for dc 10/08 # DM II - A1c reasonable control at 7.6. on metformin 1gm BID, insulin at baseline BSG AC/HS, sliding scale while inpatient Basal 1.7 w/ omnipod in place -- made adjustment with German from Endocrinology yesterday and reports sugars have been decent. Monitor for any issues/touch base w/ Endo if needed but otherwise outpatient follow up #CAD- hx non-obstructive CAD and no CP/SOB reported Continues on aspirin 81mg, Atenolol 50mg QAM/25mg PM, Lipitor 40mg. #GERD- recent neg EGD/colon and no issues reported Remains on PPI/pepcid. #Hypothyroidism- recent TSH this summer wnl. Continue levothyroxine 112mcg PO daily #Anxiety/Depression- mood stable during exam, pleasant/cooperative Continue home meds, venlafaxine, remeron, ativan as needed #Eosinophilic Asthma- on nebs/Fasenra, follows w/ pulm. Reports last Fasenra received in August (not August) and due for it later this month Continues w/ breathing treatments Titrated to RA post-op, continued incentive spirometer Outpatient follow up Hx DVT - earlier this year, provoked per HPI and completed 3 months eliquis therapy, no longer on. SCDs, nidhi martinez ordered, ambulation encouraged. Pulses present/no calf tenderness Dispo: continued inpatient stay per primary service planning for dc tomorrow Hospitalist service will chart check in AM but if stable for dc without needs likely can sign off. Please call with any questions/concerns. Admission and Anticipated Discharge Date Admission Date: October 05, 2024 Supervising Physician Co-Signing Physician Notes The patient was not seen by me. The chart was reviewed. Case discussed with ALICE Yuan. Agree with assessment and plan Subjective Eval this morning, doing well. Pain tolerable but discussed oxycodone doesn't do much for her but good results with percocet in the past and will change to prevent need for IV dilaudid. Passing gas. No BM yet. Would like to shower, inquiring about her stimulator and message sent to primary. No fever/chills, CP/SOB, nausea/vomiting. Plans to dc tomorrow. Questions/concerns addressed at this time. Physical Exam 2 Physical Exam: General: 74yo female sitting up in bed, NAD upon entry, appears improved HEENT: head atraumatic, normocephalic, mm improved, trachea midline Resp: even/unlabored, slightly diminished in the bases, no wheezing/rales, titrated to room air CV: RRR, no significant m/r/g, no pitting edema, pulses present, cap refill wnl, SCDs in place GI: +BS, soft/obese, nontender MSk/Neuro: dressing to lumbar spine c/d/i, no shadowing/bleeding through observed, +tender around incision/paraspinal muscles, dorsiflexion/plantar flexion intact, slightly decreased o nthe left compared to the right (reports issues L leg prior to admission--MUCH IMPROVED) but improved from day prior, WIL output decreased, serosanguineous Psych: AOx3, cooperative/pleasant during encounter Results & Data Results & Data Vital Signs (Past 12 Hours) Vital Signs Temp Pulse Resp BP Pulse Ox O2 Del Method 10/07/24 07:27 36.7 C 64 16 145/82 H 91 Room Air 10/06/24 22:05 36.8 C 73 18 139/76 95 Room Air Laboratory Results 10/07/24 06:40 10/07/24 06:40 PG Care Time/CCT Total # of Minutes Spent Total Time Spent with Patient: Total time spent is greater than 50% in coordination of care (as documented) at patient's floor/unit and/or counseling patient: Coding Level of Care Code 97038 SUB INP/OBS CARE 2/35MIN Diagnoses Two-level lumbosacral spondylosis with radiculopathy M47.27 Iron deficiency anemia D50.9 Hypertension I10 CAD (coronary artery disease) I25.10 Sleep apnea G47.30 Gastroparesis due to DM E11.43; K31.84 Eosinophilic asthma J82 Depression with anxiety F41.8 Gastroesophageal reflux disease K21.9 Hypothyroidism E03.9
--- NOTE | 2024-10-07 08:03 | Orthopedic Progress Note ---
Date of Service October 07, 2024 Assessment & Plan (1) Two-level lumbosacral spondylosis with radiculopathy: Plan: At this point we will continue physical therapy monitor WIL output anticipate discharge home tomorrow. Admission and Anticipated Discharge Date Admission Date: October 05, 2024 Subjective Patient's back pain is controlled leg symptoms markedly improved. Tolerating physical therapy. Physical Exam Physical Exam: Patient is comfortable. Has good strength testing. Results & Data Vital Signs (Past 12 Hours) Vital Signs Temp Pulse Resp BP Pulse Ox O2 Del Method 10/07/24 07:27 36.7 C 64 16 145/82 H 91 Room Air 10/06/24 22:05 36.8 C 73 18 139/76 95 Room Air Queries Orthopedic Spine Acute Posthemorrhagic Anemia: Yes Obesity: Yes
[2024-10-08 06:11] LABS: Hematocrit (blood only) 35.2 % (37.0-47.0); Hemoglobin 11.2 g/dl (12.0-16.0); Mean Corpuscular Hemoglobin 26.2 pg (25.0-34.0); Mean Corpuscular Volume 82.2 fL (80.0-100.0); Platelet Count 220 K/uL (130-400); RDW Standard Deviation 69.0 fL (36.4-46.3); Red Blood Count 4.28 M/uL (4.20-5.40); White Blood Count 11.55 K/ul (4.8-10.8)
[2024-10-08 06:25] LABS: Anion Gap 7.0 (3-11); Blood Urea Nitrogen 17.0 mg/dl (6-23); Calcium 9.2 mg/dl (8.6-10.3); Carbon Dioxide 30.0 mmol/L (21-32); Chloride 103.0 mmol/L (98-107); Creatinine Clr Calc Pharmacy 65.2 ml/min; Glucose 118.0 mg/dl (70-99(Fasting)); Potassium 3.9 mmol/L (3.5-5.1); Sodium 140.0 mmol/L (136-145)
[2024-10-08 07:28] VITALS: RESP 15
--- NOTE | 2024-10-08 07:50 | Hospitalist Progress Note ---
Date of Service October 08, 2024 Assessment & Plan (1) Two-level lumbosacral spondylosis with radiculopathy: (2) Iron deficiency anemia: (3) Hypertension: (4) CAD (coronary artery disease): (5) Sleep apnea: (6) Gastroparesis due to DM: (7) Eosinophilic asthma: (8) Depression with anxiety: (9) Gastroesophageal reflux disease: (10) Hypothyroidism: Plan 74yo female presented for lumbar decompression/fusion with Dr Lewis 10/05. PMHx significant for DM II, RAGHAVENDRA, HTN, HLD, GERD, anxiety/depression, hypothyroidism, eosinophilic asthma. Hx LUE DVT May 2024, provoked and completed 90 days of eliquis, no longer on since August 2024--Reportedly provoked from BP cuff machine during EGD/colonoscopy, doppler "acute, occlusive DVT L axillary vein, superficial L basilic vein thrombosis". Hx carcinoid tumor of lung, s/p lobectomy [place] [address] CAP May 2024 negative for recurrence and repeat US doppler w/ resolution in prior DVT. PCP note hx LOWELL w/ normal hgb/hct but depending blood loss, may benefit from iron transfusion (GI eval/note from 08/24 w/ neg EGD/colon, agree w/ IV iron transfusion/follow w/ hematology and if LOWELL persists, consider referral for video capsule endoscopy) #Lumbar stenosis with radiculopathy s/p #1 lumbar decompression with bilateral medial facetectomies and foraminotomies L3-L4, L4-5 and L5-S1. #2 posterior spinal fusion L4-S1. #3 placed posterior instrumentation L4-S1 using Cobb. #4 interbody fusion L4-L5 L5-S1. #5 posterior Spira 12 x 26 mm x 2 at L4-5 and 11 x 26 mm x 2 at L5-S1. #6 placement locally harvested morselized autograft in the posterior gutters. #7 placement of Proteus combined with Koros in the posterior lateral gutters and os design interspace. #8 application of versa wrap of the exposed dura with Dr Lewis 10/05 Dexamethasone 6mg IV daily, given ancef merritt-operatively WBC wnl, afebrile Hgb 13.4 --> 10.4, acute blood loss anemia from surgery as well as dilutional aspect from IVF suspected along w/ underlying LOWELL (not compliant w/ daily PO supplementation 2nd to GI upset). EBL w/ surgery 400cc, WIL output 220cc + 15cc and monitoring -Iron studies checked and iron low 26, transferrin 191L, transferrin % sat low 10% and ferritin 61.9 -Venofer 300mg IV x 2 ordered, can complete 3rd dose inpatient Friday pending continued inpatient stay. Hgb stable at 10.5, WIL output monitoring Continue post-op orders per primary regarding pain control, bowel regimen, PT/OT/DVT prophylaxis Continued inpatient stay, plans for dc 10/08 10/08 WBC elevated in setting of steroids, has remained afebrile. Hgb stable 11.2, completing Venofer IV as above prior to dc, dispo per primary service Pain medication for oxycodone changed to percocet per discussion with patient 10/07 for better control # DM II - A1c reasonable control at 7.6. on metformin 1gm BID, insulin at baseline BSG AC/HS, sliding scale while inpatient Basal 1.7 w/ omnipod in place -- made adjustment with German from Endocrinology yesterday and reports sugars have been decent. Monitor for any issues/touch base w/ Endo if needed but otherwise outpatient follow up #CAD- hx non-obstructive CAD and no CP/SOB reported Continues on aspirin 81mg, Atenolol 50mg QAM/25mg PM, Lipitor 40mg. #GERD- recent neg EGD/colon and no issues reported Remains on PPI/pepcid. #Hypothyroidism- recent TSH this summer wnl. Continue levothyroxine 112mcg PO daily #Anxiety/Depression- mood stable during exam, pleasant/cooperative Continue home meds, venlafaxine, remeron, ativan as needed #Eosinophilic Asthma- on nebs/Fasenra, follows w/ pulm. Reports last Fasenra received in August (not August) and due for it later this month Continues w/ breathing treatments Titrated to RA post-op, continued incentive spirometer Outpatient follow up Hx DVT - earlier this year, provoked per HPI and completed 3 months eliquis therapy, no longer on. SCDs, nidhi martinez ordered, ambulation encouraged. Pulses present/no calf tenderness Dispo: continued inpatient stay per primary service planning for dc tomorrow Hospitalist service will chart check in AM but if stable for dc without needs likely can sign off. Please call with any questions/concerns. Admission and Anticipated Discharge Date Admission Date: October 05, 2024 Results & Data Results & Data Vital Signs (Past 12 Hours) Vital Signs Temp Pulse Resp BP Pulse Ox O2 Del Method 10/08/24 07:24 36.5 C 53 L 15 149/72 H 93 Room Air 10/07/24 22:37 36.5 C 68 16 128/74 95 Room Air PG Care Time/CCT Total # of Minutes Spent Total Time Spent with Patient: Total time spent is greater than 50% in coordination of care (as documented) at patient's floor/unit and/or counseling patient: Coding Diagnoses Two-level lumbosacral spondylosis with radiculopathy M47.27 Iron deficiency anemia D50.9 Hypertension I10 CAD (coronary artery disease) I25.10 Sleep apnea G47.30 Gastroparesis due to DM E11.43; K31.84 Eosinophilic asthma J82 Depression with anxiety F41.8 Gastroesophageal reflux disease K21.9 Hypothyroidism E03.9
--- NOTE | 2024-10-08 11:13 | Discharge Summary ---
Date of Service October 08, 2024 Admission HPI Per Admitting Provider This is a 74-year-old female presents with chronic persistent back and leg pain after failing course of nonoperative care is here for surgical intervention. Principal Diagnosis Lumbar spondylosis with radiculopathy Discharge Data Allergies Allergy/AdvReac Type Severity Reaction Status Date / Time clindamycin Allergy Intermediate Hives Verified 10/05/24 06:24 sulfamethoxazole [Bactrim] Allergy Intermediate Hives Verified 10/05/24 06:24 trimethoprim [Bactrim] Allergy Intermediate Hives Verified 10/05/24 06:24 dulaglutide [From Trulicity] AdvReac Intermediate Abdominal Verified 10/05/24 06:24 Pain amoxicillin [From Augmentin] AdvReac Mild Nausea Verified 10/05/24 06:24 clavulanic acid AdvReac Mild N/V Verified 10/05/24 06:24 gabapentin AdvReac Mild Depression Verified 10/05/24 06:24 Consultations 10/05/24 13:11 Consult Hospitalist Routine Procedures Performed Operation Date: 10/05/24 09:05 Actual Procedures p L4-S1 Decompression and Fusion(Not Applicable) - Jose Angel Lewis DO Ordered Studies 10/05/24 09:05 FL lumbar spine 2-3V Routine Hospital Course (1) Two-level lumbosacral spondylosis with radiculopathy: Patient underwent lumbar decompression fusion tolerated as well as taken the orthopedic for postoperative pain post ablation progressed appropriate. Marked improvement of her leg symptoms. WIL drain decreasing. Excellent strength and testing. Subsidy discharged home. Discharge orders and instructions from the chart for further view. Total Time Total Time Spent Total Time Spent (In Minutes): 20 minutes Discharge Plan Discharge Items Patient Disposition: Home - Home Health Services Reason For Visit: Lumbar Disc Disease with Radiculopathy, Lumbar For Discharge Diagnosis: Lumbar spondylosis with radiculopathy Activity: As commented below Non-emergency contact: Primary Care Provider Call non-emergency contact if: you have any medication questions Follow-up/Referrals: Maria D Laboy MD [Primary Care Provider] - [facility],Home Health [Non-Staff] - Diet: Regular Addtl Attending Provider Instructions: ACTIVITY RECOMMENDATIONS: SELF CARE INSTRUCTIONS AFTER THORACIC/LUMBAR FUSIONS 1. You may walk to your tolerance. It is good exercise for your legs and back. Expect some back and intermittent leg aches and pains. 2. You may perform "counter-top" level activities (make a sandwich, qi with a project, etc.). 3. No bending or lifting of more than 10 pounds or back twisting of any nature (roll like a log when turning in bed). 4. You may ride in a car for 20-30 minutes at a time. No driving until after your first visit with your doctor. 5. Frequent changes of position and restricting sitting to 30 minutes at a time will help limit the amount of back spasms and stiffness you may experience. 6. You may discontinue the use of ambulatory aids (cane, crutches, etc.) once your strength and confidence allow. 7. You may information security architect the shower and let water strike your incision when you arrive home at least once daily. Do not take a tub bath, sit in a hot tub or go into a swimming pool until after your first recheck in the office. 8. You may resume previous diet. SPECIAL CARE INSTRUCTIONS: VERY IMPORTANT TO READ AND REVIEW A. Your surgical incision has been closed with a cosmetic suture under the skin that will dissolve in about 6 weeks. In 14 days, you can use a pair of clean scissors and cut the suture that is left outside of the skin at the ends of your incision. 1. The small skin tapes can be removed 7 days after surgery if they have not fallen off by that point. 2. You may keep the wound open to air as much as possible to promote healing after post-op day number 5 unless told otherwise by your doctor. 3. If you think the wound looks like it is becoming infected (redness or worsening drainage) and/or you are experiencing fever, chill or worsening back pain and muscle spasms, contact the office so that we may evaluate you as soon as possible. B. Complications are uncommon, but please contact us if you have any signs or symptoms of: 1. wound infection (fever higher than 102.5 degrees F, redness, separation of wound, drainage, or increasing pain from the incision) 2. blood clots in legs (pain, swelling, redness and warmth in legs) 3. urinary tract infection (fever higher than 102.5 degrees F, burning upon urination or increased frequency of urination) 4. nerve problems (inability to walk on your toes or heels, numbness, loss of bowel or bladder control) 5. any other symptoms that concern you C. Please call the office at if you have any concerns or questions about your operation or recovery. D. No smoking! Smoking drastically decreases the chance of a solid fusion. E. Do not take any anti-inflammatory medications (Indocin, Advil, Motrin, Aspirin, Naprosyn, etc.) as these may inhibit the chance of a solid fusion. Tylenol is okay to take for pain. MANAGING PAIN AFTER SPINAL SURGERY 1. Narcotic medication is intended for short-term use and will be provided for surgical pain. Surgical pain usually lasts for a period of 4-6 weeks. Narcotic medication includes Percocet, Vicodin, Darvocet, Tylenol #3 or Lortab. 2. Longer-term pain is more appropriately treated with non-narcotic medication such as Tylenol ES. 3. Muscle spasm is not appropriately treated with narcotics. Muscle relaxers such as Soma, Flexeril or Skelaxin can be used along with Tylenol ES. 4. Remember that we all live with some "aches and pains". This is not unusual or uncommon after an injury or as we get older. a. Back pain is expected and may include muscle spasms for 4 to 6 weeks after surgery. The pain should gradually improve. If the pain worsens for no apparent reason, please contact the office. b. Intermittent leg pain may also be experienced and should not be concerned about unless it worsens for no apparent reason. If so, please contact the office. 5. We will provide appropriate medication within the normal guidelines of their prescribed use. We will also be very cautious and aware of potential abuse and extended duration of patients' medication needs. a. Pain medications are for your comfort and to assist with sleep and rest so that the tissue can heal. They are not provided in order to return to normal activity and should not be used through the day. To do so or worsening pain at night can result from ongoing tissue damage and development of tolerance to the prescribed medicine. 6. Please allow 2-3 days to process refills. Prescriptions will not be mailed but must be picked up at the office. FOLLOW UP VISIT: Keep your scheduled follow-up appointment. Any questions, please call the office at . Addtl [employer] Provider Instructions: Please continue oral iron replacement at discharge at least once or twice a week (try to improve compliance as able) with bowel regimen to prevent constipation. You can also discuss gummy formulation of iron that sometimes can be a little better tolerated given your GI issues with oral iron. You can increase absorption by taking with glass of orange juice or taking vitamin C but also can consider increasing your red meat consumption if not eating of lot of iron rich foods. We did give you Venofer (IV iron) transfusions x 3 while inpatient and should be replete for a while so you can hold off for a couple days while recovering from back surgery but should discuss in follow up with primary care. It has been a pleasure being a part of the medical team providing for you while you have been in the hospital. Take care! Pending Studies at Discharge: No Stand-Alone Forms: My [facility] [employer], Smoking Cessation Medications and DC Order Prescriptions: New tramadol 50 mg tablet 50 mg PO Q6H PRN (Reason: pain, moderate) Qty: 30 0RF oxycodone 5 mg tablet 5 mg PO Q6H PRN (Reason: pain) Qty: 30 0RF Continued (DME) pen needle, diabetic [Pen Needle] 32 gauge x 5/32" needle See Rx Instructions .Route Qty: 400 3RF Rx Instructions: Inject 4 times daily (DME) Omnipod 5 G6 Intro Kit (Gen 5) Cartridge See Rx Instructions .Route Qty: 1 0RF Rx Instructions: controller for use with omnipod 5 cartridges Fasenra Pen 30 mg/mL auto-injector 30 mg SQ .COMPLEX Qty: 1 6RF Rx Instructions: Inject 30mg SQ every 8 weeks APPROVED through Raymond Sami 03/03/24-04/05/25 insulin aspart U-100 [Novolog U-100 Insulin aspart] 100 unit/mL solution See Rx Instructions subcut DAILY Qty: 80 3RF Patient Comments: disconnected pump for procedure. BSG 218 currently with Dexcon. Rx Instructions: up to 80 units a day via insulin pump subcutaneously daily; (DME) Omnipod 5 G6-G7 Pods (Gen 5) Cartridge See Rx Instructions .Route Qty: 20 11RF Rx Instructions: Change pod every 1.5 days metformin 1,000 mg tablet 1,000 mg PO BID Qty: 180 3RF Rx Instructions: TAKE 1 TABLET BY MOUTH TWICE A DAY venlafaxine 75 mg capsule,extended release 24hr 75 mg PO QPM Qty: 90 3RF Rx Instructions: Take with 75 mg capsule for a total of 225 mg daily. mirtazapine [Remeron] 15 mg tablet 15 mg PO HS Qty: 90 1RF atorvastatin 40 mg tablet 40 mg PO HS Qty: 90 3RF solifenacin [Vesicare] 10 mg tablet 10 mg PO HS Qty: 90 3RF omeprazole 40 mg capsule,delayed release(DR/EC) 40 mg PO QAM Qty: 90 1RF (DME) Prodigy No Coding Strip See Rx Instructions .ROUTE .MEDSUPPLY Qty: 10 Rx Instructions: test 4 times daily (DME) CPAP Machine Misc See Rx Instructions .ROUTE .MEDSUPPLY Qty: 1 0RF Rx Instructions: Please change her CPAP to Autotitration mode with a setting of 5 - 15 cm H2O. Last download was not in target range. Lifetime need nitroglycerin 0.4 mg tablet, sublingual 0.4 mg SL Q5M PRN (Reason: Chest Pain) Qty: 25 0RF zinc 50 mg tablet 50 mg PO HS alprazolam [Xanax] 0.5 mg tablet 0.5 mg PO QAM PRN (Reason: anxiety) Qty: 30 0RF lutein-zeaxanthin [Ocuvite Blue Light] 25-5 mg capsule 1 cap PO DAILY cyanocobalamin (vitamin B-12) [Vitamin B-12] 1,000 mcg Tablet 1,000 mcg PO QAM magnesium 250 mg Tablet 250 mg PO QAM docusate sodium [Stool Softener] 250 mg Capsule 250 mg PO BID cholecalciferol (vitamin D3) [Vitamin D3] 1,000 unit Capsule 1,000 unit PO QPM Patient Comments: 2 weeks prior to sx on 10/03/24 will be starting [address] Lewis, and will continue for 6 weeks after sx. omega-3 fatty acids 500 mg Capsule 500 mg PO QAM ipratropium-albuterol 0.5 mg-3 mg(2.5 mg base)/3 mL solution for nebulization 3 ml inhalation Q6H PRN (Reason: Shortness Of Breath Or Wheezing) aspirin 81 mg Capsule 81 mg PO QAM atenolol 25 mg tablet 25 - 50 mg PO UD Rx Instructions: 50 MG IN AM, 25 MG IN PM orally daily; levothyroxine 112 mcg tablet 112 mcg PO QAM Rx Instructions: Take one tablet in AM 30-45 minutes before meals and other medications. ferrous sulfate 142 mg (45 mg iron) Tablet Extended Release 142 mg PO QAM hydrocortisone 2.5 % cream with perineal applicator 1 applic AL BID PRN (Reason: hemorrhoids) famotidine [Pepcid] 40 mg tablet 40 mg PO BID venlafaxine [Effexor XR] 150 mg capsule,extended release 24hr 150 mg PO QPM Rx Instructions: TAKE 1 CAPSULE BY MOUTH AT BEDTIME TAKE WITH 75 MG CAPSULE FOR A TOTAL OF 225 MG DAILY. Discharge Orders: Discharge Order (Routine); Ordered 10/08/24 Ordered By: Jose Angel Lewis Admission Data Admit Date/Time: 10/05/24 11:51 Attending Provider: Jose Angel Lewis Admit Provider: Jose Angel Lewis Primary Care Provider: Maria D Laboy Other Providers: [facility],Home Health; Adal Arevalo
[2024-10-08 11:35] VITALS: BP 177/91; TEMP 98.1; O2SAT 95
--- NOTE | 2024-10-08 11:47 | Communication Note ---
Date of Service: October 08, 2024 Discussed w/ primary service and patient doing well 10/07, Venofer IV ordered and completing 3 doses prior to dc and should follow up outpatient for ongoing needs/consider transfusions iron if not able to tolerate PO Pain meds switched from oxycodone to percocet per discussion w/ patient 10/07 for better control/prior use and had not required any further IV pain medication since that time - message to primary service to consider changing rx at dc from oxycodone to percocet given good results WBC elevation suspected 2nd to steroids and has been afebrile. Primary service plans discharge today as previously discussed. As discussed w/ patient no need to see/bill today if no acute events overnight and labs stable. Thank you for allowing hospitalist service to participate it the care of Ms Dumont. Please call hospitalist service with any questions/concerns.
[2024-10-08 12:26] VITALS: PULSE 76
== END 2024-10-08 13:17 | disposition home health service (06) | DRG 427 ==
LOC: ASU 05:59 → 3E 11:51

== ENCOUNTER 2024-10-28 06:14 | Inpatient (IN) ==
--- NOTE | 2024-10-26 13:23 | Anesthesiology Consultation ---
Date of Service October 26, 2024 Assessment & Plan (1) Encounter for pre-operative examination: Chart Review Chart Review: Acceptable Risk for Surgery (pending anesthesia evaluation DOS ) and Patient NOT seen in Pre Admission Testing - Check BSG AM DOS Dexcom/Insulin Pump in place -Infectious Disease screening: Per PAT nursing assessment on 10/26/24. No known infectious disease contacts in past 10 days or current infectious disease symptoms. No recent travel outside the country. [place] PCP Office visit 10/15/24= "... seen for hospital f/u visit... presented to [facility] for lumbar decompression and fusion... Hgb 13.4--> 10.4, acute blood loss anemia from surgery... Venofer 300mg IV x 2 ordered... doing terrible... Pt reports having significant amount of pain since 10/10/24... has f/u apt with Dr. Lewis on Tu..." L4-S1 Decompression and Fusion 10/05/24= Done under GA with Grade 1 view with Glidescope #3. ETT #7. History Surgery Operation Date: 10/28/24 07:45 Proposed Procedures p L4 Hardware of Removal, L3-S1 Extension Fusion - Jose Angel Lewis DO s L4 Kyphoplasty - Jose Angel Lewis, Height/Weight Height: 5 ft 7 in Weight: 92.533 kg Allergies Allergy/AdvReac Type Severity Reaction Status Date / Time clindamycin Allergy Intermediate Hives Verified 10/26/24 12:13 sulfamethoxazole [Bactrim] Allergy Intermediate Hives Verified 10/26/24 12:13 trimethoprim [Bactrim] Allergy Intermediate Hives Verified 10/26/24 12:13 dulaglutide [From Trulicity] AdvReac Intermediate Abdominal Verified 10/26/24 12:13 Pain amoxicillin [From Augmentin] AdvReac Mild Nausea Verified 10/26/24 12:13 clavulanic acid AdvReac Mild N/V Verified 10/26/24 12:13 gabapentin AdvReac Mild Depression Verified 10/26/24 12:13 Medications Home Medications Medication Instructions Recorded Confirmed Last Taken cholecalciferol (vitamin D3) 25 1,000 unit PO QPM 08/12/18 10/15/24 10/04/24 22:00 mcg (1,000 unit) capsule (Vitamin D3) cyanocobalamin (vitamin B-12) 1,000 mcg PO QAM 08/12/18 10/15/24 10/04/24 09:30 1,000 mcg tablet (Vitamin B-12) docusate sodium 250 mg capsule 250 mg PO BID 08/12/18 10/15/24 10/04/24 22:00 (Stool Softener) magnesium 250 mg tablet 250 mg PO QAM 08/12/18 10/15/24 10/04/24 09:30 omega-3 fatty acids 500 mg capsule 500 mg PO QAM 08/12/18 10/15/24 10/04/24 09:30 CPAP Machine #1 ea 05/06/19 10/15/24 Unknown blood sugar diagnostic (Prodigy No #10 ea 05/06/19 10/15/24 Unknown Coding strips) zinc 50 mg tablet 50 mg PO HS 03/30/20 10/15/24 10/04/24 22:00 pen needle, diabetic 32 gauge x #400 ea 10/31/20 10/15/24 Unknown 5/32" (Pen Needle) ipratropium 0.5 mg-albuterol 3 mg 3 ml inhalation Q6H PRN Shortness 12/12/21 10/15/24 04/04/22 (2.5 mg base)/3 mL nebulization Of Breath Or Wheezing soln nitroglycerin 0.4 mg sublingual 0.4 mg sublingual Q5M PRN Chest 09/20/22 10/15/24 Unknown tablet Pain #25 tabs Omnipod 5 G6 Intro Kit (Gen 5) #1 ea 02/19/23 10/15/24 Unknown subcutaneous cartridge with controller (insulin pump cart,auto,BT-cntr) lutein 25 mg-zeaxanthin 5 mg 1 cap PO DAILY 02/19/24 10/15/24 09/21/24 capsule (Ocuvite Blue Light) benralizumab 30 mg/mL subcutaneous 30 mg subcut .COMPLEX #1 mL 04/05/24 10/15/24 08/10/24 auto-injector (Fasenra Pen) aspirin 81 mg capsule 81 mg PO QAM 04/12/24 10/15/24 10/04/24 22:00 atenolol 25 mg tablet 25 - 50 mg PO UD 04/12/24 10/15/24 10/05/24 05:45 50 mg levothyroxine 112 mcg tablet 112 mcg PO QAM 04/12/24 10/15/24 10/05/24 04:00 alprazolam 0.5 mg tablet (Xanax) 0.5 mg PO QAM PRN anxiety #30 tabs 04/23/24 10/15/24 10/05/24 04:45 ferrous sulfate 142 mg (45 mg 142 mg PO QAM 04/27/24 10/15/24 10/04/24 22:00 iron) tablet,extended release insulin aspart U-100 100 unit/mL See Rx Instructions subcut DAILY 04/27/24 10/15/24 10/05/24 subcutaneous solution (Novolog #80 mL U-100 Insulin aspart) insulin pump cart,auto,BT,G6/7 #20 ea 04/27/24 10/15/24 Unknown (Omnipod 5 G6-G7 Pods (Gen 5) subcutaneous cartridge) metformin 1,000 mg tablet 1,000 mg PO BID #180 tabs 06/21/24 10/15/24 10/04/24 18:30 venlafaxine 75 mg capsule,extended 75 mg PO QPM #90 caps 06/22/24 10/15/24 10/04/24 18:30 release 24 hr atorvastatin 40 mg tablet 40 mg PO HS #90 tabs 08/20/24 10/15/24 10/04/24 22:00 mirtazapine 15 mg tablet (Remeron) 15 mg PO HS #90 tabs 08/20/24 10/15/24 10/04/24 19:00 omeprazole 40 mg capsule,delayed 40 mg PO QAM #90 caps 08/20/24 10/15/24 10/05/24 05:45 release solifenacin 10 mg tablet (Vesicare) 10 mg PO HS #90 tabs 08/20/24 10/15/24 10/04/24 22:00 hydrocortisone 2.5 % topical cream 1 applic SD BID PRN hemorrhoids 09/09/24 10/15/24 Unknown with perineal applicator famotidine 40 mg tablet (Pepcid) 40 mg PO BID 10/05/24 10/15/24 10/05/24 05:45 venlafaxine 150 mg 150 mg PO QPM 10/05/24 10/15/24 10/04/24 18:30 capsule,extended release 24 hr (Effexor XR) tramadol 50 mg tablet 50 mg PO Q6H PRN pain, moderate 10/06/24 10/15/24 Unknown #30 tabs blood-glucose sensor (Dexcom G7 10/11/24 10/15/24 Unknown Sensor device) oxycodone 5 mg tablet 5 mg PO Q6H PRN pain #10 tabs 10/15/24 10/15/24 Unknown Past Medical History Medical History Ascending aorta enlargement 'borderline dilated thoracic aorta (4.0cm) per Cardio note 04/2024 Carpal tunnel syndrome, right Chronic constipation Fluctations between constipation/loose stools Chronic headaches Degenerative spondylolisthesis Depression with anxiety Diabetic peripheral neuropathy feet DJD (degenerative joint disease), lumbar Dyslipidemia Eosinophilic asthma no current inhaler; f/u dr. townsend, [place]; takes Fasenra injection Esophageal dysphagia chronic since multiple cervical spine surgeries Gastroparesis due to DM Hiatal hernia History of diverticulosis denies h/o diverticulitis History of DVT (deep vein thrombosis) (~05/2024) Left axillary vein 05/2024, previously on eliquis History of endometriosis History of hypertension controlled, stable per pt History of hypothyroidism History of pituitary adenoma following with [facility]; was found incidentally; monitoring Hx of coronary artery disease Mild, non-obstructive per 2015 cardiac cath Hx of gastroesophageal reflux (GERD) controlled, stable per pt Hx of iron deficiency anemia follows with CCP; pt had acute blood loss anemia s/p lumbar surgery 10/05/2024 [facility]: given Venofer IV Hx of sleep apnea CPAP-compliant Mediastinal lymphadenopathy 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) no chemo or XRT Nocturnal hypoxemia Per records; pt compliant with CPAP Post traumatic stress disorder Pseudarthrosis after fusion or arthrodesis Type 2 diabetes mellitus, with long-term current use of insulin has insulin pump Vertigo hx, "sometimes if she gets up too fast" Past Family History Family History Brother Family history of diabetes mellitus Sister Cervical cancer Family history of diabetes mellitus Myocardial infarction Mother Family history of diabetes mellitus Myocardial infarction Father Leukemia Myocardial infarction Other No family history of adverse response to anesthesia Denies family history of Ovarian cancer Prostate cancer Breast cancer Colorectal cancer Past Surgical History Surgical History History of appendectomy during hysterectomy History of bronchoscopy x2 History of cardiac cath 2015 ([facility]; no stents) 2008 ([facility]; no stents) History of cataract surgery bilateral History of colonoscopy with polypectomy (2023) History of dilation and curettage History of esophagogastroduodenoscopy (EGD) (2024) History of laparoscopic cholecystectomy History of lobectomy of lung (2011) RML Malignant carcinoid History of lumbar surgery 10/05/24 : L4-S1 decompression/fusion, L3-L4 bilateral medial facetectomies and foraminotomies: GA: Glidescope #3, ETT#7 oral, Gr View 1 (elective glidescope 2/2 limited cervical ROM) History of tooth extraction History of total abdominal hysterectomy and bilateral salpingo-oophorectomy Hx of colonoscopy (2024) S/P cervical spinal fusion Multiple 10/20/20- C4-C5 ACDF, C5-C6 Assessment of Fusion Mass, C5-C6 Revision Anterior Fusion Iliac Crest Bone Graft Right 2000 [facility]- cadaver bone fused *now with limited AROM cspine* S/P epidural steroid injection Social History Smoking Status: Former smoker tobacco type: cigarettes Do You Dip or Chew Tobacco: No Smoking End Date: ~2009 Hx Alcohol Use: No Alcohol type: other alcohol intake frequency: holidays/special occasions only Hx Substance Use: No substance use type: does not use Lab Results Anesthesia Preop Results Results Anesthesia Widget: WBC 13.13 K/ul (4.8-10.8) H 10/20/24 Hgb 13.1 g/dl (12.0-16.0) 10/20/24 Hct 40.3 % (37.0-47.0) 10/20/24 Plt 358 K/uL (130-400) 10/20/24 Na 136 mmol/L (136-145) 10/20/24 K 4.2 mmol/L (3.5-5.1) 10/20/24 Cl 100 mmol/L (98-107) 10/20/24 CO2 29 mmol/L (21-32) 10/20/24 BUN 13 mg/dl (6-23) 10/20/24 Creat 0.87 mg/dl (0.6-1.2) 10/20/24 Glucose Level 148 mg/dl (70-99(Fasting)) H 10/20/24 PT 10.4 Seconds (9.0-12.0) 09/15/24 PTT 26 Seconds (21-31) 09/15/24 INR 1.0 (0.9-1.1) 09/15/24 Urine Color Yellow 09/15/24 Urine Appearance Clear (Clear) 09/15/24 Urine pH 7.0 (4.5-7.5) 09/15/24 Urine Specific [place] 1.007 (1.000-1.030) 09/15/24 Urine Protein Negative (Negative) 09/15/24 Urine Glucose (UA) Negative (Negative) 09/15/24 Urine Ketones Negative (Negative) 09/15/24 Urine Blood Negative (Negative) 09/15/24 Urine Nitrite Negative (Negative) 09/15/24 Urine Bilirubin Negative (Negative) 09/15/24 Urine Urobilinogen Negative (Negative) 09/15/24 Urine Leukocyte Esterase Trace (Negative) H 09/15/24 Urine WBC (Auto) 0-5 /hpf (0-5) 09/15/24 Urine RBC (Auto) 0-2 /hpf (0-2) 09/15/24 Urine Hyaline Casts (Auto) 0-2 /lpf (0-2) 09/15/24 Urine Epithelial Cells (Auto) 0-2 /hpf (0-2) 09/15/24 Urine Bacteria (Auto) None Seen (None Seen) 09/15/24 Blood Type O Positive 10/05/24 Antibody Screen NEGATIVE 10/05/24 Testing Electrocardiogram Date: 04/22/24 NSR, rate 75 bpm Chest X-Ray Date: 04/22/24 1. Mild right basilar lung atelectasis versus scarring is again seen. 2. Two adjacent nodules are seen in the left lower lung zone, a larger one measuring 7.8 mm (New finding). CT chest correlation is suggested. 3. Mild asymmetric bilateral hilar vascular congestion is seen, more obvious on the right side. 4. No definite consolidation or pleural effusion is seen. 5. Mild degenerative changes in the thoracic spine with levoscoliosis are again seen. Echocardiogram Date: 05/06/22 EF 65-70% No regional wall motion abnormalities Mild cLVH Mildly dilated ascending aorta 4.0 cm Grade I diastolic dysfunction Stress Test Date: 11/14/23 1. Borderline Lexiscan myocardial perfusion study. 2. Mild, apical anterior/septal partially reversible perfusion defect. Suspect artifact in the setting of normal wall motion but cannot rule out distal LAD distribution infarct with small amount of ischemia. 3. Normal LV size and function. LVEF 78% with no regional wall motion abnormalities. 4. Non-diagnostic stress ECG due to inability to reach target HR with Lexiscan. 5. Overall study findings consistent with low risk stress test. Other Testing Brain MRI 08/02/24 1. No acute intracranial findings. 2. 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 3. No change in appearance of the brain since MRI of May 18, 2021. 4. No evidence for metastatic disease on unenhanced exam. Abdomen pelvis CT 05/27/24 1 . No significant abnormality seen in CT scan of abdomen and pelvis. 2 . No abdominopelvic metastatic disease seen. Chest CT 05/27/24 1 . Redemonstration of interval stable bilateral pulmonary nodules. 2 . No new pulmonary nodule noted. 3 . No acute pulmonary infection. 4 . Redemonstration of interval stable hypodense right thyroid nodule. Correlate with ultrasound. US duplex LUE 05/04/34 1. There is acute, occlusive deep venous thrombosis of the left axillary vein. 2. Superficial left basilic vein thrombosis.
[2024-10-28] MEDS: LR 15ML/HR IV SCH (06:50)
[2024-10-28] MEDS: CeleBREX 200 MG CAP PO SCH (06:50)
[2024-10-28] MEDS: ACETAMINOPHEN 500 MG TAB PO SCH (06:50)
[2024-10-28] MEDS: LR 60ML/HR IV SCH (06:50)
[2024-10-28] MEDS ORDERED: MIDAZOLAM HCL 1 MG/ML 2ML VIAL ONE (07:00)
[2024-10-28] MEDS ORDERED: DEXAMETHASONE SOD INJ 4 MG/ML VIAL ONE (07:00)
[2024-10-28] MEDS ORDERED: ONDANSETRON INJ 2 MG/ML 2 ML VIAL ONE (07:00)
[2024-10-28] MEDS ORDERED: ROCURONIUM BROMIDE 10 MG/ML 5 ML VIAL IV ONE ×2 (07:00→08:35)
[2024-10-28] MEDS ORDERED: LIDOCAINE 2% 2 ML VIAL/AMP(20MG/ML) INFIL ONE (07:00)
[2024-10-28] MEDS ORDERED: PROPOFOL IV EMULSION 10 MG/ML 20 ML VIAL IV ONE (07:00)
--- NOTE | 2024-10-28 07:41 | History & Physical Bridge Note ---
Date of Service October 28, 2024 History & Physical Bridge Note I have examined the patient, reviewed the History & Physical and in the interval since the performance of the History & Physical I have noted the following changes of clinical significance: no changes noted
--- NOTE | 2024-10-28 07:42 | History & Physical Report ---
Date of Service October 28, 2024 Assessment & Plan (1) Lumbar compression fracture: Plan: Hardware removal L4 kyphoplasty L4 extension fusion L3-S1 History of Present Illness Chief Complaint: Back and leg pain Primary Care Provider: Maria D Laboy MD This is a 74-year-old female that presents postoperatively with a compression fracture of L4 and marked increase in back and bilateral leg pain and is here for revision procedure. Allergies Allergy/AdvReac Type Severity Reaction Status Date / Time clindamycin Allergy Intermediate Hives Verified 10/28/24 06:29 sulfamethoxazole [Bactrim] Allergy Intermediate Hives Verified 10/28/24 06:29 trimethoprim [Bactrim] Allergy Intermediate Hives Verified 10/28/24 06:29 dulaglutide [From Trulicity] AdvReac Intermediate Abdominal Verified 10/28/24 06:29 Pain amoxicillin [From Augmentin] AdvReac Mild Nausea Verified 10/28/24 06:29 clavulanic acid AdvReac Mild N/V Verified 10/28/24 06:29 gabapentin AdvReac Mild Depression Verified 10/28/24 06:29 Home Medications Medication Instructions Recorded Confirmed Type cholecalciferol (vitamin D3) 25 1,000 unit PO QPM 08/12/18 10/28/24 History mcg (1,000 unit) capsule (Vitamin D3) cyanocobalamin (vitamin B-12) 1,000 mcg PO QAM 08/12/18 10/28/24 History 1,000 mcg tablet (Vitamin B-12) docusate sodium 250 mg capsule 250 mg PO BID 08/12/18 10/28/24 History (Stool Softener) magnesium 250 mg tablet 250 mg PO QAM 08/12/18 10/28/24 History omega-3 fatty acids 500 mg capsule 500 mg PO QAM 08/12/18 10/28/24 History CPAP Machine #1 ea 05/06/19 10/15/24 Rx blood sugar diagnostic (Prodigy No #10 ea 05/06/19 10/15/24 History Coding strips) zinc 50 mg tablet 50 mg PO HS 03/30/20 10/28/24 History pen needle, diabetic 32 gauge x #400 ea 10/31/20 10/15/24 Rx 5/32" (Pen Needle) ipratropium 0.5 mg-albuterol 3 mg 3 ml inhalation Q6H PRN Shortness 12/12/21 10/28/24 History (2.5 mg base)/3 mL nebulization Of Breath Or Wheezing soln nitroglycerin 0.4 mg sublingual 0.4 mg sublingual Q5M PRN Chest 09/20/22 10/28/24 Rx tablet Pain #25 tabs Omnipod 5 G6 Intro Kit (Gen 5) #1 ea 02/19/23 10/15/24 Rx subcutaneous cartridge with controller (insulin pump cart,auto,BT-cntr) lutein 25 mg-zeaxanthin 5 mg 1 cap PO DAILY 02/19/24 10/28/24 History capsule (Ocuvite Blue Light) benralizumab 30 mg/mL subcutaneous 30 mg subcut .COMPLEX #1 mL 04/05/24 10/28/24 Rx auto-injector (Fasenra Pen) aspirin 81 mg capsule 81 mg PO QAM 04/12/24 10/28/24 History atenolol 25 mg tablet 25 - 50 mg PO UD 04/12/24 10/28/24 History levothyroxine 112 mcg tablet 112 mcg PO QAM 04/12/24 10/28/24 History alprazolam 0.5 mg tablet (Xanax) 0.5 mg PO QAM PRN anxiety #30 tabs 04/23/24 10/28/24 Rx ferrous sulfate 142 mg (45 mg 142 mg PO QAM 04/27/24 10/28/24 History iron) tablet,extended release insulin aspart U-100 100 unit/mL See Rx Instructions subcut DAILY 04/27/24 10/28/24 Rx subcutaneous solution (Novolog #80 mL U-100 Insulin aspart) insulin pump cart,auto,BT,G6/7 #20 ea 04/27/24 10/15/24 Rx (Omnipod 5 G6-G7 Pods (Gen 5) subcutaneous cartridge) metformin 1,000 mg tablet 1,000 mg PO BID #180 tabs 06/21/24 10/28/24 Rx venlafaxine 75 mg capsule,extended 75 mg PO QPM #90 caps 06/22/24 10/28/24 Rx release 24 hr atorvastatin 40 mg tablet 40 mg PO HS #90 tabs 08/20/24 10/28/24 Rx mirtazapine 15 mg tablet (Remeron) 15 mg PO HS #90 tabs 08/20/24 10/28/24 Rx omeprazole 40 mg capsule,delayed 40 mg PO QAM #90 caps 08/20/24 10/28/24 Rx release solifenacin 10 mg tablet (Vesicare) 10 mg PO HS #90 tabs 08/20/24 10/28/24 Rx hydrocortisone 2.5 % topical cream 1 applic SD BID PRN hemorrhoids 09/09/24 10/28/24 History with perineal applicator famotidine 40 mg tablet (Pepcid) 40 mg PO BID 10/05/24 10/28/24 History venlafaxine 150 mg 150 mg PO QPM 10/05/24 10/28/24 History capsule,extended release 24 hr (Effexor XR) tramadol 50 mg tablet 50 mg PO Q6H PRN pain, moderate 10/06/24 10/28/24 Rx #30 tabs blood-glucose sensor (Dexcom G7 10/11/24 10/15/24 History Sensor device) oxycodone 5 mg tablet 5 mg PO Q6H PRN pain #10 tabs 10/15/24 10/28/24 Rx Past Med/Surg History Problem List (Updated 10/28/24 @ 07:42 by Jose Angel Lewis DO) Lumbar compression fracture Encounter for pre-operative examination History of benign breast biopsy Left Two-level lumbosacral spondylosis with radiculopathy Sleep apnea CPAP (compliant) CAD (coronary artery disease) Mild, non-obstructive per 2016 cardiac cath Loss of protective sensation of skin of foot Degenerative spondylolisthesis Left lumbar radiculopathy (Acute) Gastroparesis due to DM Lumbar facet joint syndrome Cervical disc disorder at C4-C5 level with myelopathy Pituitary adenoma Iron deficiency anemia Eosinophilic asthma Elevated IgE level Depression with anxiety (Chronic) Diabetic peripheral neuropathy associated with type 2 diabetes mellitus (Chronic) Diverticulosis of colon (Chronic) Dyslipidemia (Chronic) Gastroesophageal reflux disease (Chronic) Hypertension (Chronic) Hypothyroidism (Chronic) Lumbar degenerative disc disease (Chronic) Lumbar radiculopathy (Chronic) Obesity (Chronic) Type 2 diabetes mellitus, with long-term current use of insulin (Chronic) Ascending aorta enlargement Medical History Ascending aorta enlargement 'borderline dilated thoracic aorta (4.0cm) per Cardio note 04/2024 Carpal tunnel syndrome, right Chronic constipation Fluctations between constipation/loose stools Chronic headaches Degenerative spondylolisthesis Depression with anxiety Diabetic peripheral neuropathy feet DJD (degenerative joint disease), lumbar Dyslipidemia Eosinophilic asthma no current inhaler; f/u dr. townsend, in; takes Fasenra injection Esophageal dysphagia chronic since multiple cervical spine surgeries Gastroparesis due to DM Hiatal hernia History of diverticulosis denies h/o diverticulitis History of DVT (deep vein thrombosis) (~05/2024) Left axillary vein 05/2024, previously on eliquis History of endometriosis History of hypertension controlled, stable per pt History of hypothyroidism History of pituitary adenoma following with [facility]; was found incidentally; monitoring Hx of coronary artery disease Mild, non-obstructive per 2015 cardiac cath Hx of gastroesophageal reflux (GERD) controlled, stable per pt Hx of iron deficiency anemia follows with CCP; pt had acute blood loss anemia s/p lumbar surgery 10/05/2024 [facility]: given Venofer IV Hx of sleep apnea CPAP-compliant Mediastinal lymphadenopathy 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) no chemo or XRT Nocturnal hypoxemia Per records; pt compliant with CPAP Post traumatic stress disorder Pseudarthrosis after fusion or arthrodesis Type 2 diabetes mellitus, with long-term current use of insulin has insulin pump Vertigo hx, "sometimes if she gets up too fast" Surgical History History of appendectomy during hysterectomy History of bronchoscopy x2 History of cardiac cath 2015 ([facility]; no stents) 2008 ([facility]; no stents) History of cataract surgery bilateral History of colonoscopy with polypectomy (2023) History of dilation and curettage History of esophagogastroduodenoscopy (EGD) (2024) History of laparoscopic cholecystectomy History of lobectomy of lung (2011) RML Malignant carcinoid History of lumbar surgery 10/05/24 : L4-S1 decompression/fusion, L3-L4 bilateral medial facetectomies and foraminotomies: GA: Glidescope #3, ETT#7 oral, Gr View 1 (elective glidescope 2/2 limited cervical ROM) History of tooth extraction History of total abdominal hysterectomy and bilateral salpingo-oophorectomy Hx of colonoscopy (2024) S/P cervical spinal fusion Multiple 10/20/20- C4-C5 ACDF, C5-C6 Assessment of Fusion Mass, C5-C6 Revision Anterior Fusion Iliac Crest Bone Graft Right 2000 [facility]- cadaver bone fused *now with limited AROM cspine* S/P epidural steroid injection Family History Brother Family history of diabetes mellitus Sister Cervical cancer Family history of diabetes mellitus Myocardial infarction Mother Family history of diabetes mellitus Myocardial infarction Father Leukemia Myocardial infarction Other No family history of adverse response to anesthesia Denies family history of Ovarian cancer Prostate cancer Breast cancer Colorectal cancer Social History Smoking Status: Former smoker Tobacco Type: Cigarettes Age Started Using Tobacco: 18; Age Quit Using Tobacco: 58; packs per day: 1; Smoking End Date: ~2009; Second Hand Exposure: No; Do You Dip or Chew Tobacco: No; Tobacco Cessation Education Requested by Patient: No Hx Alcohol Use: No Hx Substance Use: No Preferred Language: Swiss Communication Ability: Effective Visual Impairment: No Limitations Hearing Ability: Normal Production Inspector Required: No Beliefs That Will Affect Care: None marital status: Current Living Situation: Family current occupational status: retired Other Information That Helps Us Care for You: No Feels Safe at Home: Yes Safety Concerns: Feels Safe At This Time Childhood Exposure to Second-Hand Smoke: Yes Diet: regular Dental Care, Regularly: Yes Physical Activity Frequency: 1-2 Times per Week Seatbelt Use: always Sunscreen Use: Yes Assistive Devices: CPAP, Denture - Upper, Denture - Lower, Glasses and Walker Physical Exam Physical Exam: Patient is alert and oriented Heart regular rhythm Lungs clear Results & Data Results & Data Vital Signs (Past 12 Hours) Vital Signs Temp Pulse Resp BP Pulse Ox O2 Del Method 10/28/24 06:40 Room Air 10/28/24 06:30 36.6 C 60 20 186/80 H 94 Room Air
[2024-10-28] MEDS ORDERED: PHENYLEPHRINE 100MCG/ML 5ML SYR ONE (08:33)
[2024-10-28] MEDS ORDERED: ePHEDrine sulfate 50 MG/5 ML SYR ONE (08:33)
[2024-10-28] MEDS ORDERED: HYDROmorphone INJ 2 MG/ML SYR/VIAL ONE (08:35)
[2024-10-28] MEDS ORDERED: SUGAMMADEX SODIUM 200 MG/2 ML VIAL IV ONE ×2 (08:37→09:27)
[2024-10-28] MEDS: BUPIVACAINE/EPINEPHRINE 0.25% 1:200,000 30 ML VIAL ONE (08:41)
[2024-10-28] MEDS: FLOSEAL HEMOSTATIC MATRIX 10ML TOP ONE (09:13)
[2024-10-28] MEDS: ceFAZolin 330 MG/ML 1 GM VIAL ONE ×2 (09:23→09:24)
--- NOTE | 2024-10-28 09:27 | Operative Report ---
Post Operative Report Pre & Post Diagnosis Operation Date: 10/28/24 07:45 Pre-Op Diagnosis: #1 L4 compression fracture #2 loosening of posterior instrumentation L4 #3 lumbar spondylosis with radiculopathy L3-L4 Post-Op Diagnosis: Same I identified the patient and participated in the time-out.: Yes Procedure Operation Date: 10/28/24 07:45 Actual Procedures #1 removal of posterior instrumentation L4-L5 including rods. #2 decompression with bilateral medial facetectomies and foraminotomies L3-L4. #3 posterior spinal fusion L3-L4. #4 placement posterior instrumentation L3-S1 using Cobb. #5 interbody fusion L3-L4. #6 placement of 12 x 26 mm spiral cage L3-L4. #7 kyphoplasty of L3 and L4 vertebral body. #8 placement of Proteus combined with Koros bone graft in the posterolateral gutters and os design in the interbody space. Surgeon Jose Angel Lewis, Second Baller Adrianne Bell Estimated Blood Loss 150 Findings Consistent with Post-Op Diagnosis Specimens None Indications This is a 74-year-old female who presents postoperatively with L4 compression fracture and obvious loosening of the instrumentation. She presents with severe back pain and radiculopathy and is here for urgent revision surgery. Description of Procedure Patient was met with identified informed consent obtained. Patient was then taken to the operative suite underwent patient placed in a prone position on the Lorenzo table on top of the chest pad and hip bolsters. All bony prominences well-padded eyes inspected to ensure no external pressure placed upon them. This point the lumbar spine was prepped and draped in normal sterile fashion. Sharp dissection with assistance of Bovie cautery performed down to expose the lamina and transverse processes of L3 and instrumentation at L4-L5 and S1 levels bilaterally. I then proceeded remove the end caps and rods bilaterally. The L4 pedicle screws were grossly loose and removed without difficulty. The L5 pedicle screw on the left was also appreciably loose and removed. The other screws were tested and very solid and positioning. I then performed a complete laminectomy of L3 with bilateral medial facetectomies and foraminotomies addressing all neural compression in the lateral recess and foraminal regions. I then inserted Kyphon 20 mm balloons into the L4 vertebral body sequentially inflated these balloons they were subsequently removed and I inserted them into the L3 vertebral body sequentially inflating with fluoroscopic visualization. The balloons were removed. I then placed approximately 6 cc of Kyphon cement into the L4 vertebral body demonstrating excellent digitation and fill in the and return of vertebral body height. This was followed by placement of pedicle screws and L4. The same procedure was performed at L3. Approximately 4 and half cc of cement was injected with fluoroscopic visualization demonstrating excellent interdigitation of the vertebral body. This was followed by placement of 2 pedicle screws in L3. After the screws were placed the appropriate size rods were contoured and placed in position bilaterally. Bilateral transforaminal approach on the left complete discectomy of L3-L4 was performed endplates guided to subcortically bone and a 12 x 26 mm spiral cage filled with loss design bone graft tapped in position. The rods were then locked in 5 position bilaterally but the transverse processes of L3-L4 burred to subcortical bleeding bone. Koros combined with Proteus was placed in posterior gutters. 15 round WIL inserted. The incision was then closed with 1 Vicryl fascia 2-0 Vicryl subcutaneously and 4 Monocryl for final skin closure. Steri-Strips sterile dressing placed. Patient waken taken to PACU stable condition. Please note Adrianne Bell was present at the entire procedure from the patient positioning complex portion of the surgery and fashion closure. I attest to the content of the Intraoperative Record and any orders documented therein. Any exceptions are noted below.
--- NOTE | 2024-10-28 09:49 | Fluoroscopy Report ---
FL lumbar spine 2-3V CLINICAL HISTORY: L4 HW REMOVAL L3-S1 EXT FUSION L4 KYPHOPLASTY COMPARISON STUDY: Lumbar spine T8 2125 FLUOROSCOPY TIME: 115.9 seconds FLUOROSCOPY IMAGES: 3 EXPOSURE DOSE: 112.35 mGy FINDINGS: Posterior interbody corey and screw fusion hardware with discectomy changes noted at L3-S1. V ertebroplasty changes are seen at the L3-L4 levels. The hardware appears intact. No unexpected opaque foreign bodies are seen. Note that the images were submitted following completion of the surgery. IMPRESSION: Fluoroscopic assistance as above. ACT 112: Negative or not required by law. Electronically signed by: Alfredo Hill M.D. 10/28/2024 9:47 AM
[2024-10-28] MEDS ORDERED: PROMETHAZINE HCL 6.25 MG in SODIUM CHLORIDE 0.9% 50 ML IV PRN (10:05)
[2024-10-28] MEDS ORDERED: ONDANSETRON INJ 2 MG/ML 2 ML VIAL IV PRN ×2 (10:05→10:58)
[2024-10-28] MEDS ORDERED: ATROPINE SULFATE 0.1 MG/ML 10ML SYR IV PRN (10:05)
[2024-10-28] MEDS ORDERED: HYDROmorphone INJ 2 MG/ML SYR/VIAL IV PRN (10:05)
[2024-10-28] MEDS ORDERED: NON-FORMULARY MEDICATION (Cpap Machine misc) SCH (10:58)
[2024-10-28] MEDS ORDERED: PROMETHAZINE 12.5 MG/50.5 ML BAG IV PRN (10:58)
[2024-10-28] MEDS ORDERED: FAMOTIDINE 20 MG TAB PO PRN (10:58)
[2024-10-28] MEDS ORDERED: diphenhydrAMINE Capsule 25 MG CAP PO PRN (10:58)
[2024-10-28] MEDS ORDERED: NALOXONE HCL 0.4 MG/1 ML VIAL/CARP IV PRN (10:58)
[2024-10-28] MEDS ORDERED: MAGNESIUM HYDROXIDE SUSP 30 ML UDC PO PRN (10:58)
[2024-10-28] MEDS ORDERED: DO NOT ADMINISTER PNEUMOCOCCAL VACCINE PRN (10:58)
[2024-10-28] MEDS ORDERED: PHARMACY GLYCEMIC MGMT CONSULT PRN (10:58)
[2024-10-28] MEDS ORDERED: NITROGLYCERIN SL 0.4 MG/TAB TAB SL PRN (10:58)
[2024-10-28] MEDS ORDERED: SOD PHOSPHATE/SOD BIPHOSPHATE ENEMA 132 ML BTL PR PRN (10:58)
[2024-10-28] MEDS ORDERED: ALUMINUM/MAGNESIUM SUSP 30 ML UDC PO PRN (10:58)
[2024-10-28] MEDS ORDERED: ALBUT/IPRATROP 3MG/0.5MG NEB 3 ML VIAL INH PRN (10:58)
[2024-10-28] MEDS ORDERED: DO NOT ADMINISTER FLU VACCINE PRN (10:58)
[2024-10-28] MEDS ORDERED: ACETAMINOPHEN 1,000 MG/100 ML VIAL IV PRN (10:58)
[2024-10-28] MEDS ORDERED: METOCLOPRAMIDE HCL INJ 5 MG/ML 2 ML VIAL IV PRN (10:58)
[2024-10-28] MEDS ORDERED: HYDROmorphone INJ 0.5 MG/0.5 ML SYR IV PRN (10:58)
[2024-10-28] MEDS ORDERED: ONDANSETRON 4 MG OD TAB PO PRN (10:58)
--- NOTE | 2024-10-28 11:18 | Anesthesiology Progress Note ---
Date of Service October 28, 2024 Anesthesia Post Procedure Vital Signs Vital Signs: Temp Pulse Pulse Resp BP Pulse Ox O2 Del Method 10/28/24 10:40 Nasal Cannula 10/28/24 10:40 36.5 C 65 14 156/87 H 97 Nasal Cannula 10/28/24 10:20 36.5 C 68 12 173/81 H 96 Room Air 10/28/24 10:10 63 12 173/79 H 92 Room Air 10/28/24 10:00 67 16 181/81 H 98 Oxymask 10/28/24 09:50 68 16 181/84 H 99 Oxymask 10/28/24 09:42 36.2 C L 69 12 170/87 H 98 Oxymask 10/28/24 06:40 Room Air 10/28/24 06:30 36.6 C 60 20 186/80 H 94 Room Air O2 Flow Rate 10/28/24 10:40 3 10/28/24 10:40 3 10/28/24 10:20 10/28/24 10:10 10/28/24 10:00 3 10/28/24 09:50 6 10/28/24 09:42 6 10/28/24 06:40 10/28/24 06:30 Pain Intensity Left Lower Back: Pain Intensity: 8 Lower Back: Pain Intensity: 10 Transfer of Care Handoff Completed per policy Notes Mental Status: alert / awake / arousable and participated in evaluation Patient Amnestic to Procedure: Yes Nausea / Vomiting: adequately controlled Pain: adequately controlled Airway Patency, RR, SpO2: stable & adequate BP & HR: stable & adequate Hydration State: stable & adequate Anesthetic Complications: no major complications apparent
[2024-10-28] MEDS: HYDROmorphone INJ 1 MG/ML SYRINGE IV PRN (11:36)
[2024-10-28] MEDS: NSS + 20MEQ KCL 20 MEQ/1,000 ML BAG IV SCH (11:37)
[2024-10-28] MEDS ORDERED: INSULIN ASPART 100 UNITS/ML VIAL SC PRN (11:45)
[2024-10-28] MEDS: Continuous Glucose Monitor SCH (12:04)
--- NOTE | 2024-10-28 12:30 | Hospitalist Consultation ---
Date of Consultation October 28, 2024 Assessment & Plan (1) Lumbar compression fracture: (2) Hypertension: (3) Type 2 diabetes mellitus, with long-term current use of insulin: (4) Atrial fibrillation: Plan Kerline is a pleasant 74-year-old woman with PMH of diabetes, hypertension, hy perlipidemia, GERD, anxiety/depression, hypothyroidism, eosinophilic asthma, RAGHAVENDRA, carcinoid tumor of lung (s/p lobectomy 2013, recent CT w/o recurrence), and remote history of provoked LUE DVT in May 2024 from BP cuff during EGD/colonoscopy and completed 3 months of Eliquis and repeat Doppler showed resolution in prior DVT. She presented for a revision procedure with hardware removal L4 kyphoplasty L4 extension fusion L3-S1 with Dr. Lewis on 10/28. Per review of operative report, EBL was listed as 150 cc, and there were no complications noted. #Lumbar compression fracture - Pain control, VTE PPx: Activity level, discharge planning per primary team - Added on CBC and BMP to a.m. labs #[id number] recent A1c 7.6% in August 2024 - Continue insulin pump and Dexcom #CADcontinue aspirin, atenolol, Lipitor #GERDcontinue PPI/Pepcid #Hypothyroidismcontinue levothyroxine #Anxiety/depressioncontinue venlafaxine, Remeron, Ativan as needed #Eosinophilic asthmacontinue nebs/incentive spirometer. Continue [facility] outpatient Hospital medicine will continue to follow. Please reach out with any questions or concerns. Reviewed outpatient records Supervising Physician Co-Signing Physician Notes Attending Attestation and Consult Note: Chart reviewed, consult care plan d/w ALICE Brar. I agree w/ the flores components of her consult documentation. Of note - I did not perform a bedside visit or exam on this date. 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 Underwent lumbar spine fusion procedure on 10/05/[address] Lewis. Unfortunately, sometime following surgery, she developed recurrent back pain and imaging on 10/21 demonstrated an L4 compression fracture. She presented to [facility] today for revision procedure of the lumbar spine by Dr Lewis (see Dr Lewis's op note for details). Dr Lewis consulted the pharmacy glycemic team for DM oversight. Other medical problems appear stable at this time. Thank you for this consult. Our team will follow with you. Manny Cavazos MD History of Present Illness Reason for Consultation: Medical management Requesting Physician: Jose Angel Lewis DO Attending Physician: Jose Angel Lewis DO History of Present Illness Kerline is a pleasant 74-year-old woman with PMH of diabetes, hypertension, hyperlipidemia, GERD, anxiety/depression, hypothyroidism, eosinophilic asthma, RAGHAVENDRA, carcinoid tumor of lung (s/p lobectomy 2013, recent CT w/o recurrence), and remote history of provoked LUE DVT in May 2024 from BP cuff during E GD/colonoscopy and completed 3 months of Eliquis and repeat Doppler showed resolution in prior DVT. She presented for a revision procedure with hardware removal L4 kyphoplasty L4 extension fusion L3-S1 with Dr. Lewis on 10/28. Per review of operative report, EBL was listed as 150 cc, and there were no complications noted. Per review of patient's vitals postop, she was initially hypertensive and hypoxic on room air; BP now improved to 120/66 and has been weaned off supplemental O2 and saturating well on room air. Patient seen and evaluated at bedside postoperatively. She reports some expec nidhi back pain which is fairly controlled with her pain medications. She denies any radiating pains. Denies paresthesias. Denies headache, chest pain, shortness of breath, nausea, abdominal pain. Her Kendall catheter is draining clear yellow urine. She is well tolerating her diet so far. She has not passed gas or had a BM postoperatively. She is currently requiring supplemental O2. She does not typically wear supplemental O2 during the day. She does wear a CPAP at bedtime. We discussed that her blood pressure was elevated during her surgery but has been coming down. Will monitor labs in the morning. No additional complaints or concerns at this time. Allergies Allergy/AdvReac Type Severity Reaction Status Date / Time clindamycin Allergy Intermediate Hives Verified 10/28/24 06:29 sulfamethoxazole [Bactrim] Allergy Intermediate Hives Verified 10/28/24 06:29 trimethoprim [Bactrim] Allergy Intermediate Hives Verified 10/28/24 06:29 dulaglutide [From Trulicity] AdvReac Intermediate Abdominal Verified 10/28/24 06:29 Pain amoxicillin [From Augmentin] AdvReac Mild Nausea Verified 10/28/24 06:29 clavulanic acid AdvReac Mild N/V Verified 10/28/24 06:29 gabapentin AdvReac Mild Depression Verified 10/28/24 06:29 Home Medications Medication Instructions Recorded Confirmed Type cholecalciferol (vitamin D3) 25 1,000 unit PO QPM 08/12/18 10/28/24 History mcg (1,000 unit) capsule (Vitamin D3) cyanocobalamin (vitamin B-12) 1,000 mcg PO QAM 08/12/18 10/28/24 History 1,000 mcg tablet (Vitamin B-12) docusate sodium 250 mg capsule 250 mg PO BID 08/12/18 10/28/24 History (Stool Softener) magnesium 250 mg tablet 250 mg PO QAM 08/12/18 10/28/24 History omega-3 fatty acids 500 mg capsule 500 mg PO QAM 08/12/18 10/28/24 History CPAP Machine #1 ea 05/06/19 10/15/24 Rx blood sugar diagnostic (Prodigy No #10 ea 05/06/19 10/15/24 History Coding strips) zinc 50 mg tablet 50 mg PO HS 03/30/20 10/28/24 History pen needle, diabetic 32 gauge x #400 ea 10/31/20 10/15/24 Rx 5/32" (Pen Needle) ipratropium 0.5 mg-albuterol 3 mg 3 ml inhalation Q6H PRN Shortness 12/12/21 10/28/24 History (2.5 mg base)/3 mL nebulization Of Breath Or Wheezing soln nitroglycerin 0.4 mg sublingual 0.4 mg sublingual Q5M PRN Chest 09/20/22 10/28/24 Rx tablet Pain #25 tabs Omnipod 5 G6 Intro Kit (Gen 5) #1 ea 02/19/23 10/15/24 Rx subcutaneous cartridge with controller (insulin pump cart,auto,BT-cntr) lutein 25 mg-zeaxanthin 5 mg 1 cap PO DAILY 02/19/24 10/28/24 History capsule (Ocuvite Blue Light) benralizumab 30 mg/mL subcutaneous 30 mg subcut .COMPLEX #1 mL 04/05/24 10/28/24 Rx auto-injector (Fasenra Pen) aspirin 81 mg capsule 81 mg PO QAM 04/12/24 10/28/24 History atenolol 25 mg tablet 25 - 50 mg PO UD 04/12/24 10/28/24 History levothyroxine 112 mcg tablet 112 mcg PO QAM 04/12/24 10/28/24 History alprazolam 0.5 mg tablet (Xanax) 0.5 mg PO QAM PRN anxiety #30 tabs 04/23/24 10/28/24 Rx ferrous sulfate 142 mg (45 mg 142 mg PO QAM 04/27/24 10/28/24 History iron) tablet,extended release insulin aspart U-100 100 unit/mL See Rx Instructions subcut DAILY 04/27/24 10/28/24 Rx subcutaneous solution (Novolog #80 mL U-100 Insulin aspart) insulin pump cart,auto,BT,G6/7 #20 ea 04/27/24 10/15/24 Rx (Omnipod 5 G6-G7 Pods (Gen 5) subcutaneous cartridge) metformin 1,000 mg tablet 1,000 mg PO BID #180 tabs 06/21/24 10/28/24 Rx venlafaxine 75 mg capsule,extended 75 mg PO QPM #90 caps 06/22/24 10/28/24 Rx release 24 hr atorvastatin 40 mg tablet 40 mg PO HS #90 tabs 08/20/24 10/28/24 Rx mirtazapine 15 mg tablet (Remeron) 15 mg PO HS #90 tabs 08/20/24 10/28/24 Rx omeprazole 40 mg capsule,delayed 40 mg PO QAM #90 caps 08/20/24 10/28/24 Rx release solifenacin 10 mg tablet (Vesicare) 10 mg PO HS #90 tabs 08/20/24 10/28/24 Rx hydrocortisone 2.5 % topical cream 1 applic CA BID PRN hemorrhoids 09/09/24 10/28/24 History with perineal applicator famotidine 40 mg tablet (Pepcid) 40 mg PO BID 10/05/24 10/28/24 History venlafaxine 150 mg 150 mg PO QPM 10/05/24 10/28/24 History capsule,extended release 24 hr (Effexor XR) tramadol 50 mg tablet 50 mg PO Q6H PRN pain, moderate 10/06/24 10/28/24 Rx #30 tabs blood-glucose sensor (Dexcom G7 10/11/24 10/15/24 History Sensor device) oxycodone 5 mg tablet 5 mg PO Q6H PRN pain #10 tabs 10/15/24 10/28/24 Rx oxycodone 5 mg tablet 5 mg PO Q6H PRN pain #30 tabs 10/29/24 Rx tramadol 50 mg tablet 50 mg PO Q6H PRN pain, moderate 10/29/24 Rx #30 tabs insulin aspart U-100 100 unit/mL 1 sliding scale dose subcut 11/01/24 Rx (3 mL) subcutaneous pen (Novolog USEASDIRECTD #15 mL FlexPen U-100 Insulin aspart) insulin glargine 100 unit/mL (3 32 unit (0.32 mL) subcut QAM #15 mL 11/01/24 Rx mL) subcutaneous pen (Lantus Solostar U-100 Insulin) Patient History Medical History Ascending aorta enlargement 'borderline dilated thoracic aorta (4.0cm) per Cardio note 04/2024 Carpal tunnel syndrome, right Chronic constipation Fluctations between constipation/loose stools Chronic headaches Degenerative spondylolisthesis Depression with anxiety Diabetic peripheral neuropathy feet DJD (degenerative joint disease), lumbar Dyslipidemia Eosinophilic asthma no current inhaler; f/u dr. [place], [place]; takes Fasenra injection Esophageal dysphagia chronic since multiple cervical spine surgeries Gastroparesis due to DM Hiatal hernia History of diverticulosis denies h/o diverticulitis History of DVT (deep vein thrombosis) (~05/2024) Left axillary vein 05/2024, previously on eliquis History of endometriosis History of hypertension controlled, stable per pt History of hypothyroidism History of pituitary adenoma following with [facility]; was found incidentally; monitoring Hx of coronary artery disease Mild, non-obstructive per 2015 cardiac cath Hx of gastroesophageal reflux (GERD) controlled, stable per pt Hx of iron deficiency anemia follows with CCP; pt had acute blood loss anemia s/p lumbar surgery 10/05/2024 [facility]: given Venofer IV Hx of sleep apnea CPAP-compliant Mediastinal lymphadenopathy 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) no chemo or XRT Nocturnal hypoxemia Per records; pt compliant with CPAP Post traumatic stress disorder Pseudarthrosis after fusion or arthrodesis Type 2 diabetes mellitus, with long-term current use of insulin has insulin pump Vertigo hx, "sometimes if she gets up too fast" Surgical History History of appendectomy during hysterectomy History of bronchoscopy x2 History of cardiac cath 2015 ([facility]; no stents) 2008 ([facility]; no stents) History of cataract surgery bilateral History of colonoscopy with polypectomy (2023) History of dilation and curettage History of esophagogastroduodenoscopy (EGD) (2024) History of laparoscopic cholecystectomy History of lobectomy of lung (2011) RML Malignant carcinoid History of lumbar surgery 10/05/24 : L4-S1 decompression/fusion, L3-L4 bilateral medial facetectomies and foraminotomies: GA: Glidescope #3, ETT#7 oral, Gr View 1 (elective glidescope 2/2 limited cervical ROM) History of tooth extraction History of total abdominal hysterectomy and bilateral salpingo-oophorectomy Hx of colonoscopy (2024) S/P cervical spinal fusion Multiple 10/20/20- C4-C5 ACDF, C5-C6 Assessment of Fusion Mass, C5-C6 Revision Anterior Fusion Iliac Crest Bone Graft Right 2000 [facility]- cadaver bone fused *now with limited AROM cspine* S/P epidural steroid injection Family History Brother Family history of diabetes mellitus Sister Cervical cancer Family history of diabetes mellitus Myocardial infarction Mother Family history of diabetes mellitus Myocardial infarction Father Leukemia Myocardial infarction Other No family history of adverse response to anesthesia Denies family history of Ovarian cancer Prostate cancer Breast cancer Colorectal cancer Social History Smoking Status: Former smoker Tobacco Type: Cigarettes Age Started Using Tobacco: 18; Age Quit Using Tobacco: 58; packs per day: 1; Second Hand Exposure: No; Do You Dip or Chew Tobacco: No; Hx Alcohol Use: No Hx Substance Use: No Preferred Language: Pashto Communication Ability: Effective Visual Impairment: No Limitations Hearing Ability: Normal Nuisance Wildlife Trapper Required: No Beliefs That Will Affect Care: None marital status: Current Living Situation: Family current occupational status: retired Feels Safe at Home: Yes Childhood Exposure to Second-Hand Smoke: Yes Diet: regular Dental Care, Regularly: Yes Physical Activity Frequency: 1-2 Times per Week Seatbelt Use: always Sunscreen Use: Yes Assistive Devices: CPAP and Walker Review of Systems Review of Systems: All systems reviewed & are unremarkable except as noted in Subjective Physical Exam Physical Exam: General: No acute distress, nondiaphoretic, well-developed, well-nourished. Skin: Warm, dry. No rashes or peripheral edema noted. Cardiac: Regular rate and rhythm without murmurs gallops or rubs. Pulm: Clear to anterior auscultation bilaterally without wheezes, rales or rhonchi. Normal respiratory effort. 94% on room air. Abdominal: Soft, nontender, nondistended. Neuro: A&O x3. No focal neurological deficits. Results & Data Results & Data Vital Signs (Past 12 Hours) Vital Signs Temp Pulse Pulse Resp BP Pulse Ox O2 Del Method 10/28/24 11:46 98.4 F 70 14 151/77 H 95 Nasal Cannula 10/28/24 10:40 Nasal Cannula 10/28/24 10:40 97.7 F 65 14 156/87 H 97 Nasal Cannula 10/28/24 10:20 97.7 F 68 12 173/81 H 96 Room Air 10/28/24 10:10 63 12 173/79 H 92 Room Air 10/28/24 10:00 67 16 181/81 H 98 Oxymask 10/28/24 09:50 68 16 181/84 H 99 Oxymask 10/28/24 09:42 97.2 F L 69 12 170/87 H 98 Oxymask 10/28/24 06:40 Room Air 10/28/24 06:30 97.9 F 60 20 186/80 H 94 Room Air O2 Flow Rate 10/28/24 11:46 3 10/28/24 10:40 3 10/28/24 10:40 3 10/28/24 10:20 10/28/24 10:10 10/28/24 10:00 3 10/28/24 09:50 6 10/28/24 09:42 6 08/28/25 06:40 10/28/24 06:30 PG Care Time/CCT Total # of Minutes Spent Total Time Spent with Patient: Total time spent is greater than 50% in coordination of care (as documented) at patient's floor/unit and/or counseling patient: Coding Level of Care Code 89505 IN/OBS CONSULT LVL 4,60M Diagnoses Lumbar compression fracture S32.000A Hypertension I10 Type 2 diabetes mellitus, with long-term current use of insulin E11.9; Z79.4 Atrial fibrillation I48.91
[2024-10-28] MEDS: INSULIN, Rapid-Acting PUMP SCH (13:25)
[2024-10-28] MEDS ORDERED: INSULIN, Rapid-Acting PUMP SCH (16:30)
[2024-10-28] MEDS: VENLAFAXINE HCL XR 75 MG CAPXR PO SCH (20:36)
[2024-10-28] MEDS: MIRTAZAPINE TAB 15 MG TAB PO SCH (20:36)
[2024-10-28] MEDS: ATORVASTATIN 40 MG TAB PO SCH (20:36)
[2024-10-28] MEDS: VENLAFAXINE HCL XR 150 MG CAPXR PO SCH (20:36)
[2024-10-28] MEDS: ZINC SULFATE 220 MG CAPSULE PO SCH (20:36)
[2024-10-28] MEDS: ATENOLOL 25 MG TABLET PO SCH (20:36)
[2024-10-28] MEDS: CHOLECALCIFEROL 25 MCG (1000 UNITS) TAB PO SCH (20:36)
[2024-10-28] MEDS: OXYBUTYNIN CHLORIDE XL 5 MG TABCR PO SCH (20:36)
[2024-10-28] MEDS: DOCUSATE SODIUM/SENNA 50/8.6MG TAB PO SCH (20:37)
[2024-10-28] MEDS: FAMOTIDINE 40 MG TABLET PO SCH (20:37)
[2024-10-28] MEDS ORDERED: NON-FORMULARY MEDICATION (Docusate Sodium [Stool Softener] 250 mg Capsule) PO SCH (21:00)
[2024-10-29] MEDS: LEVOTHYROXINE SODIUM 112 MCG TABLET PO SCH (06:20)
[2024-10-29] MEDS: POLYETHYLENE (MIRALAX) 17 GM PACK PO SCH (06:20)
[2024-10-29 06:52] LABS: Hematocrit (blood only) 33.0 % (37.0-47.0); Hemoglobin 10.8 g/dl (12.0-16.0); Immature Granulocytes # (auto) 0.04 K/uL (0.01-0.20); Immature Granulocytes % (auto) 0.5 %; Mean Corpuscular Hemoglobin 28.3 pg (25.0-34.0); Mean Corpuscular Volume 86.6 fL (80.0-100.0); Platelet Count 257 K/uL (130-400); RDW Standard Deviation 71.6 fL (36.4-46.3); Red Blood Count 3.81 M/uL (4.20-5.40); White Blood Count 7.95 K/ul (4.8-10.8)
[2024-10-29 07:14] LABS: Anion Gap 4.0 (3-11); Blood Urea Nitrogen 8.0 mg/dl (6-23); Calcium 8.9 mg/dl (8.6-10.3); Carbon Dioxide 28.0 mmol/L (21-32); Chloride 104.0 mmol/L (98-107); Creatinine Clr Calc Pharmacy 78.8 ml/min; Glucose 100.0 mg/dl (70-99(Fasting)); Potassium 4.3 mmol/L (3.5-5.1); Sodium 136.0 mmol/L (136-145)
[2024-10-29 07:17] LABS: Anisocytosis Present
[2024-10-29] MEDS ORDERED: NON-FORMULARY MEDICATION (Magnesium 250 mg Tablet) PO SCH (09:00)
[2024-10-29] MEDS ORDERED: INSULIN ASPART PER UNIT CHARGE SQ SCH (09:00)
--- NOTE | 2024-10-29 09:03 | Orthopedic Progress Note ---
Date of Service October 29, 2024 Assessment & Plan (1) Lumbar compression fracture: Plan: At this time initiate physical therapy monitor her WIL output. She would be a good candidate for rehab. Admission and Anticipated Discharge Date Admission Date: October 28, 2024 Subjective Patient's back pain is controlled leg symptoms improved. She was up last evening and tolerated this well. Physical Exam Physical Exam: Patient is currently in bed. Comfortable. Distracted testing. Results & Data Vital Signs (Past 12 Hours) Vital Signs Temp Pulse Resp BP Pulse Ox O2 Del Method 10/29/24 07:00 37.0 C 70 18 167/84 H 93 Room Air 10/29/24 03:00 36.3 C L 68 18 131/74 95 CPAP 10/28/24 23:51 36.3 C L 76 18 119/70 94 CPAP Queries Orthopedic Spine Obesity: Yes Vertebral Fracture Secondary to Osteoporosis: Yes
[2024-10-29] MEDS: ASPIRIN 81 MG ECTAB PO SCH (10:34)
[2024-10-29] MEDS: ATENOLOL 25 MG TABLET PO SCH (10:35)
[2024-10-29] MEDS: CEROVITE ADV FORMULA TAB PO SCH (10:35)
[2024-10-29] MEDS: CYANOCOBALAMIN (B-12) 500 MCG TABLET PO SCH (10:35)
[2024-10-29] MEDS: FERROUS SULFATE 325 MG TAB PO SCH (10:35)
--- NOTE | 2024-10-29 18:09 | Hospitalist Progress Note ---
Date of Service October 29, 2024 Assessment & Plan (1) Lumbar compression fracture: (2) Hypertension: (3) Type 2 diabetes mellitus, with long-term current use of insulin: (4) Atrial fibrillation: Plan Kerline is a pleasant 74-year-old woman with PMH of diabetes, hypertension, hyperlipidemia, GERD, anxiety/depression, hypothyroidism, eosinophilic asthma, RAGHAVENDRA, carcinoid tumor of lung (s/p lobectomy 2013, recent CT w/o recurrence), and remote history of provoked LUE DVT in May 2024 from BP cuff during EGD/colonoscopy and completed 3 months of Eliquis and repeat Doppler showed resolution in prior DVT. She presented for a revision procedure with hardware removal L4 kyphoplasty L4 extension fusion L3-S1 with Dr. Lewis on 10/28. Per review of operative report, EBL was listed as 150 cc, and there were no complications noted. #Lumbar compression fracture - Pain control, VTE PPx: Activity level, discharge planning per primary team - Acute blood loss anemia with postoperative hemoglobin 10.8. Stable, no indication for blood transfusion at this time. Continue to monitor #[id number] recent A1c 7.6% in August 2024 - Continue insulin pump and Dexcom - Episode of asymptomatic hypoglycemia 10/29 secondary to basal insulin dose being higher than supposed to; reviewed with ict educator. Proper adjustments made to insulin pump and Dexcom. Continue to use and monitor #CADcontinue aspirin, atenolol, Lipitor #GERDcontinue PPI/Pepcid #Hypothyroidismcontinue levothyroxine #Anxiety/depressioncontinue venlafaxine, Remeron, Ativan as needed #Eosinophilic asthmacontinue nebs/incentive spirometer. Continue [facility] outpatient [facility] medicine will follow peripherally to review labs in morning and ensure no further problems with insulin pump and Dexcom. Please reach out with any questions or concerns. Admission and Anticipated Discharge Date Admission Date: October 28, 2024 Supervising Physician Co-Signing Physician Notes Attending Attestation - Chart reviewed, care plan d/w ALICE Brar. I agree w/ the flores components of her documentation. Manny Cavazos MD Subjective Patient seen and evaluated at bedside. She reports back pain but states this is tolerable with her current pain regimen. Otherwise she denies any additional complaints or concerns at this time. She notes that Dr. Lewis told her she would probably need rehab on discharge from the hospital, but states she did well with therapy so she may be able to return home. Physical Exam Physical Exam: General: No acute distress, nondiaphoretic, well-developed, well-nourished. Skin: Warm, dry. No rashes or peripheral edema noted. Cardiac: Regular rate and rhythm without murmurs gallops or rubs. Pulm: Clear to anterior auscultation bilaterally without wheezes, rales or rhonchi. Normal respiratory effort. 93% on room air. Abdominal: Soft, nontender, nondistended. Neuro: A&O x3. No focal neurological deficits. Results & Data Results & Data Vital Signs (Past 12 Hours) Vital Signs Temp Pulse Resp BP Pulse Ox O2 Del Method 10/29/24 15:14 98.2 F 73 18 148/87 H 93 Room Air 10/29/24 08:00 Room Air, CPAP 10/29/24 07:00 98.6 F 70 18 167/84 H 93 Room Air Laboratory Results Reviewed CBC Reviewed BMP PG Care Time/CCT Total # of Minutes Spent Total Time Spent with Patient: Total time spent is greater than 50% in coordination of care (as documented) at patient's floor/unit and/or counseling patient: Coding Level of Care Code 08894 SUB INP/OBS CARE 2/35MIN Diagnoses Lumbar compression fracture S32.000A Hypertension I10 Type 2 diabetes mellitus, with long-term current use of insulin E11.9; Z79.4 Atrial fibrillation I48.91
[2024-10-30 07:35] LABS: Hematocrit (blood only) 33.1 % (37.0-47.0); Hemoglobin 10.8 g/dl (12.0-16.0); Mean Corpuscular Hemoglobin 28.5 pg (25.0-34.0); Mean Corpuscular Volume 87.3 fL (80.0-100.0); Platelet Count 267 K/uL (130-400); RDW Standard Deviation 71.0 fL (36.4-46.3); Red Blood Count 3.79 M/uL (4.20-5.40); White Blood Count 7.97 K/ul (4.8-10.8)
--- NOTE | 2024-10-30 08:26 | Orthopedic Progress Note ---
Date of Service October 30, 2024 Assessment & Plan (1) Lumbar compression fracture: Plan: Destiny is postoperative day 2 status post hard removal, kyphoplasty and revision fusion L3-S1. Maintain WIL drain. DVT prophylaxis is in the form of teds and SCDs. Continue with aggressive bowel regimen. Continue with ambulation and physical therapy today. Anticipate discharge to [facility] within the next day or 2. Admission and Anticipated Discharge Date Admission Date: October 28, 2024 Subjective Kerline is postoperative day 2 status post hard removal with kyphoplasties and revision fusion. She feels better. Still has some back pain. WIL drain output last shift is 50 cc. H&H this morning are 10.8 and 33.1 respectively. Yesterday in physical therapy she is ambulated 225 feet. No new complaints. Review of Systems Review of Systems: All systems reviewed & are unremarkable except as noted in HPI & below Physical Exam Physical Exam: She is laying in bed in no acute distress Alert and oriented x 3 Lumbar dressing is clean dry and intact with functioning WIL drain Strength intact bilateral lower extremities Results & Data Vital Signs (Past 12 Hours) Vital Signs Temp Pulse Resp BP Pulse Ox O2 Del Method 10/30/24 07:32 37.5 C 72 18 146/83 H 90 Room Air Queries Orthopedic Spine Obesity: Yes Vertebral Fracture Secondary to Osteoporosis: Yes
--- NOTE | 2024-10-30 10:01 | Communication Note ---
Date of Service: October 30, 2024 Chart reviewed. No acute events overnight. Vital signs stable. Afebrile. CBC with stable hemoglobin at 10.8 postoperatively, stable, no indication for blood transfusion, no signs of acute significant bleeding. No leukocytosis. Insulin pump and Dexcom have been functioning appropriately with no further issues. Primary team plans to discharge patient [facility] in the next day or 2. Patient is medically stable for discharge from hospital medicine's perspective. We will sign off at this time. Please reach back out if any questions or con cerns were to arise.
[2024-10-30] MEDS: ACETAMINOPHEN 500 MG TAB PO PRN (21:01)
--- NOTE | 2024-10-30 23:48 | Communication Note ---
Date of Service: October 30, 2024 S/O: Patient noted to have a fever of 38deg C, even 1h after administration of Tylenol, 1000 mg by nurse. Patient was awakened, appeared to be slightly co nfused, thinking that she had had a fever last night too, though it chart documentation did not show that, only noted to have one hour and half prior tonight. Pt was only AAO x 3 (knew she was in [place] but thought she was in other type of health care facility besides a hospital). Dressing was removed, incision site looked at, and noted only to have erythematous margins w/out spreading erythema/induration/swelling; no foul-smelling odors appreciated and no pus of the wound observed. Lungs were CTA bilaterally, HR was RRR, no MRG's. A/P: Patient is s/p L3-L4 fusion along w/ spinal decompression surgery, now almost 2.5 days out. This may just be a normal inflammatory response at this stage with a mild fever. Not concerning yet for a post-surgical infection but patient should continue to be monitored.
--- NOTE | 2024-10-31 07:59 | Orthopedic Progress Note ---
Date of Service October 31, 2024 Assessment & Plan (1) Lumbar compression fracture: Plan: Elsa is postoperative day 3 status post hard removal, revision fusion and kyphoplasty's lumbar spine. Will continue to monitor for any further temperatures today. Will continue with physical therapy. Recommend aggressive incentive spirometry. DVT prophylaxis in the form of teds and SCDs. Maintain WIL drain. [facility]ipate [facility] Admission and Anticipated Discharge Date Admission Date: October 28, 2024 Subjective Elsa is postoperative day 3 status post hard removal and revision fusion with kyphoplasties. She spiked a temperature of 38.0 overnight for about an hour and a half. She was evaluated by the hospitalist team. No further studies or labs ordered. She has no complaints this morning. Pain is controlled. She ambulated 240 feet x 2 in physical therapy yesterday. WIL drain output last shift is 40 cc. She has had a bowel movement. Review of Systems Review of Systems: All systems reviewed & are unremarkable except as noted in HPI & below Physical Exam Physical Exam: She is laying in bed asleep but easily arousable and cooperative and appropriate No complaints this morning Dressing is clean dry and intact with functioning WIL drain Strength intact bilateral lower extremities Results & Data Vital Signs (Past 12 Hours) Vital Signs Temp Pulse Resp BP Pulse Ox O2 Del Method 10/30/24 22:00 38 C H 10/30/24 20:40 37.9 C H 72 18 152/77 H 92 Room Air, CPAP Queries Orthopedic Spine Obesity: Yes Vertebral Fracture Secondary to Osteoporosis: Yes
[2024-10-31] MEDS ORDERED: PHARMACY GLYCEMIC MGMT CONSULT PRN (12:47)
[2024-10-31] MEDS ORDERED: GLUCOSE 10 TAB/TUBE PO PRN (14:30)
[2024-10-31] MEDS ORDERED: GLUCAGON FOR INJ 1 MG VIAL SQ PRN (14:30)
[2024-10-31] MEDS ORDERED: DEXTROSE 50% 50 ML SYRINGE IV PRN (14:30)
[2024-10-31] MEDS ORDERED: GLUCOSE 40% GEL 15 GM TUBE PO PRN (14:30)
[2024-10-31] MEDS ORDERED: CARBOHYDRATES FOR HYPOGLYCEMIA PO PRN (14:30)
--- NOTE | 2024-10-31 14:36 | Pharmacy Report ---
Pharmacy Glycemic Short Note 2 - Date of Service October 31, 2024 - Glycemic Short BSG Results (Last 24 hours): 10/30/24 10/30/24 10/31/24 16:13 21:20 07:51 POC Glucose 168 H 101 H 166 H 10/31/24 11:45 POC Glucose 248 H OUTPATIENT ANTIDIABETIC REGIMEN: * Omnipod5 insulin pump * basal = 1.7 units/hr x 24 hours * ICR = 4.5 * ISF= 17, BG correction threshold 120 mg/dL * TDD ~ 65 units/day A1c = 7.6% ASSESSMENT: * Kerline is a 74 yo T2DM admitted for lumbar compression fracture. She is POD #3 s/p hard removal, kyphoplasty and revision fusion L3-S1. * Pharmacy was consulted to transition patient from home insulin pump to SQ basal + bolus insulin due to pump issues. OmniPod controller is not connecting to new Pod - company is sending her a new controller that should arrive on Friday. * Will give a one time dose of Lantus 32 units (~20% dose reduction compared to home basal rate). * Novolog correction factor and carb ratio selected based on home pump settings. PLAN FOR INPATIENT GLYCEMIC CONTROL: * Disconnect insulin pump * Basal insulin * Lantus 32 units SQ x 1 - further dosing TBD on 11/01 * Bolus insulin * NovoLog per scale ACHS or Q6hrs while NPO * Goal Range: Low 120 mg/dL - High 150 mg/dL * Correction Factor: 20 mg/dL/unit * Nutritional / Prandial insulin per carb ratio of 1 unit per 5 grams CHO consumed
[2024-10-31] MEDS: LANTUS PER UNIT CHARGE SC ONE (15:19)
[2024-10-31] MEDS: LORazepam 0.5 MG TAB PO PRN (15:26)
[2024-10-31] MEDS: INSULIN ASPART PER UNIT CHARGE SC SCH (17:29)
[2024-11-01 07:14] VITALS: BP 130/80; PULSE 67; RESP 16; TEMP 99.1; O2SAT 90
--- NOTE | 2024-11-01 10:42 | Discharge Summary ---
Date of Service November 01, 2024 Admission HPI Per Admitting Provider This is a 74-year-old female that presents postoperatively with a compression fracture of L4 and marked increase in back and bilateral leg pain and is here for revision procedure. Principal Diagnosis Lumbar compression fracture Discharge Data Allergies Allergy/AdvReac Type Severity Reaction Status Date / Time clindamycin Allergy Intermediate Hives Verified 10/28/24 06:29 sulfamethoxazole [Bactrim] Allergy Intermediate Hives Verified 10/28/24 06:29 trimethoprim [Bactrim] Allergy Intermediate Hives Verified 10/28/24 06:29 dulaglutide [From Trulicity] AdvReac Intermediate Abdominal Verified 10/28/24 06:29 Pain amoxicillin [From Augmentin] AdvReac Mild Nausea Verified 10/28/24 06:29 clavulanic acid AdvReac Mild N/V Verified 10/28/24 06:29 gabapentin AdvReac Mild Depression Verified 10/28/24 06:29 Consultations 10/28/24 11:26 Consult Hospitalist Routine Procedures Performed Operation Date: 10/28/24 07:45 Actual Procedures p L3-S1 Extension Fusion(Not Applicable) - DO lai Peres L4 Kyphoplasty - DO lai Peres L4 Hardware Removal,(Not Applicable) - Jose Angel Lewis DO Ordered Studies 10/28/24 07:45 FL lumbar spine 2-3V Routine Hospital Course (1) Lumbar compression fracture: Patient went revision decompression kyphoplasty and fusion tolerated this well stay to orthopedic floor postoperative. Postop she has progressed appropriately. Marked improvement in her ambulation and leg symptoms. WIL drain decreasing appropriately. Excellent strength testing. Subsidy discharged home. Discharge orders and instructions found in chart for further review. Total Time Total Time Spent Total Time Spent (In Minutes): 20 minutes Discharge Plan Discharge Items Patient Disposition: Transfer Inpatient Rehab Fac Reason For Visit: Painful Orthopedic Hardware, Spinal Stenosis Lumba Discharge Diagnosis: L4 fracture Activity: As commented below Non-emergency contact: Primary Care Provider Call non-emergency contact if: you have any medication questions Follow-up/Referrals: Maria D Laboy MD [Primary Care Provider] - Diet: Regular Addtl Attending Provider Instructions: ACTIVITY RECOMMENDATIONS: SELF CARE INSTRUCTIONS AFTER THORACIC/LUMBAR FUSIONS 1. You may walk to your tolerance. It is good exercise for your legs and back. Expect some back and intermittent leg aches and pains. 2. You may perform "counter-top" level activities (make a sandwich, qi with a project, etc.). 3. No bending or lifting of more than 10 pounds or back twisting of any nature (roll like a log when turning in bed). 4. You may ride in a car for 20-30 minutes at a time. No driving until after your first visit with your doctor. 5. Frequent changes of position and restricting sitting to 30 minutes at a time will help limit the amount of back spasms and stiffness you may experience. 6. You may discontinue the use of ambulatory aids (cane, crutches, etc.) once your strength and confidence allow. 7. You may zoo veterinarian the shower and let water strike your incision when you arrive home at least once daily. Do not take a tub bath, sit in a hot tub or go into a swimming pool until after your first recheck in the office. 8. You may resume previous diet. SPECIAL CARE INSTRUCTIONS: VERY IMPORTANT TO READ AND REVIEW A. Your surgical incision has been closed with a cosmetic suture under the skin that will dissolve in about 6 weeks. In 14 days, you can use a pair of clean scissors and cut the suture that is left outside of the skin at the ends of your incision. 1. The small skin tapes can be removed 7 days after surgery if they have not fallen off by that point. 2. You may keep the wound open to air as much as possible to promote healing after post-op day number 5 unless told otherwise by your doctor. 3. If you think the wound looks like it is becoming infected (redness or worsening drainage) and/or you are experiencing fever, chill or worsening back pain and muscle spasms, contact the office so that we may evaluate you as soon as possible. B. Complications are uncommon, but please contact us if you have any signs or symptoms of: 1. wound infection (fever higher than 102.5 degrees F, redness, separation of wound, drainage, or increasing pain from the incision) 2. blood clots in legs (pain, swelling, redness and warmth in legs) 3. urinary tract infection (fever higher than 102.5 degrees F, burning upon urination or increased frequency of urination) 4. nerve problems (inability to walk on your toes or heels, numbness, loss of bowel or bladder control) 5. any other symptoms that concern you C. Please call the office at if you have any concerns or questions about your operation or recovery. D. No smoking! Smoking drastically decreases the chance of a solid fusion. E. Do not take any anti-inflammatory medications (Indocin, Advil, Motrin, Aspirin, Naprosyn, etc.) as these may inhibit the chance of a solid fusion. Tylenol is okay to take for pain. MANAGING PAIN AFTER SPINAL SURGERY 1. Narcotic medication is intended for short-term use and will be provided for surgical pain. Surgical pain usually lasts for a period of 4-6 weeks. Narcotic medication includes Percocet, Vicodin, Darvocet, Tylenol #3 or Lortab. 2. Longer-term pain is more appropriately treated with non-narcotic medication such as Tylenol ES. 3. Muscle spasm is not appropriately treated with narcotics. Muscle relaxers such as Soma, Flexeril or Skelaxin can be used along with Tylenol ES. 4. Remember that we all live with some "aches and pains". This is not unusual or uncommon after an injury or as we get older. a. Back pain is expected and may include muscle spasms for 4 to 6 weeks after surgery. The pain should gradually improve. If the pain worsens for no apparent reason, please contact the office. b. Intermittent leg pain may also be experienced and should not be concerned about unless it worsens for no apparent reason. If so, please contact the office. 5. We will provide appropriate medication within the normal guidelines of their prescribed use. We will also be very cautious and aware of potential abuse and extended duration of patients' medication needs. a. Pain medications are for your comfort and to assist with sleep and rest so that the tissue can heal. They are not provided in order to return to normal activity and should not be used through the day. To do so or worsening pain at night can result from ongoing tissue damage and development of tolerance to the prescribed medicine. 6. Please allow 2-3 days to process refills. Prescriptions will not be mailed but must be picked up at the office. FOLLOW UP VISIT: Keep your scheduled follow-up appointment. Any questions, please call the office at . Pending Studies at Discharge: No Stand-Alone Forms: My [facility] Skilled Items Patient informed of condition?: Yes DNR: No Discharge Level of Care: Acute rehab Communicable Disease: No Discharge Prognosis: Improving Lines: None Urinary Catheter: No Medications and DC Order Prescriptions: New tramadol 50 mg tablet 50 mg PO Q6H PRN (Reason: pain, moderate) Qty: 30 0RF oxycodone 5 mg tablet 5 mg PO Q6H PRN (Reason: pain) Qty: 30 0RF Continued (DME) pen needle, diabetic [Pen Needle] 32 gauge x 5/32" needle See Rx Instructions .Route Qty: 400 3RF Rx Instructions: Inject 4 times daily (DME) Omnipod 5 G6 Intro Kit (Gen 5) Cartridge See Rx Instructions .Route Qty: 1 0RF Rx Instructions: controller for use with omnipod 5 cartridges Fasenra Pen 30 mg/mL auto-injector 30 mg SQ .COMPLEX Qty: 1 6RF Rx Instructions: Inject 30mg SQ every 8 weeks APPROVED through Denys Gallardo 03/03/24-04/05/25 insulin aspart U-100 [Novolog U-100 Insulin aspart] 100 unit/mL solution See Rx Instructions subcut DAILY Qty: 80 3RF Patient Comments: disconnected pump for procedure. BSG 218 currently with Dexcon. Rx Instructions: up to 80 units a day via insulin pump subcutaneously daily; (DME) Omnipod 5 G6-G7 Pods (Gen 5) Cartridge See Rx Instructions .Route Qty: 20 11RF Rx Instructions: Change pod every 1.5 days metformin 1,000 mg tablet 1,000 mg PO BID Qty: 180 3RF Rx Instructions: TAKE 1 TABLET BY MOUTH TWICE A DAY venlafaxine 75 mg capsule,extended release 24hr 75 mg PO QPM Qty: 90 3RF Rx Instructions: Take with 75 mg capsule for a total of 225 mg daily. mirtazapine [Remeron] 15 mg tablet 15 mg PO HS Qty: 90 1RF atorvastatin 40 mg tablet 40 mg PO HS Qty: 90 3RF solifenacin [Vesicare] 10 mg tablet 10 mg PO HS Qty: 90 3RF omeprazole 40 mg capsule,delayed release(DR/EC) 40 mg PO QAM Qty: 90 1RF (DME) Prodigy No Coding Strip See Rx Instructions .ROUTE .MEDSUPPLY Qty: 10 Rx Instructions: test 4 times daily (DME) CPAP Machine Misc See Rx Instructions .ROUTE .MEDSUPPLY Qty: 1 0RF Rx Instructions: Please change her CPAP to Autotitration mode with a setting of 5 - 15 cm H2O. Last download was not in target range. Lifetime need nitroglycerin 0.4 mg tablet, sublingual 0.4 mg SL Q5M PRN (Reason: Chest Pain) Qty: 25 0RF zinc 50 mg tablet 50 mg PO HS (DME) Dexcom G7 Sensor Device See Rx Instructions .Route Patient Comments: 10/11 - Reported by pt Rx Instructions: As directed alprazolam [Xanax] 0.5 mg tablet 0.5 mg PO QAM PRN (Reason: anxiety) Qty: 30 0RF lutein-zeaxanthin [Ocuvite Blue Light] 25-5 mg capsule 1 cap PO DAILY oxycodone 5 mg tablet 5 mg PO Q6H PRN (Reason: pain) Qty: 10 0RF cyanocobalamin (vitamin B-12) [Vitamin B-12] 1,000 mcg Tablet 1,000 mcg PO QAM magnesium 250 mg Tablet 250 mg PO QAM docusate sodium [Stool Softener] 250 mg Capsule 250 mg PO BID cholecalciferol (vitamin D3) [Vitamin D3] 1,000 unit Capsule 1,000 unit PO QPM Patient Comments: 2 weeks prior to sx on 10/03/24 will be starting [address] Lewis, and will continue for 6 weeks after sx. omega-3 fatty acids 500 mg Capsule 500 mg PO QAM ipratropium-albuterol 0.5 mg-3 mg(2.5 mg base)/3 mL solution for nebulization 3 ml inhalation Q6H PRN (Reason: Shortness Of Breath Or Wheezing) aspirin 81 mg Capsule 81 mg PO QAM atenolol 25 mg tablet 25 - 50 mg PO UD Rx Instructions: 50 MG IN AM, 25 MG IN PM orally daily; levothyroxine 112 mcg tablet 112 mcg PO QAM Rx Instructions: Take one tablet in AM 30-45 minutes before meals and other medications. ferrous sulfate 142 mg (45 mg iron) Tablet Extended Release 142 mg PO QAM hydrocortisone 2.5 % cream with perineal applicator 1 applic TN BID PRN (Reason: hemorrhoids) famotidine [Pepcid] 40 mg tablet 40 mg PO BID venlafaxine [Effexor XR] 150 mg capsule,extended release 24hr 150 mg PO QPM Rx Instructions: TAKE 1 CAPSULE BY MOUTH AT BEDTIME TAKE WITH 75 MG CAPSULE FOR A TOTAL OF 225 MG DAILY. tramadol 50 mg tablet 50 mg PO Q6H PRN (Reason: pain, moderate) Qty: 30 0RF Discharge Orders: Discharge Order (Routine); Ordered 11/01/24 Ordered By: Jose Angel Lewis Admission Data Admit Date/Time: 10/28/24 09:40 Attending Provider: Jose Angel Lewis Admit Provider: Jose Angel Lewis Primary Care Provider: Maria D Laboy Other Providers: Manny Cavazos; Laura,Home Health; [facility]
[2024-11-01] MEDS: LANTUS PER UNIT CHARGE SC ONE (12:41)
== END 2024-11-01 14:48 | DRG 402 ==
LOC: ASU 06:14 → 3N 09:40
DX: Y79.2 Prosthetic and other implants, materials and accessory orthopedic devices associated with adverse incidents; I10 Essential (primary) hypertension; K21.9 Gastro-esophageal reflux disease without esophagitis; Z79.82 Long term (current) use of aspirin; Z79.4 Long term (current) use of insulin; S32.040A Wedge compression fracture of fourth lumbar vertebra, initial encounter for closed fracture; I25.10 Atherosclerotic heart disease of native coronary artery without angina pectoris; X58.XXXA Exposure to other specified factors, initial encounter; Z88.1 Allergy status to other antibiotic agents; E11.42 Type 2 diabetes mellitus with diabetic polyneuropathy; Z85.110 Personal history of malignant carcinoid tumor of bronchus and lung; E03.9 Hypothyroidism, unspecified; Z88.2 Allergy status to sulfonamides; Z99.81 Dependence on supplemental oxygen; Y92.009 Unspecified place in unspecified non-institutional (private) residence as the place of occurrence of the external cause; Z98.1 Arthrodesis status; I48.91 Unspecified atrial fibrillation; M47.27 Other spondylosis with radiculopathy, lumbosacral region; R50.82 Postprocedural fever; T84.296A Other mechanical complication of internal fixation device of vertebrae, initial encounter; Z79.85 Long-term (current) use of injectable non-insulin antidiabetic drugs; F41.8 Other specified anxiety disorders; F32.9 Major depressive disorder, single episode, unspecified; Z87.891 Personal history of nicotine dependence; J82.83 Eosinophilic asthma; Z96.41 Presence of insulin pump (external) (internal); Z79.84 Long term (current) use of oral hypoglycemic drugs